=== PATIENT | male | born 1965 | race Hispanic/Latino ===

== ENCOUNTER 2018-04-18 02:41 | Inpatient (IN) | payer BC, SELFPAY ==
[2018-04-18 03:43] LABS: Absolute Lymphocytes (CBC) 1.2 K/uL (0.7-4.9); Absolute Monocytes 0.6 K/uL (0.1-1.3); Absolute Neutrophil 4.8 K/uL (1.8-8.0); Basophils % 0.6 % (0-1.3); Eosinophils % 7.9 % (0-4.4); Hematocrit 40.3 % (39.6-49.0); MCH 30.2 pg (27.0-35.0); MCV 88.2 fL (80-100); MPV 7.7 fL (7.6-11.3); Monocytes % 8.7 % (3.3-12.3); RBC Red Blood Cell Count 4.57 M/uL (4.33-5.43)
[2018-04-18 03:44] LABS: ALT/SGPT 24 IU/L (10-60); AST/SGOT 61 IU/L (10-42); Albumin 3.8 g/dL (3.2-5.5); Alkaline Phosphatase 79 IU/L (42-121); Bilirubin Direct < 0.1 mg/dL (0-0.2); Bilirubin Total 0.5 mg/dL (0.3-1.2); Magnesium 1.9 mg/dL (1.8-2.5); Protein, Total 7.5 g/dL (6.0-8.3)
[2018-04-18 03:55] LABS: Potassium 3.5 mEq/L (3.6-5.0)
[2018-04-18] MEDS ORDERED: HEPARIN 5000 UNIT/ML 1 ML VIAL ONE (04:03)
[2018-04-18] MEDS ORDERED: HEPARIN/D5W 25,000 UNIT/500 ML BAG IV ONE (04:08)
[2018-04-18] MEDS ORDERED: ASPIRIN 325 MG TAB ONE (04:30)
[2018-04-18 04:55] LABS: A1c Component 0.52 mg/dL; Hemoglobin A1c 5.5 % (4-6.0)
--- NOTE | 2018-04-18 05:37 | EDPHYS ---
Physician Documentation [facility] Name: Crispin Simmons Age: 52 yrs Sex: Male : 1965 Arrival Date: 04/18/2018 Time: 02:42 Bed 20 Private MD: Shanon De Luna H ED Physician Jaiden Amaya HPI: 04/18 03:11 This 52 yrs old Male presents to ER via Ambulatory with complaints of ps1 Shortness Of Breath. 03:11 pt has a hx of HTN, DMII, and recent leg and lower extremity swelling. Was put on ps1 meloxicam per PCP and stopped about a week ago because he started feeling shortness of breath. He additionally states that he has had a dry cough and lymph node swelling in the neck. No fevers. States that his shortness of breath is exertional with walking the length of the driveway or coming into the ED from his car. No chest pain. . Historical: - Allergies: 02:56 No Known Allergies; fc - Home Meds: 02:56 glimepiride 2 mg Oral tab 1 tab twice a day [Active]; metformin 500 mg Oral tab 1 tab 2 fc times per day [Active]; meloxicam 15 mg oral tab 1 tab once daily [Active]; - PMHx: 02:56 Diabetes - NIDDM; fc - PSHx: 02:56 None; fc - Immunization history:: Last tetanus immunization: unknown. - Social history:: Smoking status: Patient uses tobacco products, smokes one-half pack cigarettes per day, Patient uses alcohol, on a daily basis. Patient/guardian denies using street drugs. - Ebola Screening: : Patient negative for fever greater than or equal to 101.5 degrees Fahrenheit, and additional compatible Ebola Virus Disease symptoms Patient denies exposure to infectious person Patient denies travel to an Ebola-affected area in the 21 days before illness onset. ROS: 03:11 Constitutional: Negative for fever, chills, and weight loss, Eyes: Negative for injury, ps1 pain, redness, and discharge, Cardiovascular: Negative for chest pain, palpitations, and edema, Abdomen/GI: Negative for abdominal pain, nausea, vomiting, diarrhea, and constipation, Back: Negative for injury and pain, MS/Extremity: Negative for injury and deformity, Skin: Negative for injury, rash, and discoloration, Neuro: Negative for headache, weakness, numbness, tingling, and seizure. 03:11 Respiratory: Positive for cough, shortness of breath, on exertion. Exam: 03:11 Constitutional: This is a well developed, well nourished patient who is awake, alert, ps1 and in no acute distress. Head/Face: Normocephalic, atraumatic. Eyes: Pupils equal round and reactive to light, extra-ocular motions intact. Lids and lashes normal. Conjunctiva and sclera are non-icteric and not injected. Chest/axilla: Normal chest wall appearance and motion. Nontender with no deformity. No lesions are appreciated. Respiratory: Lungs have equal breath sounds bilaterally, clear to auscultation and percussion. No rales, rhonchi or wheezes noted. No increased work of breathing, no retractions or nasal flaring. Abdomen/GI: Soft, non-tender, with normal bowel sounds. No distension or tympany. No guarding or rebound. No evidence of tenderness throughout. Back: No spinal tenderness. No costovertebral tenderness. Full range of motion. MS/ Extremity: Pulses equal, no cyanosis. Neurovascular intact. Full, normal range of motion. Neuro: Awake and alert, GCS 15, oriented to person, place, time, and situation. Cranial nerves II-XII grossly intact. Sensory grossly intact. Psych: Awake, alert, with orientation to person, place and time. Behavior, mood, and affect are within normal limits. 03:11 Cardiovascular: Rate: tachycardic, Rhythm: regular, Edema: 1+ edema to level of left ankle and right ankle, JVD: is not appreciated. Vital Signs: 02:51 BP 165 / 94; Pulse 109; Resp 24; Temp 98.8(O); Pulse Ox 95% on R/A; Weight 99.79 kg fc (R); Height 5 ft. 7 in. (170.18 cm) (R); Pain 3/10; 02:55 Pulse Ox 98% on R/A; jd3 03:30 BP 153 / 96; Pulse 94; Resp 17 S; Pulse Ox 95% on R/A; jd3 03:56 Weight 95.39 kg (M); ak1 04:30 BP 153 / 91; Pulse 100; Resp 20 S; Pulse Ox 96% on R/A; jd3 05:36 BP 151 / 95; Pulse 92; Resp 16 S; Pulse Ox 95% on R/A; Pain 1/10; jd3 06:44 BP 153 / 96; Pulse 94; Resp 18 S; Pulse Ox 98% on R/A; jd3 07:00 BP 132 / 90; Pulse 90; Resp 18; Pulse Ox 98% ; Pain 0/10; jl7 03:56 Body Mass Index 32.94 (95.39 kg, 170.18 cm) ak1 MDM: 03:10 Patient medically screened. ps1 05:39 Data reviewed: vital signs, nurses notes, lab test result(s), EKG, radiologic studies. ps1 ED course: patient heparinized for suspected PE. CTA negative for PE. Dropped IV rate to 1000U per hour. Admitted to hospital with dx of NSTEMI. . 04/18 03:07 Order name: BNP; Complete Time: 04:12 ps1 04/18 03:07 Order name: CBC with Diff; Complete Time: 03:54 [facility] 04/18 03:07 Order name: LFT's; Complete Time: 03:54 [facility] 04/18 03:07 Order name: Magnesium; Complete Time: 03:54 [facility] 04/18 03:07 Order name: Troponin (emerg Dept Use Only); Complete Time: 03:54 [facility] 04/18 03:07 Order name: D-Dimer; Complete Time: 03:46 ps1 04/18 03:46 Interpretation: Abnormal. [facility] 04/18 03:07 Order name: Hemoglobin A1c; Complete Time: 05:08 [facility] 04/18 03:07 Order name: Strep; Complete Time: 03:54 [facility] 04/18 03:44 Order name: Throat Culture EDIA 04/18 03:48 Order name: Basic Metabolic Panel; Complete Time: 04:12 EDIA 04/18 06:19 Order name: Urine Dipstick--Ancillary (enter results) oe 04/18 06:36 Order name: BNP B-Type Natriuretic Peptide EDIA 04/18 06:36 Order name: Lipid Profile EDIA 04/18 03:07 Order name: XRAY Chest (1 view) [facility] 04/18 03:07 Order name: EKG; Complete Time: 03:08 ps1 04/18 03:07 Order name: Cardiac monitoring; Complete Time: 03:16 [facility] 04/18 03:07 Order name: EKG - Nurse/Tech; Complete Time: 03:16 ps1 04/18 03:07 Order name: IV Saline Lock; Complete Time: 03:16 ps1 04/18 03:46 Order name: CT Chest For PE Angio ps1 04/18 06:36 Order name: CONS Physician Consult EDIA 04/18 06:36 Order name: Echo with Doppler EDMS 04/18 06:36 Order name: Lipid Profile EDIA 04/18 06:36 Order name: Troponin I EDIA 04/18 06:36 Order name: Troponin I EDIA 04/18 06:36 Order name: Troponin I EDIA 04/18 06:39 Order name: CONS Physician Consult EDIA 04/18 03:07 Order name: Labs collected and sent; Complete Time: 03:16 ps1 04/18 03:07 Order name: O2 Per Protocol; Complete Time: 03:17 ps1 04/18 03:07 Order name: O2 Sat Monitoring; Complete Time: 03:17 ps1 04/18 03:07 Order name: Urine Dipstick-Ancillary (obtain specimen); Complete Time: 06:18 ps1 EC:13 Rate is 102 beats/min. Rhythm is regular. QRS [place] is Normal. AL interval is normal. ps1 QRS interval is normal. QT interval is normal. Q waves are Present in leads II, III, aVF. T waves are Normal. No ST changes noted. Clinical impression: Sinus Tachycardia with non-specific T wave abnormalities. Interpreted by me. Administered Medications: 04:20 Drug: Heparin (DVT/PE- Bolus per protocol) - HEParin 80 units/kg {Co-Signature: catie jjulita (Beatris Huffman RN).} Route: IVP; Site: right antecubital; 06:53 Follow up: Response: No adverse reaction jd3 04:21 Drug: Heparin (DVT/PE Drip) 18 units/kg/hr - (HEParin 96283 units, D5W 500 ml) jd3 {Co-Signature: bs1 (Beatris Huffman RN).} Route: IV; Rate: bolus; Site: right antecubital; 06:54 Follow up: IV Status: Infusion continued upon admission jd3 07:46 Follow up: IV Status: Infusion continued upon admission jl7 04:29 Drug: Aspirin 325 mg Route: PO; jd3 06:51 Follow up: Response: No adverse reaction jd3 Disposition: 05:39 Critical Care:. ps1 Disposition: 04/18/18 05:36 Hospitalization ordered by Janis Ceja for Inpatient Admission. Preliminary diagnosis is Non-ST elevation (NSTEMI) myocardial infarction. - Bed requested for Intensive Care Unit. - Status is Inpatient Admission. jl7 - Condition is Serious. - Problem is new. - Symptoms are unchanged. UTI on Admission? No Critical care time excluding procedures: 05:39 Critical care time: Bedside Care: 25 minutes, Consultation: 10 minutes. Total time: 35 ps1 minutes Signatures: Dispatcher [employer] EDIA Fabian Mendoazburn rg2 Dorothea Preston, RN RN fc Lorri Gong RN RN jl7 Bob Livingston RN RN jd3 Jaiden Amaya MD MD ps1 Beatris Huffman RN bs1 Corrections: (The following items were deleted from the chart) 03:48 03:45 COMPREHENSIVE METABOLIC PANEL+C.LAB.BRZ ordered. [facility] EDIA 05:39 05:36 Hospitalization Ordered by Janis Ceja MD for Inpatient Admission. Preliminary ps1 diagnosis is Non-ST elevation (NSTEMI) myocardial infarction. Bed requested for Telemetry/MedSurg (Inpatient). Status is Inpatient Admission. Condition is Serious. Problem is new. Symptoms are unchanged. UTI on Admission? No. ps1 06:25 05:39 04/18/2018 05:36 Hospitalization Ordered by Janis Ceja MD for Inpatient rg2 Admission. Preliminary diagnosis is Non-ST elevation (NSTEMI) myocardial infarction. Bed requested for Intensive Care Unit. Status is Inpatient Admission. Condition is Serious. Problem is new. Symptoms are unchanged. UTI on Admission? No. ps1 07:48 06:25 04/18/2018 05:36 Hospitalization Ordered by Janis Ceja MD for Inpatient jl7 Admission. Preliminary diagnosis is Non-ST elevation (NSTEMI) myocardial infarction. Bed requested for Intensive Care Unit. Status is Inpatient Admission. Condition is Serious. Problem is new. Symptoms are unchanged. UTI on Admission? No. rg2
--- NOTE | 2018-04-18 05:37 | ER ---
Nurse's Notes [facility] Name: Crispin Simmons Age: 52 yrs Sex: Male : 1965 Arrival Date: 04/18/2018 Time: 02:42 Bed 20 Private MD: Shanon De Luna H Diagnosis: Non-ST elevation (NSTEMI) myocardial infarction Presentation: 04/18 02:51 Presenting complaint: Patient states: that since yesterday he has been "gasping" for air. Got worse today and now his throat feels tight. Has cough when he lays down flat. Transition of care: patient was not received from another setting of care. Onset of symptoms was April 17, 2018. Risk Assessment: Do you want to hurt yourself or someone else? Patient reports no desire to harm self or others. Initial Sepsis Screen: Does the patient meet any 2 criteria? HR > 90 bpm. No. Patient's initial sepsis screen is negative. Does the patient have a suspected source of infection? No. Patient's initial sepsis screen is negative. Care prior to arrival: None. 02:51 Method Of Arrival: Ambulatory 02:51 Acuity: CHRIS 3 fc Historical: - Allergies: 02:56 No Known Allergies; fc - Home Meds: 02:56 glimepiride 2 mg Oral tab 1 tab twice a day [Active]; metformin 500 mg Oral tab 1 tab 2 fc times per day [Active]; meloxicam 15 mg oral tab 1 tab once daily [Active]; - PMHx: 02:56 Diabetes - NIDDM; fc - PSHx: 02:56 None; fc - Immunization history:: Last tetanus immunization: unknown. - Social history:: Smoking status: Patient uses tobacco products, smokes one-half pack cigarettes per day, Patient uses alcohol, on a daily basis. Patient/guardian denies using street drugs. - Ebola Screening: : Patient negative for fever greater than or equal to 101.5 degrees Fahrenheit, and additional compatible Ebola Virus Disease symptoms Patient denies exposure to infectious person Patient denies travel to an Ebola-affected area in the 21 days before illness onset. Screenin:54 Abuse screen: Denies threats or abuse. Nutritional screening: No deficits noted. Tuberculosis screening: No symptoms or risk factors identified. 02:56 Fall Risk Ambulatory Aid- None/Bed Rest/Nurse Assist (0 pts). Gait- Normal/Bed jd3 Rest/Wheelchair (0 pts) Mental Status- Oriented to own ability (0 pts). Total Cleary Fall Scale indicates No Risk (0-24 pts). Assessment: 02:52 General: Appears uncomfortable, Behavior is calm, cooperative, appropriate for age. jd3 Pain: Complains of pain in left index finger Pain currently is 3 out of 10 on a pain scale. Quality of pain is described as aching. Neuro: Level of Consciousness is awake, alert, obeys commands, Oriented to person, place, time, situation, Appropriate for age. Cardiovascular: Heart tones S1 S2 present Capillary refill < 3 seconds Patient's skin is warm and dry. Rhythm is sinus tachycardia. Respiratory: Reports shortness of breath when lying down cough that is productive, Airway is patent Respiratory effort is even, unlabored, Respiratory pattern is regular, symmetrical, Breath sounds are clear bilaterally. GI: No signs and/or symptoms were reported involving the gastrointestinal system. : No signs and/or symptoms were reported regarding the genitourinary system. EENT: No signs and/or symptoms were reported regarding the EENT system. Derm: Skin is intact, Skin is dry, Skin is normal, Skin temperature is warm. Musculoskeletal: Circulation, motion, and sensation intact. Range of motion: intact in all extremities. 03:30 Reassessment: Patient appears in no apparent distress at this time. Patient and/or jd3 family updated on plan of care and expected duration. Pain level reassessed. Patient is alert, oriented x 3, equal unlabored respirations, skin warm/dry/pink. 04:35 Reassessment: Patient appears in no apparent distress at this time. Patient and/or jd3 family updated on plan of care and expected duration. Pain level reassessed. Patient is alert, oriented x 3, equal unlabored respirations, skin warm/dry/pink. 05:35 Reassessment: Patient appears in no apparent distress at this time. Patient and/or jd3 family updated on plan of care and expected duration. Pain level reassessed. Patient is alert, oriented x 3, equal unlabored respirations, skin warm/dry/pink. 06:45 Reassessment: Patient appears in no apparent distress at this time. Patient and/or jd3 family updated on plan of care and expected duration. Pain level reassessed. Patient is alert, oriented x 3, equal unlabored respirations, skin warm/dry/pink. waiting for after shift change to call report. 07:00 Reassessment: Patient and/or family updated on plan of care and expected duration. Pain jl7 level reassessed. Patient is alert, oriented x 3, equal unlabored respirations, skin warm/dry/pink. Patient denies pain at this time. Vital Signs: 02:51 BP 165 / 94; Pulse 109; Resp 24; Temp 98.8(O); Pulse Ox 95% on R/A; Weight 99.79 kg fc (R); Height 5 ft. 7 in. (170.18 cm) (R); Pain 3/10; 02:55 Pulse Ox 98% on R/A; jd3 03:30 BP 153 / 96; Pulse 94; Resp 17 S; Pulse Ox 95% on R/A; jd3 03:56 Weight 95.39 kg (M); ak1 04:30 BP 153 / 91; Pulse 100; Resp 20 S; Pulse Ox 96% on R/A; jd3 05:36 BP 151 / 95; Pulse 92; Resp 16 S; Pulse Ox 95% on R/A; Pain 1/10; jd3 06:44 BP 153 / 96; Pulse 94; Resp 18 S; Pulse Ox 98% on R/A; jd3 07:00 BP 132 / 90; Pulse 90; Resp 18; Pulse Ox 98% ; Pain 0/10; jl7 03:56 Body Mass Index 32.94 (95.39 kg, 170.18 cm) ak1 ED Course: 02:42 Patient arrived in ED. am2 02:42 Shanon De Luna DO is Private Physician. am2 02:51 Arm band placed on Patient placed in an exam room, on a stretcher. fc 02:52 Bob Livingston RN is Primary Nurse. jd3 02:52 Jaiden Amaya MD is Attending Physician. ps1 02:52 Triage completed. fc 02:54 Patient has correct armband on for positive identification. Bed in low position. Call fc light in reach. Side rails up X 1. 03:11 Inserted saline lock: 20 gauge in right antecubital area, using aseptic technique. jd3 Blood collected. 03:41 X-ray completed. Portable x-ray completed in exam room. Patient tolerated procedure kw well. 03:44 Notified ED physician of a critical lab result(s). D-dimer 1227. bs1 03:50 Notified ED physician of a critical lab result(s). 4.07 trop. ak1 04:27 CT Chest For PE Angio In Process Unspecified. EDMS 05:36 Janis Ceja MD is Hospitalizing Provider. ps1 06:14 XRAY Chest (1 view) In Process Unspecified. EDMS 07:14 Primary Nurse role handed off by Bob Livingston RN bd 07:45 Lorri Gong RN is Primary Nurse. jl7 07:47 No provider procedures requiring assistance completed. Patient admitted, IV remains in jl7 place. intact, No redness/swelling at site. Administered Medications: 04:20 Drug: Heparin (DVT/PE- Bolus per protocol) - HEParin 80 units/kg {Co-Signature: [email or web address] alfredo (Beatris Huffman RN).} Route: IVP; Site: right antecubital; 06:53 Follow up: Response: No adverse reaction jd3 04:21 Drug: Heparin (DVT/PE Drip) 18 units/kg/hr - (HEParin 02503 units, D5W 500 ml) jd3 {Co-Signature: bs1 (Beatris Huffman RN).} Route: IV; Rate: bolus; Site: right antecubital; 06:54 Follow up: IV Status: Infusion continued upon admission jd3 07:46 Follow up: IV Status: Infusion continued upon admission jl7 04:29 Drug: Aspirin 325 mg Route: PO; jd3 06:51 Follow up: Response: No adverse reaction jd3 Outcome: 05:36 Decision to Hospitalize by Provider. ps1 07:47 Admitted to ICU accompanied by nurse, accompanied by tech, family with patient, via jl7 wheelchair, room 2, on monitor, with chart, Report called to RONEL Jose 07:47 Condition: stable 07:47 Discharge instructions given to patient, family, Instructed on the need for admit, Demonstrated understanding of instructions. 07:48 Patient left the ED. jl7 Signatures: Dispatcher [employer] EDDemetria Oliveros Felicia, RN RN fc Celena Sharma Amber, RN RN ak1 Lorri Gong RN RN jl7 Dimple Jenkins am2 Bob Livingston RN RN jd3 Jaiden Amaya MD MD ps1 Salazar, Brittany, RN RN bs1 Beatris Huffman RN bs1 Corrections: (The following items were deleted from the chart) 03:18 02:52 Cardiovascular: Heart tones S1 S2 present Capillary refill < 3 seconds Patient's jd3 skin is warm and dry. jd3
[2018-04-18 06:21] LABS: Urine Blood 2+ (NEG); Urine Glucose NEGATIVE (NEG); Urine Protein 3+ (NEG); Urine Specific Gravity 1.025 (1.005-1.030); Urine pH 5.5 (5.0-7.0)
[2018-04-18] MEDS ORDERED: ACETAMINOPHEN 500 MG TAB PO PRN (06:30)
[2018-04-18] MEDS ORDERED: ONDANSETRON 4 MG/2 ML VIAL IV PRN (06:30)
[2018-04-18] MEDS ORDERED: HEPARIN/D5W 25,000 UNIT/500 ML BAG IV SCH (07:00)
[2018-04-18] MEDS ORDERED: GLUCAGON 1 MG/VIAL IM PRN (07:28)
[2018-04-18] MEDS ORDERED: D50W 25 GM/50 ML SYRINGE IV PRN (07:28)
[2018-04-18] MEDS: INSULIN -REGULAR HUMAN 50 UNIT/0.5 ML ML SQ SCH ×4 (07:30→21:00)
--- NOTE | 2018-04-18 07:35 | P.PN ---
Subjective Date of Service: 04/18/18 Primary Care Provider: Dr. De Luna Chief Complaint: Chest pain Subjective: Doing well (Patient doing better. Patient without any chest pain at this time. Patient reports only taking medication for diabetes. Patient recently taking meloxicam for pain. Patient reports history of hypertension but does not take any blood pressure medication. Patient reports alcohol and tobacco abuse.) Physical Examination - Physical Exam General: Alert, In no apparent distress, Oriented x3, Cooperative HEENT: Atraumatic Neck: Supple Respiratory: Clear to auscultation bilaterally, Normal air movement Cardiovascular: Normal pulses, Regular rate/rhythm Gastrointestinal: Normal bowel sounds, Soft and benign, Non-distended, No tenderness, No masses, No rebound, No guarding Musculoskeletal: No erythema, No tenderness, No warmth Integumentary: No tenderness/swelling, No erythema, No warmth, No cyanosis Neurological: Normal speech, Normal strength at 5/5 x4 extr, Normal tone, Normal affect Lymphatics: No axilla or inguinal lymphadenopathy - Studies Laboratory Data (last 24 hrs) 04/18/18 03:11: Sodium 138, Potassium 3.5 L, BUN 18, Creatinine 1.52 H, Glucose 127 H, Total Bilirubin Cancelled, AST Cancelled, ALT Cancelled, Alkaline Phosphatase Cancelled 04/18/18 03:11: Magnesium 1.9, Total Bilirubin 0.5, AST 61 H, ALT 24, Alkaline Phosphatase 79 04/18/18 03:11: WBC 7.3, Hgb 13.8, Hct 40.3, Plt Count 368 04/18/18 03:11: B-Natriuretic Peptide 540 H Microbiology Data (last 24 hrs): 04/18/18 03:11 Throat Group A Streptococcus Rapid Screen - Final Medications List Reviewed: Yes Assessment & Plan - Problems (Diagnosis) (1) NSTEMI (non-ST elevated myocardial infarction) Current Visit: Yes Status: Acute Plan: Patient with elevated troponin. Non ST wave PA noted. Cardiology has been consulted. Anticipate cardiac intervention today. Patient on heparin. Continue with aspirin, blood pressure controlled. Await further recommendations from cardiology. Echocardiogram pending. Will check urine drug screen. (2) Chest pain Current Visit: Yes Status: Acute Plan: Continue as above. Cardiology consulted. Anticipate cardiac evaluation with intervention. Qualifiers: Chest pain type: chest pain due to myocardial ischemia (3) Hypertension Current Visit: Yes Status: Acute Plan: Patient has hypertension. Patient not previously taking any medication for this. Will start medication. Qualifiers: Hypertension type: essential hypertension Qualified Code(s): I10 - Essential (primary) hypertension (4) Diabetes mellitus Current Visit: Yes Status: Chronic Plan: Will continue sliding scale. A1c 5.5. Patient takes metformin and glimepiride as an outpatient. Qualifiers: Diabetes mellitus type: type 2 Diabetes mellitus bed bug exterminator insulin use: without bed bug exterminator use Diabetes mellitus complication status: with other specified complication Qualified Code(s): E11.69 - Type 2 diabetes mellitus with other specified complication (5) Alcohol abuse Current Visit: Yes Status: Chronic Plan: Alcohol cessation addressed in detail. (6) Tobacco abuse Current Visit: Yes Status: Chronic Plan: Tobacco cessation addressed in detail. (7) GERD (gastroesophageal reflux disease) Current Visit: Yes Status: Suspected Plan: Will provide PPI. Will recommend to discontinue meloxicam. Qualifiers: Esophagitis presence: esophagitis presence not specified Qualified Code(s) : K21.9 - Gastro-esophageal reflux disease without esophagitis (8) Hypokalemia Current Visit: Yes Status: Acute Plan: Will monitor and replace. Replacement protocol in place. (9) Renal insufficiency Current Visit: Yes Status: Acute Plan: Likely from dehydration. Will start IV fluids. Discharge Plan: Home Plan to discharge in: 48 Hours - Code Status/Comfort Care Code Status Assessed: Yes Time Spent Managing Pts Care (In Minutes): 55
--- NOTE | 2018-04-18 07:46 | P.HP ---
Certification for Inpatient Patient admitted to: Inpatient With expected LOS: >2 Midnights Patient will require the following post-hospital care: None Practitioner: I am a practitioner with admitting privileges, knowledge of patient current condition, hospital course, and medical plan of care. Services: Services provided to patient in accordance with Admission requirements found in Title 42 Section 412.3 of the Code of Federal Regulations Patient History Date of Service: 04/18/18 Reason for admission: Chest pain History of Present Illness: Patient is a 52-year-old gentleman who came into the hospital with shortness of breath. Patient's shortness of breath has been progressively getting worse over the last week. Patient has been dealing with generalized edema along with anasarca. Patient was recently started on meloxicam. This may have contributed to some of the patient had 3+ proteinuria as well which most likely is related to patient's diabetes. This is probably the reason with the swelling. Patient came into the ER, and further evaluation revealed ACS with elevated troponin. Patient was admitted to the hospital for further evaluation along with Cardiology evaluation. Allergies No Known Allergies Allergy (Unverified 11/25/17 16:53) - Past Medical/Surgical History -: DM-2 -: HTN -: DYSLIPIDEMIA Past Surgical History: Patient denies surgical history - Family History Father Family History: Reviewed- Non-Contributory - Social History Smoking therapy provided: No Alcohol use: No CD- Drugs: No Review of Systems 10-point ROS is otherwise unremarkable Physical Examination - Vital Signs Temperature: 98 F Blood Pressure: 120/70 Pulse: 88 Respirations: 18 Pulse Ox (%): 96 - Physical Exam General: Alert, In no apparent distress, Oriented x3 HEENT: Atraumatic, Normocephalic Neck: Supple, 2+ carotid pulse no bruit, JVD not distended, No LAD, Without JVD or thyroid abnormality Respiratory: Clear to auscultation bilaterally, Normal air movement Cardiovascular: Regular rate/rhythm, Normal S1 S2, No murmurs Gastrointestinal: Normal bowel sounds, Soft and benign, Non-distended Musculoskeletal: No clubbing, Swelling Integumentary: No rashes, No breakdown, No significant lesion, No tenderness/ swelling, No erythema Neurological: Normal gait, Normal speech, Normal strength at 5/5 x4 extr, Normal tone, Sensation intact, Cranial nerves 3-12 intact Lymphatics: No axilla or inguinal lymphadenopathy - Studies Laboratory Data (last 24 hrs) 04/18/18 03:11: Sodium 138, Potassium 3.5 L, BUN 18, Creatinine 1.52 H, Glucose 127 H, Total Bilirubin Cancelled, AST Cancelled, ALT Cancelled, Alkaline Phosphatase Cancelled 04/18/18 03:11: Magnesium 1.9, Total Bilirubin 0.5, AST 61 H, ALT 24, Alkaline Phosphatase 79 04/18/18 03:11: WBC 7.3, Hgb 13.8, Hct 40.3, Plt Count 368 04/18/18 03:11: B-Natriuretic Peptide 540 H Microbiology Data (last 24 hrs): 04/18/18 03:11 Throat Group A Streptococcus Rapid Screen - Final Assessment & Plan - Problems (Diagnosis) (1) Hypertension Current Visit: Yes Status: Acute Qualifiers: Hypertension type: essential hypertension Qualified Code(s): I10 - Essential (primary) hypertension (2) NSTEMI (non-ST elevated myocardial infarction) Current Visit: Yes Status: Acute (3) Alcohol abuse Current Visit: Yes Status: Chronic (4) Diabetes mellitus Current Visit: Yes Status: Chronic Qualifiers: Diabetes mellitus type: type 2 Diabetes mellitus prison insulin use: without long term care pharmacist use Diabetes mellitus complication status: with other specified complication Qualified Code(s): E11.69 - Type 2 diabetes mellitus with other specified complication (5) Tobacco abuse Current Visit: Yes Status: Chronic (6) GERD (gastroesophageal reflux disease) Current Visit: Yes Status: Suspected Qualifiers: Esophagitis presence: esophagitis presence not specified Qualified Code(s) : K21.9 - Gastro-esophageal reflux disease without esophagitis - Plan 1. Serial troponins and EKG 2. Cardiology consultation 3. Echocardiogram and further evaluation by Cardiology; will make patient NPO for now. 4. Anti-platelet therapy, anti coagulation, beta-yohan, statin, and O2 as needed 5. IV morphine for pain 6. Heparin drip if okay with Cardiology 7. GI and DVT prophylaxis Discharge Plan: Home Plan to discharge in: 24 Hours - Advance Directives Does patient have a Living Will: No Does patient have a Durable POA for Healthcare: No - Code Status/Comfort Care Code Status Assessed: Yes Code Status: Full Code Critical Care: No Time Spent Managing PTS Care (In Minutes): 50
[2018-04-18] MEDS ORDERED: NA CHLORIDE 0.9% 1,000 ML IV SCH ×2 (08:00→14:00)
[2018-04-18] MEDS: ASPIRIN EC 81 MG TAB PO SCH (08:07)
--- NOTE | 2018-04-18 08:46 | RAD REPORT ---
EXAM DESCRIPTION: RAD - Chest Single View - 04/18/2018 6:14 am CLINICAL HISTORY: Cough, patient provided history of difficulty breathing, 1/2 pack per day smoking history COMPARISON: None. TECHNIQUE: AP portable chest image was obtained 0337 hours . FINDINGS: No focal mass, consolidation or significant failure finding. Interstitial markings are pro minent with the baseline for the patient unknown. This could be chronic interstitial disease, interst itial edema or interstitial infiltrate. Trachea is midline. Heart and vasculature are normal. No pneu mothorax or large pleural effusion. No gross bony abnormality seen. No acute aortic findings suspecte d. IMPRESSION: Prominent interstitial markings on a baseline examination. This could be interstitial ed josie, interstitial infiltrate or less likely chronic interstitial lung disease. No mass or focal consolidation.
--- NOTE | 2018-04-18 08:49 | RAD REPORT ---
EXAM DESCRIPTION: CT - Chest For Pe Angio - 04/18/2018 5:27 am CLINICAL HISTORY: Dyspnea, cough, shortness of breath, abnormal chest film A preliminary written report was provided at the time of the study, and the report was reviewed prio r to final dictation. COMPARISON: Baseline portable chest same date TECHNIQUE: Dynamically enhanced 3 mm thick images of the chest were obtained during administration o f approximately 150mL Isovue 370 IV contrast. Coronal and oblique reconstruction images were generate d and reviewed. Exam utilizes a protocol to evaluate the pulmonary arterial tree. All CT scans are performed using dose optimization technique as appropriate and may include automated exposure control or mA/KV adjustment according to patient size. FINDINGS: No pulmonary emboli are identified. The aorta as imaged shows no acute or suspicious finding. Heart size is upper normal. No pericardial thickening or effusion. No focal mass or consolidation. Interstitial markings are prominent and patient has small bilateral p leural effusions. No endobronchial lesion or significant bronchial wall thickening identifiable. No p neumothorax or pleural based mass. No mediastinal or hilar suspicious masses. No chest wall masses or abnormal axillary lymphadenopathy. IMPRESSION: No pulmonary emboli identified. Prominent interstitial markings, upper normal heart size and bilateral small pleural effusions could indicate a component of cardiac decompensation or volume overload. Nonspecific interstitial edema or interstitial infiltrate pattern is present.
[2018-04-18] MEDS ORDERED: ENOXAPARIN 40 MG/0.4 ML SQ SCH (09:00)
[2018-04-18] MEDS: CLOPIDOGREL 75 MG TABLET PO SCH ×2 (09:00→09:16)
[2018-04-18] MEDS: METOPROLOL TAR 50 MG TAB PO SCH ×2 (09:16→21:39)
--- NOTE | 2018-04-18 09:29 | EKG ---
Test Date: 2018-04-18 Test Time: 03:13:18 Manager Transmission: ROWENA MEASUREMENT RESULTS: Intervals: Rate: 102 NM: 148 QRSD: 90 QT: 356 QTc: 463 [place]: P: 55 NM: 148 QRS: 83 T: 98 INTERPRETIVE STATEMENTS: Sinus tachycardia Possible Left atrial enlargement Nonspecific ST abnormality Abnormal ECG Compared to ECG 09/11/2001 03:22:00 ST (T wave) deviation now present Sinus rhythm no longer present Early repolarization no longer present Electronically Signed On 04-18-18 09:27:41 CDT by Bernard Marina
[2018-04-18 09:35] LABS: Protime INR 1.04
[2018-04-18] MEDS ORDERED: FUROSEMIDE 40 MG/4 ML VIAL IV SCH (09:40)
[2018-04-18] MEDS: NICOTINE 21 MG/PAT TD SCH (10:27)
[2018-04-18 10:43] LABS: Barbiturates NEGATIVE (NEGATIVE); Benzodiazepines NEGATIVE (NEGATIVE); Cocaine NEGATIVE (NEGATIVE); METHAMPHETAM NEGATIVE (NEGATIVE); Opiates NEGATIVE (NEGATIVE); Phencyclidine NEGATIVE (NEGATIVE); THC Cannibis NEGATIVE (NEGATIVE)
[2018-04-18] MEDS: ENOXAPARIN 100 MG/ML SYR SQ SCH ×2 (11:30→21:40)
--- NOTE | 2018-04-18 13:32 | ECHO ---
HEIGHT: 5 ft 7 in WEIGHT: 210 lb 0 oz DATE OF STUDY: 04/18/[address]: Janis Ceja MD 2-DIMENSIONAL: YES M.MODE: YES DOPPLER: YES COLOR FLOW: YES TDS: NO PORTABLE: NO DEFINITY: NO BUBBLE STUDY: NO DIAGNOSIS: ACUTE CORONARY SYNDROME CARDIAC HISTORY: CATHERIZATION: NO SURGERY: NO PROSTHETIC VALVE: NO PACEMAKER: NO MEASUREMENTS (cm) DIASTOLIC (NORMALS) SYSTOLIC (NORMALS) IVSd 1.2 (0.6-1.2) LA Diam 3.9 (1.9-4.0) LVEF 50% LVIDd 5.7 (3.5-5.7) LVIDs 4.3 (2.0-3.5) %FS 26% LVPWd 1.2 (0.6-1.2) Ao Diam 2.8 (2.0-3.7) 2 DIMENSIONAL ASSESSMENT: RIGHT ATRIUM: NORMAL LEFT ATRIUM: NORMAL RIGHT VENTRICLE: NORMAL LEFT VENTRICLE: NORMAL TRICUSPID VALVE: NORMAL MITRAL VALVE: NORMAL PULMONIC VALVE: NORMAL AORTIC VALVE: NORMAL PERICARDIAL EFFUSION: NONE AORTIC ROOT: NORMAL LEFT VENTRICULAR WALL MOTION: MILD GLOBAL HYPOKINESIS. DOPPLER/COLOR FLOW: MILD TRICUSPID REGURGITATION. COMMENTS: MILD TRICUSPID REGURGITATION. MILD GLOBAL HYPOKINESIS. NO EFFUSION. EJECTION FRACTION 50%. TECHNOLOGIST: JAVIER LYON
--- NOTE | 2018-04-18 14:59 | RAD REPORT ---
EXAM DESCRIPTION: US - Renal Ultrasound-Complete - 04/18/2018 2:45 pm CLINICAL HISTORY: Acute Renal failure COMPARISON: None. FINDINGS: The right kidney measures 13 centimeters with increased echotexture. The left kidney measures 13 centimeters with increased echotexture Hydronephrosis is not seen. No gross abnormality of bladder is seen IMPRESSION: Increased renal echotexture consistent with parenchymal disease
[2018-04-18 15:59] LABS: Urine Protein/Creatinine Ratio 3.05 ratio (<0.15)
--- NOTE | 2018-04-18 16:01 | CON ---
Date of Consultation: 04/18/2018 Additional Consulting Physician: Asif Brito DO Reason For Consultation: Elevated BUN and creatinine, fluid management, hypertension. History Of Present Illness: This is a pleasant 52-year-old gentleman with significant past medical h istory of hypertension, diabetes, diagnosis 1 year back, complicated with neuropathy, no retinopathy, never had any blood test to evaluate kidney function, hyperlipidemia, the patient came to the hospit al because of anasarca and swelling. The patient apparently, because of that swelling, was started b y his PCP on meloxicam. When he came to the hospital found to have non-ST elevation GA, and admitted to the hospital. The patient had CT with contrast to rule out PE, found to have a possible pulmonar y edema. Creatinine on admission 1.5. Again, the patient was on meloxicam and apparently the patient taking m etformin. Allergies: NO KNOWN DRUG ALLERGIES. Past Medical History: 1.Include diabetes complicated with neuropathy, no history of nephropathy. 2.Hypertension. 3.Dyslipidemia. 4.Coronary artery disease on this admission with non-ST elevation GA. Past Surgical History: Negative. Family History: Positive for hypertension. Social History: Denies smoking. Denies drinking. Denies drug abuse. Occupational, working on [employer], exposure to inhalation. Review of Systems: Head and Neck: No red eye. No ear pain. GI: No nausea. No vomiting. : No polyuria. No dysuria. No hematuria. ACCURACY EXPERT: Not applicable. Respiratory: Has shortness of breath. Has chest tightness. Cardiovascular: Has leg swelling. Endocrine: No polydipsia. Skin: No rash. Neuro: Has neuropathy. Musculoskeletal: No joint pain. Physical Examination: Vital Signs: When I saw the patient, blood pressure 137/88, pulse of 80, afebrile. Chest: Clear to auscultation. Heart: S1, S2. Regular. Abdomen: Soft, nontender. Extremities: Plus edema. Medications: Current medications the patient on include aspirin, nicotine patch, atorvastatin, metop rolol 50, Tylenol, Lasix 40 b.i.d. Diagnostic Data: Echocardiogram; ejection fraction of 50, mild global hypokinesia. CT with contrast negative for PE. Laboratory Data: WBC 7.3, H and H 13.8/40.3, platelets of 367. Sodium 138, potassium 3.5, bicarb 26 , BUN 18, creatinine 1.5, GFR of 49. Troponin positive. Chest x-ray, congestion with cardiomegaly. Assessment And Plan: 1.Acute kidney injury on possible chronic kidney disease secondary to cardiorenal. Slightly on the wet side, superimposed with contrast-induced and nonsteroidal use, proteinuric, possible to be nephro tic without any significant anemia. I am going to go ahead and send for full workup. We will quanti fy the protein creatinine. I am going to start the patient on gentle hydration given the exposure to contrast. We will get PTH and ultrasound to evaluate the chronicity of the disease. We will discon tinue IV fluid after 12 hours and we will monitor. I agree with holding the meloxicam and the metfor min for the time being. 2.Hypertension, controlled, optimal. We will start gentle hydration. 3.Coronary artery disease as by Cardiology. 4.Diabetes as by primary. Thank you Dr. Asif Brito for allowing us to participate in the care of your patient. SOPHY Voice ID: [id number] Report ID: [id number]
[2018-04-18] MEDS: ATORVASTATIN 20 MG TAB PO SCH (21:39)
[2018-04-19 04:27] LABS: Absolute Lymphocytes (CBC) 2.1 K/uL (0.7-4.9); Absolute Monocytes 0.9 K/uL (0.1-1.3); Absolute Neutrophil 5.2 K/uL (1.8-8.0); Basophils % 0.9 % (0-1.3); Eosinophils % 5.6 % (0-4.4); MCH 29.7 pg (27.0-35.0); MCV 89.4 fL (80-100); MPV 7.6 fL (7.6-11.3); Monocytes % 10.4 % (3.3-12.3); RBC Red Blood Cell Count 4.25 M/uL (4.33-5.43)
[2018-04-19 04:57] LABS: Albumin 2.7 g/dL (3.4-5.0); Magnesium 1.7 mg/dL (1.8-2.4); Phosphorus 3.6 mg/dL (2.5-4.9); Potassium 3.7 mmol/L (3.5-5.1)
[2018-04-19 05:01] LABS: Thyroid Stimulating Hormone 5.56 uIU/mL (0.36-3.74)
[2018-04-19] MEDS ORDERED: POTASSIUM 25 MEQ EFFERV TAB PO ONE (05:18)
[2018-04-19] MEDS ORDERED: NA CHLORIDE 0.9% 0 ML ONE (05:21)
[2018-04-19] MEDS: PANTOPRAZOLE 40MG TABLET PO SCH (05:42)
[2018-04-19] MEDS ORDERED: MAGNESIUM SULFATE 1 gm IVPB 1 GM/100 ML BAG IV ONE ×2 (06:00→10:05)
[2018-04-19] MEDS ORDERED: POTASSIUM 25 MEQ EFFERV TAB PO SCH (06:00)
[2018-04-19] MEDS: INSULIN -REGULAR HUMAN 50 UNIT/0.5 ML ML SQ SCH ×4 (07:30→21:00)
[2018-04-19] MEDS: NICOTINE 21 MG/PAT TD SCH (09:00)
[2018-04-19] MEDS: ENOXAPARIN 100 MG/ML SYR SQ SCH ×2 (09:12→21:41)
[2018-04-19] MEDS: FUROSEMIDE 40 MG TABLET PO SCH (09:12)
[2018-04-19] MEDS: METOPROLOL TAR 50 MG TAB PO SCH ×2 (09:13→21:41)
[2018-04-19] MEDS: ASPIRIN EC 81 MG TAB PO SCH (09:14)
--- NOTE | 2018-04-19 09:50 | P.PN ---
Subjective Date of Service: 04/19/18 Primary Care Provider: Dr. De Luna Chief Complaint: Chest pain Subjective: Improving (Patient without any significant chest pain, shortness of breath. Edema to the lower extremity improved.) Physical Examination - Vital Signs Temperature: 97.3 F Blood Pressure: 165/98 Pulse: 87 Respirations: 18 Pulse Ox (%): 97 - Physical Exam General: Alert, In no apparent distress, Oriented x3, Cooperative HEENT: Atraumatic, Mucous membr. moist/pink Neck: Supple, No Thyromegaly Respiratory: Clear to auscultation bilaterally, Normal air movement Cardiovascular: Normal pulses, Regular rate/rhythm Gastrointestinal: Normal bowel sounds, Soft and benign, Non-distended, No tenderness, No masses, No rebound, No guarding Musculoskeletal: No erythema, No tenderness, No warmth Integumentary: No tenderness/swelling, No erythema, No warmth, No cyanosis Neurological: Normal speech, Normal strength at 5/5 x4 extr, Normal tone, Normal affect Lymphatics: No axilla or inguinal lymphadenopathy - Studies Medications List Reviewed: Yes Assessment & Plan - Problems (Diagnosis) (1) NSTEMI (non-ST elevated myocardial infarction) Current Visit: Yes Status: Acute Plan: Patient doing well this time. Will continue with aspirin, blood pressure control. Will discuss with cardiology further. Patient desires to go home. Possible discharge today if okay with cardiology, if not patient will require heart catheterization prior to discharge. Renal function improved. Will also discuss with nephrology. Renal ultrasound shows medical renal disease. Echocardiogram shows ejection fraction of 50% with mild global hypokinesis. Patient with CHF. Patient on fluid restriction, Lasix 40 mg daily. (2) Chest pain Current Visit: Yes Status: Acute Plan: Continue as above. Will discuss with cardiology for plan of care. Qualifiers: Chest pain type: chest pain due to myocardial ischemia (3) Hypertension Current Visit: Yes Status: Acute Plan: Patient has hypertension. Patient not previously taking any medication for this. Will continue to adjust blood pressure medication for better control. Qualifiers: Hypertension type: essential hypertension Qualified Code(s): I10 - Essential (primary) hypertension (4) Diabetes mellitus Current Visit: Yes Status: Chronic Plan: Will continue sliding scale. A1c 5.5. We will hold metformin at discharge. Patient will need to continue with glimepiride. Renal function improved. Qualifiers: Diabetes mellitus type: type 2 Diabetes mellitus intermediate project manager insulin use: without intermediate project manager use Diabetes mellitus complication status: with other specified complication Qualified Code(s): E11.69 - Type 2 diabetes mellitus with other specified complication (5) Alcohol abuse Current Visit: Yes Status: Chronic Plan: Alcohol cessation addressed in detail. (6) Tobacco abuse Current Visit: Yes Status: Chronic Plan: Tobacco cessation addressed in detail. (7) GERD (gastroesophageal reflux disease) Current Visit: Yes Status: Suspected Plan: Will provide PPI. Will recommend to discontinue meloxicam. Qualifiers: Esophagitis presence: esophagitis presence not specified Qualified Code(s) : K21.9 - Gastro-esophageal reflux disease without esophagitis (8) Hypokalemia Current Visit: Yes Status: Acute Plan: Will monitor and replace. Replacement protocol in place. (9) Renal insufficiency Current Visit: Yes Status: Acute Plan: This has improved. Renal ultrasound shows medical renal disease. Will discuss with nephrology. (10) Chronic renal disease Current Visit: Yes Status: Acute Plan: Renal function improved. Renal ultrasound shows medical renal disease. Will discuss with nephrology. Qualifiers: Chronic kidney disease stage: stage 2 (mild) Qualified Code(s): N18.2 - Chronic kidney disease, stage 2 (mild) (11) Hypomagnesemia Current Visit: Yes Status: Acute Plan: Will continue to monitor and replace appropriately. Replacement protocol in place. (12) CHF (congestive heart failure) Current Visit: Yes Status: Acute Plan: Patient had mild volume overload yesterday. Patient given Lasix. IV fluids has been discontinued. Will teach on 1500 cc per day fluid restriction. Will change Lasix to oral. Case discussed with cardiology. Qualifiers: Heart failure type: systolic Heart failure chronicity: acute on chronic Qualified Code(s): I50.23 - Acute on chronic systolic (congestive) heart failure (13) Hyperlipidemia Current Visit: Yes Status: Chronic Plan: Will continue with statin medication. Qualifiers: Hyperlipidemia type: unspecified Qualified Code(s): E78.5 - Hyperlipidemia , unspecified Discharge Plan: Home Plan to discharge in: 24 Hours Time Spent Managing Pts Care (In Minutes): 55
--- NOTE | 2018-04-19 11:41 | PN ---
Date of Progress Note: 04/19/2018 Subjective: The patient doing better. No chest pain. Still has some leg swelling. No shortness of breath. Blood pressure has been on the upper side, was started on beta-yohan. Physical Examination: Vital Signs: Blood pressure 165/98, pulse of 87, afebrile. Chest: Faint crackles on the base. Heart: S1, S2. Regular. Abdomen: Soft, nontender. Extremities: +1 edema. Neurologic: Alert and oriented. Nonfocal. Laboratory Data: WBC 8.8, H and H 12.6/38, platelets 332. Sodium 139, potassium 3.7, bicarb 28, BUN 22, creatinine down to 1.3 with GFR up to 58, calcium 8, phosphorus 3.6, magnesium 1.7. Troponin of 5. Albumin 2.7. TSH 5.5, PTH of 71, protein creatinine of 3. Renal ultrasound, normal size kidney , 13 x 13. Assessment And Plan: 1.Chronic kidney disease, stage 3 with acute kidney injury secondary to cardiorenal/contrast-induced nephropathy, slightly on the wet side. I agree with starting regular daily dose of Lasix to establi sh better volume control. I will be hesitant to start GIA inhibitor on the current time given that vanita roper recovered from acute kidney injury, but he will be a very good candidate to be started on GIA inh ibitor as outpatient. Given the nephrotic range of proteinuria and blood in urine, mostly it is rela jarrod to his diabetes, but I am going to go ahead and send for serology and SPEP just to make sure ther e is no autoimmune disease or light chain disease even though that I doubt it and we will follow up. 2.Hypertension, uncontrolled in the presence of acute kidney injury and congestive heart failure. I am going to go ahead and add diltiazem. As I mentioned, the patient is going to be good candidate f or GIA inhibitor. Continue beta-yohan and the patient was started on Lasix. 3.Coronary artery disease, non-ST elevation myocardial infarction, and congestive heart failure. We will follow up with Cardiology. 4.Hypokalemia, stable. 5.Hypomagnesemia. We will supplement. Case discussed with the patient. Discussed with Dr. Brito, agreed on the plan. STEFFI/NURYS Voice ID: [id number] Report ID: [id number]
[2018-04-19] MEDS ORDERED: ALPRAZOLAM 0.5 MG TABLET PO PRN (11:56)
[2018-04-19] MEDS: ATORVASTATIN 20 MG TAB PO SCH (21:41)
[2018-04-19] MEDS: ACETYLCYST 20% 800 MG/4 ML VIAL PO SCH (21:43)
--- NOTE | 2018-04-19 22:44 | CON ---
Date of Consultation: 04/18/[address] Brito. Reason For Consultation: Non-ST elevation myocardial infarction. History Of Present Illness: Mr. Simmons is a 52-year-old [place] male with history of diabe larry. He takes metformin at home and glimepiride. Apparently, he has been on a short course of metfo rmin because of leg swelling thought to be secondary to arthritis. Continues to have cough, edema, P ND, orthopnea, shortness of breath. No chest pain. Came in, his EKG was nonspecific. His troponin, however, was 4.07. He had a D-dimer of 1227, elevated BNP. His creatinine is 1.52, potassium 3.5. Chest x-ray and CT angiogram showed congestive heart failure. The patient denied any palpitations o r syncope. Past Medical History: As stated above. Allergies: NONE. Review of Systems: Negative. Social History: Positive for tobacco and alcohol use. Physical Examination: Vital Signs: Stable, afebrile. HEENT: Negative. Neck: Supple with no bruit. Chest: Clear to auscultation and percussion. Cardiac: Reveals a regular rhythm and rate without any murmurs, gallops, or rubs. Abdomen: Benign. Extremities: Reveal no clubbing or cyanosis. He has 2+ edema. Diagnostic Data: As stated earlier. Impression And Plan: 1.Acute congestive heart failure, probably systolic. 2.Diabetes. 3.Renal insufficiency. 4.Elevated D-dimer, probably secondary to congestive heart failure. 5.Hypokalemia. 6.Elevated troponin, possibly secondary to congestive heart failure and maybe coronary artery diseas e. An echocardiogram is pending. I think we need to have him on IV Lasix and metoprolol. I will av oid GIA inhibitors or ARBs for now. We will see what the echo shows prior to making final decision. We will probably need to do a heart catheterization on him in the near future. I would suggest Jonh jameson before and after. CHIDI/NURYS Voice ID: [id number] Report ID: [id number]
[2018-04-20] MEDS ORDERED: NA CHLORIDE 0.9% 1,000 ML ONE (05:06)
[2018-04-20 05:16] LABS: Absolute Lymphocytes (CBC) 1.8 K/uL (0.7-4.9); Absolute Monocytes 0.7 K/uL (0.1-1.3); Absolute Neutrophil 4.2 K/uL (1.8-8.0); Basophils % 0.7 % (0-1.3); Eosinophils % 7.6 % (0-4.4); Hematocrit 37.5 % (39.6-49.0); Lymphocytes % 24.4 % (15.3-44.8); MCH 30.5 pg (27.0-35.0); MCV 88.1 fL (80-100); MPV 7.8 fL (7.6-11.3); Monocytes % 9.7 % (3.3-12.3); RBC Red Blood Cell Count 4.26 M/uL (4.33-5.43)
[2018-04-20 05:49] LABS: Magnesium 2.6 mg/dL (1.8-2.4); Phosphorus 3.9 mg/dL (2.5-4.9); Potassium 3.5 mmol/L (3.5-5.1)
[2018-04-20] MEDS ORDERED: KCL 20 MEQ/100 mL IVPB 20 MEQ/100 ML BAG IV SCH (06:00)
[2018-04-20] MEDS ORDERED: LEVOTHYROXINE SOD 0.05 MG TABLET PO SCH (06:00)
[2018-04-20] MEDS: METOPROLOL TAR 50 MG TAB PO SCH ×2 (06:01→20:35)
[2018-04-20] MEDS: ASPIRIN EC 81 MG TAB PO SCH (06:01)
[2018-04-20] MEDS: PANTOPRAZOLE 40MG TABLET PO SCH (06:01)
[2018-04-20 06:32] VITALS: BMI 31.7
[2018-04-20] MEDS: INSULIN -REGULAR HUMAN 50 UNIT/0.5 ML ML SQ SCH ×4 (07:30→20:37)
[2018-04-20] MEDS: ENOXAPARIN 100 MG/ML SYR SQ SCH ×2 (08:31→20:35)
--- NOTE | 2018-04-20 08:34 | P.PN ---
Subjective Date of Service: 04/20/18 Primary Care Provider: Dr. De Luna Chief Complaint: Chest pain Subjective: Doing well Physical Examination - Vital Signs Temperature: 97.0 F Blood Pressure: 124/76 Pulse: 64 Respirations: 18 Pulse Ox (%): 98 - Physical Exam General: Alert, In no apparent distress, Oriented x3, Cooperative HEENT: Atraumatic, Mucous membr. moist/pink Neck: Supple, No Thyromegaly Respiratory: Clear to auscultation bilaterally, Normal air movement Cardiovascular: Normal pulses, Regular rate/rhythm Gastrointestinal: Normal bowel sounds, Soft and benign, Non-distended, No tenderness, No masses, No rebound, No guarding Musculoskeletal: No erythema, No tenderness, No warmth Integumentary: No tenderness/swelling, No erythema, No warmth, No cyanosis Neurological: Normal speech, Normal strength at 5/5 x4 extr, Normal tone, Normal affect - Studies Microbiology Data (last 24 hrs): 04/18/18 03:11 Throat Culture & Sensitivity - Final Medications List Reviewed: Yes Assessment & Plan - Problems (Diagnosis) (1) NSTEMI (non-ST elevated myocardial infarction) Onset Date: 04/19/18 Current Visit: Yes Status: Acute Plan: Patient doing well this time. Patient will have heart catheterization today. Await findings and recommendations. Continue current medications including aspirin and blood pressure control. Patient also treated for underlying CHF. Patient on Lasix. Renal ultrasound shows medical renal disease. Echocardiogram shows ejection fraction of 50% with mild global hypokinesis. Possible discharge today if okay with cardiology after heart catheterization. (2) Chest pain Onset Date: 04/19/18 Current Visit: Yes Status: Acute Plan: Continue as above. Heart catheterization planned for today. Qualifiers: Chest pain type: chest pain due to myocardial ischemia (3) Hypertension Onset Date: 04/19/18 Current Visit: Yes Status: Acute Plan: Patient has hypertension. Patient not previously taking any medication for this. Blood pressure controlled Qualifiers: Hypertension type: essential hypertension Qualified Code(s): I10 - Essential (primary) hypertension (4) Diabetes mellitus Onset Date: 04/19/18 Current Visit: Yes Status: Chronic Plan: Will continue sliding scale. A1c 5.5. We will hold metformin at discharge. Patient will need to continue with glimepiride. Renal function improved. Qualifiers: Diabetes mellitus type: type 2 Diabetes mellitus chief deputy insulin use: without chief deputy use Diabetes mellitus complication status: with other specified complication Qualified Code(s): E11.69 - Type 2 diabetes mellitus with other specified complication (5) Alcohol abuse Onset Date: 04/19/18 Current Visit: Yes Status: Chronic Plan: Alcohol cessation addressed in detail. (6) Tobacco abuse Onset Date: 04/19/18 Current Visit: Yes Status: Chronic Plan: Tobacco cessation addressed in detail. (7) GERD (gastroesophageal reflux disease) Onset Date: 04/19/18 Current Visit: Yes Status: Suspected Plan: Will provide PPI. Will recommend to discontinue meloxicam. Qualifiers: Esophagitis presence: esophagitis presence not specified Qualified Code(s) : K21.9 - Gastro-esophageal reflux disease without esophagitis (8) Hypokalemia Onset Date: 04/19/18 Current Visit: Yes Status: Acute Plan: Will monitor and replace. Replacement protocol in place. (9) Renal insufficiency Onset Date: 04/19/18 Current Visit: Yes Status: Acute Plan: This has improved. Renal ultrasound shows medical renal disease. Nephrology currently evaluating for chronic renal disease. (10) Chronic renal disease Onset Date: 04/19/18 Current Visit: Yes Status: Acute Plan: Renal function improved. Renal ultrasound shows medical renal disease. Nephrology currently evaluating for chronic renal disease. Qualifiers: Chronic kidney disease stage: stage 2 (mild) Qualified Code(s): N18.2 - Chronic kidney disease, stage 2 (mild) (11) Hypomagnesemia Onset Date: 04/19/18 Current Visit: Yes Status: Acute Plan: Will continue to monitor and replace appropriately. Replacement protocol in place. (12) CHF (congestive heart failure) Onset Date: 04/19/18 Current Visit: Yes Status: Acute Plan: Continue with Lasix and fluid restriction. Education addressed Qualifiers: Heart failure type: systolic Heart failure chronicity: acute on chronic Qualified Code(s): I50.23 - Acute on chronic systolic (congestive) heart failure (13) Hyperlipidemia Onset Date: 04/19/18 Current Visit: Yes Status: Chronic Plan: Will continue with statin medication. Qualifiers: Hyperlipidemia type: unspecified Qualified Code(s): E78.5 - Hyperlipidemia , unspecified Discharge Plan: Home Plan to discharge in: 24 Hours Time Spent Managing Pts Care (In Minutes): 55
[2018-04-20] MEDS: ACETYLCYST 20% 800 MG/4 ML VIAL PO SCH ×2 (08:47→20:37)
[2018-04-20] MEDS: FUROSEMIDE 40 MG TABLET PO SCH (08:47)
[2018-04-20] MEDS: NICOTINE 21 MG/PAT TD SCH (08:50)
[2018-04-20] MEDS ORDERED: DILTIAZEM HCL 120 MG SR CAP PO SCH (09:00)
[2018-04-20] MEDS ORDERED: LIDOCAINE 1% 20 ML MDV ONE (10:55)
[2018-04-20] MEDS ORDERED: MIDAZOLAM HCL 2 MG/2 ML INJ ONE ×2 (10:55→11:01)
[2018-04-20] MEDS ORDERED: HEPA 1000U/500MLS 1,000 UNIT/500 ML BAG IV ONE (10:55)
[2018-04-20] MEDS ORDERED: ATROPINE SULF 1 MG/10 ML SYR IV ONE (10:56)
[2018-04-20] MEDS ORDERED: NA CHLORIDE 0.9% 0 ML ONE (10:56)
[2018-04-20] MEDS ORDERED: FENTANYL CITR 100 MCG/2 ML ONE (10:56)
--- NOTE | 2018-04-20 11:50 | OP ---
Surgeon: Bernard Marina MD Medical Unit Secretary: Ophelia Lopez. Indications And Procedure: The patient had been admitted to Dr. Brito on 04/18/2018 with new onset CHF and non-ST elevation myocardial infarction. Echocardiogram showed an ejection fraction of 45% to 50%. The patient was brought to the garage laborer to investigate his coronary anatomy today. He had a l eft heart catheterization and selective coronary arteriogram. Given 4 mg of Versed for IV sedation a nd 25 mg of fentanyl. Prepped and draped in routine sterile fashion. Six-Kinyarwanda catheters were used to do the injection in the left main and the right main. The patient was also found to have severe three-vessel coronary artery disease. The plan is for CABG. Conscious sedation was 30 minutes. No complications or blood loss. Operators: Bernard Marina M.D. Findings: Severe 70% distal left main ostial LAD, 80% long proximal LAD, 95% mid LAD post first diag onal, 80% mid circumflex, 50% RCA, and 70% distal PDA. CHIDI/NURYS Voice ID: [id number] Report ID: [id number]
[2018-04-20 12:44] VITALS: O2SAT 97
[2018-04-20] MEDS: ATORVASTATIN 20 MG TAB PO SCH (20:34)
[2018-04-20 20:37] VITALS: BP 153/92
[2018-04-20 22:35] LABS: Rheumatoid Factor NEG (NEG)
[2018-04-20 22:51] VITALS: TEMP 97.7
--- NOTE | 2018-04-21 16:29 | P.DS ---
Admission Date: 04/18/18 Discharge Date: 04/20/18 Primary Care Provider: Dr. De Luna Disposition: TRANSFER TO [place] Discharge Condition: GOOD Reason for Admission: Chest pain Consultations: Cardiology-Dr. Marina Procedures: Renal ultrasound: Medical renal disease noted. Echocardiogram: Ejection fraction around 45%. Heart catheterization: Findings: Severe 70% distal left main ostial LAD, 80% long proximal LAD, 95% mid LAD post first diagonal, 80% mid circumflex, 50% RCA, and 70% distal PDA. 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: without penitentiary use Diabetes mellitus complication status: with other specified complication Qualified Code(s): E11.69 - Type 2 diabetes mellitus with other specified complication (5) Alcohol abuse Onset Date: 04/19/18 Status: Chronic (6) Tobacco abuse Onset Date: 04/19/18 Status: Chronic (7) GERD (gastroesophageal reflux disease) Onset Date: 04/19/18 Status: Suspected Qualifiers: Esophagitis presence: esophagitis presence not specified Qualified Code(s) : K21.9 - Gastro-esophageal reflux disease without esophagitis (8) Hypokalemia Onset Date: 04/19/18 Status: Acute (9) Renal insufficiency Onset Date: 04/19/18 Status: Acute (10) Chronic renal disease Onset Date: 04/19/18 Status: Acute Qualifiers: Chronic kidney disease stage: stage 2 (mild) Qualified Code(s): N18.2 - Chronic kidney disease, stage 2 (mild) (11) Hypomagnesemia Onset Date: 04/19/18 Status: Acute (12) CHF (congestive heart failure) Onset Date: 04/19/18 Status: Acute Qualifiers: Heart failure type: systolic Heart failure chronicity: acute on chronic Qualified Code(s): I50.23 - Acute on chronic systolic (congestive) heart failure (13) Hyperlipidemia Onset Date: 04/19/18 Status: Chronic Qualifiers: Hyperlipidemia type: unspecified Qualified Code(s): E78.5 - Hyperlipidemia , unspecified Brief History of Present Illness: 52-year-old male presented emergency room with chest pain. Patient with history of diabetes, hypertension, alcohol and tobacco abuse. Patient found to have elevated troponin indicative of non ST myocardial infarction Hospital Course: During the course of his stay patient was evaluated by cardiology. Patient found to have non ST wave myocardial infarction. Patient was treated. Echocardiogram shows ejection fraction of 45%. Cardiology was suspicious for CHF exacerbation. Patient was started on Lasix. During his stay. Heart catheterization was done. Heart catheterization physician showed severe 70% distal left main ostial LAD, 80% long proximal LAD, 95% mid LAD post 1st diagonal, 80% mid circumflex and 70% distal PDA. Because the findings cardiology recommended the patient be transferred to higher level of care center for CABG. Initially the patient was to be sent to [facility] but family preferred [facility]. I was able get in contact with [facility] CV surgeon. CV surgeon was willing to accept patient. Patient was transferred to [facility] for CABG. Patient has diabetes, hypertension, hyperlipidemia, alcohol and tobacco abuse. Patient will continue with current medications. Strict diabetic, hypertensive control will be needed. Tobacco and alcohol cessation addressed in detail peer did also has underlying anxiety. This may need to be treated after his surgery. Vital Signs/Physical Exam: Temp Pulse Resp BP Pulse Ox 97.7 F 77 16 153/92 H 99 04/20/18 20:00 04/20/18 20:35 04/20/18 20:00 04/20/18 20:35 04/20/18 20:00 General: Alert, In no apparent distress, Oriented x3, Cooperative HEENT: Atraumatic Neck: Supple Respiratory: Clear to auscultation bilaterally, Normal air movement Cardiovascular: Normal pulses, Regular rate/rhythm Gastrointestinal: Normal bowel sounds, Soft and benign, Non-distended, No tenderness, No masses, No rebound, No guarding Musculoskeletal: No erythema, No tenderness, No warmth Integumentary: No tenderness/swelling, No erythema, No warmth, No cyanosis Neurological: Normal speech, Normal strength at 5/5 x4 extr, Normal tone, Normal affect Laboratory Data at Discharge: WBC 7.3 K/uL (4.3-10.9) D 04/20/18 04:35 Hgb 13.0 g/dL (13.6-17.9) L 04/20/18 04:35 Hct 37.5 % (39.6-49.0) L 04/20/18 04:35 Plt Count 335 K/uL (152-406) 04/20/18 04:35 PT 12.3 SECONDS (9.5-12.5) 04/18/18 09:08 INR 1.04 04/18/18 09:08 APTT 66.7 SECONDS (24.3-36.9) H 04/18/18 09:08 Sodium 137 mmol/L (136-145) 04/20/18 04:35 Potassium 3.5 mmol/L (3.5-5.1) 04/20/18 04:35 BUN 23 mg/dL (7-18) H 04/20/18 04:35 Creatinine 1.20 mg/dL (0.55-1.3) 04/20/18 04:35 Glucose 132 mg/dL (74-106) H 04/20/18 04:35 Phosphorus 3.9 mg/dL (2.5-4.9) 04/20/18 04:35 Magnesium 2.6 mg/dL (1.8-2.4) H D 04/20/18 04:35 Total Bilirubin 0.5 mg/dL (0.3-1.2) 04/18/18 03:11 AST 61 IU/L (10-42) H 04/18/18 03:11 ALT 24 IU/L (10-60) 04/18/18 03:11 Alkaline Phosphatase 79 IU/L (42-121) 04/18/18 03:11 Troponin I 5.08 ng/mL (0.0-0.045) H* 04/18/18 15:24 B-Natriuretic Peptide 626 pg/ml (<=100) H 04/18/18 09:08 Triglycerides 103 mg/dL (<150) 04/19/18 04:03 Cholesterol 188 mg/dL (<200) 04/19/18 04:03 HDL Cholesterol 38 mg/dL (40-60) L 04/19/18 04:03 Cholesterol/HDL Ratio 4.95 04/19/18 04:03 Home Medications: Glimepiride [Amaryl] 2 mg PO BID 04/18/18 Meloxicam 15 mg PO DAILY 04/18/18 Metformin HCl [Glucophage] 500 mg PO BIDWM 04/18/18 Patient Discharge Instructions: 1. Patient will be transferred to [place] for CABG. 2. Continue with current meds. 3. Patient with CAD, HTN, Chronic renal disease, DM-Type 2, Anxiety, Hyperlipidemia, and Tobacco/Alcohol abuse. Diet: ADA Activity: Ad keith Time spent managing pt's care (in minutes): 55
[2018-04-22 10:09] LABS: HIV 1/2 Antibody Diff Not indicated.; HIV AG/AB 4TH GEN Non-reactive (Non-reactive)
[2018-04-22 15:43] LABS: Hepatitis C Virus RNA (PCR)log <1.18 log IU/mL
[2018-04-23 03:28] LABS: Albumin, (SPE) 3.1 g/dL (3.8-4.8); Alpha-1-Globulins 0.4 g/dL (0.2-0.3); Alpha-2-Globulins 0.9 g/dL (0.5-0.9); Gamma Globulins 0.8 g/dL (0.8-1.7); INTERPRETATION REPORT
[2018-04-23 19:30] LABS: Scleroderma Antibody (Scl-70) <1.0 AI (<1.0)
[2018-04-24 02:32] LABS: HBsAG Nonreactive (Nonreactive)
[2018-04-24 16:26] LABS: P-ANCA Anti-Myeloperoxidase Ab <1.0 AI (<1.0)
== END 2018-04-20 22:35 | disposition short-term general hospital (02) | DRG 280 ==
LOC: ER 02:41 → 3RD-ICU 06:42 → 2ND 12:35 → 4TH 16:45
PROVIDERS: ADMIT Hospitalist; ATTEND Family Medicine
PROC: 4A023N7 Measurement of Cardiac Sampling and Pressure, Left Heart, Percutaneous Approach (ICD-10-PCS; principal; 2018-04-20)
PROC: B2111ZZ Fluoroscopy of Multiple Coronary Arteries using Low Osmolar Contrast (ICD-10-PCS; 2018-04-20)
DX: I21.4 Non-ST elevation (NSTEMI) myocardial infarction (principal); I50.23 Acute on chronic systolic (congestive) heart failure; N17.9 Acute kidney failure, unspecified; I13.0 Hypertensive heart and chronic kidney disease with heart failure and stage 1 through stage 4 chronic kidney disease, or unspecified chronic kidney disease; J44.1 Chronic obstructive pulmonary disease with (acute) exacerbation; I25.10 Atherosclerotic heart disease of native coronary artery without angina pectoris; F10.10 Alcohol abuse, uncomplicated; K21.9 Gastro-esophageal reflux disease without esophagitis; E87.6 Hypokalemia; E11.22 Type 2 diabetes mellitus with diabetic chronic kidney disease; E83.42 Hypomagnesemia; E78.5 Hyperlipidemia, unspecified; F41.9 Anxiety disorder, unspecified; N18.3 Chronic kidney disease, stage 3 (moderate); N14.1 Nephropathy induced by other drugs, medicaments and biological substances; T50.8X5A Adverse effect of diagnostic agents, initial encounter; Y92.238 Other place in hospital as the place of occurrence of the external cause; E11.40 Type 2 diabetes mellitus with diabetic neuropathy, unspecified; E86.0 Dehydration; F17.210 Nicotine dependence, cigarettes, uncomplicated; Z79.84 Long term (current) use of oral hypoglycemic drugs
CPT/HCPCS: 36415; 71045; 71275; 76770; 80048; 80061; 80069; 80076; 80307; 81003; 82570; 82962; 83036; 83520; 83735; 83880; 83970; 84156; 84165; 84439; 84443; 84484; 85025; 85379; 85610; 85730; 86021; 86038; 86160; 86225; 86235; 86317; 86430; 86704; 86706; 87070; 87081; 87340; 87389; 87522; 88108; 93005; 93306; 93454; 96365; 96366; 99285; C1893; J0583; J1644; J1650; J2250; J3010; J3475; J7030; J7060; Q9967

== ENCOUNTER 2018-11-16 19:38 | Emergency (ER) | payer BC ==
--- NOTE | 2018-11-16 22:08 | RAD REPORT ---
EXAM DESCRIPTION: Lv Single View11/16/2018 10:02 pm CLINICAL HISTORY: Hypertension COMPARISON: 2010 FINDINGS: The lungs appear clear of acute infiltrate. The heart is mildly enlarged. Pacemaker leads are in place. IMPRESSION: No acute abnormalities displayed
[2018-11-16 22:16] LABS: Protime INR 1.03
[2018-11-16 22:38] LABS: ALT/SGPT 57 U/L (12-78); AST/SGOT 62 U/L (15-37); Alkaline Phosphatase 122 U/L (45-117); BUN Blood Urea Nitrogen 29 mg/dL (7-18); Bicarbonate 27 mmol/L (21-32); Bilirubin Direct < 0.1 mg/dL (0-0.2); Bilirubin Total 0.2 mg/dL (0.2-1.0); Glucose Level 113 mg/dL (74-106); Magnesium 1.9 mg/dL (1.8-2.4); NT PRO-BNP 1486 pg/mL (<125); Potassium 3.7 mmol/L (3.5-5.1); Protein, Total 6.6 g/dL (6.4-8.2); Sodium Level 143 mmol/L (136-145); Troponin (Emerg Dept Use Only) 0.03 ng/mL (0.0-0.045)
--- NOTE | 2018-11-17 01:21 | ER ---
Nurse's Notes [facility] Name: Crispin Simmons Age: 52 yrs Sex: Male : 1965 Arrival Date: 11/16/2018 Time: 19:42 Bed 19 Private MD: Shanon De Luna H Diagnosis: Essential (primary) hypertension;Edema, not elsewhere classified;Rash and other nonspecific skin eruption;Anemia in chronic diseases classified elsewhere Presentation: 11/16 19:48 Presenting complaint: Patient states: seen by urgent care for bilateral leg swelling ak1 that has been going on for 1.5 months. pt was sent to ER for increased BP, pt takes BP meds already. Transition of care: patient was not received from another setting of care. Onset of symptoms was November 16, 2018. Risk Assessment: Do you want to hurt yourself or someone else? Patient reports no desire to harm self or others. Initial Sepsis Screen: Does the patient meet any 2 criteria? No. Patient's initial sepsis screen is negative. Does the patient have a suspected source of infection? No. Patient's initial sepsis screen is negative. Care prior to arrival: clonidine 0.1mg at 1815. pt dipping and drinking coffee. 19:48 Method Of Arrival: Ambulatory ak1 19:48 Acuity: CHRIS 3 bb Triage Assessment: 19:57 General: Appears in no apparent distress. Behavior is calm, cooperative. ak1 Historical: - Allergies: 19:57 No Known Allergies; ak1 - Home Meds: 19:57 metformin 500 mg Oral tab 1 tab 2 times per day [Active]; glimepiride 2 mg Oral tab 1 ak1 tab twice a day [Active]; meloxicam 15 mg Oral tab 1 tab once daily [Active]; metoprolol tartrate 50 mg Oral tab 1 tab 2 times per day [Active]; gabapentin 100 mg oral cap 3 caps 3 times per day [Active]; docusate [Active]; clopidogrel 75 mg oral tab 1 tab once daily [Active]; atorvastatin 80 mg oral tab 1 tab once daily [Active]; aspirin 81 mg Oral chew [Active]; amlodipine 5 mg tab 1 tab once daily [Active]; - PMHx: 19:57 Diabetes - NIDDM; Hypertension; ak1 - PSHx: 19:57 bypass 03/2018; ak1 - Immunization history:: Adult Immunizations unknown. - Social history:: Smoking status: Patient uses tobacco products, chewing tobacco. - Ebola Screening: : No symptoms or risks identified at this time. Screenin:55 Abuse screen: Denies threats or abuse. Denies injuries from another. Nutritional ls4 screening: No deficits noted. Tuberculosis screening: No symptoms or risk factors identified. Fall Risk None identified. Assessment: 21:54 General: Appears in no apparent distress. Behavior is calm, cooperative. Pain: Denies ls4 pain. Neuro: No deficits noted. Cardiovascular: Reports None Capillary refill < 3 seconds Patient's skin is warm and dry. Respiratory: Airway is patent Respiratory effort is even, unlabored. GI: No deficits noted. : No deficits noted. Derm: Reports peeling, red, feet bilaterally. arms have itchy rash. 22:54 Reassessment: Patient appears in no apparent distress at this time. No changes from ak1 previously documented assessment. 11/17 00:02 Reassessment: Patient appears in no apparent distress at this time. No changes from ak1 previously documented assessment. pt and family informed of wait for CBC that is having to be sent off for resulting. Vital Signs: 11/16 19:57 BP 168 / 97; Pulse 78; Resp 16; Temp 98.1(O); Pulse Ox 100% on R/A; Weight 90.72 kg ak1 (R); Height 5 ft. 7 in. (170.18 cm) (R); Pain 0/10; 22:05 BP 143 / 97; Pulse 70; Resp 16; Temp 98.4; Pulse Ox 98% on R/A; Pain 0/10; ls4 23:14 BP 141 / 84; Pulse 59; Resp 16; Temp 97.6(TE); Pulse Ox 98% on R/A; Pain 0/10; ak1 19:57 Body Mass Index 31.32 (90.72 kg, 170.18 cm) ak1 ED Course: 19:42 Patient arrived in ED. es 19:43 Shanon De Luna DO is Private Physician. es 19:52 Triage completed. ak1 19:57 Arm band placed on Patient placed in waiting room. EKG completed in triage. Results ak1 shown to MD. 21:06 Melba Calderon, RN is Primary Nurse. ls4 21:42 Cecilio Mayberry MD is Attending Physician. 21:56 Patient has correct armband on for positive identification. Bed in low position. Call ls4 light in reach. Side rails up X 1. radiation monitor on. Pulse ox on. NIBP on. Verbal reassurance given. 21:57 No provider procedures requiring assistance completed. EKG done, by ED staff, reviewed ls4 by Cecilio Mayberry MD. Patient maintains SpO2 saturation greater than 95% on room air. 22:02 XRAY Chest (1 view) In Process Unspecified. EDMS 11/17 01:37 IV discontinued, intact, bleeding controlled, No redness/swelling at site. Pressure ak1 dressing applied, 20g IV removed from right hand. Administered Medications: No medications were administered Outcome: 01:20 Discharge ordered by . 01:37 Discharged to home ambulatory, with family. ak1 01:37 Condition: good 01:37 Discharge instructions given to patient, family, Instructed on discharge instructions, follow up and referral plans. medication usage, Demonstrated understanding of instructions, follow-up care, medications, Prescriptions given X 2. 01:38 Patient left the ED. ak1 Signatures: Dispatcher [employer] EDID Denise Hi Brenda, RN RN bb Kitty Hankins RN RN ak1 Cecilio Mayberry MD MD Melba Calderon RN RN ls4 Corrections: (The following items were deleted from the chart) 11/16 20:02 19:48 Acuity: CHRIS 4 ak1 chon
--- NOTE | 2018-11-17 01:22 | EDPHYS ---
Physician Documentation [facility] Name: Crispin Simmons Age: 52 yrs Sex: Male : 1965 Arrival Date: 11/16/2018 Time: 19:42 Bed 19 Private MD: Shanon De Luna H ED Physician Cecilio Mayberry HPI: 11/17 01:12 This 52 yrs old Male presents to ER via Ambulatory with complaints of High gs Blood Pressure. 01:12 Onset: The symptoms/episode began/occurred gradually. Modifying factors: The symptoms gs are alleviated by prescription meds. Associated signs and symptoms: Pertinent positives: pedal edema. Severity of symptoms: At its worst the blood pressure was moderate, in the emergency department the blood pressure is unchanged. The patient has experienced similar episodes in the past, a few times. Historical: - Allergies: 11/16 19:57 No Known Allergies; ak1 - Home Meds: 19:57 metformin 500 mg Oral tab 1 tab 2 times per day [Active]; glimepiride 2 mg Oral tab 1 ak1 tab twice a day [Active]; meloxicam 15 mg Oral tab 1 tab once daily [Active]; metoprolol tartrate 50 mg Oral tab 1 tab 2 times per day [Active]; gabapentin 100 mg oral cap 3 caps 3 times per day [Active]; docusate [Active]; clopidogrel 75 mg oral tab 1 tab once daily [Active]; atorvastatin 80 mg oral tab 1 tab once daily [Active]; aspirin 81 mg Oral chew [Active]; amlodipine 5 mg tab 1 tab once daily [Active]; - PMHx: 19:57 Diabetes - NIDDM; Hypertension; ak1 - PSHx: 19:57 bypass 03/2018; ak1 - Immunization history:: Adult Immunizations unknown. - Social history:: Smoking status: Patient uses tobacco products, chewing tobacco. - Ebola Screening: : No symptoms or risks identified at this time. ROS: 11/17 01:12 Skin: Positive for rash, rash on hands and feet. gs All other systems are negative. Exam: 01:12 Head/Face: Normocephalic, atraumatic. Eyes: Pupils equal round and reactive to light, gs extra-ocular motions intact. Lids and lashes normal. Conjunctiva and sclera are non-icteric and not injected. Cornea within normal limits. Periorbital areas with no swelling, redness, or edema. ENT: Nares patent. No nasal discharge, no septal abnormalities noted. Tympanic membranes are normal and external auditory canals are clear. Oropharynx with no redness, swelling, or masses, exudates, or evidence of obstruction, uvula midline. Mucous membranes moist. Neck: Trachea midline, no thyromegaly or masses palpated, and no cervical lymphadenopathy. Supple, full range of motion without nuchal rigidity, or vertebral point tenderness. No Meningismus. Chest/axilla: Normal chest wall appearance and motion. Nontender with no deformity. No lesions are appreciated. Respiratory: Lungs have equal breath sounds bilaterally, clear to auscultation and percussion. No rales, rhonchi or wheezes noted. No increased work of breathing, no retractions or nasal flaring. Abdomen/GI: Soft, non-tender, with normal bowel sounds. No distension or tympany. No guarding or rebound. No evidence of tenderness throughout. Back: No spinal tenderness. No costovertebral tenderness. Full range of motion. Skin: Warm, dry with normal turgor. Normal color with no rashes, no lesions, and no evidence of cellulitis. MS/ Extremity: Pulses equal, no cyanosis. Neurovascular intact. Full, normal range of motion. Neuro: Awake and alert, GCS 15, oriented to person, place, time, and situation. Cranial nerves II-XII grossly intact. Motor strength 5/5 in all extremities. Sensory grossly intact. Cerebellar exam normal. Normal gait. 01:12 Constitutional: The patient appears alert, awake. 01:12 Cardiovascular: Rate: normal, Rhythm: regular, Pulses: no pulse deficits are appreciated, Edema: 2+ edema to level of left ankle and right ankle. 01:12 ECG was reviewed by the Attending Physician. 01:12 Skin: psoriatic rash on r hand, tinea noted on feet. Vital Signs: 11/16 19:57 BP 168 / 97; Pulse 78; Resp 16; Temp 98.1(O); Pulse Ox 100% on R/A; Weight 90.72 kg ak1 (R); Height 5 ft. 7 in. (170.18 cm) (R); Pain 0/10; 22:05 BP 143 / 97; Pulse 70; Resp 16; Temp 98.4; Pulse Ox 98% on R/A; Pain 0/10; ls4 23:14 BP 141 / 84; Pulse 59; Resp 16; Temp 97.6(TE); Pulse Ox 98% on R/A; Pain 0/10; ak1 19:57 Body Mass Index 31.32 (90.72 kg, 170.18 cm) ak1 MDM: 22:08 Patient medically screened. 11/17 01:12 Differential diagnosis: hypertensive crisis, chf, renal disease. Data reviewed: vital gs signs, nurses notes. 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 11/16 21:42 Order name: Basic Metabolic Panel; Complete Time: 00:53 11/16 21:42 Order name: CBC with Diff; Complete Time: 01:24 11/16 21:42 Order name: LFT's; Complete Time: 00:53 11/16 21:42 Order name: Magnesium; Complete Time: 00:53 11/16 21:42 Order name: NT PRO-BNP; Complete Time: 00:53 11/16 21:42 Order name: PT-INR; Complete Time: 22:27 11/16 21:42 Order name: Troponin (emerg Dept Use Only); Complete Time: 00:53 11/16 21:42 Order name: XRAY Chest (1 view); Complete Time: 22:27 11/16 21:42 Order name: EKG; Complete Time: 21:43 11/16 21:42 Order name: Cardiac monitoring; Complete Time: 21:57 11/16 21:42 Order name: EKG - Nurse/Tech; Complete Time: 21:57 11/16 21:42 Order name: IV Saline Lock; Complete Time: 21:57 11/16 21:42 Order name: Labs collected and sent; Complete Time: 21:57 11/16 21:42 Order name: O2 Per Protocol; Complete Time: 21:57 11/16 21:42 Order name: O2 Sat Monitoring; Complete Time: 21:57 gs EC:12 Rate is 71 beats/min. Rhythm is regular. ID interval is normal. QRS interval is normal. gs T waves are Inverted in lead aVL. Clinical impression: NSR w/ Non-specific ST/T Changes. Interpreted by me. Administered Medications: No medications were administered Disposition: 11/17/18 01:20 Discharged to Home. Impression: Essential (primary) hypertension, Edema, not elsewhere classified, Rash and other nonspecific skin eruption, Anemia in chronic diseases classified elsewhere. - Condition is Stable. - Discharge Instructions: Hypertension, Rash, [id number]. - Prescriptions for Clotrimazole 1 % Topical Cream - Apply to affected area 1 application by TOPICAL route every 12 hours; 30 gram. Triamcinolone Acetonide 0.5 % Topical Cream - apply 1 application by TOPICAL route once daily As needed; 15 gram. - Work release form, Medication Reconciliation Form, Thank You Letter, Antibiotic Education, Prescription Opioid Use form. - Follow up: Private Physician; When: 1 - 2 days; Reason: Re-evaluation by your physician. Signatures: Dispatcher [employer] EDMS Kitty Hankins RN RN ak1 Cecilio Mayberry MD MD Corrections: (The following items were deleted from the chart) : 01:20 11/17/2018 01:20 Discharged to Home. Impression: Essential (primary) gs hypertension; Edema, not elsewhere classified; Rash and other nonspecific skin eruption. Condition is Stable. Forms are Medication Reconciliation Form, Thank You Letter, Antibiotic Education, Prescription Opioid Use. Follow up: Private Physician; When: 1 - 2 days; Reason: Re-evaluation by your physician. 01:38 01:27 11/17/2018 01:20 Discharged to Home. Impression: Essential (primary) ak1 hypertension; Edema, not elsewhere classified; Rash and other nonspecific skin eruption; Anemia in chronic diseases classified elsewhere. Condition is Stable. Discharge Instructions: Hypertension, Rash, [id number]. Prescriptions for Clotrimazole 1 % Topical Cream - Apply to affected area 1 application by TOPICAL route every 12 hours; 30 gram, Triamcinolone Acetonide 0.5 % Topical Cream - apply 1 application by TOPICAL route once daily As needed; 15 gram. and Forms are Medication Reconciliation Form, Thank You Letter, Antibiotic Education, Prescription Opioid Use. Follow up: Private Physician; When: 1 - 2 days; Reason: Re-evaluation by your physician.
[2018-11-17 02:41] VITALS: O2SAT 98
[2018-11-17 02:42] VITALS: BP 141/84; TEMP 97.6
--- NOTE | 2018-11-17 14:02 | EKG ---
Test Date: 2018-11-16 Test Time: 19:57:12 Recapper: LEONIDT MEASUREMENT RESULTS: Intervals: Rate: 71 GA: 140 QRSD: 98 QT: 398 QTc: 432 [place]: P: 52 GA: 140 QRS: 69 T: 77 INTERPRETIVE STATEMENTS: Normal sinus rhythm Normal ECG Compared to ECG 04/18/2018 03:13:18 Sinus tachycardia no longer present ST (T wave) deviation no longer present Electronically Signed On 11-17-18 13:58:58 PATIENT ACCOUNT REPRESENTATIVE by Bernard Marina
== END 2018-11-17 01:38 | disposition home or self-care (01) ==
LOC: ER 19:38
DX: I10 Essential (primary) hypertension (principal); R21 Rash and other nonspecific skin eruption; D64.9 Anemia, unspecified; E11.9 Type 2 diabetes mellitus without complications; Z72.0 Tobacco use; Z79.82 Long term (current) use of aspirin
CPT/HCPCS: 36415; 71045; 80048; 80076; 83735; 83880; 84484; 85025; 85610; 93005

== ENCOUNTER 2019-02-04 07:09 | Emergency (ER) | payer BC ==
[2019-02-04] MEDS ORDERED: NA CHLORIDE 0.9% 1,000 ML ONE (08:03)
[2019-02-04] MEDS ORDERED: ONDANSETRON 4 MG/2 ML VIAL ONE (08:03)
[2019-02-04] MEDS ORDERED: FENTANYL CITR 100 MCG/2 ML ONE (08:03)
[2019-02-04 08:24] LABS: Absolute Lymphocytes (CBC) 1.4 K/uL (0.7-4.9); Absolute Monocytes 0.8 K/uL (0.1-1.3); Absolute Neutrophil 7.3 K/uL (1.8-8.0); Eosinophils % 4.9 % (0-4.4); Hematocrit 34.2 % (39.6-49.0); MPV 8.1 fL (7.6-11.3); Monocytes % 8.2 % (3.3-12.3); RBC Red Blood Cell Count 3.91 M/uL (4.33-5.43)
[2019-02-04 08:35] LABS: Protime INR 1.04
[2019-02-04 08:42] LABS: Albumin 2.6 g/dL (3.4-5.0); Bilirubin Direct 0.1 mg/dL (0-0.2); Bilirubin Total 0.4 mg/dL (0.2-1.0); Magnesium 1.9 mg/dL (1.8-2.4); Potassium 4.3 mmol/L (3.5-5.1); Protein, Total 6.3 g/dL (6.4-8.2); Troponin (Emerg Dept Use Only) 0.02 ng/mL (0.0-0.045)
--- NOTE | 2019-02-04 09:44 | RAD REPORT ---
EXAM DESCRIPTION: CT - Chest Abd Pelvis Wo Con - 02/04/2019 9:01 am CLINICAL HISTORY: Chest and abdomen pain. Dyspnea;Pain COMPARISON: Chest For Pe Angio dated 04/18/2018 TECHNIQUE: A limited noncontrast study was performed. All CT scans are performed using dose optimization technique as appropriate and may include automated exposure control or mA/KV adjustment according to patient size. FINDINGS: 12 mm pleural based nodule is present right lower lobe (image 38/127).No additional pulmon jose nodule or infiltrate seen.No pleural or pericardial effusion.No intrathoracic adenopathy. The liver, spleen, pancreas, adrenal glands and kidneys are within normal limits. No bowel obstruction, free air, free fluid or abscess. Normal appendix. No pathologic lymphadenopath y in the abdomen or pelvis. No worrisome osseous finding. The urinary bladder appears thickened. IMPRESSION: Urinary bladder appears thickened, suggest clinical correlation to exclude cystitis. Irregular 12 mm pleural based nodule right lower lobe, new since prior imaging. Advise PET-CT followu p assessment on a nonemergent basis.
--- NOTE | 2019-02-04 09:53 | ER ---
Nurse's Notes [facility] Name: Crispin Simmons Age: 53 yrs Sex: Male : 1965 Arrival Date: 02/04/2019 Time: 07:10 Bed 5 Private MD: Diagnosis: Solitary pulmonary nodule;Cystitis;Unspecified kidney failure;Type 2 diabetes mellitus;Essential (primary) hypertension Presentation: 02/04 07:16 Presenting complaint: Patient states: Since 1999 last night I have been having right la1 sided back pain, pt denies N/V/D, pain made worse with breathing. Transition of care: patient was not received from another setting of care. Onset of symptoms was February 04, 2019. Risk Assessment: Do you want to hurt yourself or someone else? Patient reports no desire to harm self or others. Initial Sepsis Screen: Does the patient meet any 2 criteria? No. Patient's initial sepsis screen is negative. Does the patient have a suspected source of infection? No. Patient's initial sepsis screen is negative. Care prior to arrival: None. 07:16 Method Of Arrival: Ambulatory la1 07:16 Acuity: CHRIS 3 la1 Historical: - Allergies: 07:17 No Known Allergies; la1 - PMHx: 07:17 Diabetes - NIDDM; Hypertension; Myocardial infarction; la1 - Immunization history:: Adult Immunizations up to date. - Social history:: Smoking status: Patient/guardian denies using tobacco. - Ebola Screening: : No symptoms or risks identified at this time. - Family history:: not pertinent. Screenin:23 Abuse screen: Denies threats or abuse. Nutritional screening: No deficits noted. la1 Tuberculosis screening: No symptoms or risk factors identified. Fall Risk None identified. Assessment: 07:22 General: Appears in no apparent distress. Behavior is calm, cooperative. Pain: la1 Complains of pain in right mid back and right low back. Neuro: Level of Consciousness is awake, alert, obeys commands, Oriented to person, place, time, situation. Cardiovascular: Capillary refill < 3 seconds Patient's skin is warm and dry. Respiratory: Airway is patent Respiratory effort is even, unlabored, Respiratory pattern is regular, symmetrical, Breath sounds are clear bilaterally. GI: Abdomen is round Bowel sounds present X 4 quads. Abd is soft and non tender X 4 quads. Patient currently denies diarrhea, epigastric pain, nausea, vomiting. : No signs and/or symptoms were reported regarding the genitourinary system. 10:31 Reassessment: Patient appears in no apparent distress at this time. awaiting sg to update pt on results prior to dc to home. Vital Signs: 07:17 BP 160 / 93; Pulse 69; Resp 16; Temp 98.8(O); Pulse Ox 99% on R/A; Weight 81.65 kg; la1 Height 5 ft. 7 in. (170.18 cm); 08:13 BP 167 / 99; Pulse 59; Resp 17; Pulse Ox 98% on R/A; Pain 6/10; sg 09:23 BP 166 / 103 RA; Pulse 56; sg 09:23 BP 145 / 99 LA; Pulse 57; Resp 16; Pulse Ox 100% on R/A; sg 07:17 Body Mass Index 28.19 (81.65 kg, 170.18 cm) la1 ED Course: 07:10 Patient arrived in ED. as 07:16 Jacinto Morris, RN is Primary Nurse. la1 07:16 Triage completed. la1 07:17 Arm band placed on left wrist. la1 07:21 Talib Vale MD is Attending Physician. wesley 07:23 Call light in reach. Side rails up X 1. la1 07:43 Radiology exam delayed due to lab results not completed at this time. (BUN/Creatinine). mw3 08:06 XRAY Chest (1 view) In Process Unspecified. EDMS 08:10 Initial lab(s) drawn, by ED staff, sent to lab. Inserted saline lock: 20 gauge in right sg antecubital area, using aseptic technique. Blood collected. 09:00 CT completed. Patient tolerated procedure well. Patient moved back from CT. bq 09:01 CT Chest Abdomen Pelvis W/O Contrast: no iv , no oral In Process Unspecified. EDMS 10:40 No provider procedures requiring assistance completed. sg 10:40 IV discontinued, intact, bleeding controlled, No redness/swelling at site. Pressure sg dressing applied. 10:43 Tarik Islas MD is Referral Physician. wesley 10:43 Tre Chen MD is Referral Physician. wesley 10:44 Gopi Blancas MD is Referral Physician. wesley Administered Medications: 08:00 Drug: NS 0.9% 500 ml Route: IV; Rate: bolus; Site: right antecubital; sg 08:00 Drug: fentaNYL (PF) 25 mcg Route: IVP; Site: right antecubital; sg 08:00 Drug: Zofran 4 mg Route: IVP; Site: right antecubital; sg 08:25 Drug: NS 0.9% 1000 ml Route: IV; Rate: 125 ml/hr; Site: right antecubital; sg 09:55 Not Given (Duplicate Order): Rocephin - (cefTRIAXone) 1 grams IVPB once over 30 mins; sg (mix in 50 mL NS) 10:00 Drug: Rocephin 1 grams Route: IV; Rate: calculated rate; Site: right antecubital; 10:29 Follow up: Response: No adverse reaction; IV Status: Completed infusion sg Outcome: 09:52 Discharge ordered by . [facility] 10:40 Discharged to home ambulatory, with friend. 10:40 Condition: good 10:40 Discharge instructions given to patient, Instructed on discharge instructions, follow up and referral plans. safety practices, Demonstrated understanding of instructions, follow-up care, medications. 10:44 Patient left the ED. sg Signatures: Dispatcher [employer] EDMS Josiah Martínez RN RN sg Anderson, Corey, MD MD cha Quilty, Betty bq Martinez, Amelia as Attema, Lee, RN RN la1 Tayler Gonzalez RN RN hb Willis, Michelle mw3
--- NOTE | 2019-02-04 09:53 | EDPHYS ---
Physician Documentation [facility] Name: Crispin Simmons Age: 53 yrs Sex: Male : 1965 Arrival Date: 02/04/2019 Time: 07:10 Bed 5 Private MD: ARON Physician Talib Vale HPI: 02/04 07:38 This 53 yrs old Male presents to ER via Ambulatory with complaints of wesley Abdominal Pain. 07:38 The patient or guardian reports chest pain that is located primarily in the right flank wesley pain, pleuritic in nature. Onset: 1 day(s) ago. The patient presents with abdominal pain right lower quadrant. Onset: The symptoms/episode began/occurred 1 day(s) ago. The patient complains of pain in the right mid back and right low back. The pain does not radiate. Onset: The symptoms/episode began/occurred 1 day(s) ago. Modifying factors: The symptoms are alleviated by remaining still, the symptoms are aggravated by movement, deep breaths. Historical: - Allergies: 07:17 No Known Allergies; la1 - PMHx: 07:17 Diabetes - NIDDM; Hypertension; Myocardial infarction; la1 - Immunization history:: Adult Immunizations up to date. - Social history:: Smoking status: Patient/guardian denies using tobacco. - Ebola Screening: : No symptoms or risks identified at this time. - Family history:: not pertinent. ROS: 07:38 Constitutional: Negative for fever, chills, and weight loss, Eyes: Negative for injury, wesley pain, redness, and discharge, ENT: Negative for injury, pain, and discharge, Neck: Negative for injury, pain, and swelling, Cardiovascular: Negative for chest pain, palpitations, and edema, Respiratory: Negative for shortness of breath, cough, wheezing, and pleuritic chest pain, Abdomen/GI: Negative for abdominal pain, nausea, vomiting, diarrhea, and constipation, : Negative for injury, bleeding, discharge, and swelling, MS/Extremity: Negative for injury and deformity, Skin: Negative for injury, rash, and discoloration, Neuro: Negative for headache, weakness, numbness, tingling, and seizure, Psych: Negative for depression, anxiety, suicide ideation, homicidal ideation, and hallucinations, Allergy/Immunology: Negative for hives, rash, and allergies, Endocrine: Negative for neck swelling, polydipsia, polyuria, polyphagia, and marked weight changes, Hematologic/Lymphatic: Negative for swollen nodes, abnormal bleeding, and unusual bruising. 07:38 Back: Positive for flank pain, on the right. Exam: 07:38 Constitutional: This is a well developed, well nourished patient who is awake, alert, wesley and in no acute distress. Head/Face: Normocephalic, atraumatic. Eyes: Pupils equal round and reactive to light, extra-ocular motions intact. Lids and lashes normal. Conjunctiva and sclera are non-icteric and not injected. Cornea within normal limits. Periorbital areas with no swelling, redness, or edema. ENT: Nares patent. No nasal discharge, no septal abnormalities noted. Tympanic membranes are normal and external auditory canals are clear. Oropharynx with no redness, swelling, or masses, exudates, or evidence of obstruction, uvula midline. Mucous membranes moist. Neck: Trachea midline, no thyromegaly or masses palpated, and no cervical lymphadenopathy. Supple, full range of motion without nuchal rigidity, or vertebral point tenderness. No Meningismus. Chest/axilla: Normal chest wall appearance and motion. Nontender with no deformity. No lesions are appreciated. Cardiovascular: Regular rate and rhythm with a normal S1 and S2. No gallops, murmurs, or rubs. Normal PMI, no JVD. No pulse deficits. Respiratory: Lungs have equal breath sounds bilaterally, clear to auscultation and percussion. No rales, rhonchi or wheezes noted. No increased work of breathing, no retractions or nasal flaring. Abdomen/GI: Soft, non-tender, with normal bowel sounds. No distension or tympany. No guarding or rebound. No evidence of tenderness throughout. Back: No spinal tenderness. No costovertebral tenderness. Full range of motion. Male : Normal genitalia with no discharge or lesions. Skin: Warm, dry with normal turgor. Normal color with no rashes, no lesions, and no evidence of cellulitis. MS/ Extremity: Pulses equal, no cyanosis. Neurovascular intact. Full, normal range of motion. Neuro: Awake and alert, GCS 15, oriented to person, place, time, and situation. Cranial nerves II-XII grossly intact. Motor strength 5/5 in all extremities. Sensory grossly intact. Cerebellar exam normal. Normal gait. Psych: Awake, alert, with orientation to person, place and time. Behavior, mood, and affect are within normal limits. 09:04 Musculoskeletal/extremity: DVT Exam: No signs of deep vein thrombosis. no pain, no wesley swelling, no tenderness, negative Homans' sign noted on exam, no appreciated bluish discoloration, no erythema, no increased warmth, no trauma, no stasis, no hcs. Vital Signs: 07:17 BP 160 / 93; Pulse 69; Resp 16; Temp 98.8(O); Pulse Ox 99% on R/A; Weight 81.65 kg; la1 Height 5 ft. 7 in. (170.18 cm); 08:13 BP 167 / 99; Pulse 59; Resp 17; Pulse Ox 98% on R/A; Pain 6/10; sg 09:23 BP 166 / 103 RA; Pulse 56; sg 09:23 BP 145 / 99 LA; Pulse 57; Resp 16; Pulse Ox 100% on R/A; sg 07:17 Body Mass Index 28.19 (81.65 kg, 170.18 cm) la1 MDM: 07:21 Patient medically screened. wesley 07:24 Patient medically screened. wesley 07:52 Data reviewed: vital signs, nurses notes, lab test result(s), EKG, radiologic studies, [facility] CT scan, plain films. 02/04 07:32 Order name: Urine Dipstick--Ancillary (enter results) 02/04 07:37 Order name: Basic Metabolic Panel [facility] 02/04 07:37 Order name: CBC with Diff [facility] 02/04 07:37 Order name: LFT's [facility] 02/04 07:37 Order name: Magnesium; Complete Time: 08:46 [facility] 02/04 07:37 Order name: NT PRO-BNP; Complete Time: 08:46 [facility] 02/04 07:37 Order name: PT-INR; Complete Time: 08:46 [facility] 02/04 07:37 Order name: Troponin (emerg Dept Use Only); Complete Time: 08:46 [facility] 02/04 07:37 Order name: XRAY Chest (1 view) [facility] 02/04 07:37 Order name: Lipase; Complete Time: 08:46 [facility] 02/04 07:37 Order name: Urine Culture [facility] 02/04 07:38 Order name: Basic Metabolic Panel; Complete Time: 08:46 EDMS 02/04 07:38 Order name: CBC with Automated Diff; Complete Time: 08:35 EDMS 02/04 07:38 Order name: Liver (Hepatic) Function; Complete Time: 08:46 EDMS 02/04 07:37 Order name: EKG; Complete Time: 07:38 [facility] 02/04 07:37 Order name: Cardiac monitoring; Complete Time: 08:11 [facility] 02/04 07:37 Order name: EKG - Nurse/Tech; Complete Time: 08:11 [facility] 02/04 07:37 Order name: IV Saline Lock; Complete Time: 08:12 [facility] 02/04 07:37 Order name: Labs collected and sent; Complete Time: 08:12 [facility] 02/04 07:37 Order name: O2 Per Protocol; Complete Time: 08:12 [facility] 02/04 07:37 Order name: O2 Sat Monitoring; Complete Time: 08:12 [facility] 02/04 08:48 Order name: CT Chest Abdomen Pelvis W/O Contrast: no iv , no oral; Complete Time: 09:46 [facility] 02/04 09:03 Order name: Bilateral blood pressure; Complete Time: 09:23 [facility] Administered Medications: 08:00 Drug: NS 0.9% 500 ml Route: IV; Rate: bolus; Site: right antecubital; sg 08:00 Drug: fentaNYL (PF) 25 mcg Route: IVP; Site: right antecubital; sg 08:00 Drug: Zofran 4 mg Route: IVP; Site: right antecubital; sg 08:25 Drug: NS 0.9% 1000 ml Route: IV; Rate: 125 ml/hr; Site: right antecubital; sg 09:55 Not Given (Duplicate Order): Rocephin - (cefTRIAXone) 1 grams IVPB once over 30 mins; sg (mix in 50 mL NS) 10:00 Drug: Rocephin 1 grams Route: IV; Rate: calculated rate; Site: right antecubital; hb 10:29 Follow up: Response: No adverse reaction; IV Status: Completed infusion sg Disposition: 02/04/19 09:52 Discharged to Home. Impression: Solitary pulmonary nodule, Cystitis, Unspecified kidney failure, Type 2 diabetes mellitus, Essential (primary) hypertension. - Condition is Stable. - Discharge Instructions: Type 2 Diabetes Mellitus, Diagnosis, Adult, Urinary Tract Infection, Adult, Urinary Tract Infection, Adult, [id number], Pulmonary Nodule, Chronic Kidney Disease, Adult, Pulmonary Nodule, Ejaw-pn-Eqlj, Type 2 Diabetes Mellitus, Diagnosis, Adult, Dqcs-ni-Tojq, Type 2 Diabetes Mellitus, Self Care, Adult. - Prescriptions for Cipro 250 mg Oral Tablet - take 1 tablet by ORAL route every 12 hours; 14 tablet. Tylenol- Codeine #3 300-30 mg Oral Tablet - take 2 tablets by ORAL route every 6 hours As needed; 24 tablet. - Medication Reconciliation Form, Thank You Letter, Antibiotic Education, Prescription Opioid Use, Work release form form. - Follow up: Private Physician; When: 2 - 3 days; Reason: Recheck today's complaints, Continuance of care, Re-evaluation by your physician. Follow up: Tarik Islas MD; When: 2 - 3 days; Reason: Recheck today's complaints, Re-evaluation by your physician. Follow up: Tre Chen MD; When: 2 - 3 days; Reason: Recheck today's complaints, Re-evaluation by your physician. Follow up: Gopi Blancas MD; When: 2 - 3 days; Reason: Recheck today's complaints, Re-evaluation by your physician. - Problem is new. - Symptoms have improved. Signatures: Dispatcher [employer] [facility] Josiah Martínez, RONEL RN Talib Barnard MD MD cha Attema, Lee RN RN la1 Tayler Gonzalez RN RN Corrections: (The following items were deleted from the chart) 08:51 07:38 Angio Aorta For Dissection+CT.RAD.BRZ ordered. [facility] 10:44 09:52 02/04/2019 09:52 Discharged to Home. Impression: Solitary pulmonary nodule; wesley Cystitis; Unspecified kidney failure. Condition is Stable. Forms are Medication Reconciliation Form, Thank You Letter, Antibiotic Education, Prescription Opioid Use. Follow up: Private Physician; When: 2 - 3 days; Reason: Recheck today's complaints, Continuance of care, Re-evaluation by your physician. Problem is new. Symptoms have improved. [facility] 10:44 10:44 02/04/2019 09:52 Discharged to Home. Impression: Solitary pulmonary nodule; sg Cystitis; Unspecified kidney failure; Type 2 diabetes mellitus; Essential (primary) hypertension. Condition is Stable. Discharge Instructions: Urinary Tract Infection, Adult, Urinary Tract Infection, Adult, Gecg-gw-Gvfl, Pulmonary Nodule, Chronic Kidney Disease, Adult, Pulmonary Nodule, Uotj-dy-[id number], Type 2 Diabetes Mellitus, Diagnosis, Adult, Type 2 Diabetes Mellitus, Diagnosis, Adult, Anok-rl-Gzhb, Type 2 Diabetes Mellitus, Self Care, Adult. Prescriptions for Cipro 250 mg Oral Tablet - take 1 tablet by ORAL route every 12 hours; 14 tablet, Tylenol-Codeine #3 300-30 mg Oral Tablet - take 2 tablets by ORAL route every 6 hours As needed; 24 tablet. and Forms are Medication Reconciliation Form, Thank You Letter, Antibiotic Education, Prescription Opioid Use, Work release form. Follow up: Private Physician; When: 2 - 3 days; Reason: Recheck today's complaints, Continuance of care, Re-evaluation by your physician. Follow up: Tarik Islas; When: 2 - 3 days; Reason: Recheck today's complaints, Re-evaluation by your physician. Follow up: Tre hCen; When: 2 - 3 days; Reason: Recheck today's complaints, Re-evaluation by your physician. Follow up: Gopi Blancas; When: 2 - 3 days; Reason: Recheck today's complaints, Re-evaluation by your physician. Problem is new. Symptoms have improved. wesley
[2019-02-04] MEDS ORDERED: CEFTRIAXONE/SWI 1gm 1 GM/10 ML SYR ONE (10:09)
[2019-02-04 10:49] VITALS: TEMP 98.8
[2019-02-04 10:51] VITALS: BP 145/99; O2SAT 100
--- NOTE | 2019-02-04 11:49 | RAD REPORT ---
EXAM DESCRIPTION: RAD - Chest Single View - 02/04/2019 8:05 am CLINICAL HISTORY: CHEST PAIN Chest pain. COMPARISON: Chest Single View dated 11/16/2018; Chest Single View dated 04/18/2018 FINDINGS: Portable technique limits examination quality. The lungs are grossly clear. The heart is normal in size. No displaced fractures.Sternotomy wires are present. IMPRESSION: No acute intrathoracic process suspected.
[2019-02-04 14:23] LABS: Urine Blood 2+ (NEG); Urine Glucose NEGATIVE (NEG); Urine Protein 3+ (NEG); Urine Specific Gravity 1.025 (1.005-1.030)
--- NOTE | 2019-02-06 11:38 | EKG ---
Test Date: 2019-02-04 Test Time: 07:47:05 Hot Kettle Tender: SWG MEASUREMENT RESULTS: Intervals: Rate: 60 MS: 150 QRSD: 96 QT: 420 QTc: 420 [place]: P: 45 MS: 150 QRS: 84 T: 86 INTERPRETIVE STATEMENTS: Normal sinus rhythm Normal ECG Compared to ECG 11/16/2018 19:57:12 No significant changes Electronically Signed On 02-05-19 10:53:02 CDT by Gopi Blancas
== END 2019-02-04 10:44 | disposition home or self-care (01) ==
LOC: ER 07:09
DX: R91.1 Solitary pulmonary nodule (principal); N30.90 Cystitis, unspecified without hematuria; N19 Unspecified kidney failure; E11.9 Type 2 diabetes mellitus without complications; I10 Essential (primary) hypertension; I25.2 Old myocardial infarction
CPT/HCPCS: 36415; 71045; 71250; 74176; 80048; 80076; 81003; 83690; 83735; 83880; 84484; 85025; 85610; 87086; 87088; 93005; 96365; 96375; 99284; J0696; J2405; J3010; J7030

== ENCOUNTER 2019-12-17 19:08 | Emergency (ER) | payer BC, SELFPAY ==
--- NOTE | 2019-12-17 20:53 | ER ---
Nurse's Notes [facility] Name: Crispin Simmons Age: 54 yrs Sex: Male : 1965 Arrival Date: 12/17/2019 Time: 19:11 Bed 27 Private MD: Diagnosis: Acute pharyngitis Presentation: 12/17 19:32 Presenting complaint: Patient states: Pt complaining of sore throat, cough and ea congestion for two weeks. Pt reports his symptoms have worsened. Transition of care: patient was not received from another setting of care. Onset of symptoms was December 17, 2019. Risk Assessment: Do you want to hurt yourself or someone else? Patient reports no desire to harm self or others. Initial Sepsis Screen: Does the patient meet any 2 criteria? No. Patient's initial sepsis screen is negative. Does the patient have a suspected source of infection? No. Patient's initial sepsis screen is negative. Care prior to arrival: Medication(s) given: claritin and cough drops this AM. 19:32 Method Of Arrival: Ambulatory ea 19:32 Acuity: CHRIS 3 ea Triage Assessment: 19:37 General: Appears in no apparent distress. Behavior is appropriate for age. Pain: ea Complains of pain in sore throat. EENT: Reports nasal congestion. Historical: - Allergies: 19:37 No Known Allergies; ea - Home Meds: 19:37 metoprolol tartrate 50 mg Oral tab 1 tab 2 times per day [Active]; glimepiride 2 mg ea Oral tab 1 tab twice a day [Active]; aspirin 81 mg Oral chew [Active]; atorvastatin 80 mg Oral tab 1 tab once daily [Active]; - PMHx: 19:37 Diabetes - NIDDM; Hypertension; Myocardial infarction; ea - Immunization history:: Adult Immunizations up to date. - Coronavirus screen:: The patient has NOT traveled to [place] in the past 14 days. Proceed with normal triage process as indicated. - Social history:: Smoking status: Patient reports use of chewing tobacco. - Ebola Screening: : No symptoms or risks identified at this time. Screenin:37 Abuse screen: Denies threats or abuse. Nutritional screening: No deficits noted. ea Tuberculosis screening: No symptoms or risk factors identified. Fall Risk None identified. Assessment: 19:50 General: Appears in no apparent distress. comfortable, Behavior is calm, cooperative, ca1 appropriate for age. General: Reports chills for 2-3 days, fever for. Pain: Denies pain. Neuro: Level of Consciousness is awake, alert, obeys commands, Oriented to person, place, time, situation, Appropriate for age. Cardiovascular: Heart tones S1 S2 present Capillary refill < 3 seconds Patient's skin is warm and dry. Respiratory: Airway is patent Respiratory effort is even, unlabored, Respiratory pattern is regular, symmetrical, Breath sounds are clear bilaterally. GI: Abdomen is round non-distended, Bowel sounds present X 4 quads. Abd is soft and non tender X 4 quads. : No signs and/or symptoms were reported regarding the genitourinary system. EENT: Throat is clear is pink. Derm: Skin is intact, is healthy with good turgor, Skin is pink, warm \T\ dry. Musculoskeletal: Circulation, motion, and sensation intact. Capillary refill < 3 seconds, Range of motion: intact in all extremities. 20:50 Reassessment: Patient appears in no apparent distress at this time. Patient and/or ca1 family updated on plan of care and expected duration. Pain level reassessed. Patient is alert, oriented x 3, equal unlabored respirations, skin warm/dry/pink. 21:22 Reassessment: Patient appears in no apparent distress at this time. Patient is alert, ca1 oriented x 3, equal unlabored respirations, skin warm/dry/pink. Vital Signs: 19:35 BP 188 / 104; Pulse 95; Resp 18; Temp 99.2; Pulse Ox 98% ; Weight 99.79 kg; Height 5 ea ft. 7 in. (170.18 cm); 20:50 BP 172 / 88; Pulse 83; Resp 16 S; Pulse Ox 96% on R/A; ca1 21:22 BP 173 / 88; Pulse 89; Resp 16 S; Pulse Ox 99% on R/A; ca1 19:35 Body Mass Index 34.46 (99.79 kg, 170.18 cm) ea ED Course: 19:11 Patient arrived in ED. ds1 19:35 Triage completed. ea 19:38 Arm band placed on right wrist. ea 19:39 Juan Posadas MD is Attending Physician. tw4 19:49 Gisselle Baker RN is Primary Nurse. ca1 19:50 Patient has correct armband on for positive identification. Placed in gown. Bed in low ca1 position. Call light in reach. Side rails up X 1. Pulse ox on. NIBP on. 19:50 No provider procedures requiring assistance completed. ca1 20:05 Strep swab sent to lab. ca1 20:20 Patient did not have IV access during this emergency room visit. ca1 Administered Medications: No medications were administered Outcome: 20:52 Discharge ordered by . jef 21:20 Discharged to home ambulatory, with significant other. ca1 21:20 Condition: stable 21:20 Discharge instructions given to patient, Instructed on discharge instructions, follow up and referral plans. Demonstrated understanding of instructions, follow-up care. 21:24 Patient left the ED. ca1 Signatures: Juliette Stapleton ds1 Cora Barajas, RN RN Juan Reilly MD MD tw4 Gisselle Baker RN RN ca1
--- NOTE | 2019-12-17 20:53 | EDPHYS ---
Physician Documentation [facility] Name: Crispin Simmons Age: 54 yrs Sex: Male : 1965 Arrival Date: 12/17/2019 Time: 19:11 Bed 27 Private MD: ED Physician Juan Posadas HPI: 12/17 20:46 This 54 yrs old Male presents to ER via Ambulatory with complaints of Sore tw4 Throat. 20:46 The patient presents with sore throat. The patient describes throat pain as raw. Onset: tw4 The symptoms/episode began/occurred today. Severity of symptoms: At their worst the symptoms were mild, in the emergency department the symptoms are unchanged. Modifying factors: The symptoms are alleviated by nothing. The patient has not experienced similar symptoms in the past. Historical: - Allergies: 19:37 No Known Allergies; ea - Home Meds: 19:37 metoprolol tartrate 50 mg Oral tab 1 tab 2 times per day [Active]; glimepiride 2 mg ea Oral tab 1 tab twice a day [Active]; aspirin 81 mg Oral chew [Active]; atorvastatin 80 mg Oral tab 1 tab once daily [Active]; - PMHx: 19:37 Diabetes - NIDDM; Hypertension; Myocardial infarction; ea - Immunization history:: Adult Immunizations up to date. - Coronavirus screen:: The patient has NOT traveled to [place] in the past 14 days. Proceed with normal triage process as indicated. - Social history:: Smoking status: Patient reports use of chewing tobacco. - Ebola Screening: : No symptoms or risks identified at this time. ROS: 20:46 Constitutional: Negative for fever, chills, and weight loss, Eyes: Negative for injury, tw4 pain, redness, and discharge, Cardiovascular: Negative for chest pain, palpitations, and edema, Respiratory: Negative for shortness of breath, cough, wheezing, and pleuritic chest pain, Abdomen/GI: Negative for abdominal pain, nausea, vomiting, diarrhea, and constipation, Back: Negative for injury and pain. 20:46 ENT: Positive for sore throat. Exam: 20:46 Constitutional: This is a well developed, well nourished patient who is awake, alert, tw4 and in no acute distress. Head/Face: Normocephalic, atraumatic. Neck: Trachea midline, no thyromegaly or masses palpated, and no cervical lymphadenopathy. Supple, full range of motion without nuchal rigidity, or vertebral point tenderness. No Meningismus. Chest/axilla: Normal chest wall appearance and motion. Nontender with no deformity. No lesions are appreciated. Cardiovascular: Regular rate and rhythm with a normal S1 and S2. No gallops, murmurs, or rubs. Normal PMI, no JVD. No pulse deficits. Respiratory: Lungs have equal breath sounds bilaterally, clear to auscultation and percussion. No rales, rhonchi or wheezes noted. No increased work of breathing, no retractions or nasal flaring. Abdomen/GI: Soft, non-tender, with normal bowel sounds. No distension or tympany. No guarding or rebound. No evidence of tenderness throughout. 20:46 ENT: Posterior pharynx: erythema, that is moderate. Vital Signs: 19:35 BP 188 / 104; Pulse 95; Resp 18; Temp 99.2; Pulse Ox 98% ; Weight 99.79 kg; Height 5 ea ft. 7 in. (170.18 cm); 20:50 BP 172 / 88; Pulse 83; Resp 16 S; Pulse Ox 96% on R/A; ca1 21:22 BP 173 / 88; Pulse 89; Resp 16 S; Pulse Ox 99% on R/A; ca1 19:35 Body Mass Index 34.46 (99.79 kg, 170.18 cm) ea MDM: 19:39 Patient medically screened. tw4 20:46 Data reviewed: vital signs, nurses notes, lab test result(s), strep neg. Counseling: I tw4 had a detailed discussion with the patient and/or guardian regarding: the historical points, exam findings, and any diagnostic results supporting the discharge/admit diagnosis. Special discussion: I discussed with the patient/guardian in detail that at this point there is no indication for admission to the hospital. It is understood, however, that if the symptoms persist or worsen the patient needs to return immediately for re-evaluation. 12/17 19:54 Order name: Strep tw4 12/17 20:35 Order name: Group A Streptococcus Rapid Sc EDW[facility] 12/17 21:09 Order name: Throat Culture EDMS Administered Medications: No medications were administered Disposition: 12/17/19 20:52 Discharged to Home. Impression: Acute pharyngitis. - Condition is Stable. - Discharge Instructions: Pharyngitis, Sore Throat, [id number]. - Medication Reconciliation Form, Thank You Letter, Antibiotic Education, Prescription Opioid Use, Work release form form. - Follow up: Private Physician; When: Upon discharge from the Emergency Department; Reason: Recheck today's complaints, Continuance of care, Re-evaluation by your physician. - Problem is new. - Symptoms have improved. Signatures: Dispatcher [employer] Cora Ramirez RN RN Juan Reilly MD MD tw4 Gisselle Baker RN RN ca1 Corrections: (The following items were deleted from the chart) 21:24 20:52 12/17/2019 20:52 Discharged to Home. Impression: Acute pharyngitis. Condition is ca1 Stable. Forms are Medication Reconciliation Form, Thank You Letter, Antibiotic Education, Prescription Opioid Use. Follow up: Private Physician; When: Upon discharge from the Emergency Department; Reason: Recheck today's complaints, Continuance of care, Re-evaluation by your physician. Problem is new. Symptoms have improved. tw4
[2019-12-17 23:35] VITALS: TEMP 99.2
[2019-12-17 23:38] VITALS: BP 173/88; O2SAT 99
== END 2019-12-17 21:24 | disposition home or self-care (01) ==
LOC: ER 19:08
DX: J02.9 Acute pharyngitis, unspecified (principal); E11.9 Type 2 diabetes mellitus without complications; I10 Essential (primary) hypertension; I25.2 Old myocardial infarction
CPT/HCPCS: 87070; 87081; 99283

== ENCOUNTER 2021-10-02 21:54 | Inpatient (IN) | payer SELFPAY ==
[2021-10-02] MEDS ORDERED: FUROSEMIDE 20 MG/ 2ML VIAL ONE (22:58)
[2021-10-02 23:00] LABS: Absolute Lymphocytes (CBC) 1.3 K/uL (0.7-4.9); Basophils % 0.9 % (0-1.3); Lymphocytes % 17.7 % (15.3-44.8); RBC Red Blood Cell Count 2.86 M/uL (4.33-5.43)
[2021-10-02 23:08] LABS: Protime INR 1.02
[2021-10-02 23:33] LABS: ALT/SGPT 29 U/L (12-78); AST/SGOT 15 U/L (15-37); Albumin 2.9 g/dL (3.4-5.0); Alkaline Phosphatase 60 U/L (45-117); BUN Blood Urea Nitrogen 78 mg/dL (7-18); Bicarbonate 18 mmol/L (21-32); Bilirubin Direct < 0.1 mg/dL (0-0.2); Bilirubin Total 0.3 mg/dL (0.2-1.0); Glucose Level 146 mg/dL (74-106); Magnesium 2.5 mg/dL (1.8-2.4); NT PRO-BNP 58372 pg/mL (<125); Potassium 4.1 mmol/L (3.5-5.1); Protein, Total 6.4 g/dL (6.4-8.2); Sodium Level 142 mmol/L (136-145); Troponin (Emerg Dept Use Only) 0.05 ng/mL (0.0-0.045)
[2021-10-02 23:43] LABS: Urine Bacteria 20-50 /HPF (NONE SEEN); Urine Mucus 1+ /HPF (NONE SEEN)
--- NOTE | 2021-10-03 00:26 | ER ---
Nurse's Notes [facility] Name: Crispin Simmons Age: 55 yrs Sex: Male : 1965 Arrival Date: 10/02/2021 Time: 21:59 Bed 18 Private MD: Diagnosis: Acute kidney failure, unspecified;Hypertensive urgency;Anemia, unspecified Presentation: 10/02 22:12 Chief complaint: Patient states: he is having shortness of breath and difficulty bb breathing for several weeks along with bilateral lower leg swelling. Coronavirus screen: At this time, the client does not indicate any symptoms associated with coronavirus-19. Ebola Screen: No symptoms or risks identified at this time. Initial Sepsis Screen: Does the patient meet any 2 criteria? No. Patient's initial sepsis screen is negative. Does the patient have a suspected source of infection? No. Patient's initial sepsis screen is negative. Risk Assessment: Do you want to hurt yourself or someone else? Patient reports no desire to harm self or others. Onset of symptoms was August 2021. 22:12 Method Of Arrival: Ambulatory bb 22:12 Acuity: CHRIS 3 bb Triage Assessment: 10/03 00:00 General: Appears in no apparent distress. Behavior is calm, cooperative. Pain: Denies mr2 pain. Respiratory: Reports shortness of breath at rest Onset: The symptoms/episode began/occurred gradually, the patient has moderate shortness of breath. Historical: - Allergies: 10/02 22:14 No Known Allergies; bb - PMHx: 22:14 Diabetes - NIDDM; Hypertension; Myocardial infarction; bb - PSHx: 22:14 CABG; bb - Immunization history:: Adult Immunizations unknown. - Social history:: Smoking status: unknown. Screenin/04 00:00 Abuse screen: Denies threats or abuse. Denies injuries from another. Nutritional mr2 screening: No deficits noted. Tuberculosis screening: No symptoms or risk factors identified. Fall Risk None identified. Assessment: 00:00 Cardiovascular: Rhythm is regular. Respiratory: Airway is patent Respiratory effort is mr2 even, unlabored, Breath sounds with crackles bilaterally. Vital Signs: 10/02 22:12 BP 212 / 105; Pulse 81; Resp 18 S; Temp 98.1(O); Pulse Ox 100% on R/A; bb 10/03 03:00 BP 148 / 84; Pulse 83; Resp 17; Temp 98.3; Pulse Ox 100% on R/A; Pain 1/10; mr2 ED Course: 10/02 21:59 Patient arrived in ED. wm 22:04 Talib Alston PA is PHCP. cp 22:04 Talib Vale MD is Attending Physician. cp 22:14 Triage completed. bb 22:14 Arm band placed on Patient placed in an exam room, on a stretcher, on pulse oximetry. bb 22:26 Juan Carlos Jimenez, RONEL is Primary Nurse. mr2 22:28 XRAY Chest (1 view) In Process Unspecified. EDMS 22:52 CBC with Diff Sent. mr2 22:52 LFT's Sent. mr2 22:52 NT PRO-BNP Sent. mr2 22:52 Magnesium Sent. mr2 22:52 PT-INR Sent. mr2 22:52 Troponin (emerg Dept Use Only) Sent. mr2 22:53 Basic Metabolic Panel Sent. mr2 22:53 Urine Microscopic Only Sent. mr2 10/03 00:00 Patient has correct armband on for positive identification. Bed in low position. Side mr2 rails up X2. 00:00 No provider procedures requiring assistance completed. Inserted saline lock: 18 gauge mr2 in right antecubital area, using aseptic technique. Patient admitted, IV remains in place. 00:13 CT Stone Protocol In Process Unspecified. EDMS 00:23 Zaid Hudson is Hospitalizing Provider. cp Administered Medications: 10/02 23:10 Drug: Lasix (furosemide) 20 mg Route: IVP; Site: right antecubital; mr2 10/03 00:00 Drug: Lasix (furosemide) 60 mg Route: IVP; Site: right antecubital; mr2 03:26 Drug: hydrALAZINE 10 mg Route: IVP; Site: right antecubital; mr2 Outcome: 00:25 Decision to Hospitalize by Provider. cp 02:00 Admitted to ICU accompanied by nurse. mr2 02:00 Condition: stable 02:00 Instructed on the need for admit. 03:53 Patient left the ED. mr2 Signatures: Dispatcher [employer] EDMS Jo Ann Rowland RN RN bb Page, Corey, PA PA cp Marsh, Wendy Juan Carlos Jimenez RN RN mr2 Corrections: (The following items were deleted from the chart) 10/02 22:58 22:53 CORONAVIRUS+ drawn and sent. mr2 EDMS
--- NOTE | 2021-10-03 00:26 | EDPHYS ---
Physician Documentation [facility] Name: Crispin Simmons Age: 55 yrs Sex: Male : 1965 Arrival Date: 10/02/2021 Time: 21:59 Bed 18 Private MD: ED Physician Talib Vale HPI: 10/02 22:20 This 55 yrs old Male presents to ER via Ambulatory with complaints of cp Breathing Difficulty. 22:20 The patient has shortness of breath with light activity. Onset: The symptoms/episode cp began/occurred gradually, over past several weeks. Duration: The symptoms are continuous, and are steadily getting worse. Associated signs and symptoms: Pertinent positives: swelling of lower legs, Pertinent negatives: chest pain, productive cough, diaphoresis, fever, numbness in extremities, vomiting. Severity of symptoms: in the emergency department the symptoms are unchanged despite home interventions. Historical: - Allergies: 22:14 No Known Allergies; bb - PMHx: 22:14 Diabetes - NIDDM; Hypertension; Myocardial infarction; bb - PSHx: 22:14 CABG; bb - Immunization history:: Adult Immunizations unknown. - Social history:: Smoking status: unknown. ROS: 22:25 Constitutional: Negative for body aches, chills, fever, poor PO intake. cp 22:25 Eyes: Negative for injury, pain, redness, and discharge. cp 22:25 ENT: Negative for ear pain, sore throat, difficulty swallowing, difficulty handling secretions. 22:25 Cardiovascular: Positive for edema, Negative for chest pain, palpitations. 22:25 Respiratory: Positive for shortness of breath, on exertion. Negative for cough, wheezing. 22:25 Abdomen/GI: Positive for abdominal distension, Negative for abdominal pain, vomiting, diarrhea, constipation, black/tarry stool, rectal bleeding. 22:25 : Negative for urinary symptoms, difficulty urinating. 22:25 Neuro: Negative for altered mental status, headache, syncope, weakness. 22:25 All other systems are negative. Exam: 22:30 Constitutional: The patient appears in no acute distress, alert, awake, cp non-diaphoretic, non-toxic, well developed, well nourished. 22:30 Head/Face: Normocephalic, atraumatic. cp 22:30 Eyes: Periorbital structures: appear normal, Conjunctiva: normal, no exudate, no injection, Sclera: no appreciated abnormality, Lids and lashes: appear normal, bilaterally. 22:30 ENT: External ear(s): are unremarkable, Nose: is normal, Mouth: Lips: moist, Oral mucosa: moist, Posterior pharynx: Airway: no evidence of obstruction, patent. 22:30 Neck: ROM/movement: is normal, is supple, without pain, no range of motions limitations. 22:30 Chest/axilla: Inspection: normal, Palpation: is normal, no crepitus, no tenderness. 22:30 Cardiovascular: Rate: normal, Rhythm: regular, Edema: ankle edema, that is moderate, JVD: is not appreciated. 22:30 Respiratory: the patient does not display signs of respiratory distress, Respirations: normal, no use of accessory muscles, no retractions, labored breathing, is not present, Breath sounds: rales, that are mild, are heard diffusely, decreased breath sounds, are not appreciated, stridor, is not appreciated, wheezing: is not appreciated. 22:30 Abdomen/GI: Inspection: distension, that is mild, Bowel sounds: active, all quadrants, Palpation: abdomen is soft and non-tender, in all quadrants, rebound tenderness, is not appreciated, voluntary guarding, is not appreciated, involuntary guarding, is not appreciated. 22:30 Back: pain, is absent, ROM is normal. 22:30 Skin: cellulitis, is not appreciated, no rash present. 22:30 Neuro: Orientation: to person, place \T\ time. Mentation: is normal, Motor: moves all fours, strength is normal, Sensation: is normal. 22:50 ECG was reviewed by the Attending Physician. cp Vital Signs: 22:12 BP 212 / 105; Pulse 81; Resp 18 S; Temp 98.1(O); Pulse Ox 100% on R/A; bb 10/03 03:00 BP 148 / 84; Pulse 83; Resp 17; Temp 98.3; Pulse Ox 100% on R/A; Pain 1/10; mr2 MDM: 10/02 22:06 Patient medically screened. cp 22:30 Differential diagnosis: Bronchitis CHF exacerbation, Chronic Obstructive Pulmonary cp Disease pneumonia, pulmonary edema. 10/03 01:20 Data reviewed: vital signs, nurses notes, lab test result(s), EKG, radiologic studies, cp CT scan, plain films. 01:20 Test interpretation: by ED physician or midlevel provider: ECG, plain radiologic cp studies. Physician consultation: Qasim GARCIA was called at 01:20, was contacted at 01:20, regarding admission, to the telemetry unit. patient's condition. 10/02 22:14 Order name: Basic Metabolic Panel 10/02 22:14 Order name: CBC with Diff; Complete Time: 23:16 10/02 23:16 Interpretation: Normal except: RBC 2.86; HGB 8.6; HCT 26.0; MCV 90.7; EOSINOPHIL % 7.2. / 22:14 Order name: LFT's; Complete Time: 23:37 10/02 22:14 Order name: Magnesium; Complete Time: 23:37 10/02 22:14 Order name: NT PRO-BNP; Complete Time: 23:37 10/02 23:37 Interpretation: Abnormal: NT PRO-BNP 56717. 10/02 22:14 Order name: PT-INR; Complete Time: 23:16 10/02 22:14 Order name: Troponin (emerg Dept Use Only); Complete Time: 23:37 10/02 22:14 Order name: XRAY Chest (1 view) 10/02 22:14 Order name: Urine Microscopic Only; Complete Time: 23:53 / 23:53 Interpretation: Normal except: UWBC 5-10; URBC 10-20; UBACT 20-50. 10/02 22:15 Order name: Basic Metabolic Panel; Complete Time: 23:37 EDIN 10/02 22:16 Order name: US Extremity Venous W Compression Spencer 10/02 22:58 Order name: SARS-COV-2 RT PCR; Complete Time: 23:53 EDMS 10/02 23:44 Order name: Urine Culture EDIN 10/02 22:14 Order name: EKG; Complete Time: 22:16 10/02 22:14 Order name: Cardiac monitoring 10/02 22:14 Order name: EKG - Nurse/Tech; Complete Time: 22:52 10/02 22:14 Order name: IV Saline Lock; Complete Time: 22:52 10/02 22:14 Order name: Labs collected and sent; Complete Time: 22:52 10/02 22:14 Order name: O2 Per Protocol cp 10/02 22:14 Order name: O2 Sat Monitoring; Complete Time: 22:52 cp 10/02 22:14 Order name: Urine Dipstick-Ancillary (obtain specimen); Complete Time: 22:53 cp 10/02 23:53 Order name: CT Stone Protocol cp 10/03 01:26 Order name: CONS Physician Consult EDMS EC/03 22:50 Rate is 74 beats/min. Rhythm is regular. NV interval is normal. QRS interval is normal. cp T waves are Inverted in leads I, aVL. Interpreted by me. Reviewed by me. Administered Medications: 23:10 Drug: Lasix (furosemide) 20 mg Route: IVP; Site: right antecubital; mr2 10/03 00:00 Drug: Lasix (furosemide) 60 mg Route: IVP; Site: right antecubital; mr2 03:26 Drug: hydrALAZINE 10 mg Route: IVP; Site: right antecubital; mr2 Disposition Summary: 10/03/21 00:25 Hospitalization Ordered Hospitalization Status: Inpatient Admission cp Provider: Zaid Hudson cp Location: Telemetry/MedSurg (Inpatient) cp Condition: Stable cp Problem: new cp Symptoms: are unchanged cp Bed/Room Type: Standard cp Room Assignment: 427(10/03/21 01:42) Diagnosis - Acute kidney failure, unspecified cp - Hypertensive urgency cp - Anemia, unspecified cp Forms: - Medication Reconciliation Form cp - SBAR form cp Signatures: Dispatcher [employer] EDIN Shreya Spangler RN RN mw Ballard, Brenda, RN RN bb Page, Corey, PA PA cp Juan Carlos Jimenez RN RN mr2 Corrections: (The following items were deleted from the chart) 10/02 22:58 22:17 CORONAVIRUS+MR.LAB.BRZ ordered. EDIN EDIN 10/03 01:42 00:25 cp tona
[2021-10-03] MEDS ORDERED: FUROSEMIDE 20 MG/ 2ML VIAL ONE (01:13)
[2021-10-03] MEDS ORDERED: FUROSEMIDE 40 MG/4 ML VIAL ONE (01:13)
--- NOTE | 2021-10-03 02:22 | P.HP ---
Certification for Inpatient Patient admitted to: Inpatient With expected LOS: >2 Midnights Patient will require the following post-hospital care: None Practitioner: I am a practitioner with admitting privileges, knowledge of patient current condition, hospital course, and medical plan of care. Services: Services provided to patient in accordance with Admission requirements found in Title 42 Section 412.3 of the Code of Federal Regulations Patient History Date of Service: 10/03/21 Primary Care Provider: Cali[facility]o Reason for admission: acute renal failure History of Present Illness: Mr. Simmons is a 55 yo M with DM, HTN, CKD who presents with 3 weeks of increased SOB, KNIGHT, abdominal pain and edema. He also reports increased fatigue and urinary frequency. Denies cough, wheezing, PND, orthopnea. H/H 8.6 BUN 78 Cr 9.48 GFr 6 Glu 146 Trop 0.05 BNP 71706. Nephrology was contacted by ED provider. Given 80mg IV Lasix in the ED. Admitted for initiation of dialysis. Allergies No Known Allergies Allergy (Unverified 11/25/17 16:53) Home Medications: Glimepiride [Amaryl] 2 mg PO BID 04/18/18 Meloxicam 15 mg PO DAILY 04/18/18 Metformin HCl [Glucophage] 500 mg PO BIDWM 04/18/18 - Past Medical/Surgical History Diabetic: Yes -: DM-2 -: HTN -: DYSLIPIDEMIA -: ESRD -: CABGx2 - Family History Father -: Stroke Brother -: Diabetes - Social History Smoking Status: Current every day smoker (dip tobacco) Alcohol use: No CD- Drugs: No Caffeine use: Yes Place of Residence: Home Review of Systems 10-point ROS is otherwise unremarkable General: Weakness, Malaise Eyes: Unremarkable ENT: Unremarkable Respiratory: Shortness of Breath, SOB with Excertion, As per HPI Cardiovascular: Edema, As per HPI Gastrointestinal: Abdominal Pain, As per HPI Genitourinary: Frequency, As per HPI Musculoskeletal: Unremarkable Integumentary: Unremarkable Neurological: Unremarkable Lymphatics: Unremarkable Physical Examination - Physical Exam General: Alert, In no apparent distress HEENT: Atraumatic, PERRLA, Mucous membr. moist/pink, EOMI, Sclerae nonicteric Neck: Supple, 2+ carotid pulse no bruit, No LAD, Without JVD or thyroid abnormality Respiratory: Normal air movement, Crackles/rales Cardiovascular: Regular rate/rhythm, Normal S1 S2, Edema Gastrointestinal: Normal bowel sounds, Tenderness Musculoskeletal: No tenderness Integumentary: No rashes Neurological: Normal speech, Normal strength at 5/5 x4 extr, Normal tone, Normal affect Lymphatics: No axilla or inguinal lymphadenopathy - Studies Laboratory Data (last 24 hrs) 10/02/21 22:35: PT 11.7, INR 1.02 10/02/21 22:35: WBC 7.20, Hgb 8.6 L, Hct 26.0 L, Plt Count 268 10/02/21 22:35: Sodium 142, Potassium 4.1, BUN 78 H, Creatinine 9.48 H*, Glucose 146 H, Magnesium 2.5 H D, Total Bilirubin 0.3, AST 15, ALT 29, Alkaline Phosphatase 60 Assessment and Plan - Problems (Diagnosis) (1) ESRD (end stage renal disease) Current Visit: Yes Status: Chronic (2) Anemia of chronic disease Current Visit: Yes Status: Chronic (3) Elevated troponin Current Visit: Yes Status: Acute (4) Hypertension Onset Date: 04/19/18 Current Visit: No Status: Chronic Qualifiers: Hypertension type: primary hypertension Qualified Code(s): I10 - Essential (primary) hypertension (5) Diabetes mellitus Onset Date: 04/19/18 Current Visit: No Status: Chronic Qualifiers: Diabetes mellitus type: type 2 Diabetes mellitus long filler cigar roller machine insulin use: without long filler cigar roller machine use Diabetes mellitus complication status: with kidney complications Chronic kidney disease stage: stage 5, not on chronic dialysis (6) Hyperlipidemia Onset Date: 04/19/18 Current Visit: No Status: Chronic Qualifiers: (7) Tobacco abuse Onset Date: 04/19/18 Current Visit: No Status: Chronic - Plan nephrology consulted continue 80 mg IV Lasix BID renal US pending continue IV ceftriaxone anemia workup pending trend troponins, on tele sliding scale insulin, accuchecks, a1c pending hydralazine PRN for BP spikes reconcile and continue home medications DVT ppx Discharge Plan: Home Plan to discharge in: 48 Hours - Advance Directives Does patient have a Living Will: No Does patient have a Durable POA for Healthcare: No - Code Status/Comfort Care Code Status Assessed: Yes (full code ) Critical Care: No Time Spent Managing Pts Care (In Minutes): 70
[2021-10-03] MEDS ORDERED: HYDRALAZINE HCL 20 MG/ML VIAL ONE (03:09)
[2021-10-03] MEDS ORDERED: ONDANSETRON 4 MG/2 ML VIAL IV PRN (03:52)
[2021-10-03] MEDS ORDERED: ALBUTEROL 2.5 MG/3 ML NEB SOL NEB PRN (03:52)
[2021-10-03] MEDS ORDERED: HYDRALAZINE HCL 20 MG/ML VIAL IV PRN (03:52)
[2021-10-03] MEDS ORDERED: IPRATROPIUM BROM 0.5MG/2.5ML NEB PRN (03:52)
[2021-10-03] MEDS ORDERED: ACETAMINOPHEN 500 MG TAB PO PRN (03:52)
[2021-10-03 04:28] VITALS: BMI 30.8
[2021-10-03 04:43] LABS: Urine Appearance CLEAR (Clear); Urine Bilirubin NEGATIVE (Negative); Urine Blood 1+ (Negative); Urine Color YELLOW (Yellow); Urine Glucose TRACE (Negative); Urine Protein 3+ (Negative); Urine Urobilinogen 0.2 mg/dL (0.2-1.0)
[2021-10-03 04:45] LABS: Urine Microscopic Reflex ORDER UMIC
[2021-10-03 05:05] LABS: UR PROTEIN 274.9 mg/dL (<11.9); Urine Protein/Creatinine Ratio 8.59 ratio (<0.15)
[2021-10-03 05:14] LABS: Urine Bacteria >50 /HPF (NONE SEEN)
[2021-10-03 05:26] LABS: Basophils % 1.8 % (0-1.3); Hematocrit 26.3 % (39.6-49.0); Lymphocytes % 14.7 % (15.3-44.8); MPV 8.1 fL (7.6-11.3)
[2021-10-03 06:10] LABS: Bilirubin Total 0.3 mg/dL (0.2-1.0); Potassium 3.7 mmol/L (3.5-5.1); Protein, Total 6.4 g/dL (6.4-8.2); Troponin I 0.06 ng/mL (0.0-0.045); Uric Acid 7.5 mg/dL (3.5-7.2)
[2021-10-03] MEDS ORDERED: CEFTRIAXONE 1000 MG/VIAL ONE (07:22)
[2021-10-03] MEDS ORDERED: NA CHLORIDE 0.9% 50 ML ONE (07:26)
[2021-10-03] MEDS: INSULIN -REGULAR HUMAN 50 UNIT/0.5 ML ML SQ SCH ×4 (07:30→21:00)
[2021-10-03] MEDS: CEFTRIAXONE 1,000 MG in NA CHLORIDE 0.9% 50 ML IVPB SCH ×2 (08:18→08:19)
[2021-10-03] MEDS: FUROSEMIDE 40 MG/4 ML VIAL IV SCH ×2 (08:20→16:56)
--- NOTE | 2021-10-03 10:37 | RAD REPORT ---
EXAM DESCRIPTION: USExtrem Venous W Compress Bil10/03/2021 2:33 am CLINICAL HISTORY: Leg swelling COMPARISON: none FINDINGS: The common femoral, superficial femoral, popliteal and posterior tibial veins bilaterally are compressible and demonstrate augmentation. Doppler demonstrates good flow. IMPRESSION: No evidence of deep venous thrombosis involving either lower extremity.
--- NOTE | 2021-10-03 10:38 | RAD REPORT ---
EXAM DESCRIPTION: Lv Single View10/02/2021 10:28 pm CLINICAL HISTORY: Chest pain COMPARISON: None FINDINGS: Mild bilateral interstitial lung opacities. Small bilateral pleural effusions The heart is mildly enlarged. Postsurgical changes involve the chest. IMPRESSION: These findings probably indicate mild CHF
[2021-10-03] MEDS ORDERED: INFLUENZA VACCINE (for 6+ mo) 0.5 ML DOSE IMVAC ONE (12:00)
--- NOTE | 2021-10-03 12:56 | RAD REPORT ---
EXAM DESCRIPTION: US - Renal Ultrasound-Complete - 10/03/2021 12:45 pm CLINICAL HISTORY: Kidney failure COMPARISON: 2018 FINDINGS: The right kidney measures 11 cm with an increase echotexture. The left kidney measures 11 cm with an increase echotexture. Hydronephrosis is not seen. No gross abnormality of bladder IMPRESSION: Increased renal echotexture consistent with parenchymal disease
--- NOTE | 2021-10-03 15:05 | P.PN ---
Date of Service: 10/03/21 Patient seen and examined. He states he feels much better. He denies shortness of breath and walking around without any difficulty. He said his lower extremity swellings have improved. Patient reports increased urine output with the Lasix. Diagnosis: Volume overload. Progressive chronic kidney disease stage V. Anemia of chronic kidney disease. Severe hypertension. Metabolic acidosis Plan: Nephrology to see patient. Continue IV lasix. Blood pressure control. Hydralazine as needed for BP spikes. Echocardiogram is pending. Monitor renal function.
[2021-10-03] MEDS: AMLODIPINE 10 MG TAB PO SCH (15:17)
--- NOTE | 2021-10-03 16:18 | CON ---
Date of Consultation: 10/03/2021 Reason For Consultation: Elevated BUN and creatinine, anasarca, fluid management. History Of Present Illness: This is a 55-year-old gentleman known to me from previous admission with significant past medical history of diabetes since 2018, complicated with neuropathy, no retinopathy, hypertension, hyperlipidemia, CAD status post CABG back in 2017, patient according to him follow up with Nephrology in [place]. The last lab was done in October. There is no proposal for any renal replacement therapy. According to the patient does not remember his lab number. The patient in the last couple of weeks started having some shortness of breath, increases in leg swelling. For that reason, he started taking over the counter diuretics including caffeine. Also his symptoms did not improve, for that reason, the patient reported to the hospital, upon arrival to the hospital the patient found to be over volume, elevated BUN and creatinine, creatinine 9.4 with GFR of 6. For that reason, we have been consulted. The patient denied taking nonsteroidal. No IV contrast. The patient apparently was taking Mobic and metformin at home. Past Medical History: 1. CAD complicated with congestive heart failure, status post CABG. 2. Hypertension. 3. Hyperlipidemia. 4. Chronic kidney disease back in 2019, creatinine 4.1 with GFR of 15. 5. Hypertension. Allergies: NO KNOWN DRUG ALLERGIES. Home Medications: Include glimepiride, meloxicam, metformin. Family History: Positive for CVA, diabetes and CAD. Social History: Active smoker. Active alcohol. Denies drug abuse. Review of Systems: Head and Neck: No red eye. No ear pain. GI: No nausea, no vomiting. : No polyuria. No dysuria. No hematuria. Driller Operator: Not applicable. Respiratory: Has shortness of breath. Cardiovascular: Has orthopnea. Has leg swelling. Endocrine: No polydipsia. Skin: No rash. Neuro: Has neuropathy. Musculoskeletal: No joint pain. Physical Examination: Vital Signs: When I saw the patient, patient lying in bed, blood pressure 179/90, pulse of 74, afebrile. Chest: Faint crackles bilateral. Heart: S1, S2. Systolic murmur. Abdomen: Soft, nontender. Extremities: +2 edema. Neurologic: Alert. No focality. No tremor. Laboratory Data: Dated back in August 19, creatinine 4.1, GFR of 55. At that time, H and H 11.9/34.2. On this admission yesterday creatinine 9.4, GFR of 6. Today lab data: Sodium 144, potassium 3.7, bicarb 17, BUN 82, creatinine 9.5, calcium 8.1, magnesium 2.5, uric acid 7.5. BNP 58,000, albumin of 3. Urinalysis: +2 protein. PC ratio 8.5. Renal ultrasound 09/10. Chest x-ray, cardiomegaly with congestion. Current Medications: The patient on include ceftriaxone, albuterol, hydralazine, Tylenol, ipratropium, Zofran, insulin. Assessment And Plan: Chronic kidney disease stage 4/5, possible progression to end-stage renal disease, over volume. Respiratory distress has been improved. No hyperkalemia. 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 1. I do not see the need for urgent renal replacement therapy, for the time being I had long discussion with the patient about the modality of the dialysis and the need for preparation, patient on agreement. We will go ahead and continue Lasix b.i.d. and we will monitor. If kidney function continue to stabilize, no need to initiate any renal replacement therapy. We will follow up as out patient. 2. Acidosis, non-anion gap metabolic acidosis. I am going to start the patient on Tums and we will follow up. 3. Hypocalcemia. Corrected calcium within normal limits. Start Tums. Followup PTH and vitamin D. 4. Nephrotic range of proteinuria secondary to diabetes nephropathy with the presence of anemia. We will rule out light chain disease. We will follow up. 5. Anemia, send for anemia workup. 6. Bronchitis. Continue current antibiotic. 7. Anasarca secondary to cardiorenal, as above. time spend exam the patient face to face , placing order , reviewing the data of lab and radiology , discussing with the staff including nusing , discussing with other mohamud member including hospitalist and other staffing consultant 65 min SOPHY Voice ID: [id number] Report ID: [id number] JOSE MANUEL
[2021-10-03] MEDS: CALCIUM CARBONATE CHEW 500MG TAB PO SCH (16:56)
[2021-10-03] MEDS: METOPROLOL TAR 50 MG TAB PO SCH (20:47)
[2021-10-03] MEDS ORDERED: TAMSULOSIN 0.4 MG SR CAP PO SCH (21:00)
[2021-10-03] MEDS ORDERED: ROSUVASTATIN 10 MG TAB PO SCH (21:00)
[2021-10-04 03:47] LABS: Absolute Lymphocytes (CBC) 1.2 K/uL (0.7-4.9); Basophils % 1.3 % (0-1.3); Hematocrit 25.5 % (39.6-49.0); Lymphocytes % 20.1 % (15.3-44.8); RBC Red Blood Cell Count 2.82 M/uL (4.33-5.43)
[2021-10-04 04:37] LABS: Bilirubin Total 0.2 mg/dL (0.2-1.0); Ferritin 103.9 ng/mL (26-388); Magnesium 2.3 mg/dL (1.8-2.4); Phosphorus 8.5 mg/dL (2.5-4.9); Potassium 4.3 mmol/L (3.5-5.1); Protein, Total 6.1 g/dL (6.4-8.2); Thyroid Stimulating Hormone 2.26 uIU/mL (0.360-3.740)
[2021-10-04] MEDS: INSULIN -REGULAR HUMAN 50 UNIT/0.5 ML ML SQ SCH ×2 (07:30→11:24)
[2021-10-04] MEDS: CALCIUM CARBONATE CHEW 500MG TAB PO SCH ×2 (08:16→11:33)
[2021-10-04] MEDS: FUROSEMIDE 40 MG/4 ML VIAL IV SCH (08:16)
[2021-10-04] MEDS: AMLODIPINE 10 MG TAB PO SCH (08:17)
[2021-10-04] MEDS: METOPROLOL TAR 50 MG TAB PO SCH (08:17)
[2021-10-04] MEDS ORDERED: CALCITROL 0.25 MCG CAP PO SCH (09:00)
[2021-10-04 10:43] VITALS: O2SAT 96
--- NOTE | 2021-10-04 11:39 | RAD REPORT ---
EXAM DESCRIPTION: CT - Stone Protocol - 10/03/2021 6:30 am CLINICAL HISTORY: The patient is 55 years old and is Male; acute kidney failure TECHNIQUE: Axial computed tomography images of the abdomen and pelvis without intravenous contrast. Sagittal and coronal reformatted images were created and reviewed. This CT exam was performed usi ng one or more of the following dose reduction techniques: automated exposure control, adjustment o f the mA and/or kV according to patient size, and/or use of iterative reconstruction technique. COMPARISON: CT chest, abdomen and pelvis February 04, 2019 FINDINGS: Lung bases: Unremarkable. No mass. No consolidation. Pleural space: Moderate right and small left pleural effusion. ABDOMEN: Liver: Unremarkable. Gallbladder and bile ducts: Unremarkable. No calcified stones. No ductal dilation. Pancreas: Unremarkable. No ductal dilation. Spleen: Unremarkable. No splenomegaly. Adrenals: Unremarkable. No mass. Kidneys and ureters: Mild bilateral perinephric stranding. No obstructing stones. No hydronephrosis. Stomach and bowel: Prominence of the gastric antrum/pyloric canal. No obstruction. No mucosal thickening. PELVIS: Appendix: No findings to suggest acute appendicitis. Bladder: Unremarkable. No stones. Reproductive: Unremarkable as visualized. ABDOMEN and PELVIS: Intraperitoneal space: Unremarkable. No free air. No significant fluid collection. Bones/joints: Disc space narrowing with degenerative endplate changes at L5-S1. No acute fracture. No dislocation. Soft tissues: Unremarkable. Vasculature: Scattered atherosclerotic vascular calcifications. No abdominal aortic aneurysm. Lymph nodes: Unremarkable. No enlarged lymph nodes. IMPRESSION: 1. Moderate right and small left pleural effusion. 2. Mild bilateral perinephric stranding. 3. Prominence of the gastric antrum/pyloric canal. Correlate with any concern for mass or other g astric pathology. Evaluation limited without IV contrast. Electronically signed by: Jermaine Oliva MD 10/03/2021 1:04 AM INSURANCE SPECIALIST Due to temporary technical issues with the PACS/Fluency reporting system, reports are being signed by the in house radiologists without review as a courtesy to insure prompt reporting. The interpreting radiologist is fully responsible for the content of the report.
[2021-10-04] MEDS ORDERED: INFLUENZA VACCINE (for 6+ mo) 0.5 ML DOSE IMVAC ONE (12:00)
[2021-10-04 12:21] VITALS: BP 153/83; TEMP 97.4
--- NOTE | 2021-10-04 14:25 | P.DS ---
Admission Date: 10/03/21 Discharge Date: 10/04/21 Primary Care Provider: Calixto Disposition: ROUTINE DISCHARGE Discharge Condition: FAIR Reason for Admission: acute renal failure Consultations: Nephrology - Problems (1) Volume overload Status: Acute (2) Anemia of chronic disease Status: Chronic (3) Diabetes mellitus Onset Date: 04/19/18 Status: Chronic Qualifiers: Diabetes mellitus type: type 2 Diabetes mellitus alf insulin use: without alf use Diabetes mellitus complication status: with kidney complications Chronic kidney disease stage: stage 5, not on chronic dialysis (4) ESRD (end stage renal disease) Status: Chronic Brief History of Present Illness: Mr. Simmons is a 55 yo M with DM, HTN, CKD who presents with 3 weeks of increased SOB, KNIGHT, abdominal pain and edema. He also reports increased fatigue and urinary frequency. Denies cough, wheezing, PND, orthopnea. H/H 8.6 BUN 78 Cr 9.48 GFr 6 Glu 146 Trop 0.05 BNP 83471. Nephrology was contacted by ED provider. Given 80mg IV Lasix in the ED. Admitted for initiation of dialysis. Hospital Course: Patient admitted to the medical floor and treated with IV Lasix for volume overload. Patient seen and evaluated by nephrology-Dr. Whittaker. He responded to IV Lasix and diureses well with improvement in the peripheral edema. His shortness of breath also resolved. Patient deemed stable for discharge per nephrology. He is discharged with oral Lasix maintenance therapy. Vital Signs/Physical Exam: Temp Pulse Resp BP Pulse Ox 97.4 F 63 18 153/83 H 99 10/04/21 12:00 10/04/21 12:00 10/04/21 12:00 10/04/21 12:00 10/04/21 12:00 General: Alert, In no apparent distress, Oriented x3 HEENT: Mucous membr. moist/pink Neck: JVD not distended Respiratory: Clear to auscultation bilaterally, Normal air movement Cardiovascular: Regular rate/rhythm, Normal S1 S2, Edema (Trace bilateral lower extremity pitting edema.) Gastrointestinal: Soft and benign, Non-distended Musculoskeletal: No swelling Integumentary: No rashes Neurological: Normal strength at 5/5 x4 extr Laboratory Data at Discharge: WBC 6.00 K/uL (4.3-10.9) 10/04/21 03:08 Hgb 8.3 g/dL (13.6-17.9) L 10/04/21 03:08 Hct 25.5 % (39.6-49.0) L 10/04/21 03:08 Plt Count 263 K/uL (152-406) 10/04/21 03:08 PT 11.7 SECONDS (9.5-12.5) 10/02/21 22:35 INR 1.02 10/02/21 22:35 Sodium 144 mmol/L (136-145) 10/04/21 03:08 Potassium 4.3 mmol/L (3.5-5.1) 10/04/21 03:08 BUN 84 mg/dL (7-18) H 10/04/21 03:08 Creatinine 10.20 mg/dL (0.55-1.3) H* 10/04/21 03:08 Glucose 111 mg/dL (74-106) H 10/04/21 03:08 Uric Acid 7.5 mg/dL (3.5-7.2) H 10/03/21 04:47 Phosphorus 8.5 mg/dL (2.5-4.9) H 10/04/21 03:08 Magnesium 2.3 mg/dL (1.8-2.4) 10/04/21 03:08 Total Bilirubin 0.2 mg/dL (0.2-1.0) 10/04/21 03:08 AST 15 U/L (15-37) 10/04/21 03:08 ALT 24 U/L (12-78) 10/04/21 03:08 Alkaline Phosphatase 59 U/L (45-117) 10/04/21 03:08 Troponin I 0.06 ng/mL (0.0-0.045) H 10/03/21 07:43 Triglycerides 70 mg/dL (<150) 10/04/21 03:08 Cholesterol 106 mg/dL (<200) 10/04/21 03:08 HDL Cholesterol 43 mg/dL (40-60) 10/04/21 03:08 Cholesterol/HDL Ratio 2.47 10/04/21 03:08 Home Medications: Glimepiride [Amaryl*] 2 mg PO BID 04/18/18 Aspirin 81 mg PO DAILY 10/03/21 Magnesium Salicylate/Caffeine [Diurex Water Pills] 1 each PO DAILY 10/03/21 Metoprolol Tartrate 50 mg PO BID 10/03/21 Rosuvastatin [Crestor*] 20 mg PO BEDTIME 10/03/21 Tamsulosin [Flomax*] 0.4 mg PO BEDTIME 10/03/21 calcitrioL [Calcitriol] 0.5 mcg PO DAILY 10/03/21 Amlodipine [Norvasc*] 10 mg PO DAILY #30 tab 10/04/21 Furosemide [Lasix] 40 mg PO BIDL #60 tab 10/04/21 New Medications: Furosemide [Lasix] 40 mg PO BIDL #60 tab Amlodipine [Norvasc*] 10 mg PO DAILY #30 tab Diet: Renal (ADA) Followup: Favian Whittaker MD [ACTIVE - CAN ADMIT] - (CKD 5. follow up within 2 weeks) Shanon De Luna DO, DO [Primary Care Provider] - (Call to schedule a follow up appointment) Time spent managing pt's care (in minutes): 36
--- NOTE | 2021-10-04 15:11 | PN ---
Date of Progress Note: 10/04/2021 Subjective: The patient was admitted with acute kidney injury on advanced chronic kidney disease, anasarca secondary to renal failure, cardiorenal. The patient was started on diuresis, started responding very well. No uremic symptoms. Hyperkalemia has been resolved. Acidosis has been improved. Physical Examination: Vital Signs: Blood pressure 153/83, pulse of 63, afebrile. The patient had good urine output. Chest: Clear to auscultation. Heart: S1, S2. Regular. Abdomen: Soft and nontender. Extremities: Trace edema. Neurologic: Alert, oriented x3. No focal. No tremor. Laboratory Data: H and H 8.3/25.5. Sodium 144, potassium 4.3, bicarb 21, BUN 84, creatinine 10.2, GFR of 5, calcium 8.3, phosphorus 8.5. Iron saturation 11, ferritin 103. Albumin is 3, corrected calcium 9.1. Current Medications: The patient on include: 1. Ceftriaxone. 2. Flomax. 3. Calcium carbonate 500 with each meal. 4. Amlodipine. 5. Metoprolol. 6. Crestor. 7. Lasix 80 b.i.d. 8. Zofran. Assessment And Plan: 1. Chronic kidney disease, stage 5, slow progression. No uremia. No hyperkalemia. Over volume has been resolved. I had long discussion with the patient about the need to start planning for initiating renal replacement therapy. The patient is on agreement and in preference of peritoneal dialysis. The patient does not need urgent dialysis. We will try to arrange for that as outpatient and we will follow up. 2. Acidosis, non-anion gap metabolic acidosis secondary to renal failure. Response to calcium carbonate, will continue. 3. 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 Protein electrophoresis is still pending. 4. Anemia of chronic kidney disease, iron deficiency anemia. We will start the patient on oral iron. Plan to IV iron as outpatient. 5. Bronchitis as by primary. 6. Congestive heart failure, coronary artery disease, currently normal volume. Continue current Lasix dose. 7. Secondary hyperpara. We will start the patient on calcium carbonate. time spend exam the patient face to face , placing order , reviewing the data of lab and radiology , discussing with the staff including nusing , discussing with other mohamud member including hospitalist and other program evaluation consultant 45 min STEFFI/NURYS Voice ID: [id number] Report ID: [id number] JOSE MANUEL
[2021-10-04] MEDS ORDERED: CALCIUM CARBONATE CHEW 500MG TAB PO SCH (16:30)
[2021-10-04] MEDS ORDERED: FUROSEMIDE 40 MG/4 ML VIAL IV SCH (17:00)
[2021-10-08 07:02] LABS: Vitamin D 1,25-Dihydroxy Total 17 pg/mL (18-72); Vitamin D,1,25-OH2, D2 <8 pg/mL
== END 2021-10-04 15:00 | disposition home or self-care (01) | DRG 291 ==
LOC: ER 21:54 → ERHOLD 10-03 01:52 → 4TH 10-03 02:48
PROVIDERS: ADMIT Internal Medicine; ATTEND Internal Medicine
DX: I13.2 Hypertensive heart and chronic kidney disease with heart failure and with stage 5 chronic kidney disease, or end stage renal disease (principal); N18.6 End stage renal disease; N17.9 Acute kidney failure, unspecified; I16.1 Hypertensive emergency; E87.2 Acidosis; N25.81 Secondary hyperparathyroidism of renal origin; I50.9 Heart failure, unspecified; E11.22 Type 2 diabetes mellitus with diabetic chronic kidney disease; E11.40 Type 2 diabetes mellitus with diabetic neuropathy, unspecified; E83.51 Hypocalcemia; E78.5 Hyperlipidemia, unspecified; I25.10 Atherosclerotic heart disease of native coronary artery without angina pectoris; D50.9 Iron deficiency anemia, unspecified; E87.5 Hyperkalemia; J40 Bronchitis, not specified as acute or chronic; F17.200 Nicotine dependence, unspecified, uncomplicated; E87.70 Fluid overload, unspecified; D63.1 Anemia in chronic kidney disease; I25.2 Old myocardial infarction; R77.8 Other specified abnormalities of plasma proteins; Z79.84 Long term (current) use of oral hypoglycemic drugs; Z95.1 Presence of aortocoronary bypass graft; Z88.8 Allergy status to other drugs, medicaments and biological substances; Z79.82 Long term (current) use of aspirin; Z79.899 Other long term (current) drug therapy; Z20.822 Contact with and (suspected) exposure to COVID-19
CPT/HCPCS: 36415; 71045; 74176; 76377; 76770; 80048; 80053; 80061; 80076; 81003; 81015; 82550; 82570; 82607; 82652; 82728; 82747; 82947; 83036; 83540; 83735; 83880; 84100; 84132; 84156; 84300; 84439; 84443; 84466; 84484; 84550; 85025; 85610; 87077; 87086; 87088; 87186; 93005; 93970; 94760; 96374; 96375; 99285; J0360; J1940; U0003

== ENCOUNTER 2021-12-31 10:47 | Inpatient (IN) | payer SELFPAY ==
--- OUTSIDE RECORDS SUMMARY | 2021-12-31 14:11 | XMS REPORT | Continuity of Care Document ---
:1965 Author Organization [facility] t Address [address] [place] [address] Care Team Providers Name Role Phone Unavailable Unavailable Unavailable Problems This patient has no known problems. Allergies, Adverse Reactions, Alerts This patient has no known allergies or adverse reactions. Medications This patient has no known medications. Procedures This patient has no known procedures. Results Test Description Test Time Test Comments Results Result Comments Source CBC W/AUTO DIFF WITH PLATELETS 2021-12-03 15:49:27 Test Item Value Reference Range Interpretation Comme nts WBC (test code = 1001) 6.6 K/UL 3.5-11.0 RBC (test code = 1002) 2.24 M/UL 4.50-6.10 L HEMOGLOBIN (test code = 6.8 G/DL 13.5-17.0 LL 1003) HEMATOCRIT (test code = 19.7 % 40.0-51.0 LL 1004) MCV (test code = 1005) 87.9 fL 80.0-99.0 MCH (test code = 1006) 30.4 PG 25.0-33.0 MCHC (test code = 1007) 34.5 G/DL 31.0-36.0 RDW (test code = 1038) 13.6 % 11.5-15.0 NEUTROPHILS (test code = 66.1 % AUTOMATED 1008) DIFFERENTIAL CO NFIRMED WITH DINESH ORTEGA SLIDE REVIEW. LYMPHOCYTES (test code = 15.8 % 1010) MONOCYTES (test code = 6.8 % 1011) EOSINOPHILS (test code = 10.0 % 1012) BASOPHILS (test code = 0.8 % 1013) IMMATURE GRANULOCYTES (test 0.5 % code = 1036) NUCLEATED RBCS (test code = 0.0 /100 WBC'S See_Comment [Automated message] The 1065) system which ge nerated this result transmit jarrod reference range : 0.0. The reference range was not used to interpr et this result as maral l/abnormal. PLATELET COUNT (test code = 225 K/UL 825-015 8853) ABSOLUTE NEUTROPHILS (test 4.35 K/UL 1.50-7.50 code = 1066) ABSOLUTE LYMPHOCYTES (test 1.04 K/UL 1.00-4.00 code = 1067) ABSOLUTE MONOCYTES (test 0.45 K/UL 0.20-1.00 code = 1068) ABSOLUTE EOSINOPHILS (test 0.66 K/UL 0.00-0.50 H code = 1040) ABSOLUTE BASOPHILS (test 0.05 K/UL 0.00-0.20 code = 1069) ABS IMMATURE GRANULOCYTES 0.03 K/UL 0.00-0.10 (test code = 1020) ABS NUCLEATED RBCS (test 0.00 K/UL 0.00-0.11 code = 56614) COMMENTS (test code = 1016) (NOTE) FEW ELLIPTOCYTES SLIGHT POLYCHRO MASIA PLATELETS APPEAR NORMAL COMPREHENSIVE METABOLIC [id number] 06:53:58 Test Item Value Reference Range Interpretation Comments GLUCOSE (test code = 125 MG/DL 70-99 H 2216) BUN (test code = 122 MG/DL 6-20 H 2207) RESULTS RECHECKED AND VERIFIED CREATININE (test 12.80 MG/DL 0.80-1.40 H code = 2214) eGFR (2020 CKD-EPI) 4 ML/MIN/1.73 >60 L (test code = 23761) CALC BUN/CREAT (test 10 RATIO 6-28 code = 223) SODIUM (test code = 139 MEQ/L 849-823 3453) POTASSIUM (test code 4.5 MEQ/L 3.5-5.4 = 2227) CHLORIDE (test code 100 MEQ/L 95-107 = 221) CARBON DIOXIDE (test 16 MEQ/L 19-31 L code = 220) CALCIUM (test code = 9.2 MG/DL 8.5-10.5 2208) PROTEIN, TOTAL (test 5.9 G/DL 6.1-8.3 L code = 222) ALBUMIN (test code = 3.7 G/DL 3.5-5.2 2200) CALC GLOBULIN (test 2.2 G/DL 1.9-3.7 code = 2240) CALC A/G RATIO (test 1.7 RATIO 1.0-2.6 code = 2234) BILIRUBIN, TOTAL 0.2 MG/DL See_Comment [Automated message] (test code = 2207) The syste m which generated this result transmit jarrod reference range : <=1.2. The refe rence range was not u sed to interpret th is result as normal/abnormal . ALKALINE PHOSPHATASE 69 U/L 40-121 (test code = 2204) AST (test code = 14 U/L 9-50 2217) ALT (test code = 20 U/L 5-50 2218) URIC [id number] 06:53:58 Test Item Value Reference Range Interpretation Comments URIC ACID (test 7.0 MG/DL 3.7-8.0 UNLES S OTHERWISE code = 2233) INDICATED, ALL TESTING PERFORMED [facility] [address] [place] [address] 4 LABORATORY DIRE CTOR: Yaniv SETH. CLIA NUMBER [id number] [place] [id number] URINALYSIS W/REFLEX [id number] 03:03:38 Test Item Value Reference Range Interpretation Comments COLOR (test code = YELLOW YELLOW-STRAW 1501) APPEARANCE (test code CLEAR CLEAR = 1502) SPECIFIC GRAVITY 1.013 1.005-1.035 (test code = 1503) LEUKOCYTE ESTERASE NEGATIVE NEGATIVE (test code = 1504) NITRITE (test code = NEGATIVE NEGATIVE 1505) pH (test code = 1506) 5.0 5.0-9.0 PROTEIN (test code = 3+ NEGATIVE A 1507) GLUCOSE (test code = TRACE NEGATIVE A 1508) KETONES (test code = NEGATIVE NEGATIVE 1509) UROBILINOGEN (test 0.2 MG/DL See_Comment [Automat ed message] code = 1510) The system [facility] generated this result transmitted ref erence range: <=2.0. T he reference range was not used to int erpret this result as normal/abnormal . BILIRUBIN (test code NEGATIVE NEGATIVE = 1511) OCCULT BLOOD (test 1+ NEGATIVE A code = 1512) WHITE BLOOD CELLS 0-5 /HPF 0-5 (test code = 1513) RED BLOOD CELLS (test 0-2 /HPF 0-5 code = 1514) EPITHELIAL CELLS 0-5 /HPF 0-5 (test code = 62214) BACTERIA (test code = NONE SEEN NONE SEEN 1515) CASTS, HYALINE (test TRACE NONE-TRACE UNLESS code = 1517) OTHERWISE INDIC ATED, ALL TESTING PER FORMED ATCLINICAL PATH OLOGY LABORATORIES, [place]. [address] [place] [address] LABORATORY DIRE CTOR: SINGH SAHNI M.D. CLIA NUMBER [id number] CAP ACCREDITATION N O. [id number] COMPREHENSIVE METABOLIC [id number] 03:52:04 Test Item Value Reference Range Interpretation Comments GLUCOSE (test code = 83 MG/DL 70-99 2216) BUN (test code = 103 MG/DL 6-20 H 2207) CREATININE (test 11.02 MG/DL 0.80-1.40 H EFFECTIVE code = 2214) 10/12/2021, [facility] HAS IMPLEMENTED THE NKF-ASN RECOMME NDED KD-EPI EGF R REFIT CALCULATI ON THAT DOES NOT I NCLUDE A COEFFICIENT FORRACE. FOR MO RE INFORMATION, SE E ANNOUNCEMENT [email or web address] eGFR (2020 CKD-EPI) 5 ML/MIN/1.73 >60 L (test code = 49286) CALC BUN/CREAT (test 9 RATIO 6-28 code = 2235) SODIUM (test code = 139 MEQ/L 665-983 5116) POTASSIUM (test code 5.6 MEQ/L 3.5-5.4 H HEMOLYTIC = 2228) INTERFERENCE DETECTED; RESUL TS MAY BE AFFECTED CHLORIDE (test code 103 MEQ/L 95-107 = 2215) CARBON DIOXIDE (test 15 MEQ/L 19-31 L code = 2206) CALCIUM (test code = 9.6 MG/DL 8.5-10.5 2208) PROTEIN, TOTAL (test 6.9 G/DL 6.1-8.3 code = 2229) ALBUMIN (test code = 4.4 G/DL 3.5-5.2 2200) CALC GLOBULIN (test 2.5 G/DL 1.9-3.7 code = 2240) CALC A/G RATIO (test 1.8 RATIO 1.0-2.6 code = 2234) BILIRUBIN, TOTAL 0.2 MG/DL See_Comment [Automated message] (test code = 2207) The syste m which generated this result transmitted ref erence range: <=1.2. T he reference range was not used to int erpret this result as normal/abnormal . ALKALINE PHOSPHATASE 68 U/L 40-121 (test code = 2204) AST (test code = 20 U/L 9-50 2218) ALT (test code = 23 U/L 5-50 UNLE SS 2219) OTHERWISE INDIC ATED, ALL TESTING PER FORMED ATCLINICAL PATH OLOGY LABORATORIES, [facility]. [address] [address] LAB[address]ORY DIRE CTOR: SINGH SAHNI M.D. CLIA NUMBER [id number] CAP ACCREDITATION N O. [id number] CBC W/AUTO DIFF WITH [id number] 02:47:21 Test Item Value Reference Range Interpretation Comments WBC (test code = 6.1 K/UL 3.5-11.0 1001) RBC (test code = 2.95 M/UL 4.50-6.10 L 1002) HEMOGLOBIN (test code 8.7 G/DL 13.5-17.0 L = 1003) HEMATOCRIT (test code 25.9 % 40.0-51.0 L = 1004) MCV (test code = 87.8 fL 80.0-99.0 1005) MCH (test code = 29.5 PG 25.0-33.0 1006) MCHC (test code = 33.6 G/DL 31.0-36.0 1007) RDW (test code = 12.8 % 11.5-15.0 1038) NEUTROPHILS (test 57.2 % NOTE: EFF ECTIVE code = 1008) 09/21/2021, REFERENCE INTER VALS AND FLAGGING FORRELATIVE (%) WBC DIFFERENTIAL WI LL BE ELIMINATED REDUNDANT TOABS OLUTE COUNTS.SEE [email or web address] _upda te LYMPHOCYTES (test 22.7 % code = 1010) MONOCYTES (test code 6.4 % = 1011) EOSINOPHILS (test 12.0 % code = 1012) BASOPHILS (test code 1.5 % = 1013) IMMATURE GRANYLOCYTES 0.2 % (test code = 1036) NUCLEATED RBCS (test 0.0 /100 See_Comment [Autom ated message] code = 1065) WBC'S The system [facility] generated this result transmit jarrod reference range : 0.0. The refere nce range was not u sed to interpret th is result as normal/abnormal . PLATELET COUNT (test 278 K/UL 130-400 code = 1015) ABSOLUTE NEUTROPHILS 3.48 K/UL 1.50-7.50 (test code = 1066) ABSOLUTE LYMPHOCYTES 1.38 K/UL 1.00-4.00 (test code = 1067) ABSOLUTE MONOCYTES 0.39 K/UL 0.20-1.00 (test code = 1068) ABSOLUTE EOSINOPHILS 0.73 K/UL 0.00-0.50 H (test code = 1040) ABSOLUTE BASOPHILS 0.09 K/UL 0.00-0.20 (test code = 1069) ABS IMMATURE 0.01 K/UL 0.00-0.10 GRANULOCYTES (test code = 1020) ABS NUCLEATED RBCS 0.00 K/UL 0.00-0.11 (test code = 26234)
[2021-12-31] MEDS ORDERED: ONDANSETRON 4 MG/2 ML VIAL IV PRN (15:18)
[2021-12-31] MEDS ORDERED: FUROSEMIDE 40 MG/4 ML VIAL IV ONE (15:21)
--- NOTE | 2021-12-31 15:22 | P.HP ---
Certification for Inpatient Patient admitted to: Inpatient With expected LOS: >2 Midnights Practitioner: I am a practitioner with admitting privileges, knowledge of patient current condition, hospital course, and medical plan of care. Services: Services provided to patient in accordance with Admission requirements found in Title 42 Section 412.3 of the Code of Federal Regulations Patient History Date of Service: 12/31/21 Reason for admission: ESRD, start dialysis History of Present Illness: 56yo M , PMH: CAD s/p CABGx2 (2017 or 2018). HTN, CKDV, NIDDM2 Admitted to hospital due to worsening renal function and anemia. Patient with ~25lb weight gain over last ~2 months, slight shortness of breath, and hgb downtrending. He has been following with nephrology as outpatient and trying to avoid dialysis. Unfortunately now, patient has worsening renal function and requires admission for initiation of dialysis. His hemoglobin was reportedly in the mid sixes yesterday. Nephrology recommends high-dose IV Lasix and 1 unit blood transfusion. Patient states has been taking his medications as prescribed, has not missed any doses. Allergies No Known Allergies Allergy (Unverified 11/25/17 16:53) Home Medications: Glimepiride [Amaryl*] 2 mg PO BID 04/18/18 Aspirin 81 mg PO DAILY 10/03/21 Magnesium Salicylate/Caffeine [Diurex Water Pills] 1 each PO DAILY 10/03/21 Metoprolol Tartrate 50 mg PO BID 10/03/21 Rosuvastatin [Crestor*] 20 mg PO BEDTIME 10/03/21 Tamsulosin [Flomax*] 0.4 mg PO BEDTIME 10/03/21 calcitrioL [Calcitriol] 0.5 mcg PO DAILY 10/03/21 Amlodipine [Norvasc*] 10 mg PO DAILY #30 tab 10/04/21 Furosemide [Lasix] 40 mg PO BIDL #60 tab 10/04/21 - Past Medical/Surgical History Diabetic: Yes -: NIDDM2 -: HTN -: DYSLIPIDEMIA -: ESRD -: CABGx2 - Family History Father -: Stroke Brother -: Diabetes Mother -: Other (see notes) Notes: osteoperosis, dementia - Social History Smoking Status: Never smoker (uses dip) Alcohol use: No CD- Drugs: No Caffeine use: Yes Place of Residence: Home Review of Systems 10-point ROS is otherwise unremarkable Physical Examination - Vital Signs Temperature: 97.0 F Blood Pressure: 145/74 Pulse: 60 Respirations: 16 Pulse Ox (%): 95 - Physical Exam General: Alert, In no apparent distress, Oriented x3 HEENT: Sclerae nonicteric Neck: Supple Respiratory: Other (mild nonlabored) Cardiovascular: Regular rate/rhythm, Edema (3+ b/l edema) Gastrointestinal: Soft and benign, Non-distended, No tenderness Musculoskeletal: No tenderness Integumentary: No significant lesion Neurological: Normal speech, Normal strength at 5/5 x4 extr, Normal affect Assessment and Plan - Advance Directives Does patient have a Living Will: No Does patient have a Durable POA for Healthcare: No Physician Review Additional Text: Problem list CKDV, now ESRD requiring HD HTN CAD s/p CABGx2 NIDDM2 admit to telemetry Lasix on 20 mg twice daily ordered per nephrology recommendations 1 unit PRBC ordered We will get baseline set of labs Goal hemoglobin greater than 7 Nephrology consulted General surgery consulted Requesting cardiac clearance given cardiac history 80 mg Lasix to be given after a unit of blood in addition to scheduled Lasix Patient with significant edema on exam VTE: Heparin Code: Full Dispo: home, >2-3 days Time Spent Managing Pts Care (In Minutes): 60
[2021-12-31 16:05] LABS: Hematocrit 18.1 % (39.6-49.0); MPV 8.2 fL (7.6-11.3); RBC Red Blood Cell Count 2.09 M/uL (4.33-5.43)
[2021-12-31 16:07] LABS: Protime INR 1.09
[2021-12-31] MEDS: INSULIN -REGULAR HUMAN 50 UNIT/0.5 ML ML SQ SCH ×2 (16:30→20:33)
[2021-12-31 16:40] LABS: Albumin 3.1 g/dL (3.4-5.0); Phosphorus 11.4 mg/dL (2.5-4.9); Potassium 4.8 mmol/L (3.5-5.1)
[2021-12-31] MEDS: FUROSEMIDE 40 MG/4 ML VIAL IV SCH (17:01)
[2021-12-31] MEDS: HEPARIN 5000 UNIT/ML 1 ML VIAL SQ SCH (17:05)
[2021-12-31] MEDS ORDERED: PNEUMOCOCCAL VACCINE 0.5 ML IMVAC ONE (20:00)
[2021-12-31] MEDS: NA CHLORIDE 0.9% 250 ML IV SCH (20:35)
[2022-01-01] MEDS: HEPARIN 5000 UNIT/ML 1 ML VIAL SQ SCH (00:37)
[2022-01-01 03:10] LABS: Absolute Lymphocytes (CBC) 0.6 K/uL (0.7-4.9); MPV 8.1 fL (7.6-11.3); RBC Red Blood Cell Count 2.16 M/uL (4.33-5.43)
[2022-01-01 03:18] LABS: Hematocrit 18.8 % (39.6-49.0)
[2022-01-01] MEDS ORDERED: FUROSEMIDE 40 MG/4 ML VIAL IV ONE (03:53)
[2022-01-01 04:29] LABS: Albumin 2.8 g/dL (3.4-5.0); Bilirubin Total 0.4 mg/dL (0.2-1.0); Magnesium 2.3 mg/dL (1.8-2.4); Phosphorus 11.6 mg/dL (2.5-4.9); Potassium 4.7 mmol/L (3.5-5.1); Protein, Total 6.3 g/dL (6.4-8.2)
[2022-01-01] MEDS: NA CHLORIDE 0.9% 250 ML IV SCH (05:48)
--- NOTE | 2022-01-01 05:55 | P.PN ---
Date of Service: 01/01/22 Subjective: Receiving second unit of PRBCs No worsening symptoms overnight No acute events overnight ROS: 10 point ROS as noted above, otherwise negative Physical exam GEN: Alert, oriented, NAD HEENT: Normal conjunctiva, sclera anicteric CV: Regular rate and rhythm, anasarca Pulm: Nonlabored respirations on room air ABD: Soft, nontender, nondistended Integumentary: No rashes Neuro: Normal speech, normal affect Problem list ESRD requiring HD HTN CAD s/p CABGx2 NIDDM2 Continue telemetry Lasix 120 mg twice daily ordered per nephrology recommendations s/p 1uPRBC, 2nd unit ordered Goal hemoglobin greater than 7 Nephrology consulted General surgery consulted cardiology cleared for dialysis cath placement plan for dialysys cath placement today Patient with significant edema on exam likely dialysis Code: Full Dispo: home, >2-3 days Time Spent Managing Pts Care (In Minutes): 35
[2022-01-01] MEDS: INSULIN -REGULAR HUMAN 50 UNIT/0.5 ML ML SQ SCH ×4 (07:30→21:00)
[2022-01-01] MEDS: FUROSEMIDE 40 MG/4 ML VIAL IV SCH ×2 (09:23→17:21)
--- NOTE | 2022-01-01 11:34 | ECHO ---
HEIGHT: 5 ft 7 in WEIGHT: 213 lb 9.6 oz DATE OF STUDY: 01/01/[address]: Bernard Marina MD 2-DIMENSIONAL: YES M.MODE: YES DOPPLER: YES COLOR FLOW: YES TDS: NO PORTABLE: NO DEFINITY: NO BUBBLE STUDY: NO DIAGNOSIS: CONGESTIVE HEART FAILURE CARDIAC HISTORY: CATHERIZATION: NO SURGERY: YES PROSTHETIC VALVE: NO PACEMAKER: NO MEASUREMENTS (cm) DIASTOLIC (NORMALS) SYSTOLIC (NORMALS) IVSd 1.3 (0.6-1.2) LA Diam 3.8 (1.9-4.0) LVEF 55-60% LVIDd 4.5 (3.5-5.7) LVIDs 3.6 (2.0-3.5) %FS 19% LVPWd 1.3 (0.6-1.2) Ao Diam 2.8 (2.0-3.7) 2 DIMENSIONAL ASSESSMENT: RIGHT ATRIUM: NORMAL LEFT ATRIUM: NORMAL RIGHT VENTRICLE: NORMAL LEFT VENTRICLE: LEFT VENTRICULAR HYPERTROPHY TRICUSPID VALVE: NORMAL MITRAL VALVE: NORMAL PULMONIC VALVE: NORMAL AORTIC VALVE: SCLEROSIS PERICARDIAL EFFUSION: NONE AORTIC ROOT: NORMAL LEFT VENTRICULAR WALL MOTION: NORMAL. DOPPLER/COLOR FLOW: MILD TRICUSPID REGURGITATION. COMMENTS: NORMAL LEFT VENTRICULAR SIZE AND FUNCTION. NO WALL MOTION ABNORMALITY. NO EFFUSION. AORTIC SCLEROSIS. MILD TRICUSPID REGURGITATION, NORMAL RIGHT VENTRICULAR SYSTOLIC PRESSURE. TECHNOLOGIST: ILA MCKEON
[2022-01-01] MEDS: SEVELAMER CARBONATE 800 MG TABLET PO SCH ×2 (12:00→17:22)
--- NOTE | 2022-01-01 12:09 | P.CNS ---
Date of Consult: 01/01/22 Reason for Consult: CKD , fluid overload Chief Complaint: ESRD, start dialysis History of Present Illness: 56yo M , PMH: DM CKD V, CAD s/p CABGx2 HTN, , NIDDM2 Pt was admitted for abnormal labs, and significant wt gain in ER labs Hb 6.3, Bun 162 , pt also was not compliant with lasix , he gain >20lbs since September pt denied NSAID intake , stated he feels tired easily ROS General : denies fever, chills, feels tired HEENT: Denies dry, vision changes and headache Resp: denies SOB, cough or wheezes Cardiovascular: : denies chest pain, palpitation GI: denies abdominal pain, diarrhea or constipation : denies dysuria, urgency, foamy urine or blood tinged urine Muscloskeltal: denies muscle aches, joint pain Endo: denies polyuria and and polydipsia Extre: denies pain numbness, have leg swelling Physical exam General: AAOx3, NAD CHEST; CTAB, no wheezes or rales HEART : RRR. Normal S1,2 no murmur or rub Abd: soft, Nt Ext: +3 edema Skin : No rash A/P diabetic CKD V will start on dialysis HD today and tomorrow renal dose meds Anemia of chronic disease PRBC today Will start epogen will check iron panel metabolic bone disease will start on Renvela DM SSI Fluid overload Cont LAsix HD today and tomorrow Allergies No Known Allergies Allergy (Unverified 11/25/17 16:53) Home Medications: Aspirin 81 mg PO DAILY 10/03/21 Magnesium Salicylate/Caffeine [Diurex Water Pills] 1 each PO DAILY 10/03/21 Metoprolol Tartrate 50 mg PO BID 10/03/21 Rosuvastatin [Crestor*] 20 mg PO BEDTIME 10/03/21 Tamsulosin [Flomax*] 0.4 mg PO BEDTIME 10/03/21 calcitrioL [Calcitriol] 0.5 mcg PO DAILY 10/03/21 Amlodipine [Norvasc*] 10 mg PO DAILY #30 tab 10/04/21 Furosemide [Lasix] 40 mg PO BIDL 12/31/21 - Past Medical/Surgical History Diabetic: Yes -: NIDDM2 -: HTN -: DYSLIPIDEMIA -: ESRD -: CABGx2 - Family History Father Medical History: Stroke Brother Medical History: Diabetes Mother Medical History: Other (see notes) Notes: osteoperosis, dementia - Social History Smoking Status: Unknown if ever smoked Alcohol use: No CD- Drugs: No Caffeine use: Yes Place of Residence: Home Physical Examination Temp Pulse Resp BP Pulse Ox 97.8 F 63 16 157/76 H 95 01/01/22 08:00 01/01/22 09:23 01/01/22 08:00 01/01/22 09:23 01/01/22 08:00 Laboratory Data (last 24 hrs) 01/01/22 02:48: Sodium 138, Potassium 4.7, BUN 162 H, Creatinine 16.10 H*, Glucose 147 H, Phosphorus 11.6 H*, Magnesium 2.3, Total Bilirubin 0.4, AST 20, ALT 47, Alkaline Phosphatase 85 01/01/22 02:48: WBC 6.20, Hgb 6.3 L*, Hct 18.8 L*, Plt Count 234 01/01/22 02:20: Hgb Cancelled, Hct Cancelled 12/31/21 15:34: Sodium 137, Potassium 4.8, BUN 155 H, Creatinine 15.80 H*, Glucose 135 H, Phosphorus 11.4 H* 12/31/21 15:34: PT 12.6 H, INR 1.09 12/31/21 15:34: WBC 6.90, Hgb 6.1 L*, Hct 18.1 L*, Plt Count 243
[2022-01-01] MEDS ORDERED: LIDOCAINE 2% MPF 5 ML VIAL ONE (12:32)
[2022-01-01] MEDS ORDERED: MIDAZOLAM HCL 2 MG/2 ML INJ ONE (12:32)
[2022-01-01] MEDS ORDERED: propofoL 200 MG/20 ML VIAL IV ONE (12:32)
[2022-01-01] MEDS ORDERED: FENTANYL CITR 100 MCG/2 ML ONE (12:32)
[2022-01-01] MEDS ORDERED: NA CHLORIDE 0.9% 500 ML ONE (13:08)
[2022-01-01] MEDS ORDERED: CEFAZOLIN SODIUM 1 GM/VIAL ONE (13:26)
[2022-01-01] MEDS ORDERED: NS 0.9% VIAL 10 ML ONE (14:10)
[2022-01-01] MEDS ORDERED: HEPARIN 5000 UNIT/ML 1 ML VIAL ONE (14:11)
[2022-01-01] MEDS ORDERED: NA CHLORIDE 0.9% 100 ML IV ONE (14:11)
--- NOTE | 2022-01-01 15:05 | P.BOP ---
Preoperative diagnosis: ESRD Postoperative diagnosis: same Primary procedure: 1. Placement of cuff Hemosplit HD catheter Secondary procedure: 2. Interpretation of fluooroscopy Other procedure(s): 3. RIght neck ultrasound Estimated blood loss: <10cc Specimen: none Findings: as above Anesthesia: General Complications: None Transferred to: Recovery Room Condition: Good
[2022-01-01] MEDS ORDERED: ONDANSETRON 4 MG/2 ML VIAL ONE (15:07)
--- NOTE | 2022-01-01 15:20 | RAD REPORT ---
EXAM DESCRIPTION: RAD - Fluoroscopy <1 Hour - 01/01/2022 3:12 pm CLINICAL HISTORY: Device placement central venous catheter placement FINDINGS: A central venous catheter was placed into the superior vena cava. 8 fluoroscopic spot imag es are submitted. Fluoroscopy time .6 minutes The examination was performed by Dr. Maya
[2022-01-01] MEDS ORDERED: HYDROMORPHONE HCL 1 MG/ML INJ ONE (15:43)
--- NOTE | 2022-01-01 16:16 | RAD REPORT ---
EXAM DESCRIPTION: RADChest Single View01/01/2022 3:39 pm CLINICAL HISTORY: Device placement/central venous catheter placement IMPRESSION: Central venous catheter has been placed into the superior vena cava. No pneumothorax
[2022-01-01 16:53] LABS: Hematocrit 21.5 % (39.6-49.0)
[2022-01-01] MEDS ORDERED: MANNITOL 25% 12.5 GM/50 ML VIAL IV PRN (17:01)
[2022-01-01] MEDS ORDERED: MANNITOL 20% 250 ML BAG IV PRN (17:45)
[2022-01-01] MEDS: MANNITOL IV ONE ×2 (18:00→19:57)
--- NOTE | 2022-01-01 19:19 | CON ---
Diagnosis: Renal failure, in need of hemodialysis catheter. History Of Present Illness: This is a case of a 56-year-old patient with history of renal failure, n ow on dialysis, admitted to the hospital due to a worsening renal function and anemia. He has histor y of CABG x2 in 2017 and 2018. Past Medical History: Heart disease, hypertension, dyslipidemia, gsy-gjffhvu-wzvejhntu diabetes. Past Surgical History: Include CABG x2 in 2017 and 2018. Family History: Include father with stroke, brother with diabetes. Social History: He does not smoke. He does not drink alcohol. Allergies: NONE. Review of Systems: No shortness of breath. No chest pain. Ten points otherwise unremarkable. Please see H and P for r enal failure symptoms. Physical Examination: General: The patient is awake, alert. Eyes: Pupils equal, reactive. Anicteric. Neck: Supple. Chest: Clear. Midline incision from previous cardiac bypass. Abdomen: Soft and depressible. Extremities: Good capillary refill. Laboratory Data: Blood work shows hemoglobin of 6.3, hematocrit of 18.8, WBC count of 6.2, platelets of 234. INR is 1.09. Creatinine is 16, potassium is 4.7. Assessment: A 56-year-old patient with renal failure with need of immediate hemodialysis. They aske d me to do this, patient is nervous. He wanted it done under anesthetic and he understands that part at the same time. He is anemic. They transfused him previously, he is still anemic. INR is within normal limits. He understands the risks of hemodialysis catheter placement which include, but not l imited to infection, bleeding, damage to adjacent structures and complication, CT and even . He also understands this may not relieve symptoms. He understands this is a temporary catheter and he has to look for permanent access and see his vascular surgeons. If the Renal Service believe, he is going to be using this long-term. He understands the anemia episode, understand the risk, at the soco e time is an urgency. Cardiology has evaluated the patient and he understands the risks and we are g oing now to proceed with that. HM/MODL Voice ID: [id number] Report ID: [id number]
[2022-01-01] MEDS: EPOETIN 4,000 UNIT/ML VIAL IV SCH (21:00)
--- NOTE | 2022-01-02 02:04 | OP ---
Date of Procedure: 01/01/2022 Surgeon: Sanya Maya MD Preoperative Diagnosis: End-stage renal disease. Postoperative Diagnosis: End-stage renal disease. Procedures: 1.Placement of a cuffed HemoSplit hemodialysis catheter. 2.Interpretation of fluoroscopy. 3.Right neck ultrasound. Estimated Blood Loss: Less than 10 cc. Specimen: None. Anesthesia: General plus local. Specimen: Hemodialysis HemoSplit catheter. Indications: This is a case of a 56-year-old patient in need of renal dialysis. They asked me to pu t a cuffed hemodialysis catheter. The benefits, alternatives, and risks fully explained to the patie nt which include, but not limited to, infection, bleeding, damage to adjacent structures, anesthesia complication, hemothorax, pneumothorax, DVTs, PEs, pericarditis, laceration to the blood vessel, seps is, CA, and even . He also understands this may not relieve symptoms. He might need more than one surgical intervention. He understood and signed a consent. Procedure In Detail: The patient was brought to the operating room and placed in supine position. A nesthesia was done without complication. Neck and chest were prepped and draped in a sterile fashion . A time-out was called. After that, I proceeded using the ultrasound. We proceeded to localize th e internal jugular vein and the carotid artery with keeping the carotid artery protected at all time. Internal jugular vein seemed to be viable and compressible. With the help of that, we proceeded to insert an 18-gauge needle in the right internal jugular vein at the first attempt with the patient i n Trendelenburg position. A guidewire was passed through. Guidewire was got into superior vena cava using fluoroscopy. The catheter was placed and then tunneled underneath the skin from the right upp er chest into the incision that we have in the neck region. Multiple dilators were placed under dire ct visualization with fluoroscopy and introducer catheter was placed then. After that, I proceeded t o carefully remove the guidewire in and placed the catheter in and peeled off the introducer sheath, making sure we have guided with fluoroscopy. The fluoroscopy was used to check for appropriate place ment, seems to be okay. I proceeded to carefully close the skin with 3-0 chromic and secured the cat heter to the skin with 2-0 nylon. Excellent backflow and the line was flushed with heparinized solut ion. The patient tolerated the procedure well. The patient was brought from Trendelenburg position to normal position and the area was covered with sterile dressings. The patient tolerated the proced ure well. The patient is on his way to recovery room and a chest x-ray will be ordered stat. ANA/NURYS Voice ID: [id number] Report ID: [id number]
--- NOTE | 2022-01-02 06:02 | P.PN ---
Date of Service: 01/02/22 Subjective: Underwent dialysis for the first time yesterday, no significant events, tolerated well No new symptoms, denies shortness of breath ROS: 10 point ROS as noted above, otherwise negative Physical exam GEN: Alert, oriented, NAD HEENT: Normal conjunctiva, sclera anicteric CV: Regular rate and rhythm, 2+ edema in b/l lower extremities Pulm: Nonlabored respirations on room air ABD: Soft, nontender, nondistended Neuro: Normal speech, normal affect, str 5/5 all extremities Problem list ESRD requiring HD HTN CAD s/p CABGx2 NIDDM2 Continue telemetry s/p HD cath placement on 01/01 s/p 2uPRBCs Hemoglobin improved, stable Nephrology following Overall patient is improving/stable Continue dialysis per nephrology recommendations financial services education consultant consulted to assist in setting up outpatient dialysis Hep panel sent 01/01 Code: Full Dispo: home, ~2-3 days, set up dialysis/chair time Time Spent Managing Pts Care (In Minutes): 35
[2022-01-02 06:52] LABS: Hematocrit 24.3 % (39.6-49.0); MPV 7.8 fL (7.6-11.3); RBC Red Blood Cell Count 2.85 M/uL (4.33-5.43)
[2022-01-02] MEDS: INSULIN -REGULAR HUMAN 50 UNIT/0.5 ML ML SQ SCH ×4 (07:30→21:00)
[2022-01-02 07:41] LABS: Albumin 3.2 g/dL (3.4-5.0); Magnesium 2.2 mg/dL (1.8-2.4); Phosphorus 8.5 mg/dL (2.5-4.9); Potassium 4.2 mmol/L (3.5-5.1)
[2022-01-02 08:11] LABS: Ferritin 194.8 ng/mL (26-388); Folic Acid, (Folate) 6.9 ng/mL (3.1-17.5); Thyroid Stimulating Hormone 3.63 uIU/mL (0.360-3.740)
[2022-01-02] MEDS: SEVELAMER CARBONATE 800 MG TABLET PO SCH ×3 (09:39→16:51)
[2022-01-02] MEDS: FUROSEMIDE 40 MG/4 ML VIAL IV SCH ×2 (09:39→16:51)
[2022-01-02] MEDS ORDERED: AMLODIPINE 5 MG TAB PO ONE (11:36)
--- NOTE | 2022-01-02 13:14 | P.PN ---
Subjective Date of Service: 01/02/22 Chief Complaint: ESRD, start dialysis 56yo M , PMH: DM CKD V, CAD s/p CABGx2 HTN, , NIDDM2 Pt was admitted for abnormal labs, and significant wt gain started on HD today tolerated HD yesterday with no complications HD today again UF 2-3 liters as tolerated Physical exam General: AAOx3, NAD CHEST; CTAB, no wheezes or rales HEART : RRR. Normal S1,2 no murmur or rub Abd: soft, Nt Ext: +3 edema Skin : No rash A/P diabetic CKD V will start on dialysis HD today then Tuesday renal dose meds Anemia of chronic disease S/p 1 PRBC Cont epogen and IV iron metabolic bone disease Cont Renvela DM SSI Fluid overload Cont LAsix HD today then Tuesday Physical Examination - Vital Signs Temperature: 98.6 F Blood Pressure: 185/63 Pulse: 76 Respirations: 18 Pulse Ox (%): 96 - Studies Laboratory Data (last 24 hrs) 01/02/22 06:28: WBC 6.40, Hgb 8.3 L, Hct 24.3 L, Plt Count 264 01/02/22 06:02: Sodium 137, Potassium 4.2, BUN 110 H D, Creatinine 12.30 H* D, Glucose 119 H, Phosphorus 8.5 H, Magnesium 2.2 01/01/22 16:40: Hgb 7.3 L, Hct 21.5 L Assessment And Plan - Current Problems (Diagnosis) (1) Chronic renal disease Onset Date: 04/19/18 Current Visit: No Status: Acute Qualifiers: Chronic kidney disease stage: stage 5, not on chronic dialysis Qualified Code(s): N18.5 - Chronic kidney disease, stage 5
[2022-01-02] MEDS: ACETAMINOPHEN 500 MG TAB PO PRN (15:29)
[2022-01-02] MEDS: SOD FERRIC GLUC COMPLX/SUCROSE 125 MG in NA CHLORIDE 0.9% 100 ML IV SCH (15:30)
[2022-01-02] MEDS: EPOETIN 4,000 UNIT/ML VIAL IV SCH (18:15)
--- NOTE | 2022-01-02 20:53 | CON ---
Date of Consultation: 01/01/2022 Reason For Consultation: I am seeing the patient on 01/01/2022 for cardiac clearance for shunt for d ialysis. History Of Present Illness: Mr. Simmons has a history of CABG in 2018, has hypertension, dyslipide mary, benign prostatic hypertrophy, severe anemia, creatinine of 16. He is Dr. De Luna's patient, also se Dr. Whittaker. He came in with worsening renal failure, needs a shunt for dialysis. Has no cardia c symptoms. Past Medical History: As stated above. Allergies: NONE. Review of Systems: Negative. Social History: Negative. Family History: Negative. Medications: At home include Crestor, Flomax, metoprolol, Norvasc, Lasix, and aspirin. Physical Examination: General: He was pleasant, in no acute distress. Vital signs: Stable, sinus rhythm, afebrile. HEENT: Negative. Neck: Supple. No bruit. Chest: Clear to auscultation and percussion. Cardiac: Revealed a regular rhythm and rate. No murmurs, gallops, or rubs. Abdomen: Benign. Extremities: Revealed no clubbing, cyanosis. He had 1+ edema. His chest x-ray was negative. EKG was unremarkable. Hemoglobin is 6.3, creatinine was 16. Impression And Plan: Mr. Simmons had a history of coronary artery bypass graft in 2018. No cardia c symptoms. No evidence of congestive heart failure clinically. EKG is fairly unremarkable. Chest x-ray is fairly unremarkable. I have no intention of doing any stress testing on him. Before his sh unt, I will clear him for a shunt. Blood pressure and cholesterol are well controlled. He may need a transfusion. He is on Lasix 120 mg b.i.d. An echocardiogram which was done revealed an ejection f raction of 55% to 60% with aortic sclerosis, no wall motion abnormalities. Again, he is low risk for perioperative mortality. We will see him in the office as an outpatient. We will follow him on an as-needed basis. No change in medical therapy. NB/MODL Voice ID: [id number] Report ID: [id number]
--- NOTE | 2022-01-03 06:03 | P.PN ---
Date of Service: 01/03/22 Subjective: No acute events overnight, tolerated seconds run of dialysis yesterday Swelling improving ROS: 10 point ROS as noted above, otherwise negative Physical exam GEN: Alert, oriented, NAD HEENT: Normal conjunctiva, sclera anicteric CV: Regular rate and rhythm, 2+ edema in b/l lower extremities Pulm: Nonlabored respirations on room air ABD: Soft, nontender, nondistended Neuro: Normal speech, normal affect Problem list ESRD requiring HD HTN CAD s/p CABGx2 NIDDM2 dc telemetry s/p HD cath placement on 01/01 s/p 2uPRBCs Hemoglobin improved, stable Nephrology following Overall patient is improving Continue dialysis per nephrology recommendations director of housing and energy services consulted to assist in setting up outpatient dialysis Hep panel sent 01/01 Code: Full Dispo: home, ~1-2 days, set up dialysis/chair time Time Spent Managing Pts Care (In Minutes): 35
[2022-01-03 06:08] VITALS: BMI 31.1
[2022-01-03 06:25] LABS: Hematocrit 23.9 % (39.6-49.0); MPV 7.4 fL (7.6-11.3); RBC Red Blood Cell Count 2.78 M/uL (4.33-5.43)
[2022-01-03 06:29] LABS: Albumin 2.9 g/dL (3.4-5.0); Magnesium 2.1 mg/dL (1.8-2.4); Phosphorus 6.9 mg/dL (2.5-4.9); Potassium 3.8 mmol/L (3.5-5.1)
[2022-01-03] MEDS: INSULIN -REGULAR HUMAN 50 UNIT/0.5 ML ML SQ SCH (07:30)
[2022-01-03] MEDS: SEVELAMER CARBONATE 800 MG TABLET PO SCH ×3 (08:46→16:24)
[2022-01-03] MEDS: SOD FERRIC GLUC COMPLX/SUCROSE 125 MG in NA CHLORIDE 0.9% 100 ML IV SCH (08:46)
[2022-01-03] MEDS: FUROSEMIDE 40 MG/4 ML VIAL IV SCH ×2 (08:46→16:25)
--- NOTE | 2022-01-03 11:46 | P.PN ---
Subjective Date of Service: 01/03/22 Chief Complaint: ESRD, start dialysis 56yo M , PMH: DM CKD V, CAD s/p CABGx2 HTN, , NIDDM2 Pt was admitted for abnormal labs, and significant wt gain started on HD today No overnight events Will add metolazone Moitor BP , will add hydaralzine Physical exam General: AAOx3, NAD CHEST; CTAB, no wheezes or rales HEART : RRR. Normal S1,2 no murmur or rub Abd: soft, Nt Ext: +3 edema Skin : No rash A/P diabetic CKD V stared on HD on dialysis HD Tuesday renal dose meds avoid NSAID and cotrast Anemia of chronic disease S/p 1 PRBC Cont epogen and IV iron metabolic bone disease Cont Renvela DM SSI Fluid overload Cont LAsix , will add metolazone HD today then Tuesday HTN will add hydralazine Physical Examination - Vital Signs Temperature: 98.2 F Blood Pressure: 179/92 Pulse: 73 Respirations: 16 Pulse Ox (%): 97 - Studies Laboratory Data (last 24 hrs) 01/03/22 06:00: Sodium 139, Potassium 3.8, BUN 72 H D, Creatinine 9.24 H* D, Glucose 99, Phosphorus 6.9 H, Magnesium 2.1 01/03/22 06:00: WBC 6.20, Hgb 8.3 L, Hct 23.9 L, Plt Count 284 Assessment And Plan - Current Problems (Diagnosis) (1) Chronic renal disease Onset Date: 04/19/18 Current Visit: No Status: Acute Qualifiers: Chronic kidney disease stage: stage 5, not on chronic dialysis Qualified Code(s): N18.5 - Chronic kidney disease, stage 5
[2022-01-03] MEDS: HYDRALAZINE HCL 10 MG TABLET PO SCH ×2 (13:37→20:44)
[2022-01-03] MEDS: ACETAMINOPHEN 500 MG TAB PO PRN (20:44)
[2022-01-04 05:31] LABS: Hematocrit 21.3 % (39.6-49.0); MPV 7.3 fL (7.6-11.3); RBC Red Blood Cell Count 2.49 M/uL (4.33-5.43)
[2022-01-04 06:01] LABS: Albumin 2.8 g/dL (3.4-5.0); Magnesium 2.1 mg/dL (1.8-2.4); Phosphorus 7.1 mg/dL (2.5-4.9); Potassium 3.7 mmol/L (3.5-5.1)
--- NOTE | 2022-01-04 06:07 | P.PN ---
Date of Service: 01/04/22 Subjective: Stable Anxious to get home ROS: 10 point ROS as noted above, otherwise negative Physical exam GEN: Alert, oriented, NAD HEENT: Normal conjunctiva, sclera anicteric CV: Regular rate and rhythm, 1-2+ edema in b/l lower extremities Pulm: Nonlabored respirations on room air ABD: Soft, nontender, nondistended Neuro: Normal speech, normal affect Problem list ESRD requiring HD HTN CAD s/p CABGx2 NIDDM2 s/p HD cath placement on 01/01 s/p 2uPRBCs Hemoglobin slightly decreased Nephrology following Overall patient is improving Continue dialysis per nephrology recommendations fiscal services manager consulted to assist in setting up outpatient dialysis Hep panel sent 01/01 Code: Full Dispo: home, ~1-2 days, once set up with dialysis/chair time Time Spent Managing Pts Care (In Minutes): 35
[2022-01-04] MEDS ORDERED: NA CHLORIDE 0.9% 100 ML ONE (08:46)
[2022-01-04] MEDS: FUROSEMIDE 40 MG/4 ML VIAL IV SCH ×2 (08:59→16:55)
[2022-01-04] MEDS: HYDRALAZINE HCL 10 MG TABLET PO SCH ×3 (09:00→21:28)
[2022-01-04] MEDS: SEVELAMER CARBONATE 800 MG TABLET PO SCH ×3 (09:00→16:55)
--- NOTE | 2022-01-04 09:38 | RAD REPORT ---
EXAM DESCRIPTION: RAD - Chest Single View - 01/04/2022 9:30 am CLINICAL HISTORY: r/o TB for OPHD clinic set up COMPARISON: Portable 01/01/2022 TECHNIQUE: AP portable chest image was obtained 01/04/2022 9:30 am . FINDINGS: Patient shows significantly improved lung volumes compared to January 01 imaging. The hazy op acification in the mid left lung field on the prior study has cleared. Currently there is no focal in filtrate or mass. No failure or volume overload findings seen. There is no hilar mass or lymphadenopa thy. No focal lung scarring seen. No radiographic evidence for current or prior TB infection. Double-lumen dialysis catheter remains in place. Heart size is upper normal. No abnormal vascular eng orgement. No measurable pleural effusion and no pneumothorax. No acute bony abnormality seen. No acut e aortic findings suspected. IMPRESSION: No acute cardiopulmonary process. No radiographic evidence for current or prior TB infection.
[2022-01-04] MEDS: METOLAZONE 5 MG TABLET PO SCH ×2 (12:00→18:23)
[2022-01-04] MEDS: EPOETIN 4,000 UNIT/ML VIAL IV SCH (12:17)
[2022-01-04] MEDS: SOD FERRIC GLUC COMPLX/SUCROSE 125 MG in NA CHLORIDE 0.9% 100 ML IV SCH (16:54)
--- NOTE | 2022-01-05 00:23 | PN ---
Date of Progress Note: 01/04/2022 Chief Complaint: End-stage renal disease, new onset; coronary artery disease status post hypertensio n; ovl-kgydoav-alzymczra diabetes mellitus. History: The patient is scheduled to have dialysis today. Procedure was well tolerated. Ultrafiltr ation was obtained and blood pressure was stable during dialysis. Review of Systems: Denies fever, chills. Physical Examination: Lungs: Clear to auscultation bilaterally. Heart: S1, S2. Abdomen: Soft, benign. Extremities: Edema 2+. Impression/plan: 1.Fluid overload. Continue p.o. fluid restriction, low-sodium diet and dialysis 3 times per week wi th ultrafiltration. 2.Anemia and chronic kidney disease. Patient received packed red blood cell transfusion. Continue JONO. 3.Diabetes mellitus. Continue sliding scale. 4.Edema. Fluid overload. Patient is on metolazone. Monitor fluid balance. Continue Lasix. Advan ce ultrafiltration with dialysis. EB/MODL Voice ID: [id number] Report ID: [id number]
[2022-01-05 05:44] LABS: Hematocrit 22.7 % (39.6-49.0); MPV 6.8 fL (7.6-11.3); RBC Red Blood Cell Count 2.62 M/uL (4.33-5.43)
[2022-01-05 06:10] LABS: Albumin 2.9 g/dL (3.4-5.0); Phosphorus 5.5 mg/dL (2.5-4.9)
[2022-01-05] MEDS: SEVELAMER CARBONATE 800 MG TABLET PO SCH ×3 (09:39→17:00)
[2022-01-05] MEDS: HYDRALAZINE HCL 10 MG TABLET PO SCH ×3 (09:40→20:37)
[2022-01-05] MEDS: METOLAZONE 5 MG TABLET PO SCH (09:41)
[2022-01-05] MEDS: FUROSEMIDE 40 MG/4 ML VIAL IV SCH ×2 (09:42→17:00)
[2022-01-05] MEDS: SOD FERRIC GLUC COMPLX/SUCROSE 125 MG in NA CHLORIDE 0.9% 100 ML IV SCH (11:09)
--- NOTE | 2022-01-05 14:42 | P.DS ---
Admission Date: 12/31/21 Discharge Date: 01/06/22 Disposition: ROUTINE DISCHARGE Discharge Condition: FAIR Reason for Admission: ESRD, start dialysis Consultations: Nephrology-Dr. Whittaker. Brief History of Present Illness: 56yo M , PMH: CAD s/p CABGx2 (2017 or 2018). HTN, CKDV, NIDDM2 Admitted to hospital due to worsening renal function and anemia. Patient with ~25lb weight gain over the past 2 months, slight shortness of breath, and hgb downtrending. He has been following with nephrology as outpatient and trying to avoid dialysis. Unfortunately now, patient has worsening renal function and requires admission for initiation of dialysis. Nephrology recommends high-dose IV Lasix and 1 unit blood transfusion for anemia. Patient hospitalized for further management. Hospital Course: Problem list ESRD requiring HD HTN CAD s/p CABGx2 NIDDM2 Atrial fibrillation. Patient admitted to the medical floor s/p HD cath placement on 01/01 s/p 2uPRBCs. Seen by nephrology, patient underwent hemodialysis. Overall patient was clinically stable and asymptomatic during the hospital stay. Nephrology recommended routine outpatient hemodialysis. Outpatient hemodialysis has been set up, patient is deemed stable for discharge. He was treated with Lasix and metolazone which are continued on discharge. Patient noted to be in atrial fibrillation. Case discussed with cardiology-Dr. Marina who recommended metoprolol and Eliquis. Patient is already on metoprolol. Prescribed renally dosed Eliquis 2.5 mg twice daily. He is informed to follow-up with Dr. Marina within the next couple of days for the A. fib. Vital Signs/Physical Exam: Temp Pulse Resp BP Pulse Ox 98.1 F 104 H 16 152/84 H 100 01/05/22 12:00 01/05/22 12:00 01/05/22 12:00 01/05/22 12:00 01/05/22 12:00 General: Alert, In no apparent distress HEENT: Mucous membr. moist/pink Neck: JVD not distended Respiratory: Clear to auscultation bilaterally, Normal air movement Cardiovascular: No edema, Regular rate/rhythm, Normal S1 S2 Gastrointestinal: Soft and benign, Non-distended Musculoskeletal: No swelling Integumentary: No rashes Neurological: Normal strength at 5/5 x4 extr Laboratory Data at Discharge: WBC 6.80 K/uL (4.3-10.9) 01/05/22 05:35 Hgb 7.8 g/dL (13.6-17.9) L 01/05/22 05:35 Hct 22.7 % (39.6-49.0) L 01/05/22 05:35 Plt Count 280 K/uL (152-406) 01/05/22 05:35 PT 12.6 SECONDS (9.5-12.5) H 12/31/21 15:34 INR 1.09 12/31/21 15:34 Sodium 138 mmol/L (136-145) 01/05/22 05:35 Potassium 4.0 mmol/L (3.5-5.1) 01/05/22 05:35 BUN 56 mg/dL (7-18) H D 01/05/22 05:35 Creatinine 7.75 mg/dL (0.55-1.3) H* D 01/05/22 05:35 Glucose 92 mg/dL (74-106) 01/05/22 05:35 Phosphorus 5.5 mg/dL (2.5-4.9) H 01/05/22 05:35 Magnesium 2.1 mg/dL (1.8-2.4) 01/04/22 05:07 Total Bilirubin 0.4 mg/dL (0.2-1.0) 01/01/22 02:48 AST 20 U/L (15-37) 01/01/22 02:48 ALT 47 U/L (12-78) 01/01/22 02:48 Alkaline Phosphatase 85 U/L (45-117) 01/01/22 02:48 Home Medications: Aspirin 81 mg PO DAILY 10/03/21 Magnesium Salicylate/Caffeine [Diurex Water Pills] 1 each PO DAILY 10/03/21 Metoprolol Tartrate 50 mg PO BID 10/03/21 Rosuvastatin [Crestor*] 20 mg PO BEDTIME 10/03/21 Tamsulosin [Flomax*] 0.4 mg PO BEDTIME 10/03/21 calcitrioL [Calcitriol] 0.5 mcg PO DAILY 10/03/21 Amlodipine [Norvasc*] 10 mg PO DAILY #30 tab 10/04/21 Furosemide [Lasix*] 40 mg PO BIDL 12/31/21 Epoetin [Retacrit] 4,000 unit IV EVERY HD vial 01/05/22 Heparin [Heparin 1,000 units/mL *] 6,000 unit IV EVERY HD PRN vial 01/05/22 Mannitol 125 ml IV EVERY HD PRN bag 01/05/22 Sevelamer Carbonate [Renvela*] 1,600 mg PO TIDWM #180 tablet 01/05/22 metOLazone [Zaroxolyn*] 5 mg PO DAILY #30 tab 01/05/22 Apixaban [Eliquis] 2.5 mg PO BID #60 tablet 01/06/22 New Medications: Apixaban [Eliquis] 2.5 mg PO BID #60 tablet Sevelamer Carbonate [Renvela*] 1,600 mg PO TIDWM #180 tablet metOLazone [Zaroxolyn*] 5 mg PO DAILY #30 tab Diet: Renal Activity: Ad keith Followup: Favian Whittaker MD [ACTIVE - CAN ADMIT] - 1-2 Weeks (Follow up per scheduled HD) Bernard Marina MD [ACTIVE - CAN ADMIT] - 1-2 Days (Call to schedule appointment) Time spent managing pt's care (in minutes): 36
--- NOTE | 2022-01-05 15:49 | P.PN ---
Subjective Date of Service: 01/05/22 Chief Complaint: ESRD, start dialysis Subjective: Other (Had aflutter today.) Physical Examination - Vital Signs Temperature: 98.1 F Blood Pressure: 152/84 Pulse: 104 Respirations: 16 Pulse Ox (%): 100 - Physical Exam General: Other (appears as his stated age) HEENT: Atraumatic, Normocephalic Neck: Supple, JVD not distended Respiratory: Other (symmetric chest expansion) Cardiovascular: No rubs, No murmurs Gastrointestinal: Soft and benign Musculoskeletal: No clubbing, Swelling Integumentary: Other (normal temperature) Neurological: Normal speech, Normal tone Urinary: Other (no bladder distention) External genitalia: Deferred Rectal: Deferred - Studies Laboratory Data (last 24 hrs) 01/05/22 05:35: Sodium 138, Potassium 4.0, BUN 56 H D, Creatinine 7.75 H* D, Glucose 92, Phosphorus 5.5 H 01/05/22 05:35: WBC 6.80, Hgb 7.8 L, Hct 22.7 L, Plt Count 280 Assessment And Plan - Plan 1. Volume overload. Continue diuretics, low-sodium diet, and dialysis 3 times per week with ultrafiltration. Next HD tomorrow Wed. 2. Anemia and chronic kidney disease. Patient received packed red blood cell transfusion. Continue JONO. 3. Diabetes mellitus. Continue sliding scale. 4. Aflutter. Per Cardiology & primary team.
--- NOTE | 2022-01-05 16:29 | P.PN ---
Subjective Date of Service: 01/05/22 Chief Complaint: ESRD, start dialysis Patient desires to go home as soon as possible. He has no complaint. Nursing staff noticed his heartbeat was irregular. EKG done and it is demonstrating a flutter/A. fib. Patient is asymptomatic. Physical Examination - Vital Signs Temperature: 98.1 F Blood Pressure: 152/84 Pulse: 104 Respirations: 16 Pulse Ox (%): 100 - Studies Laboratory Data (last 24 hrs) 01/05/22 05:35: Sodium 138, Potassium 4.0, BUN 56 H D, Creatinine 7.75 H* D, Glu cose 92, Phosphorus 5.5 H 01/05/22 05:35: WBC 6.80, Hgb 7.8 L, Hct 22.7 L, Plt Count 280 Assessment And Plan - Plan Physical exam GEN: Alert, oriented, NAD HEENT: Normal conjunctiva, sclera anicteric CV: Irregular rhythm, normal rate. No pedal edema. Pulm: Nonlabored respirations on room air, clear to auscultation bilaterally. ABD: Soft, nontender, nondistended Neuro: Normal speech, normal affect Problem list ESRD requiring HD HTN CAD s/p CABGx2 NIDDM2 Atrial fibrillation s/p HD cath placement on 01/01 Patient undergoing routine hemodialysis s/p 2uPRBCs Hemoglobin is stable between 7 and 8. Nephrology following Obtain echocardiogram Cardiology consult. A. fib is rate controlled. Repeat echocardiogram in a.m.. Patient is unfunded. resident services manager is assisting with outpatient dialysis set up.
[2022-01-06 04:22] LABS: Absolute Lymphocytes (CBC) 0.7 K/uL (0.7-4.9); Hematocrit 23.1 % (39.6-49.0); Lymphocytes % 10.6 % (15.3-44.8); MPV 7.2 fL (7.6-11.3); RBC Red Blood Cell Count 2.61 M/uL (4.33-5.43)
[2022-01-06 04:53] LABS: Potassium 3.6 mmol/L (3.5-5.1)
[2022-01-06 08:35] VITALS: O2SAT 98
[2022-01-06] MEDS: HYDRALAZINE HCL 10 MG TABLET PO SCH ×2 (08:52→13:54)
[2022-01-06] MEDS: METOLAZONE 5 MG TABLET PO SCH (08:52)
[2022-01-06] MEDS: SEVELAMER CARBONATE 800 MG TABLET PO SCH ×2 (08:52→11:44)
[2022-01-06] MEDS: FUROSEMIDE 40 MG/4 ML VIAL IV SCH (08:53)
[2022-01-06] MEDS: SOD FERRIC GLUC COMPLX/SUCROSE 125 MG in NA CHLORIDE 0.9% 100 ML IV SCH (10:46)
--- NOTE | 2022-01-06 12:54 | EKG ---
Test Date: 2022-01-05 Test Time: 15:36:15 Superintendent Sales: FERNANDO MEASUREMENT RESULTS: Intervals: Rate: 114 PA: QRSD: 106 QT: 334 QTc: 460 Datil: P: 267 PA: QRS: 73 T: 133 INTERPRETIVE STATEMENTS: Atrial flutter with variable AV block ST & T wave abnormality, consider inferolateral ischemia Abnormal ECG Compared to ECG 10/02/2021 22:43:02 ST (T wave) deviation now present Possible ischemia now present Sinus rhythm no longer present Prolonged QT interval no longer present Electronically Signed On 01-06-22 12:52:04 [employer] by Bernard Marina
[2022-01-06 13:12] VITALS: BP 181/76; TEMP 97.6
--- NOTE | 2022-01-06 14:36 | PN ---
Date of Progress Note: 01/06/2022 Subjective: The patient was admitted with progression of kidney disease from chronic kidney disease stage 5 to end-stage renal disease, over volume. The patient has been dialyzed on a daily basis. We managed to remove almost . Physical Examination: Vital Signs: Blood pressure 161/99, pulse of 120, afebrile. The patient as weight rahman down to 199. Chest: Crackles bilateral. Heart: S1, S2. Regular. Abdomen: Soft, nontender. Extremities: +3 edema. Neurological: Alert and oriented x3. No focal. Laboratory Data: WBC 6.2, H and H 7.7/23.1. Sodium 137, potassium 3.6, bicarb 26, BUN 69, creatinin e 9.4, calcium 8.6, phosphorus 5.5. Current Medications: The patient on include; 1.IV iron. 2.Heparin. 3.Epogen. 4.Hydralazine. 5.Mannitol. 6.Lasix 120 b.i.d. 7.Metolazone 5 mg daily. 8.Renvela. Assessment And Plan: 1.End-stage renal disease with over volume. I am going to continue the patient on dialysis to estab josh better volume control and we will monitor. 2.Hypertension. We will utilize blood pressure for more ultrafiltration and diuresis. We will add lisinopril and we will continue on the diuresis. 3.Over volume, anasarca secondary to renal failure. We will continue daily dialysis and we will fol low up. Start lisinopril. 4.Anemia of chronic kidney disease, status post transfusion. Continue JONO and IV iron. 5.Diabetes as by primary. The patient waiting for placement as outpatient. STEFFI/NURYS Voice ID: [id number] Report ID: [id number]
[2022-01-06] MEDS: EPOETIN 4,000 UNIT/ML VIAL IV SCH (16:30)
[2022-01-07] MEDS ORDERED: lisinopriL 10 MG TAB PO SCH (09:00)
== END 2022-01-06 17:24 | disposition home or self-care (01) | DRG 682 ==
LOC: LAB 10:47 → 2ND 14:06
PROVIDERS: ADMIT Hospitalist; ATTEND Hospitalist
PROC: B513ZZA Fluoroscopy of Right Jugular Veins, Guidance (ICD-10-PCS; 2022-01-01)
PROC: 5A1D70Z Performance of Urinary Filtration, Intermittent, Less than 6 Hours Per Day (ICD-10-PCS; 2022-01-01)
PROC: 05HM33Z Insertion of Infusion Device into Right Internal Jugular Vein, Percutaneous Approach (ICD-10-PCS; principal; 2022-01-01 12:30)
PROC: 5A1D70Z Performance of Urinary Filtration, Intermittent, Less than 6 Hours Per Day (ICD-10-PCS; 2022-01-02)
PROC: 5A1D70Z Performance of Urinary Filtration, Intermittent, Less than 6 Hours Per Day (ICD-10-PCS; 2022-01-04)
PROC: 5A1D70Z Performance of Urinary Filtration, Intermittent, Less than 6 Hours Per Day (ICD-10-PCS; 2022-01-06)
DX: I12.0 Hypertensive chronic kidney disease with stage 5 chronic kidney disease or end stage renal disease (principal); N18.6 End stage renal disease; E11.22 Type 2 diabetes mellitus with diabetic chronic kidney disease; I25.10 Atherosclerotic heart disease of native coronary artery without angina pectoris; I48.91 Unspecified atrial fibrillation; D64.9 Anemia, unspecified; E78.5 Hyperlipidemia, unspecified; F17.220 Nicotine dependence, chewing tobacco, uncomplicated; Z23 Encounter for immunization; Z95.1 Presence of aortocoronary bypass graft; Z20.822 Contact with and (suspected) exposure to COVID-19
CPT/HCPCS: 36415; 71045; 76000; 80048; 80053; 80069; 82607; 82728; 82746; 82947; 83540; 83735; 83970; 84100; 84443; 84466; 85014; 85018; 85025; 85027; 85610; 86704; 86706; 86803; 86850; 86900; 86901; 87340; 90471; 90732; 90935; 93005; 93306; 94760; C1752; J0690; J1170; J1644; J1940; J2250; J2405; J2704; J2916; J3010; J7040; J7050; P9016; Q5105; U0003

== ENCOUNTER 2022-03-01 17:13 | Inpatient (IN) | payer SELFPAY ==
--- OUTSIDE RECORDS SUMMARY | 2022-03-01 17:16 | XMS REPORT | Continuity of Care Document ---
:1965 Author Organization [facility] t Address [address] [place] [address] Care Team Providers Name Role Phone Elke Barbosa Attending Clinician Unavailable KNOW, DOES_NOT Admitting Clinician Unavailable Payers Payer Name Policy Type Policy Number Effective Date Expiration Date S ource Problems This patient has no known problems. Allergies, Adverse Reactions, Alerts This patient has no known allergies or adverse reactions. Medications This patient has no known medications. Procedures This patient has no known procedures. Encounters Start End Encounter Admission Attending Care Care Encounter Source Date/Time Date/Time Type Type Clinicians Facility Department ID 2022-02-19 2022-02-19 Inpatient Elke Purvis [facility] [id number] [facility] 09:00:00 09:00:00 [id number] [facility] Results Test Description Test Time Test Comments Results Result Comments Source HEPATITIS B SURFACE ANTIBODY 2022-01-01 18:27:59 Test Item Value Reference Range Interpretation Comme nts HEPATITIS B SURFACE ANTIBODY (BEAKER) (test code = 647) < mIU/mL <8.0 General Forecaster ID - DBHEPATITIS C [id number] 18:27:17 Test Item Value Reference Range Interpretation Comments HEPATITIS C ANTIBODY (BEAKER) Nonreactive Nonreactive (test code = 367) General Forecaster ID - DBHEPATITIS B CORE ANTIBODY, [id number] 18:27:17 Test Item Value Reference Range Interpretation Comments HEPATITIS B CORE TOTAL ANTIBODY Nonreactive Nonreactive (BEAKER) (test code = 497) General Forecaster ID - DBHEPATITIS B SURFACE [id number] 18:27:17 Test Item Value Reference Range Interpretation Comments HEPATITIS B SURFACE ANTIGEN (2) Nonreactive Nonreactive (BEAKER) (test code = 2585) Specimen is considered negative for HBsAg.HEPATITIS B CORE ANTIBODY, IGM 2022-01-01 18:27:17 Test Item Value Reference Range Interpretation Comments HEPATITIS B CORE IGM ANTIBODY Nonreactive Nonreactive (BEAKER) (test code = 645) General Forecaster ID - DBCBC W/AUTO DIFF WITH [id number] 15:49:27 Test Item Value Reference Range Interpretation Comments WBC (test code = 6.6 K/UL 3.5-11.0 1001) RBC (test code = 2.24 M/UL 4.50-6.10 L 1002) HEMOGLOBIN (test 6.8 G/DL 13.5-17.0 LL code = 1003) HEMATOCRIT (test 19.7 % 40.0-51.0 LL code = 1004) MCV (test code = 87.9 fL 80.0-99.0 1005) MCH (test code = 30.4 PG 25.0-33.0 1006) MCHC (test code = 34.5 G/DL 31.0-36.0 1007) RDW (test code = 13.6 % 11.5-15.0 1038) NEUTROPHILS (test 66.1 % AUTOMATED code = 1008) DIFFERENTIAL CONFIRMED WITH MANUAL SLI DE REVIEW. LYMPHOCYTES (test 15.8 % code = 1010) MONOCYTES (test code 6.8 % = 1011) EOSINOPHILS (test 10.0 % code = 1012) BASOPHILS (test code 0.8 % = 1013) IMMATURE 0.5 % GRANULOCYTES (test code = 1036) NUCLEATED RBCS (test 0.0 /100 See_Comment [Autom ated message] code = 1065) WBC'S The system [employer] generated this result transmitted ref erence range: 0.0. The reference range was not used to int erpret this result as normal/abnormal . PLATELET COUNT (test 225 K/UL 130-400 code = 1015) ABSOLUTE NEUTROPHILS 4.35 K/UL 1.50-7.50 (test code = 1066) ABSOLUTE LYMPHOCYTES 1.04 K/UL 1.00-4.00 (test code = 1067) ABSOLUTE MONOCYTES 0.45 K/UL 0.20-1.00 (test code = 1068) ABSOLUTE EOSINOPHILS 0.66 K/UL 0.00-0.50 H (test code = 1040) ABSOLUTE BASOPHILS 0.05 K/UL 0.00-0.20 (test code = 1069) ABS IMMATURE 0.03 K/UL 0.00-0.10 GRANULOCYTES (test code = 1020) ABS NUCLEATED RBCS 0.00 K/UL 0.00-0.11 (test code = 02825) COMMENTS (test code (NOTE) FEW = 1016) ELLIPTOCYTES SLIGHT POLYCHROMASIA PLATELETS A PPEAR NORMAL COMPREHENSIVE METABOLIC [id number] 06:53:58 Test Item Value Reference Range Interpretation Comments GLUCOSE (test code = 125 MG/DL 70-99 H 2216) BUN (test code = 122 MG/DL 6-20 H 2207) RESULTS RECHECKED AND VERIFIED CREATININE (test 12.80 MG/DL 0.80-1.40 H code = 221) eGFR (2020 CKD-EPI) 4 ML/MIN/1.73 >60 L (test code = 08112) CALC BUN/CREAT (test 10 RATIO 6-28 code = 2235) SODIUM (test code = 139 MEQ/L 509-234 2444) POTASSIUM (test code 4.5 MEQ/L 3.5-5.4 = 2227) CHLORIDE (test code 100 MEQ/L 95-107 = 2214) CARBON DIOXIDE (test 16 MEQ/L 19-31 L code = 220) CALCIUM (test code = 9.2 MG/DL 8.5-10.5 2208) PROTEIN, TOTAL (test 5.9 G/DL 6.1-8.3 L code = 2229) ALBUMIN (test code = 3.7 G/DL 3.5-5.2 2200) CALC GLOBULIN (test 2.2 G/DL 1.9-3.7 code = 2240) CALC A/G RATIO (test 1.7 RATIO 1.0-2.6 code = 2234) BILIRUBIN, TOTAL 0.2 MG/DL See_Comment [Automated message] (test code = 2207) The [employer] which generated this result transmit jarrod reference range : <=1.2. The refe rence range was not u sed to interpret th is result as normal/abnormal . ALKALINE PHOSPHATASE 69 U/L 40-121 (test code = 2204) AST (test code = 14 U/L 9-50 2217) ALT (test code = 20 U/L 5-50 2218) URIC [id number] 06:53:58 Test Item Value Reference Range Interpretation Comments URIC ACID (test 7.0 MG/DL 3.7-8.0 UNLES S OTHERWISE code = 2233) INDICATED, ALL TESTING PERFORMED ATCLI N[facility] [address] [place] [address] 4 LABORATORY DIRE CTOR: Yaniv SETH. CLIA NUMBER [id number] [facility] [place] [id number] URINALYSIS W/REFLEX [id number] 03:03:38 Test Item Value Reference Range Interpretation [...] ed message] code = 1510) The system [employer] generated this result transmitted ref erence range: [...] CELLS 0-5 /HPF 0-5 (test code = 00582) BACTERIA (test code = NONE SEEN NONE SEEN 1515) CASTS, HYALINE (test TRACE NONE-TRACE UNLESS code = 1517) OTHERWISE INDIC ATED, ALL TESTING PER FORMED ATCLINICAL PATH OLOGY LABORATORIES, [address] [place] [address] LABORATORY DIRE CTOR: SINGH SAHNI M.D. CLIA NUMBER [id number] [facility] ACCREDITATION N O. [id number] COMPREHENSIVE METABOLIC [id number] 03:52:04 Test Item Value Reference Range Interpretation Comments GLUCOSE (test code = 83 MG/DL 70-99 2216) BUN (test code = 103 MG/DL 6-20 H 2207) CREATININE (test 11.02 MG/DL 0.80-1.40 H EFFECTIVE code = 2214) 10/12/2021, [facility] HAS IMPLEMENTED THE NKF-ASN RECOMME NDED KD-EPI EGF R REFIT CALCULATI ON THAT DOES NOT I NCLUDE A COEFFICIENT FORRACE. FOR MO RE INFORMATION, SE E ANNOUNCEMENT [email or web address] eGFR (2020 CKD-EPI) 5 ML/MIN/1.73 >60 L (test code = 85515) CALC BUN/CREAT (test 9 RATIO 6-28 code = 2235) SODIUM (test code = 139 MEQ/L 292-926 8180) POTASSIUM (test code 5.6 MEQ/L 3.5-5.4 H [...] PATH OLOGY LABORATORIES, [place] [address] [facility] [place] [address] LABORATORY DIRE CTOR: SINGH SAHNI M.D. CLIA NUMBER [id number] [facility] ACCREDITATION N O. [id number] CBC W/AUTO DIFF WITH [id number] 02:47:21 Test Item Value Reference Range Interpretation [...] LL BE ELIMINATED REDUNDANT TOABS OLUTE COUNTS.SEE [email or web address] /ally l_CBC_reporting _upda te LYMPHOCYTES (test 22.7 % code = 1010) MONOCYTES (test code 6.4 % = 1011) EOSINOPHILS (test 12.0 % code = 1012) BASOPHILS (test code 1.5 % = 1013) IMMATURE GRANYLOCYTES 0.2 % (test code = 1036) NUCLEATED RBCS (test 0.0 /100 See_Comment [Autom ated message] code = 1065) WBC'S The system [employer] generated this result transmit jarrod reference range [...] RBCS 0.00 K/UL 0.00-0.11 (test code = 01043)
[2022-03-01 19:04] LABS: Absolute Lymphocytes (CBC) 1.1 K/uL (0.7-4.9); Hematocrit 28.3 % (39.6-49.0); Lymphocytes % 11.6 % (15.3-44.8); MPV 6.7 fL (7.6-11.3); RBC Red Blood Cell Count 3.06 M/uL (4.33-5.43)
[2022-03-01 19:14] LABS: Albumin 3.9 g/dL (3.4-5.0); Bilirubin Total 0.3 mg/dL (0.2-1.0); Potassium 5.3 mmol/L (3.5-5.1); Protein, Total 7.5 g/dL (6.4-8.2)
[2022-03-01 19:16] LABS: Protime INR 17.14
--- NOTE | 2022-03-01 19:49 | ER ---
Nurse's Notes [facility] Name: Crispin Simmons Age: 56 yrs Sex: Male : 1965 Arrival Date: 03/01/2022 Time: 17:16 Bed 19 Private MD: Shanon De Luna H Diagnosis: Abnormal coagulation profile Presentation: 03/01 17:42 Chief complaint: Patient states: bleeding from mouth x 8 days; states is on Warfarin vg1 and as of 02/15/22, PT was 39.9 and INR was 4.0; pt also states dialysis pt MWF. Coronavirus screen: Vaccine status: Patient reports being unvaccinated. Client denies travel out of the [place] in the last 14 days. Ebola Screen: Patient denies exposure to infectious person. Patient denies travel to an Ebola-affected area in the 21 days before illness onset. Initial Sepsis Screen: Does the patient meet any 2 criteria? No. Patient's initial sepsis screen is negative. Does the patient have a suspected source of infection? No. Patient's initial sepsis screen is negative. Risk Assessment: Do you want to hurt yourself or someone else? Patient reports no desire to harm self or others. Onset of symptoms was February 20, 2022. 17:42 Method Of Arrival: Ambulatory vg1 17:42 Acuity: CHRIS 3 vg1 Triage Assessment: 17:45 General: Appears in no apparent distress. comfortable, Behavior is calm, cooperative. vg1 Pain: Complains of pain in mouth Pain currently is 0 out of 10 on a pain scale. Historical: - Allergies: 17:45 No Known Allergies; vg1 - Home Meds: 17:45 aspirin 81 mg Oral chew [Active]; Crestor oral [Active]; Lasix Oral [Active]; vg1 Lisinopril Oral [Active]; Revesta oral [Active]; Warfarin Oral [Active]; tamsulosin oral [Active]; - PMHx: 17:45 Diabetes - NIDDM; Hypertension; Myocardial infarction; vg1 19:20 Dialysis MWF; vc1 - PSHx: 17:45 CABG; vg1 19:20 Right chest split jessica; vc1 - Immunization history:: Client reports having NOT received the Covid vaccine. - Social history:: Smoking status: Patient denies any tobacco usage or history of. Screenin:40 Abuse screen: Denies threats or abuse. Nutritional screening: No deficits noted. ll1 Tuberculosis screening: No symptoms or risk factors identified. Fall Risk IV access (20 points). Total Cleary Fall Scale indicates No Risk (0-24 pts). Assessment: 18:40 Reassessment: No changes from previously documented assessment. Patient and/or family ll1 updated on plan of care and expected duration. Pain level reassessed. Patient is alert, oriented x 3, equal unlabored respirations, skin warm/dry/pink. 20:00 Reassessment: No changes from previously documented assessment. Patient and/or family vc1 updated on plan of care and expected duration. Pain level reassessed. Patient is alert, oriented x 3, equal unlabored respirations, skin warm/dry/pink. 21:00 Reassessment: Patient and/or family updated on plan of care and expected duration. Pain vc1 level reassessed. Patient is alert, oriented x 3, equal unlabored respirations, skin warm/dry/pink. Patient denies pain at this time. 21:29 Reassessment: Attempted to call report to [facility], nurse administering medications and vc1 will call me back. 22:00 Reassessment: No changes from previously documented assessment. Patient and/or family vc1 updated on plan of care and expected duration. Pain level reassessed. Patient is alert, oriented x 3, equal unlabored respirations, skin warm/dry/pink. Patient denies pain at this time. Vital Signs: 17:42 BP 154 / 85; Pulse 79; Resp 16; Temp 98.6; Pulse Ox 100% ; Weight 86.1 kg; Height 5 ft. vg1 7 in. (170.18 cm); Pain 0/10; 21:00 Pulse 64; Resp 16; Pulse Ox 100% ; vc1 17:42 Body Mass Index 29.73 (86.10 kg, 170.18 cm) vg1 ED Course: 17:16 Patient arrived in ED. mr 17:16 Shanon De Luna DO is Private Physician. mr 17:45 Triage completed. vg1 17:45 Arm band placed on. vg1 18:36 Faustino Lopez NP is PHCP. pm1 18:36 Daniel Nassar MD is Attending Physician. pm1 18:39 Magda Kingston RN is Primary Nurse. ll1 18:40 Patient placed in an exam room, on a stretcher. ll1 18:40 Patient has correct armband on for positive identification. Bed in low position. Call ll1 light in reach. Side rails up X 1. Cardiac monitoring not applicable on this patient. 18:45 Inserted saline lock: 20 gauge in left antecubital area, using aseptic technique. Blood ld1 collected. 19:21 Notified Nurse Practitioner and/or Physician Suede Brusher of a critical lab result(s), bb elevated PTT and INR Faustino Lopez HIDE WORKER notified. 19:38 Primary Nurse role handed off by Magda Kingston RN ld1 19:45 Gema Mello PA is Hospitalizing Provider. pm1 19:48 Di Mejia RN is Primary Nurse. vc1 20:14 Zaid Hudson is Hospitalizing Provider. pm1 20:30 COVID-19 SARS RT PCR (Document "Date of Onset" if Symptomatic) Sent. vc1 22:41 No provider procedures requiring assistance completed. Patient admitted, IV remains in vc1 place. Administered Medications: 20:15 Drug: Vitamin K1 (phytonadione) 10 mg Route: IM; Site: right deltoid; vc1 22:00 Follow up: Response: No adverse reaction vc1 Outcome: 19:49 Decision to Hospitalize by Provider. pm1 22:41 Admitted to Med/surg accompanied by tech, via wheelchair, room 215, Report called to vc1 RONEL Fontanez 22:41 Condition: good 22:41 Instructed on the need for admit. 22:44 Patient left the ED. vc1 Signatures: Nicole AndinoardJo Ann RN Faustino Treadwell NP HIDE WORKER pm1 Alice Coronado RN RN vg1 Magda Kingston RN RN ll1 Jeanine Cruz RN RN ld1 Di Mejia RN RN vc1 Corrections: (The following items were deleted from the chart) 17:49 17:42 Chief complaint: Patient states: bleeding from mouth x 8 days; states is on vg1 Warfarin; pt also states dialysis pt MWF. vg1
--- NOTE | 2022-03-01 19:49 | EDPHYS ---
Physician Documentation [facility] Name: Crispin Simmons Age: 56 yrs Sex: Male : 1965 Arrival Date: 03/01/2022 Time: 17:16 Bed 19 Private MD: Shanon De Luna H ED Physician Daniel Nassar HPI: 03/01 18:38 This 56 yrs old Male presents to ER via Ambulatory with complaints of mouth pm1 bleeding. 18:38 The patient presents with bleeding. The problem is located in the mouth from right pm1 inner cheek. Onset: The symptoms/episode began/occurred 8 day(s) ago. Duration: The symptoms are continuous, and are unchanged since they started. Modifying factors: The symptoms are alleviated by nothing, the symptoms are aggravated by elevated INR. Associated signs and symptoms: Pertinent negatives: Chest pain shortness of breath, abdominal pain, blood in stools. Severity of symptoms: in the emergency department the symptoms are unchanged. The patient has not experienced similar symptoms in the past. 56-year-old patient presents to the ER with complaints of bleeding from his mouth for the past 8 days. Patient also with subconjunctival hemorrhage to left eye for 3 days. Patient reports that he takes Coumadin and his INR was 4.0 on 02/15/2022. Patient continued with his Coumadin regimen and is presenting here with complaints of the continued bleeding to his mouth. Patient presented to his dialysis session today and informed them of his complaint as he was instructed to report to the ER for evaluation and treatment.. Historical: - Allergies: 17:45 No Known Allergies; vg1 - Home Meds: 17:45 aspirin 81 mg Oral chew [Active]; Crestor oral [Active]; Lasix Oral [Active]; vg1 Lisinopril Oral [Active]; Revesta oral [Active]; Warfarin Oral [Active]; tamsulosin oral [Active]; - PMHx: 17:45 Diabetes - NIDDM; Hypertension; Myocardial infarction; vg1 19:20 Dialysis MWF; vc1 - PSHx: 17:45 CABG; vg1 19:20 Right chest split jessica; vc1 - Immunization history:: Client reports having NOT received the Covid vaccine. - Social history:: Smoking status: Patient denies any tobacco usage or history of. ROS: 18:38 Constitutional: Negative for fever, chills, and weight loss. pm1 18:38 Cardiovascular: Negative for chest pain, palpitations, and edema, Respiratory: Negative for shortness of breath, cough, wheezing, and pleuritic chest pain, Abdomen/GI: Negative for abdominal pain, nausea, vomiting, diarrhea, and constipation, MS/Extremity: Negative for injury and deformity, Skin: Negative for injury, rash, and discoloration, Neuro: Negative for headache, weakness, numbness, tingling, and seizure. 18:38 Eyes: Positive for Left side subconjunctival hemorrhage. 18:38 ENT: Positive for Bleeding from right side of his mouth, right inner cheek, Negative for Nosebleed. Exam: 18:38 Constitutional: This is a well developed, well nourished patient who is awake, alert, pm1 and in no acute distress. Head/Face: Normocephalic, atraumatic. 18:38 Back: No spinal tenderness. No costovertebral tenderness. Full range of motion. MS/ Extremity: Pulses equal, no cyanosis. Neurovascular intact. Full, normal range of motion. 18:38 Eyes: Conjunctiva: subconjunctival hemorrhage(s), seen in the left eye, at 9 o'clock. 18:38 ENT: Nose: no acute changes, Scant bleeding noted from right inner cheek and gums. 18:38 Cardiovascular: Exam negative for acute changes, Heart sounds: normal, normal S1and S2. 18:38 Respiratory: Exam negative for acute changes, respiratory distress, shortness of breath. 18:38 Abdomen/GI: Inspection: abdomen appears normal, Palpation: abdomen is soft and non-tender, in all quadrants. 18:38 Skin: Appearance: Color: ecchymosis, noted on the, right bicep medial aspect, that are mild. 18:38 Neuro: Exam negative for acute changes, Orientation: is normal, Mentation: is normal, Motor: is normal, moves all fours. 19:42 Abdomen/GI: Rectal exam: Patient refused rectal examination. He reports no obvious pm1 rectal bleeding. Vital Signs: 17:42 BP 154 / 85; Pulse 79; Resp 16; Temp 98.6; Pulse Ox 100% ; Weight 86.1 kg; Height 5 ft. vg1 7 in. (170.18 cm); Pain 0/10; 21:00 Pulse 64; Resp 16; Pulse Ox 100% ; vc1 17:42 Body Mass Index 29.73 (86.10 kg, 170.18 cm) vg1 MDM: 18:38 Patient medically screened. pm1 19:38 Data reviewed: vital signs. Data interpreted: Pulse oximetry: on room air is 100 %. pm1 Interpretation: normal. Counseling: I had a detailed discussion with the patient and/or guardian regarding: the historical points, exam findings, and any diagnostic results supporting the discharge/admit diagnosis, lab results, the need for further work-up and treatment in the hospital. 19:42 Physician consultation: Nephrology Ramakrishna regarding consult, patient's condition, pm1 and will see patient would like medications started, FFP 2 units and vitamin K 10 mg. 19:44 Physician consultation: Gema GARCIA was called at 19:44, was contacted at 19:44, pm1 regarding admission, patient's condition, and will see patient in ED. 03/01 18:37 Order name: PT-INR; Complete Time: 19:25 pm1 03/01 18:37 Order name: Ptt, Activated; Complete Time: 19:25 pm1 03/01 18:37 Order name: CBC with Diff; Complete Time: 19:11 pm1 03/01 18:37 Order name: CMP; Complete Time: 19:25 pm1 03/01 19:44 Order name: Fresh Frozen Plasma pm1 03/01 18:37 Order name: IV Saline Lock; Complete Time: 18:52 pm1 03/01 19:44 Order name: EKG; Complete Time: 19:44 pm1 03/01 19:44 Order name: EKG - Nurse/Tech; Complete Time: 20:30 pm1 03/01 20:04 Order name: Type and Screen; Complete Time: 09:19 EDMS 03/01 20:14 Order name: COVID-19 SARS RT PCR (Document "Date of Onset" if Symptomatic); Complete pm1 Time: 09:19 Administered Medications: 20:15 Drug: Vitamin K1 (phytonadione) 10 mg Route: IM; Site: right deltoid; vc1 22:00 Follow up: Response: No adverse reaction vc1 Disposition: 03/02 12:23 Co-signature as Attending Physician, Daniel Nassar MD. rn Disposition Summary: 03/01/22 19:49 Hospitalization Ordered Hospitalization Status: Inpatient Admission pm1 Location: Telemetry/MedSurg (Inpatient) pm1 Condition: Stable pm1 Problem: new pm1 Symptoms: have improved pm1 Bed/Room Type: Standard pm1 Provider: Zaid Hudson(03/01/22 20:14) pm1 Room Assignment: [facility](03/01/22 21:13) cg Diagnosis - Abnormal coagulation profile pm1 Forms: - Medication Reconciliation Form pm1 - SBAR form pm1 Signatures: Dispatcher [employer] EDMS Daniel Nassar MD MD rn Garcia, Cindy RN RN cg Faustino Lopez, FLORIST MANAGER FLORIST MANAGER pm1 Alice Coronado RN RN vg1 Di Mejia RN RN vc1 Corrections: (The following items were deleted from the chart) 03/01 19:49 19:49 Conjunctival hemorrhage, left eye pm1 pm1 20:04 19:44 TYPE AND SCREEN+BB.LAB.BRZ ordered. EDMS EDMS 20:04 19:46 ABO/RH typing ordered. EDMS EDMS 20:14 19:49 Gema Mello pm1 pm1 21:13 19:49 pm1 cg
[2022-03-01] MEDS ORDERED: VITAMIN K (ADULT) 10 MG/ML ONE (20:14)
--- NOTE | 2022-03-01 20:50 | P.HP ---
Certification for Inpatient Patient admitted to: Inpatient With expected LOS: >2 Midnights Patient will require the following post-hospital care: None Practitioner: I am a practitioner with admitting privileges, knowledge of patient current condition, hospital course, and medical plan of care. Services: Services provided to patient in accordance with Admission requirements found in Title 42 Section 412.3 of the Code of Federal Regulations Patient History Date of Service: 03/01/22 Primary Care Provider: Calixto Reason for admission: Abnormal Coags, ESRD History of Present Illness: Patient is a 56-year-old male with past medical history of A. fib on warfarin, type 2 diabetes gog-[id number], ESRD on dialysis MWF, hypertension, [place] who presented to the ED with complaints of bleeding from his mouth for 8 days. He was at his dialysis appointment today and they instructed him to come to the ED (he did not get dialysis). Patient states that he was discharged from the hospital with a prescription for Eliquis for chronic A. fib however he ran out and could not refill it. Nephrology switched him to warfarin about a month and a half ago. He states that his INR was 4 and PT 17 about 2 weeks ago (02/15/22) but nephrology doubled his home warfarin dose. Labs in the ED significant for hemoglobin of 9.8, PT 199, INR 17, APTT 142, sodium 5.3, creatinine 11.8. ED contacted nephrology who recommended 10 mg vitamin K and 2 units FFP. Upon my assessment, bleeding noted to the L buccal region of mouth and gingiva surrounding right upper molar. he denies pain in his mouth. Patient declined rectal exam but states that he has not noticed any bleeding from his rectum or in his stool. Subconjunctival hemorrhage noted in the left eye and bruising to the L bicep where the BP cuff was. He also complains of generalized pain in his legs. Vital signs stable. Will admit patient for further evaluation and treatment. Allergies No Known Allergies Allergy (Unverified 11/25/17 16:53) Home medications list reviewed: Yes Home Medications: Aspirin 81 mg PO DAILY 10/03/21 Magnesium Salicylate/Caffeine [Diurex Water Pills] 1 each PO DAILY 10/03/21 Metoprolol Tartrate 50 mg PO BID 10/03/21 Rosuvastatin [Crestor*] 20 mg PO BEDTIME 10/03/21 Tamsulosin [Flomax*] 0.4 mg PO BEDTIME 10/03/21 calcitrioL [Calcitriol] 0.5 mcg PO DAILY 10/03/21 Amlodipine [Norvasc*] 10 mg PO DAILY #30 tab 10/04/21 Furosemide [Lasix*] 40 mg PO BIDL 12/31/21 Epoetin [Retacrit] 4,000 unit IV EVERY HD vial 01/05/22 Heparin [Heparin 1,000 units/mL *] 6,000 unit IV EVERY HD PRN vial 01/05/22 Mannitol 125 ml IV EVERY HD PRN bag 01/05/22 Sevelamer Carbonate [Renvela*] 1,600 mg PO TIDWM #180 tablet 01/05/22 metOLazone [Zaroxolyn*] 5 mg PO DAILY #30 tab 01/05/22 Apixaban [Eliquis] 2.5 mg PO BID #60 tablet 01/06/22 - Past Medical/Surgical History Diabetic: Yes -: NIDDM2 -: HTN -: DYSLIPIDEMIA -: ESRD -: AFIB -: CABGx2 Psychosocial/ Personal History: Patient lives at home with his . - Family History Father -: Stroke Brother -: Diabetes Mother -: Other (see notes) Notes: osteoperosis, dementia - Social History Smoking Status: Never smoker (uses dip daily) Alcohol use: No CD- Drugs: No Caffeine use: Yes Place of Residence: Home Review of Systems Eyes: Redness ENT: Mouth Pain Musculoskeletal: Leg Pain Integumentary: Bruising Physical Examination - Physical Exam General: Alert, In no apparent distress, Oriented x3 HEENT: Normocephalic, PERRLA, Other (Left eye conjunctival hemorrhage, bleeding R buccal mucosa and R upper gums), EOMI, Sclerae nonicteric Neck: Supple, 2+ carotid pulse no bruit, No LAD, Without JVD or thyroid abnormality Respiratory: Clear to auscultation bilaterally, Normal air movement Cardiovascular: Regular rate/rhythm, Normal S1 S2 Gastrointestinal: Normal bowel sounds, No tenderness Musculoskeletal: No tenderness Integumentary: No rashes, Other (Bruising R bicep ) Neurological: Normal speech, Normal strength at 5/5 x4 extr, Normal tone, Normal affect Rectal: Deferred (patient refused ) - Studies Laboratory Data (last 24 hrs) 03/01/22 18:45: Sodium 134 L, Potassium 5.3 H, BUN 79 H, Creatinine 11.80 H*, Glucose 205 H, Total Bilirubin 0.3, AST 11 L, ALT 19, Alkaline Phosphatase 86 03/01/22 18:45: WBC 9.9, Hgb 9.8 L, Hct 28.3 L, Plt Count 371 03/01/22 18:45: PT 199.8 H, INR 17.14 H*, APTT 142.0 H* Assessment and Plan - Problems (Diagnosis) (1) Elevated INR Current Visit: Yes Status: Acute (2) Elevated partial thromboplastin time (PTT) Current Visit: Yes Status: Acute (3) Chronic a-fib Current Visit: Yes Status: Chronic (4) CHF (congestive heart failure) Onset Date: 04/19/18 Current Visit: No Status: Acute Qualifiers: Heart failure type: systolic Heart failure chronicity: chronic Qualified Code(s): I50.22 - Chronic systolic (congestive) heart failure (5) Anemia of chronic disease Current Visit: Yes Status: Chronic (6) Diabetes mellitus Onset Date: 04/19/18 Current Visit: Yes Status: Chronic Qualifiers: Diabetes mellitus type: type 2 Diabetes mellitus custodial insulin use: without custodial use Diabetes mellitus complication status: with kidney complications Diabetes mellitus complication detail: with chronic kidney disease Chronic kidney disease stage: on chronic dialysis Qualified Code(s): E11.22 - Type 2 diabetes mellitus with diabetic chronic kidney disease; N18.6 - End stage renal disease; Z99.2 - Dependence on renal dialysis (7) Hyperlipidemia Onset Date: 04/19/18 Current Visit: No Status: Chronic Qualifiers: (8) Hypertension Onset Date: 04/19/18 Current Visit: Yes Status: Chronic Qualifiers: Hypertension type: primary hypertension Qualified Code(s): I10 - Essential (primary) hypertension (9) Tobacco abuse Onset Date: 04/19/18 Current Visit: Yes Status: Chronic - Plan Elevated INR/PTT- current INR 17 and PTT 142 secondary to warfarin. Given 10 mg vitamin K in the ED. 2 units FFP ordered. We will recheck after administered. Nephrology consulted. hold warfarin and any other anticoagulants. ESRD- patient gets dialysis MWF but did not get dialysis today. Creatinine 11 and potassium 5.3. Plan for dialysis tomorrow. Nephrology consulted Chronic A. fib- patient was initially prescribed Eliquis but could not afford to refill it and was switched to warfarin. Holding anticoagulants at this time. Rate is controlled. CHF-no signs of exacerbation at this time. BNP ordered. Sees Dr. Marina. Continue home medications Anemia of chronic disease- hgb 9.8. Stable. Continue to monitor. Type 2 diabetes mellitus kip-chfskqo-vmnludavn- achs accu checks with mild sliding scale insulin Hyperlipidemia/Hypertension- obtain and continue home medications Deferring VTE prophylaxis- contraindication with INR 17 and PTT 142. BP cuff caused significant bruising to the upper extremity. Discharge Plan: Home Plan to discharge in: Greater than 2 days - Advance Directives Does patient have a Living Will: No Does patient have a Durable POA for Healthcare: No - Code Status/Comfort Care Code Status Assessed: Yes (Full) Critical Care: No Time Spent Managing Pts Care (In Minutes): 70
[2022-03-01] MEDS ORDERED: ONDANSETRON 4 MG/2 ML VIAL IV PRN (22:59)
[2022-03-01] MEDS ORDERED: ACETAMINOPHEN 500 MG TAB PO PRN (22:59)
[2022-03-01] MEDS ORDERED: INSULIN -REGULAR HUMAN 50 UNIT/0.5 ML ML SQ SCH (22:59)
[2022-03-01] MEDS ORDERED: NA CHLORIDE 0.9% 250 ML ONE (23:42)
[2022-03-02 00:01] VITALS: O2SAT 99; BMI 29.7
[2022-03-02 07:29] LABS: Absolute Lymphocytes (CBC) 1.1 K/uL (0.7-4.9); Hematocrit 25.8 % (39.6-49.0); Lymphocytes % 13.7 % (15.3-44.8); MPV 6.7 fL (7.6-11.3); RBC Red Blood Cell Count 2.74 M/uL (4.33-5.43)
[2022-03-02 07:37] LABS: Protime INR 3.8
[2022-03-02 07:59] LABS: Albumin 3.6 g/dL (3.4-5.0); Bilirubin Total 0.4 mg/dL (0.2-1.0); Magnesium 2.7 mg/dL (1.8-2.4); Phosphorus 5.8 mg/dL (2.5-4.9); Potassium 5.2 mmol/L (3.5-5.1); Protein, Total 7.1 g/dL (6.4-8.2)
[2022-03-02 08:27] VITALS: BP 155/80; TEMP 99.1
--- NOTE | 2022-03-02 10:50 | EKG ---
Test Date: 2022-03-01 Test Time: 20:40:31 Pack Room Operator: MEASUREMENT RESULTS: Intervals: Rate: 73 ND: 168 QRSD: 110 QT: 384 QTc: 423 [place]: P: 54 ND: 168 QRS: 86 T: 72 INTERPRETIVE STATEMENTS: Normal sinus rhythm Normal ECG Compared to ECG 01/05/2022 15:36:15 Atrial flutter no longer present ST (T wave) deviation no longer present Possible ischemia no longer present Electronically Signed On 03-02-22 10:50:02 CDT by Bernard Marina
--- NOTE | 2022-03-02 12:31 | CON ---
Date of Consultation: 03/02/2022 Reason For Consultation: Hyperkalemia, end-stage renal disease. History Of Present Illness: This is a pleasant 56-year-old gentleman, well known to me from dialysis with significant past medical history of end-stage renal disease, recently started on dialysis through [facility], diabetes since 2018 complicated with neuropathy and no retinopathy, hypertension, hyperlipidemia, CAD complicated with CABG back in 2018, the patient had AFib, was started on Coumadin because could not afford Eliquis. The patient had hypercoagulopathy state with bleeding from his gums. For that reason, he was admitted. The patient denied any fever, any chills. Apparently, the patient was taking Coumadin of 10. Yesterday, the patient received cocktail, currently INR down to 3. Past Medical History: Includes; 1. CAD complicated with congestive heart failure, status post CABG back in 2018. 2. Hyperlipidemia. 3. Hypertension. 4. AFib. 5. End-stage renal disease, on hemodialysis, recently started. Allergies: NO KNOWN DRUGS ALLERGY. Family History: Positive for CVA and CAD. Social History: Active smoker, active alcohol. Denied drug abuse. Home Medications: Include; 1. Coumadin 10 mg. 2. Flomax. 3. Renvela. 4. Amlodipine. 5. Epogen. 6. Lasix. Current Medications: In the hospital include Tylenol, insulin, Zofran. Review of Systems: Head and Neck: Had red eye. Had bleeding from the gums. GI: No nausea. No vomiting. : No polyuria. No dysuria. No hematuria. Product Examiner: Not applicable. Respiratory: No shortness of breath. Cardiovascular: Has leg swelling. Endocrine: No polydipsia. Skin: No rash. Neuro: Has neuropathy. Musculoskeletal: Has generalized body ache. Physical Examination: Vital Signs: Blood pressure 155/80, pulse of 71, afebrile. The patient had good urine output. Chest: Crackles bilateral base. Heart: S1, S2 regular. Abdomen: Soft, nontender. Extremity: Plus edema. Neurological: Alert, oriented x3. No focal. Laboratory Data: WBC 8.1, H and H 8.6/25.8. Sodium 134, potassium 5.3, bicarb 19, BUN 86, creatinine 12.2, calcium 8.7, phosphorus 5.8, magnesium 2.7, albumin 3.5, corrected calcium is 9.1. Assessment And Plan: 1. End-stage renal disease, over volume with hyperkalemia. We will arrange for the dialysis today. 2. Hypertension, controlled. We will utilize blood pressure to ultrafiltrate. 3. Over volume. We will challenge the patient today. 4. Hyperkalemia. The patient is going to be dialyzed on low-potassium bath. 5. Hypercoagulopathy state secondary to Coumadin with gum bleed. I am going to decrease the Coumadin to 3 mg. We will follow up as outpatient. 6. Diabetes as by primary. 7. Atrial fibrillation. Resume Coumadin at 3 as above. time spend exam the patient face to face , reviewing the [facility] and radiology , discussing the case with the patient , placing order , discussing the case with other seo team lead including hospitalist 35 min SOPHY Voice ID: [id number] Report ID: [id number] JOSE MANUEL
--- NOTE | 2022-03-02 16:11 | P.DS ---
Admission Date: 03/01/22 Discharge Date: 03/02/22 Primary Care Provider: Calixto Disposition: ROUTINE DISCHARGE Discharge Condition: FAIR Reason for Admission: Abnormal Coags, ESRD Consultations: Nephrology-Dr. Whittaker. - Problems (1) Elevated INR Status: Acute (2) Diabetes mellitus Onset Date: 04/19/18 Status: Chronic Qualifiers: Diabetes mellitus type: type 2 Diabetes mellitus termite inspector insulin use: without termite inspector use Diabetes mellitus complication status: with kidney complications Diabetes mellitus complication detail: with chronic kidney disease Chronic kidney disease stage: on chronic dialysis Qualified Code(s): E11.22 - Type 2 diabetes mellitus with diabetic chronic kidney disease; N18.6 - End stage renal disease; Z99.2 - Dependence on renal dialysis (3) ESRD (end stage renal disease) Status: Chronic (4) Chronic a-fib Status: Chronic Brief History of Present Illness: Patient is a 56-year-old male with past medical history of A. fib on warfarin, type 2 diabetes yrq-npxnagw-viuyakplg, ESRD on dialysis MWF, hypertension, [place] who presented to the ED with complaints of bleeding from his mouth for 8 days. He was at his dialysis appointment and they instructed him to come to the ED (he did not get dialysis). Patient states that he was discharged from the hospital with a prescription for Eliquis for chronic A. fib however he ran out and could not refill it. Nephrology switched him to warfarin about a month and a half ago. He states that his INR was 4 and PT 17 about 2 weeks ago (02/15/22) but nephrology doubled his home warfarin dose. Labs in the ED significant for hemoglobin of 9.8, PT 199, INR 17, APTT 142, ED contacted nephrology who recommended 10 mg vitamin K and 2 units FFP. Upon my assessment, bleeding noted to the L buccal region of mouth and gingiva surrounding right upper molar. he denies pain in his mouth. Patient declined rectal exam but states that he has not noticed any bleeding from his rectum or in his stool. Subconjunctival hemorrhage noted in the left eye and bruising to the L bicep where the BP cuff was. He also complains of generalized pain in his legs. Vital signs stable. Patient admitted for further management. Hospital Course: Patient admitted to the medical floor. He received vitamin K and FFP in the ED, INR improved to 3.8. Case discussed with nephrology who stated patient was instructed to reduce his Coumadin dose by half rather. He might have misunderstood the instructions. At this point patient requested to go home. He has been instructed to stop taking the Coumadin for now. He has dialysis tomorrow. Nephrology informed who plans to check his INR and restart warfarin at a lower dose. Patient stated his Medicaid insurance will be active next month at which point she cannot afford the Eliquis. Patient has no more bleeding, he is ambulatory, eating well, currently has no complaint. He is discharged per his request to follow-up with nephrology tomorrow at dialysis. Vital Signs/Physical Exam: Temp Pulse Resp BP Pulse Ox 99.1 F 71 16 155/80 H 99 03/02/22 08:00 03/02/22 08:00 03/02/22 08:00 03/02/22 08:00 03/02/22 08:00 General: Alert, In no apparent distress, Oriented x3 HEENT: Mucous membr. moist/pink Neck: JVD not distended Respiratory: Clear to auscultation bilaterally, Normal air movement Cardiovascular: No edema, Regular rate/rhythm, Normal S1 S2 Gastrointestinal: Normal bowel sounds, Soft and benign, Non-distended, No tenderness Musculoskeletal: No swelling, No tenderness Integumentary: No rashes Neurological: Normal strength at 5/5 x4 extr, Cranial nerves 3-12 intact Laboratory Data at Discharge: WBC 8.1 K/uL (4.3-10.9) D 03/02/22 07:20 Hgb 8.6 g/dL (13.6-17.9) L 03/02/22 07:20 Hct 25.8 % (39.6-49.0) L 03/02/22 07:20 Plt Count 353 K/uL (152-406) 03/02/22 07:20 PT 43.0 SECONDS (9.5-12.5) H 03/02/22 07:20 INR 3.80 03/02/22 07:20 APTT 60.4 SECONDS (24.3-36.9) H 03/02/22 07:20 Sodium 134 mmol/L (136-145) L 03/02/22 07:20 Potassium 5.2 mmol/L (3.5-5.1) H 03/02/22 07:20 BUN 86 mg/dL (7-18) H 03/02/22 07:20 Creatinine 12.20 mg/dL (0.55-1.3) H* 03/02/22 07:20 Glucose 88 mg/dL (74-106) 03/02/22 07:20 Phosphorus 5.8 mg/dL (2.5-4.9) H 03/02/22 07:20 Magnesium 2.7 mg/dL (1.8-2.4) H D 03/02/22 07:20 Total Bilirubin 0.4 mg/dL (0.2-1.0) 03/02/22 07:20 AST 11 U/L (15-37) L 03/02/22 07:20 ALT 19 U/L (12-78) 03/02/22 07:20 Alkaline Phosphatase 69 U/L (45-117) 03/02/22 07:20 Home Medications: Aspirin 81 mg PO DAILY 10/03/21 Magnesium Salicylate/Caffeine [Diurex Water Pills] 1 each PO DAILY 10/03/21 Rosuvastatin [Crestor*] 20 mg PO BEDTIME 10/03/21 Tamsulosin [Flomax*] 0.4 mg PO BEDTIME 10/03/21 Amlodipine [Norvasc*] 10 mg PO DAILY #30 tab 10/04/21 Furosemide [Lasix*] 40 mg PO BIDL 12/31/21 Epoetin [Retacrit] 4,000 unit IV EVERY HD vial 01/05/22 Heparin [Heparin 1,000 units/mL *] 6,000 unit IV EVERY HD PRN vial 01/05/22 Sevelamer Carbonate [Renvela*] 2,400 mg PO TIDWM 03/02/22 Physician Discharge Instructions: Check PT/INR tomorrow at dialysis. Please call Dr. Whittaker with result. Diet: ADA Activity: Ad keith Followup: Favian Whittaker MD [ACTIVE - CAN ADMIT] - 1-2 Days Shanon De Luna DO, DO [Primary Care Provider] - 1-2 Weeks (call to schedule an appointment ) Time spent managing pt's care (in minutes): 36
== END 2022-03-02 12:52 | disposition home or self-care (01) | DRG 157 ==
LOC: ER 17:13 → ERHOLD 20:38 → 2ND 21:56
PROVIDERS: ADMIT Internal Medicine; ATTEND Internal Medicine
DX: K06.8 Other specified disorders of gingiva and edentulous alveolar ridge (principal); N18.6 End stage renal disease; I48.20 Chronic atrial fibrillation, unspecified; I13.2 Hypertensive heart and chronic kidney disease with heart failure and with stage 5 chronic kidney disease, or end stage renal disease; I50.22 Chronic systolic (congestive) heart failure; H11.32 Conjunctival hemorrhage, left eye; E11.22 Type 2 diabetes mellitus with diabetic chronic kidney disease; S40.022A Contusion of left upper arm, initial encounter; E87.5 Hyperkalemia; E78.5 Hyperlipidemia, unspecified; D63.8 Anemia in other chronic diseases classified elsewhere; F17.220 Nicotine dependence, chewing tobacco, uncomplicated; Z79.01 Long term (current) use of anticoagulants; Z99.2 Dependence on renal dialysis; I25.2 Old myocardial infarction; Z95.1 Presence of aortocoronary bypass graft; Z20.822 Contact with and (suspected) exposure to COVID-19
CPT/HCPCS: 36415; 36430; 80053; 82947; 83735; 83880; 84100; 85025; 85610; 85730; 86850; 86900; 86901; 86927; 93005; 96372; 99285; J3430; J7050; P9017; P9059; U0003

== ENCOUNTER 2022-04-15 22:43 | Emergency (ER) | payer OTHER, SELFPAY ==
--- OUTSIDE RECORDS SUMMARY | 2022-04-15 22:47 | XMS REPORT | Continuity of Care Document ---
:1965 Author Organization [facility] t Address [address] [place] [address] Care Team Providers Name Role Phone Elke [...] Inpatient Elke Purvis [facility] SURG [id number] [facility] 09:00:00 09:00:00 [id number] [facility] Results Test Description Test Time Test Comments Results Result Comments Source HEPATITIS B SURFACE ANTIBODY 2022-01-01 18:27:59 Test Item Value Reference Range Interpretation Comme nts HEPATITIS B SURFACE ANTIBODY (BEAKER) (test code = 647) < mIU/mL <8.0 Back Digger Operator ID - DBHEPATITIS B SURFACE [id number] 18:27:17 Test Item Value Reference Range Interpretation Comments HEPATITIS B SURFACE ANTIGEN (2) Nonreactive Nonreactive (BEAKER) (test code = 2585) Specimen is considered negative for HBsAg.HEPATITIS B CORE ANTIBODY, IGM 2022-01-01 18:27:17 Test Item Value Reference Range Interpretation Comments HEPATITIS B CORE IGM ANTIBODY Nonreactive Nonreactive (BEAKER) (test code = 645) Back Digger Operator ID - DBHEPATITIS C [id number] 18:27:17 Test Item Value Reference Range Interpretation Comments HEPATITIS C ANTIBODY (BEAKER) Nonreactive Nonreactive (test code = 367) Back Digger Operator ID - DBHEPATITIS B CORE ANTIBODY, [id number] 18:27:17 Test Item Value Reference Range Interpretation Comments HEPATITIS B CORE TOTAL ANTIBODY Nonreactive Nonreactive (BEAKER) (test code = 497) Back Digger Operator ID - DBCBC W/AUTO DIFF WITH [id number] 15:49:27 Test Item Value Reference Range Interpretation [...] message] code = 1065) WBC'S The system [employer] generated this result transmitted ref erence range: [...] RBCS 0.00 K/UL 0.00-0.11 (test code = 18374) COMMENTS (test code (NOTE) FEW = 1016) ELLIPTOCYTES SLIGHT POLYCHROMASIA PLATELETS A PPEAR NORMAL COMPREHENSIVE METABOLIC [id number] 06:53:58 Test Item Value Reference Range Interpretation Comments GLUCOSE (test code = 125 MG/DL 70-99 H 2216) BUN (test code = 122 MG/DL 6-20 H 2207) RESULTS RECHECKED AND VERIFIED CREATININE (test 12.80 MG/DL 0.80-1.40 H code = 221) eGFR (2020 CKD-EPI) 4 ML/MIN/1.73 >60 L (test code = 75880) CALC BUN/CREAT (test 10 RATIO 6-28 code = 2235) SODIUM (test code = 139 MEQ/L [phone]) POTASSIUM (test code 4.5 MEQ/L 3.5-5.4 = [...] [Automated message] (test code = 2207) The [employer] which generated this result transmit jarrod reference range : <=1.2. The refe rence range was not u sed to interpret th is result as normal/abnormal . ALKALINE PHOSPHATASE 69 U/L 40-121 (test code = 2204) AST (test code = 14 U/L 9-50 2217) ALT (test code = 20 U/L 5-50 2218) URIC [id number] 06:53:58 Test Item Value Reference Range Interpretation Comments URIC ACID (test 7.0 MG/DL 3.7-8.0 UNLES S OTHERWISE code = 2233) INDICATED, ALL TESTING PERFORMED [facility]CLI [email or web address] [address] [place] [address] 4 LABORATORY DIRE CTOR: Yaniv SETH. CLIA NUMBER [id number] [facility]. [id number] URINALYSIS W/REFLEX [id number] 03:03:38 Test Item Value Reference Range Interpretation [...] ed message] code = 1510) The system [employer] generated this result transmitted ref erence range: [...] CELLS 0-5 /HPF 0-5 (test code = 57745) BACTERIA (test code = NONE SEEN NONE SEEN 1515) CASTS, HYALINE (test TRACE NONE-TRACE UNLESS code = 1517) OTHERWISE INDIC ATED, ALL TESTING PER FORMED ATCLINICAL PATH OLOGY LABORATORIES, [address] [place] [address] LABORATORY DIRE CTOR: SINGH SAHNI M.D. CLIA NUMBER [id number] CAP ACCREDITATION N O. [id number] COMPREHENSIVE METABOLIC [id number] 03:52:04 Test Item Value Reference Range Interpretation Comments GLUCOSE (test code = 83 MG/DL 70-99 2216) BUN (test code = 103 MG/DL 6-20 H 2207) CREATININE (test 11.02 MG/DL 0.80-1.40 H EFFECTIVE code = 2214) 10/12/2021, [facility] HAS IMPLEMENTED THE NKF-ASN RECOMME NDED KD-EPI EGF R REFIT CALCULATI ON THAT DOES NOT I NCLUDE A COEFFICIENT FORRACE. FOR MO RE INFORMATION, SE E ANNOUNCEMENT [email or web address] eGFR (2020 CKD-EPI) 5 ML/MIN/1.73 >60 L (test code = 99818) CALC BUN/CREAT (test 9 RATIO 6-28 code = 2235) SODIUM (test code = 139 MEQ/L 541-139 1285) POTASSIUM (test code 5.6 MEQ/L 3.5-5.4 H [...] LABORATORIES, [place] [facility] [place] [address] LABORATORY DIRE CTOR: SINGH SAHNI M.D. CLIA NUMBER [id number] CAP ACCREDITATION N O. [id number] CBC W/AUTO DIFF WITH [id number] 02:47:21 Test Item Value Reference Range Interpretation [...] LL BE ELIMINATED REDUNDANT TOABS OLUTE COUNTS.SEE [email or web address] /ally [email or web address] _upda te LYMPHOCYTES (test 22.7 % code = 1010) MONOCYTES (test code 6.4 % = 1011) EOSINOPHILS (test 12.0 % code = 1012) BASOPHILS (test code 1.5 % = 1013) IMMATURE GRANYLOCYTES 0.2 % (test code = 1036) NUCLEATED RBCS (test 0.0 /100 See_Comment [Autom ated message] code = 1065) WBC'S The system [employer] generated this result transmit jarrod reference range [...] RBCS 0.00 K/UL 0.00-0.11 (test code = 04455)
[2022-04-15] MEDS ORDERED: LIDOCAINE 1% W/EPI 1:100,000 MDV 20 ML VIAL ONE (23:51)
[2022-04-16 00:36] LABS: Absolute Lymphocytes (CBC) 1.6 K/uL (0.7-4.9); Hematocrit 37.4 % (39.6-49.0); Lymphocytes % 19.4 % (15.3-44.8)
[2022-04-16 00:49] LABS: Protime INR 3.07
[2022-04-16 01:01] LABS: Bilirubin Total 0.3 mg/dL (0.2-1.0); Protein, Total 7.7 g/dL (6.4-8.2)
[2022-04-16 01:02] LABS: Potassium 4.8 mmol/L (3.5-5.1)
[2022-04-16] MEDS ORDERED: NA CHLORIDE 0.9% 250 ML ONE (02:57)
[2022-04-16] MEDS ORDERED: LIDOCAINE 1% W/EPI 1:100,000 MDV 20 ML VIAL ONE (03:30)
--- NOTE | 2022-04-16 04:40 | ER ---
Nurse's Notes [facility] Name: Crispin Simmons Age: 56 yrs Sex: Male : 1965 Arrival Date: 04/15/2022 Time: 22:45 Bed 4 Private MD: Diagnosis: Other dental procedure status-extraction , bleeding;End stage renal disease-on HD;detention (current) use of anticoagulants Presentation: 04/15 23:26 Chief complaint: Patient states: Patient had tooth pulled at [facility] today and lp1 has had continued bleeding from site to right upper mouth; Patient takes Warfarin 3.5mg PO daily. Coronavirus screen: At this time, the client does not indicate any symptoms associated with coronavirus-19. Ebola Screen: No symptoms or risks identified at this time. Initial Sepsis Screen: Does the patient meet any 2 criteria? No. Patient's initial sepsis screen is negative. Does the patient have a suspected source of infection? No. Patient's initial sepsis screen is negative. Risk Assessment: Do you want to hurt yourself or someone else? Patient reports no desire to harm self or others. Onset of symptoms was April 15, 2022. 23:26 Method Of Arrival: Ambulatory lp1 23:26 Acuity: CHRIS 3 lp1 Triage Assessment: 04/16 05:02 General: Appears in no apparent distress. Behavior is calm, cooperative, appropriate tw5 for age. Historical: - Allergies: 04/15 23:28 No Known Allergies; lp1 - Home Meds: 23:28 amlodipine 5 mg tab 1 tab once daily [Active]; aspirin 81 mg Oral chew [Active]; lp1 atorvastatin 80 mg Oral tab 1 tab once daily [Active]; clopidogrel 75 mg Oral tab 1 tab once daily [Active]; Crestor Oral [Active]; docusate [Active]; gabapentin 100 mg Oral cap 3 caps 3 times per day [Active]; glimepiride 2 mg Oral tab 1 tab twice a day [Active]; Lasix Oral [Active]; lisinopril Oral [Active]; meloxicam 15 mg Oral tab 1 tab once daily [Active]; metformin 500 mg Oral tab 1 tab 2 times per day [Active]; metoprolol tartrate 50 mg Oral tab 1 tab 2 times per day [Active]; Revesta Oral [Active]; tamsulosin Oral [Active]; Warfarin 3.5 mg Oral once daily [Active]; - PMHx: 23:28 Diabetes - NIDDM; DIALYSIS MWF; Hypertension; Myocardial infarction; lp1 - PSHx: 23:28 CABG; Right chest split jessica; lp1 - Immunization history:: Adult Immunizations up to date. - Social history:: Smoking status: Patient reports use of chewing tobacco. - Family history:: not pertinent. Screenin/17 00:09 Abuse screen: Denies threats or abuse. Denies injuries from another. Nutritional tw5 screening: No deficits noted. Tuberculosis screening: No symptoms or risk factors identified. Fall Risk Assessment: 04/15 23:40 General: Patient instructed to wash mouth with iced water. Dr. Vale at the bedside tw5 with the patient. . Neuro: Level of Consciousness is awake, alert, obeys commands, Oriented to person, place, time, situation. Cardiovascular: Capillary refill < 3 seconds. Respiratory: Airway is patent Trachea midline Respiratory effort is even, unlabored. 04/16 00:09 Pain: Denies pain. tw5 03:04 Reassessment: Patient appears in no apparent distress at this time. Patient and/or tw5 family updated on plan of care and expected duration. Pain level reassessed. Patient is alert, oriented x 3, equal unlabored respirations, skin warm/dry/pink. 04:54 General: bleeding controlled. tw5 Vital Signs: 04/15 23:26 BP 147 / 85; Pulse 80; Resp 18; Pulse Ox 100% on R/A; Weight 85 kg; Height 5 ft. 7 in. lp1 (170.18 cm); 04/16 00:09 BP 140 / 85; Pulse 73; Resp 18; Pulse Ox 100% on R/A; tw5 03:04 BP 114 / 78; Pulse 71; Resp 18; Pulse Ox 100% on R/A; tw5 04/15 23:26 Body Mass Index 29.35 (85.00 kg, 170.18 cm) lp1 ED Course: 04/15 22:45 Patient arrived in ED. bp1 22:48 Talib Vale MD is Attending Physician. wesley 23:26 Arm band placed on. lp1 23:28 Triage completed. lp1 23:39 Maureen Rae is Primary Nurse. tw5 06/17 00:09 Patient has correct armband on for positive identification. Bed in low position. Call tw5 light in reach. Side rails up X 1. Adult w/ patient. Pulse ox on. NIBP on. 00:09 Type And Screen Sent. tw5 00:09 Comprehensive Metabolic Panel Sent. tw5 00:09 Type And Screen Sent. tw5 00:09 PT-INR Sent. tw5 00:09 Initial lab(s) drawn, by nd, sent to lab. Inserted saline lock: 20 gauge in left tw5 antecubital area, using aseptic technique. Blood collected. 03:05 Consent for blood and/or blood product transfusion explained by physician, signed by tw5 patient. 03:05 Fresh Frozen Plasma Sent. tw5 05:02 No provider procedures requiring assistance completed. IV discontinued, intact, tw5 bleeding controlled, No redness/swelling at site. Pressure dressing applied. Administered Medications: 00:09 Not Given (Other Intervention Used): Lidocaine (1 %) 10 ml 20 ml Infiltration once; to tw5 bedside with epi 00:09 Drug: Lidocaine-Epinephrine -1%: (1:100,000) 20 ml {Note: by provider at [facility] tw5 Volume: 20 ml; Route: Infiltration; 04:46 Drug: Rocephin (cefTRIAXone) 1 grams Route: IV; Rate: per protocol; Site: left tw5 antecubital; 04:54 Follow up: Response: No adverse reaction; IV Status: Completed infusion tw5 Medication: 04/15 23:40 VIS not applicable for this client. tw5 Outcome: 04/16 04:40 Discharge ordered by . wesley 05:02 Discharged to home ambulatory. tw 05:02 Condition: good 05:02 Discharge instructions given to patient, Instructed on discharge instructions, follow up and referral plans. Demonstrated understanding of instructions, follow-up care, medications, Prescriptions given X 1. 05:02 Patient left the ED. tw5 Signatures: Talib Vale MD MD cha Pena, Laura, RN RN lp1 [place] Tiffany tw5 Corrections: (The following items were deleted from the chart) 00:18 00:09 CBC with Manual Differential+H.LAB.BRZ drawn and sent. tw5 EDMS
--- NOTE | 2022-04-16 04:41 | EDPHYS ---
Physician Documentation [facility] Name: Crispin Simmons Age: 56 yrs Sex: Male : 1965 Arrival Date: 04/15/2022 Time: 22:45 Bed 4 Private MD: ED Physician Talib Vale HPI: 04/15 23:52 This 56 yrs old Male presents to ER via Ambulatory with complaints of Mouth wesley Injury, - bleeding. 23:52 The patient presents with bleeding. The problem is located in the upper right first wesley molar. Onset: The symptoms/episode began/occurred today. Duration: The symptoms are continuous. Modifying factors: The symptoms are alleviated by nothing, the symptoms are aggravated by nothing. Severity of symptoms: At their worst the symptoms were mild, in the emergency department the symptoms are unchanged. The patient has not experienced similar symptoms in the past. Historical: - Allergies: 23:28 No Known Allergies; lp1 - Home Meds: 23:28 amlodipine 5 mg tab 1 tab once daily [Active]; aspirin 81 mg Oral chew [Active]; lp1 atorvastatin 80 mg Oral tab 1 tab once daily [Active]; clopidogrel 75 mg Oral tab 1 tab once daily [Active]; Crestor Oral [Active]; docusate [Active]; gabapentin 100 mg Oral cap 3 caps 3 times per day [Active]; glimepiride 2 mg Oral tab 1 tab twice a day [Active]; Lasix Oral [Active]; lisinopril Oral [Active]; meloxicam 15 mg Oral tab 1 tab once daily [Active]; metformin 500 mg Oral tab 1 tab 2 times per day [Active]; metoprolol tartrate 50 mg Oral tab 1 tab 2 times per day [Active]; Revesta Oral [Active]; tamsulosin Oral [Active]; Warfarin 3.5 mg Oral once daily [Active]; - PMHx: 23:28 Diabetes - NIDDM; DIALYSIS MWF; Hypertension; Myocardial infarction; lp1 - PSHx: 23:28 CABG; Right chest split jessica; lp1 - Immunization history:: Adult Immunizations up to date. - Social history:: Smoking status: Patient reports use of chewing tobacco. - Family history:: not pertinent. ROS: 23:52 Constitutional: Negative for fever, chills, and weight loss, Eyes: Negative for injury, wesley pain, redness, and discharge, Neck: Negative for injury, pain, and swelling, Cardiovascular: Negative for chest pain, palpitations, and edema, Respiratory: Negative for shortness of breath, cough, wheezing, and pleuritic chest pain, Abdomen/GI: Negative for abdominal pain, nausea, vomiting, diarrhea, and constipation, Back: Negative for injury and pain, : Negative for injury, bleeding, discharge, and swelling, MS/Extremity: Negative for injury and deformity, Skin: Negative for injury, rash, and discoloration, Neuro: Negative for headache, weakness, numbness, tingling, and seizure. 23:52 ENT: Positive for 23:52 ENT: Positive for Teeth pain right upper 2nd molar. Exam: 23:54 Constitutional: This is a well developed, well nourished patient who is awake, alert, wesley and in no acute distress. Head/Face: Normocephalic, atraumatic. Eyes: Pupils equal round and reactive to light, extra-ocular motions intact. Lids and lashes normal. Conjunctiva and sclera are non-icteric and not injected. Cornea within normal limits. Periorbital areas with no swelling, redness, or edema. Neck: Trachea midline, no thyromegaly or masses palpated, and no cervical lymphadenopathy. Supple, full range of motion without nuchal rigidity, or vertebral point tenderness. No Meningismus. Chest/axilla: Normal chest wall appearance and motion. Nontender with no deformity. No lesions are appreciated. Cardiovascular: Regular rate and rhythm with a normal S1 and S2. No gallops, murmurs, or rubs. Normal PMI, no JVD. No pulse deficits. Respiratory: Lungs have equal breath sounds bilaterally, clear to auscultation and percussion. No rales, rhonchi or wheezes noted. No increased work of breathing, no retractions or nasal flaring. Abdomen/GI: Soft, non-tender, with normal bowel sounds. No distension or tympany. No guarding or rebound. No evidence of tenderness throughout. Back: No spinal tenderness. No costovertebral tenderness. Full range of motion. Male : Normal genitalia with no discharge or lesions. Skin: Warm, dry with normal turgor. Normal color with no rashes, no lesions, and no evidence of cellulitis. 23:54 ENT: Mouth: Oral mucosa: moist, Gums: bleeding, on the upper right first molar, Posterior pharynx: Airway: normal, no evidence of obstruction, Tonsils: are normal in appearance, swelling, is not appreciated, erythema, is not appreciated, exudate, is not appreciated. 04/16 01:26 ECG was reviewed by the Attending Physician. [facility] Vital Signs: 04/15 23:26 BP 147 / 85; Pulse 80; Resp 18; Pulse Ox 100% on R/A; Weight 85 kg; Height 5 ft. 7 in. lp1 (170.18 cm); 04/16 00:09 BP 140 / 85; Pulse 73; Resp 18; Pulse Ox 100% on R/A; tw5 03:04 BP 114 / 78; Pulse 71; Resp 18; Pulse Ox 100% on R/A; tw5 04/15 23:26 Body Mass Index 29.35 (85.00 kg, 170.18 cm) lp1 MDM: 04/15 22:48 Patient medically screened. [facility] 23:55 Data reviewed: vital signs, nurses notes, lab test result(s), CBC, electrolytes, [facility] hepatic panel. Data interpreted: manager monitoring: rate is 80 beats/min, rhythm is regular, Pulse oximetry: on room air is 100 %. Counseling: I had a detailed discussion with the patient and/or guardian regarding: the historical points, exam findings, and any diagnostic results supporting the discharge/admit diagnosis, lab results, the need for outpatient follow up, for definitive care, a dentist, an oral maxilofacial specialist. 04/15 23:49 Order name: PT-INR; Complete Time: 00:54 [facility] 04/15 23:50 Order name: Type And Screen [facility] 04/15 23:50 Order name: Comprehensive Metabolic Panel; Complete Time: 01:05 [facility] 04/15 23:50 Order name: Type And Screen [facility] 04/16 00:16 Order name: CBC with Diff; Complete Time: 00:54 [facility] 04/15 23:50 Order name: IV Saline Lock; Complete Time: 00:09 [facility] 04/16 01:05 Order name: EKG; Complete Time: 01:05 [facility] 04/16 01:22 Order name: Fresh Frozen Plasma EDMS 04/16 01:05 Order name: EKG - Nurse/Tech; Complete Time: 01:26 [facility] 04/16 01:05 Order name: Transfuse; Complete Time: 03:05 wesley EC/17 01:26 Rate is 70 beats/min. Rhythm is regular. QRS [place] is Normal. [place] interval is normal. QRS wesley interval is normal. QT interval is normal. No Q waves. T waves are Normal. No ST changes noted. Clinical impression: Normal ECG and No evidence of ischemia. Interpreted by me. Reviewed by me. Administered Medications: 00:09 Not Given (Other Intervention Used): Lidocaine (1 %) 10 ml 20 ml Infiltration once; to tw5 bedside with epi 00:09 Drug: Lidocaine-Epinephrine -1%: (1:100,000) 20 ml [facility] tw5 Volume: 20 ml; Route: Infiltration; 04:46 Drug: Rocephin (cefTRIAXone) 1 grams Route: IV; Rate: per protocol; Site: left tw5 antecubital; 04:54 Follow up: Response: No adverse reaction; IV Status: Completed infusion tw5 Disposition Summary: 04/16/22 04:40 Discharge Ordered Location: Home wesley Problem: new wesley Symptoms: have improved wesley Condition: Stable wesley Diagnosis - Other dental procedure status - extraction , bleeding wesley - End stage renal disease - on HD wesley - [facility] (current) use of anticoagulants wesley Followup: wesley - With: Private Physician - When: Today - Reason: Recheck today's complaints, Continuance of care, Re-evaluation by your physician Discharge Instructions: - Discharge Summary Sheet wesley - Atrial Fibrillation wesley - Warfarin Coagulopathy wesley - Dialysis wesley - Bleeding Precautions When on Anticoagulant Therapy, Adult wesley Forms: - Medication Reconciliation Form wesley - Thank You Letter wesley - Antibiotic Education wesley - Prescription Opioid Use wesley Prescriptions: - Augmentin 875-125 mg Oral Tablet - take 1 tablet by ORAL route every 12 hours for 7 days; 14 tablet; Refills: 0, wesley Product Selection Permitted Signatures: Dispatcher [employer] EDTalib Turner MD MD cha Pena, Laura, RN RN manju1 Maureen Rae tw5 Gema Mello PA PA sb3 Corrections: (The following items were deleted from the chart) 00:18 06/16 23:50 CBC with Manual Differential+H.LAB.BRZ ordered. EDMS EDMS
[2022-04-16] MEDS ORDERED: CEFTRIAXONE 1000 MG/VIAL ONE (04:49)
[2022-04-16] MEDS ORDERED: NA CHLORIDE 0.9% 50 ML ONE (04:50)
[2022-04-16 05:14] VITALS: O2SAT 100
[2022-04-16 05:18] VITALS: BP 114/78
--- NOTE | 2022-04-17 08:56 | EKG ---
Test Date: 2022-04-16 Test Time: 01:19:43 Aquatics Coordinator: KAYLA MEASUREMENT RESULTS: Intervals: Rate: 70 FL: 164 QRSD: 106 QT: 414 QTc: 447 [place]: P: 21 FL: 164 QRS: 58 T: 82 INTERPRETIVE STATEMENTS: Normal sinus rhythm Normal ECG Compared to ECG 03/01/2022 20:40:31 No significant changes Electronically Signed On 04-17-22 08:55:09 CDT by Bernard Marina
== END 2022-04-16 05:02 | disposition home or self-care (01) ==
LOC: ER 22:43
PROC: 30233K1 Transfusion of Nonautologous Frozen Plasma into Peripheral Vein, Percutaneous Approach (ICD-10-PCS; principal; 2022-04-16)
DX: K91.840 Postprocedural hemorrhage of a digestive system organ or structure following a digestive system procedure (principal); E11.22 Type 2 diabetes mellitus with diabetic chronic kidney disease; I12.0 Hypertensive chronic kidney disease with stage 5 chronic kidney disease or end stage renal disease; N18.6 End stage renal disease; F17.220 Nicotine dependence, chewing tobacco, uncomplicated; Z99.2 Dependence on renal dialysis; Z95.1 Presence of aortocoronary bypass graft; Z79.82 Long term (current) use of aspirin; Z79.01 Long term (current) use of anticoagulants
CPT/HCPCS: 93005; 85025; 36415; 86900; 86850; 85610; 86901; 80053; 96374; 99284; 36430; P9059 ×2; J7050

== ENCOUNTER 2022-04-19 20:28 | Emergency (ER) | payer OTHER ==
--- OUTSIDE RECORDS SUMMARY | 2022-04-19 20:31 | XMS REPORT | Continuity of Care Document ---
:1965 Author Organization [facility] t Address [address] [place] [address] Care Team Providers Name Role Phone Elke [...] [id number] [facility] 09:00:00 09:00:00 [id number] [facility] Results Test Description Test Time Test Comments Results Result Comments Source HEPATITIS B SURFACE ANTIBODY 2022-01-01 18:27:59 Test Item Value Reference Range Interpretation Comme nts HEPATITIS B SURFACE ANTIBODY (BEAKER) (test code = 647) < mIU/mL <8.0 Enterprise Architect Manager ID - DBHEPATITIS B CORE ANTIBODY, [id number] 18:27:17 Test Item Value Reference Range Interpretation Comments HEPATITIS B CORE TOTAL ANTIBODY Nonreactive Nonreactive (BEAKER) (test code = 497) Enterprise Architect Manager ID - DBHEPATITIS B SURFACE [id number] 18:27:17 Test Item Value Reference Range Interpretation Comments HEPATITIS B SURFACE ANTIGEN (2) Nonreactive Nonreactive (BEAKER) (test code = 2585) Specimen is considered negative for HBsAg.HEPATITIS B CORE ANTIBODY, IGM 2022-01-01 18:27:17 Test Item Value Reference Range Interpretation Comments HEPATITIS B CORE IGM ANTIBODY Nonreactive Nonreactive (BEAKER) (test code = 645) Enterprise Architect Manager ID - DBHEPATITIS C [id number] 18:27:17 Test Item Value Reference Range Interpretation Comments HEPATITIS C ANTIBODY (BEAKER) Nonreactive Nonreactive (test code = 367) Enterprise Architect Manager ID - DBCBC W/AUTO DIFF WITH [id number] 15:49:27 Test Item Value Reference Range Interpretation [...] message] code = 1065) WBC'S The system [employer] generated this result transmitted ref erence range: [...] RBCS 0.00 K/UL 0.00-0.11 (test code = 42324) COMMENTS (test code (NOTE) FEW = 1016) ELLIPTOCYTES SLIGHT POLYCHROMASIA PLATELETS A PPEAR NORMAL COMPREHENSIVE METABOLIC [id number] 06:53:58 Test Item Value Reference Range Interpretation Comments GLUCOSE (test code = 125 MG/DL 70-99 H 2216) BUN (test code = 122 MG/DL 6-20 H 2207) RESULTS RECHECKED AND VERIFIED CREATININE (test 12.80 MG/DL 0.80-1.40 H code = 221) eGFR (2020 CKD-EPI) 4 ML/MIN/1.73 >60 L (test code = 81750) CALC BUN/CREAT (test 10 RATIO 6-28 code = 2235) SODIUM (test code = 139 MEQ/L 141-146 1339) POTASSIUM (test code 4.5 MEQ/L 3.5-5.4 = [...] [Automated message] (test code = 2207) The [employer] which generated this result transmit jarrod reference range : <=1.2. The refe rence range was not u sed to interpret th is result as normal/abnormal . ALKALINE PHOSPHATASE 69 U/L 40-121 (test code = 2204) AST (test code = 14 U/L 9-50 2217) ALT (test code = 20 U/L 5-50 2218) URIC [id number] 06:53:58 Test Item Value Reference Range Interpretation Comments URIC ACID (test 7.0 MG/DL 3.7-8.0 UNLES S OTHERWISE code = 2233) INDICATED, ALL TESTING PERFORMED ATCLI N[facility] PATHOLOG[facility], [facility] [address] [place] [address] 4 LABORATORY DIRE CTOR: Yaniv SETH. CLIA NUMBER [id number] [facility] [place]. [id number] URINALYSIS W/REFLEX [id number] 03:03:38 Test Item Value Reference Range Interpretation [...] ed message] code = 1510) The system [employer] generated this result transmitted ref erence range: [...] CELLS 0-5 /HPF 0-5 (test code = 99738) BACTERIA (test code = NONE SEEN NONE SEEN 1515) CASTS, HYALINE (test TRACE NONE-TRACE UNLESS code = 1517) OTHERWISE INDIC ATED, ALL TESTING PER FORMED ATCLINICAL PATH OLOGY LABORATORIES, I [place] [place] [address] LABORATORY DIRE CTOR: SINGH SAHNI M.D. CLIA NUMBER [id number] CAP ACCREDITATION N O. [id number] COMPREHENSIVE METABOLIC [id number] 03:52:04 Test Item Value Reference Range Interpretation Comments GLUCOSE (test code = 83 MG/DL 70-99 2216) BUN (test code = 103 MG/DL 6-20 H 2207) CREATININE (test 11.02 MG/DL 0.80-1.40 H EFFECTIVE code = 2214) 10/12/2021, [facility] HAS IMPLEMENTED THE NKF-ASN RECOMME NDED KD-EPI EGF R REFIT CALCULATI ON THAT DOES NOT I NCLUDE A COEFFICIENT FORRACE. FOR MO RE INFORMATION, SE E ANNOUNCEMENT [email or web address] eGFR (2020 CKD-EPI) 5 ML/MIN/1.73 >60 L (test code = 10820) CALC BUN/CREAT (test 9 RATIO 6-28 code = 2235) SODIUM (test code = 139 MEQ/L 798-157 7212) POTASSIUM (test code 5.6 MEQ/L 3.5-5.4 H [...] LABORATORIES, [place]. [address] [place] [address] LABORATORY DIRE CTOR: SINGH SAHNI M.D. CLIA NUMBER [id number] CAP ACCREDITATION N O. [id number] CBC W/AUTO DIFF WITH [id number] 02:47:21 Test Item Value Reference Range Interpretation [...] LL BE ELIMINATED REDUNDANT TOABS OLUTE COUNTS.SEE [email or web address] /ally l_CBC_reporting _upda te LYMPHOCYTES (test 22.7 % code = 1010) MONOCYTES (test code 6.4 % = 1011) EOSINOPHILS (test 12.0 % code = 1012) BASOPHILS (test code 1.5 % = 1013) IMMATURE GRANYLOCYTES 0.2 % (test code = 1036) NUCLEATED RBCS (test 0.0 /100 See_Comment [Autom ated message] code = 1065) WBC'S The system [employer] generated this result transmit jarrod reference range [...] RBCS 0.00 K/UL 0.00-0.11 (test code = 57366)
[2022-04-20] MEDS ORDERED: LIDOCAINE 1% W/EPI 1:100,000 MDV 20 ML VIAL ONE (00:29)
[2022-04-20 01:33] LABS: Absolute Lymphocytes (CBC) 0.9 K/uL (0.7-4.9); Hematocrit 29.2 % (39.6-49.0); Lymphocytes % 15.5 % (15.3-44.8); MPV 6.8 fL (7.6-11.3)
[2022-04-20 01:34] LABS: Protime INR 2.09
--- NOTE | 2022-04-20 02:23 | ER ---
Nurse's Notes [facility] Name: Crispin Simmons Age: 56 yrs Sex: Male : 1965 Arrival Date: 04/19/2022 Time: 20:31 Bed 7 Private MD: Diagnosis: Post operative bleeding secondary to coagulopathy Presentation: 04/19 20:44 Chief complaint: Patient states: Tooth extraction on - Bleeding stopped. Today ld1 it began to bleed again. Pt concerned about amount of bleeding. Coronavirus screen: At this time, the client does not indicate any symptoms associated with coronavirus-19. Ebola Screen: No symptoms or risks identified at this time. Initial Sepsis Screen: Does the patient meet any 2 criteria? No. Patient's initial sepsis screen is negative. Does the patient have a suspected source of infection? No. Patient's initial sepsis screen is negative. Initial Sepsis Screen: Does the patient meet any 2 criteria?. Risk Assessment: Do you want to hurt yourself or someone else? Patient reports no desire to harm self or others. Onset of symptoms was April 19, 2022. 20:44 Method Of Arrival: Ambulatory ld1 20:44 Acuity: CHRIS 3 ld1 Triage Assessment: 20:45 General: Appears in no apparent distress. comfortable, Behavior is calm, cooperative, ld1 appropriate for age. Pain: Denies pain. EENT: No signs and/or symptoms were reported regarding the EENT system. Neuro: Level of Consciousness is awake, alert, obeys commands, Oriented to person, place, time, situation. Cardiovascular: Capillary refill < 3 seconds Patient's skin is warm and dry. Respiratory: Airway is patent Respiratory effort is even, unlabored. GI: Abdomen is flat, non-distended. : No signs and/or symptoms were reported regarding the genitourinary system. Derm: No signs and/or symptoms reported regarding the dermatologic system. Musculoskeletal: No signs and/or symptoms reported regarding the musculoskeletal system. Historical: - Allergies: 20:45 No Known Allergies; ld1 - PMHx: 20:45 Diabetes - NIDDM; Myocardial infarction; DIALYSIS MWF; Hypertension; ld1 - PSHx: 20:45 Right chest split jessica; CABG; ld1 - Immunization history:: Adult Immunizations up to date, Client reports receiving the 2nd dose of the Covid vaccine. - Social history:: Smoking status: Patient denies any tobacco usage or history of. Patient/guardian denies using alcohol. Screenin/21 02:37 Abuse screen: Denies threats or abuse. Nutritional screening: No deficits noted. ll3 Tuberculosis screening: No symptoms or risk factors identified. Fall Risk No fall in past 12 months (0 pts). No secondary diagnosis (0 pts). IV access (20 points). Ambulatory Aid- None/Bed Rest/Nurse Assist (0 pts). Gait- Normal/Bed Rest/Wheelchair (0 pts) Mental Status- Oriented to own ability (0 pts). Total Cleary Fall Scale indicates No Risk (0-24 pts). Assessment: 04/19 23:15 General: Appears uncomfortable, Behavior is calm, cooperative. Pain: Denies pain. ll3 Neuro: Level of Consciousness is awake, alert, obeys commands, Oriented to person, place, time, situation. Respiratory: Respiratory effort is even, unlabored, Respiratory pattern is regular, symmetrical. EENT: Reports Tooth execration, bleeding started again today. Derm: Skin is pink, warm \T\ dry. 04/20 00:15 Reassessment: No changes from previously documented assessment. Patient and/or family ll3 updated on plan of care and expected duration. Pain level reassessed. Patient is alert, oriented x 3, equal unlabored respirations, skin warm/dry/pink. 01:25 Reassessment: No changes from previously documented assessment. Patient and/or family ll3 updated on plan of care and expected duration. Pain level reassessed. Patient is alert, oriented x 3, equal unlabored respirations, skin warm/dry/pink. 02:36 Reassessment: No changes from previously documented assessment. Patient and/or family ll3 updated on plan of care and expected duration. Pain level reassessed. Patient is alert, oriented x 3, equal unlabored respirations, skin warm/dry/pink. Vital Signs: 04/19 20:44 BP 92 / 61; Pulse 87; Resp 18; Temp 98.7(TE); Pulse Ox 100% on R/A; Weight 82 kg; ld1 Height 5 ft. 11 in. (180.34 cm); Pain 0/10; 04/20 00:02 BP 80 / 55; Pulse 82; Resp 20; Pulse Ox 96% ; ll3 01:30 BP 100 / 66; Pulse 74; Resp 17; Pulse Ox 100% ; ll3 02:44 BP 93 / 68; Pulse 76; Resp 18; Pulse Ox 98% ; ll3 04/19 20:44 Body Mass Index 25.21 (82.00 kg, 180.34 cm) ld1 ED Course: 04/19 20:31 Patient arrived in ED. bp1 20:45 Triage completed. ld1 20:45 Arm band placed on right wrist. ld1 22:33 Mejia Bui MD is Attending Physician. kdr 04/20 01:25 Amarilys Goldberg, RN is Primary Nurse. ll3 02:37 Patient has correct armband on for positive identification. Placed in gown. Bed in low ll3 position. Call light in reach. Side rails up X 1. 02:37 No provider procedures requiring assistance completed. ll3 02:45 IV discontinued, intact, bleeding controlled, No redness/swelling at site. Pressure ll3 dressing applied. Administered Medications: No medications were administered Medication: 02:45 VIS not applicable for this client. ll3 Outcome: 02:22 Discharge ordered by . kdr 02:45 Discharged to home ambulatory. ll3 02:45 Condition: stable 02:45 Discharge instructions given to patient, Instructed on discharge instructions, follow up and referral plans. Demonstrated understanding of instructions, follow-up care. 02:45 Patient left the ED. ll3 Signatures: Mejia Bui MD MD [facility] [place] Lauren, RN RN ld1 Amarilys Goldberg, RONEL RN ll3 Corrections: (The following items were deleted from the chart) 04/19 20:47 20:44 Chief complaint: Patient states: Tooth extraction on - Bleeding stopped. ld1 Today it began to bleed again. ld1
--- NOTE | 2022-04-20 02:23 | EDPHYS ---
Physician Documentation [facility] Name: Crispin Simmons Age: 56 yrs Sex: Male : 1965 Arrival Date: 04/19/2022 Time: 20:31 Bed 7 Private MD: ED Physician Mejia Bui HPI: 04/20 21:44 This 56 yrs old Male presents to ER via Ambulatory with complaints of Post kdr Surgical Bleeding, Mouth bleeding. 21:44 The patient presents with bleeding, lost tooth/teeth, Several days ago, the patient had kdr a tooth extraction on #3 or 4 tooth. Patient is a dialysis patient and and is on the blood thinners. He had stopped the blood thinners at the time of the extraction and had not yet re initiated that treatment. Earlier this morning the patient began to have bleeding from the extraction site. He has been unable to get the bleeding to stop.. The problem is located in the upper right first molar. Onset: The symptoms/episode began/occurred today. Duration: The symptoms are continuous, and are unchanged since they started. Associated signs and symptoms: The patient has no apparent associated signs or symptoms. Severity of symptoms: At their worst the symptoms were mild, just prior to arrival, in the emergency department the symptoms are unchanged. The patient has not experienced similar symptoms in the past. The patient has not recently seen a physician. Historical: - Allergies: 04/19 20:45 No Known Allergies; ld1 - PMHx: 20:45 Diabetes - NIDDM; Myocardial infarction; DIALYSIS MWF; Hypertension; ld1 - PSHx: 20:45 Right chest split jessica; CABG; ld1 - Immunization history:: Adult Immunizations up to date, Client reports receiving the 2nd dose of the Covid vaccine. - Social history:: Smoking status: Patient denies any tobacco usage or history of. Patient/guardian denies using alcohol. ROS: 04/20 21:44 Constitutional: Negative for fever, chills, and weight loss, Eyes: Negative for injury, kdr pain, redness, and discharge, Neck: Negative for injury, pain, and swelling, Cardiovascular: Negative for chest pain, palpitations, and edema, Respiratory: Negative for shortness of breath, cough, wheezing, and pleuritic chest pain, Abdomen/GI: Negative for abdominal pain, nausea, vomiting, diarrhea, and constipation, Back: Negative for injury and pain, : Negative for injury, bleeding, discharge, and swelling, MS/Extremity: Negative for injury and deformity, Skin: Negative for injury, rash, and discoloration. ENT: Positive for Teeth pain Patient has pain and bleeding around the extraction site of tooth #3. Exam: 21:44 ENT: Dental exam: missing teeth, diffusely, specifically the upper right first molar kdr (#3), pain, Slow steady drip of blood from the extraction site. 21:48 Constitutional: This is a well developed, well nourished patient who is awake, alert, kdr and in no acute distress. Vital Signs: 04/19 20:44 BP 92 / 61; Pulse 87; Resp 18; Temp 98.7(TE); Pulse Ox 100% on R/A; Weight 82 kg; ld1 Height 5 ft. 11 in. (180.34 cm); Pain 0/10; 04/20 00:02 BP 80 / 55; Pulse 82; Resp 20; Pulse Ox 96% ; ll3 01:30 BP 100 / 66; Pulse 74; Resp 17; Pulse Ox 100% ; ll3 02:44 BP 93 / 68; Pulse 76; Resp 18; Pulse Ox 98% ; ll3 06 20:44 Body Mass Index 25.21 (82.00 kg, 180.34 cm) ld1 MDM: 00:26 Data reviewed: vital signs, nurses notes. Counseling: I had a detailed discussion with kdr the patient and/or guardian regarding: the historical points, exam findings, and any diagnostic results supporting the discharge/admit diagnosis, lab results, the need for outpatient follow up. 02:22 Patient medically screened. kdr 21:44 ED course: 2 attempts to stop the bleeding with Surgicel that were unsuccessful. At [facility] point I consulted Dr. James. He agreed to come see the patient and manage the bleeding.. 04/20 00:18 Order name: CBC with Diff kdr 04/20 00:18 Order name: PT-INR; Complete Time: 01:40 kdr Administered Medications: No medications were administered Disposition Summary: 04/20/22 02:22 Discharge Ordered Location: Home kdr Problem: an acute exacerbation kdr Symptoms: have improved kdr Condition: Stable kdr Diagnosis - Post operative bleeding secondary to coagulopathy kdr Followup: kdr - With: Private Physician - When: Today - Reason: If symptoms return, Further diagnostic work-up, Recheck today's complaints, Continuance of care, Re-evaluation by your physician Discharge Instructions: - Discharge Summary Sheet kdr - Dental Extraction, Care After, [id number] kdr - Bleeding Disorder kdr Forms: - Medication Reconciliation Form kdr - Thank You Letter kdr - Work release form mw2 Signatures: Dispatcher [employer] Mejia Cornejo MD MD kdr Attema, Lee, FNP-C [facility] HospitalJeanine Olsmtead RN RN ld1
[2022-04-20 03:21] VITALS: TEMP 98.7
[2022-04-20 03:25] VITALS: BP 93/68; O2SAT 98
== END 2022-04-20 02:45 | disposition home or self-care (01) ==
LOC: ER 20:28
DX: D68.9 Coagulation defect, unspecified (principal); L76.22 Postprocedural hemorrhage of skin and subcutaneous tissue following other procedure; Z98.818 Other dental procedure status; E11.9 Type 2 diabetes mellitus without complications; I10 Essential (primary) hypertension; Z95.1 Presence of aortocoronary bypass graft; Z99.2 Dependence on renal dialysis
CPT/HCPCS: 36415; 85025; 85610; 99281

== ENCOUNTER 2022-10-25 16:38 | Emergency (ER) | payer OTHER ==
--- OUTSIDE RECORDS SUMMARY | 2022-10-25 16:43 | XMS REPORT | Continuity of Care Document ---
:1965 Author Organization [facility] t Address [address] [place] [address] Care Team Providers Name Role Phone PCP, PATIENT DOES NOT HAVE A Primary Care Physician Unavailpamella Herrera MD, Venita Attending Clinician RADIOLOGY Attending Clinician Unavailable Radiology Attending Clinician Unavailable Elke Barbosa Attending Clinician Unavailable SAURABH GROSS Admitting Clinician Unavailable KNOW, DOES_NOT Admitting Clinician Unavailable Payers Payer Name Policy Type Policy Number Effective Date Expiration Date S brittany MEDICARE PART A [id number] 2022 AND B 00:00:00 MEDICARE PART A [id number] 2022 \T\ B 00:00:00 Problems This patient has no known problems. Allergies, Adverse Reactions, Alerts Allergy Allergy Status Severity Reaction(s) Onset Inactive Treating Comm ents Source Name Type Date Date Clinician NO KNOWN Drug Active [facility] Social History Social Habit Start Date Stop Date Quantity Comments Source Exposure to 2022-09-28 2022-10-08 Not sure [facility] SARS-CoV-2 (event) 00:00:00 13:07:00 Sex Assigned At [birth year] [facility] mu[facility]oz 00:00:00 [facility]00 [facility] Smoking Status Start Date Stop Date Source Tobacco smoking consumption unknown [facility] Medications This patient has no known medications. Procedures Procedure Date / Time Performed Performing Clinician Roya e US ELBOW RIGHT 2022-06-17 16:35:10 Saurabh Gross [facility] HEPATITIS B SURFACE 2022-01-01 11:00:00 [facility] ANTIGEN Center HEPATITIS B CORE 2022-01-01 11:00:00 [facility] ANTIBODY, IGM Center HEPATITIS B SURFACE 2022-01-01 11:00:00 [facility] ANTIBODY Center HEPATITIS B CORE 2022-01-01 11:00:00 [facility] ANTIBODY, TOTAL Center HEPATITIS C ANTIBODY 2022-01-01 11:00:00 [facility] Encounters Start End Encounter Admission Attending Care Care Encounter Source Date/Time Date/Time Type Type Clinicians Facility Department ID 2022-10-08 Outpatient [facility] [id number] [place] 13:07:08 [id number] [facility] 2022-09-22 Outpatient [facility] [id number] [place] 16:20:26 [id number] [facility] 2022-05-19 Outpatient [facility] [id number] [place] 09:00:26 [id number] [facility] 2022-05-13 Outpatient [facility] [id number] [place] 13:15:21 [id number] [facility] 2022-10-08 2022-10-08 Office MARY Herrera [id number] [place] 14:00:00 15:05:19 Visit Venita LOPEZN [id number] [facility] [id number] 2022-10-05 2022-10-05 Outpatient AUDRA [facility] [id number] [place] 11:00:00 11:00:00 VENITA [employer] 2022-06-17 2022-06-17 Outpatient R RADIOLOGY [facility] [id number] Univers 11:06:02 23:59:00 [facility] 2022-06-17 2022-06-17 Hospital Radiology [facility] [id number] Univers 11:00:00 23:59:00 Encounter DANYA [id number] ity of BETITO [id number] [facility] [id number] [facility] [address] 2022-02-19 2022-02-19 Inpatient Elke Purvis [facility] [id number] [facility] 09:00:00 09:00:[address] [facility] 2022-01-05 2022-01-05 Lab [facility] [id number] 00:00:00 00:00:00 [facility] 2022-01-01 2022-01-01 Lab [facility] [id number] 00:00:00 00:00:00 [facility] Results Test Description Test Time Test Comments Results Result Comments Source Hepatitis B surface antibody 2022-01-01 18:27:59 Test Item Value Reference Range Interpretation Comme nts Hep B S Ab (test code = <8.0 See_Comment [Au tomated message] The 80022-8) system which ge nerated this result transmit jarrod reference range: <8.0 mIU /mL. The reference range was not used to interpret th is result as normal/abnormal . FUENTES (test code = FUENTES) Faculty Dean ID - DB Lab Interpretation (test Normal code = 32734-6) [facility] [id number] 18:27:59 Test Item Value Reference Range Interpretation Comments HEPATITIS B SURFACE ANTIBODY < mIU/mL <8.0 (BEAKER) (test code = 647) Faculty Dean ID - DBHepatitis B surface [id number] 18:27:17 Test Item Value Reference Range Interpretation Comments Hepatitis B surface Nonreactive Nonreactive antigen (test code = 5195-3) FUENTES (test code = FUENTES) Specimen is considered negative for HBsAg. Lab Interpretation (test Normal code = 95606-0) [facility] core antibody, [id number] 18:27:17 Test Item Value Reference Range Interpretation Comments Hep B Core Total Ab (test Nonreactive Nonreactive code = 46246-6) FUENTES (test code = FUENTES) Faculty Dean ID - DB Lab Interpretation (test Normal code = 99496-1) [facility] core antibody, [id number] 18:27:17 Test Item Value Reference Range Interpretation Comments Hep B C IgM (test code = Nonreactive Nonreactive 15473-6) FUENTES (test code = FUENTES) Faculty Dean ID - DB Lab Interpretation (test Normal code = 79308-9) [facility] C [id number] 18:27:17 Test Item Value Reference Range Interpretation Comments Hepatitis C Ab (test code = Nonreactive Nonreactive 78227-0) FUENTES (test code = FUENTES) Faculty Dean ID - DB Lab Interpretation (test Normal code = 19350-2) [facility] B SURFACE [id number] 18:27:17 Test Item Value Reference Range Interpretation Comments HEPATITIS B SURFACE ANTIGEN (2) Nonreactive Nonreactive (BEAKER) (test code = 2585) Specimen is considered negative for HBsAg.HEPATITIS B CORE ANTIBODY, IGM 2022-01-01 18:27:17 Test Item Value Reference Range Interpretation Comments HEPATITIS B CORE IGM ANTIBODY Nonreactive Nonreactive (BEAKER) (test code = 645) Faculty Dean ID - DBHEPATITIS C [id number] 18:27:17 Test Item Value Reference Range Interpretation Comments HEPATITIS C ANTIBODY (BEAKER) Nonreactive Nonreactive (test code = 367) Faculty Dean ID - DBHEPATITIS B CORE ANTIBODY, [id number] 18:27:17 Test Item Value Reference Range Interpretation Comments HEPATITIS B CORE TOTAL ANTIBODY Nonreactive Nonreactive (BEAKER) (test code = 497) Faculty Dean ID - DBCBC W/AUTO DIFF WITH [id number] 15:49:27 Test Item Value Reference Range Interpretation [...] code = 1008) DIFFERENTIAL CONFIRMED WITH MANUAL SLIDE REVIEW. LYMPHOCYTES (test 15.8 % code = 1010) MONOCYTES (test code 6.8 % = 1011) EOSINOPHILS (test 10.0 % code = 1012) BASOPHILS (test code 0.8 % = 1013) IMMATURE 0.5 % GRANULOCYTES (test code = 1036) NUCLEATED RBCS (test 0.0 /100 See_Comment [Autom ated message] code = 1065) WBC'S The system [employer] generated this result transmitted ref erence range: [...] RBCS 0.00 K/UL 0.00-0.11 (test code = 94089) COMMENTS (test code (NOTE) FEW ELL IPTOCYTES = 1016) SLIGHT POLYCHRO MASIA PLATELETS APPEA R NORMAL COMPREHENSIVE METABOLIC [id number] 06:53:58 Test Item Value Reference Range Interpretation Comments GLUCOSE (test code = 125 MG/DL 70-99 H 2216) BUN (test code = 122 MG/DL 6-20 H RESULTS R ECHECKED 2207) AND VERIFIED CREATININE (test 12.80 MG/DL 0.80-1.40 H code = 2214) eGFR (2020 CKD-EPI) 4 ML/MIN/1.73 >60 L (test code = 86923) CALC BUN/CREAT (test 10 RATIO 6-28 code = 2235) SODIUM (test code = 139 MEQ/L 080-690 1524) POTASSIUM (test code 4.5 MEQ/L 3.5-5.4 = 2228) CHLORIDE (test code 100 MEQ/L 95-107 = 2215) CARBON DIOXIDE (test 16 MEQ/L 19-31 L code = 2206) CALCIUM (test code = 9.2 MG/DL 8.5-10.5 2208) PROTEIN, TOTAL (test 5.9 G/DL 6.1-8.3 L code = 2229) ALBUMIN (test code = 3.7 G/DL 3.5-5.2 220) CALC GLOBULIN (test 2.2 G/DL 1.9-3.7 code [...] code = 20 U/L 5-50 2218) URIC [id number] 06:53:58 Test Item Value Reference Range Interpretation Comments URIC ACID (test 7.0 MG/DL 3.7-8.0 UNLESS OTHE RWISE code = 2233) INDICATED, ALL TESTING PERFORMED [facility] [address] [place] [address] DIRECTOR: SINGH IRVING M.D. CLIA NUMBER [id number] CAP ACCREDITATION N O. [id number] URINALYSIS W/REFLEX [id number] 03:03:38 Test Item Value Reference Range Interpretation Comments COLOR (test code = YELLOW YELLOW-STRAW 1501) APPEARANCE (test code CLEAR CLEAR = 1502) SPECIFIC GRAVITY (test 1.013 1.005-1.035 code = 1503) LEUKOCYTE ESTERASE NEGATIVE NEGATIVE (test code = 1504) NITRITE (test code = NEGATIVE NEGATIVE 1505) pH (test code = 1506) 5.0 5.0-9.0 PROTEIN (test code = 3+ NEGATIVE A 1507) GLUCOSE (test code = TRACE NEGATIVE A 1508) KETONES (test code = NEGATIVE NEGATIVE 1509) UROBILINOGEN (test 0.2 MG/DL See_Comment [Automat ed message] code = 1510) The system [employer] generated this result transmitted ref erence range: <=2.0. T he reference range was not used to int erpret this result as normal/abnormal . BILIRUBIN (test code = NEGATIVE NEGATIVE 1511) OCCULT BLOOD (test 1+ NEGATIVE A code = 1512) WHITE BLOOD CELLS 0-5 /HPF 0-5 (test code = 1513) RED BLOOD CELLS (test 0-2 /HPF 0-5 code = 1514) EPITHELIAL CELLS (test 0-5 /HPF 0-5 code = 12820) BACTERIA (test code = NONE SEEN NONE SEEN 1515) CASTS, HYALINE (test TRACE NONE-TRACE UNLESS OTHERWISE code = 1517) INDICATED, ALL TESTING PERFORMED [facility], [facility]. [address] [place] [id number] [place] [address] DIRECTOR: SINGH IRVING M.D. CLIA NUMBER [id number] CAP ACCREDITATION N O. [id number] COMPREHENSIVE METABOLIC [id number] 03:52:04 Test Item Value Reference Range Interpretation Comments GLUCOSE (test code = 83 MG/DL 70-99 2216) BUN (test code = 103 MG/DL 6-20 H 2207) CREATININE (test 11.02 MG/DL 0.80-1.40 H EFFECTIVE code = 2214) 10/12/2021, [facility] HAS IMPLEMENTED THE NKF-ASN RECOMME NDED KD-EPI EGF R REFIT CALCULATI ON THAT DOES NOT I NCLUDE A COEFFICIENT FORRACE. FOR MO RE INFORMATION, SE E ANNOUNCEMENT [email or web address] LLABS. COM/EGFR_CALC eGFR (2020 CKD-EPI) 5 ML/MIN/1.73 >60 L (test code = 76463) CALC BUN/CREAT (test 9 RATIO 6-28 code = 2235) SODIUM (test code = 139 MEQ/L 081-365 4700) POTASSIUM (test code 5.6 MEQ/L 3.5-5.4 H HEMOLY TIC = 2228) INTERFERENCE DETECTED; RESUL TS MAY BE AFFECTED CHLORIDE (test code 103 MEQ/L 95-107 = 2215) CARBON DIOXIDE (test 15 MEQ/L 19-31 L code = 2206) CALCIUM (test code = 9.6 MG/DL 8.5-10.5 220) PROTEIN, TOTAL (test 6.9 G/DL 6.1-8.3 code = 2229) ALBUMIN (test code = 4.4 G/DL 3.5-5.2 2201) CALC GLOBULIN (test 2.5 G/DL 1.9-3.7 code = 2240) CALC A/G RATIO (test 1.8 RATIO 1.0-2.6 code = 2234) BILIRUBIN, TOTAL 0.2 MG/DL See_Comment [Automated message] (test code = 2207) The syste [employer] which generated this result transmitted ref erence range: <=1.2. T he reference range was not used to int erpret this result as normal/abnormal . ALKALINE PHOSPHATASE 68 U/L 40-121 (test code = 2204) AST (test code = 20 U/L 9-50 2217) ALT (test code = 23 U/L 5-50 UNLESS OTH ERWISE 2218) INDICATED, ALL TESTING PERFORM ED ATCLINICAL PATH [facility], [facility]. [address] [place] [id number] [place] [address] DIRECTOR: SINGH IRVING M.D. CLIA NUMBER [id number] CAP ACCREDITATION N O. [id number] CBC W/AUTO DIFF WITH [id number] 02:47:21 Test Item Value Reference Range Interpretation [...] LL BE ELIMINATED REDUNDANT TOABS OLUTE COUNTS.SEE [email or web address] /ally [email or web address]_reporting _upda te LYMPHOCYTES (test 22.7 % code = 1010) MONOCYTES (test code 6.4 % = 1011) EOSINOPHILS (test 12.0 % code = 1012) BASOPHILS (test code 1.5 % = 1013) IMMATURE GRANYLOCYTES 0.2 % (test code = 1036) NUCLEATED RBCS (test 0.0 /100 See_Comment [Autom ated message] code = 1065) WBC'S The system [employer] generated this result transmit jarrod reference range [...] RBCS 0.00 K/UL 0.00-0.11 (test code = 92125)
[2022-10-25 19:08] LABS: Absolute Lymphocytes (CBC) 1.2 K/uL (0.7-4.9); Hematocrit 25.6 % (39.6-49.0); Lymphocytes % 22.1 % (15.3-44.8); MCV 95.5 fL (80-100); RBC Red Blood Cell Count 2.67 M/uL (4.33-5.43)
[2022-10-25 19:15] LABS: Protime INR 2.69
[2022-10-25 19:28] LABS: Albumin 3.6 g/dL (3.4-5.0); Bilirubin Total 0.4 mg/dL (0.2-1.0); Protein, Total 7.2 g/dL (6.4-8.2)
[2022-10-25 19:33] LABS: Potassium 5.6 mmol/L (3.5-5.1)
--- NOTE | 2022-10-25 19:41 | EDPHYS ---
Physician Documentation [facility] Name: Crispin Simmons Age: 56 yrs Sex: Male : 1965 Arrival Date: 10/25/2022 Time: 16:44 Bed 12 Private MD: ARON Physician Talib Vale HPI: 10/25 17:07 This 56 yrs old Male presents to ER via Ambulatory with complaints of Nose jmm Bleed, Spitting Up Blood. 17:07 The patient presents with a nose bleed. Onset: The symptoms/episode began/occurred jmm gradually, 1 day(s) ago. Is a 56-year-old male with history of end-stage renal disease, hypertension the presents emerged department with complaints of sinus congestion. Patient states he had a nosebleed yesterday and this morning and was concerned. Patient denies cough, shortness of breath, fever. Patient states he does take Coumadin.. Historical: - Allergies: 17:30 No Known Allergies; ld1 - PMHx: 17:30 Diabetes - NIDDM; DIALYSIS MWF; Hypertension; Myocardial infarction; ld1 - PSHx: 17:30 CABG; Right chest split jessica; ld1 - Immunization history:: Adult Immunizations up to date, Client reports receiving the 2nd dose of the Covid vaccine. - Social history:: Smoking status: Patient denies any tobacco usage or history of. Patient/guardian denies using alcohol. ROS: 17:07 Constitutional: Negative for fever, chills, and weight loss. jmm 17:07 Cardiovascular: Negative for chest pain, palpitations, and edema, Respiratory: Negative for shortness of breath, cough, wheezing, and pleuritic chest pain, Abdomen/GI: Negative for abdominal pain, nausea, vomiting, diarrhea, and constipation. 17:07 ENT: Positive for sinus congestion. 17:07 All other systems are negative. Exam: 17:07 Constitutional: This is a well developed, well nourished patient who is awake, alert, jmm and in no acute distress. Head/Face: atraumatic. Eyes: EOMI, no conjunctival erythema appreciated 17:07 Neck: Trachea midline, Supple Chest/axilla: Normal chest wall appearance and motion. Cardiovascular: Regular rate and rhythm. No edema appreciated Respiratory: Normal respirations, no respiratory distress appreciated Abdomen/GI: Non distended Back: Normal ROM Skin: General appearance color normal MS/ Extremity: Moves all extremities, no obvious deformities appreciated, no edema noted to the lower extremities Neuro: Awake and alert Psych: Behavior is normal, Mood is normal, Patient is cooperative and pleasant 17:07 ENT: Posterior pharynx: is normal. Vital Signs: 17:28 BP 148 / 84; Pulse 76; Resp 18; Temp 98.1(O); Pulse Ox 100% on R/A; Weight 86.18 kg; ld1 Height 5 ft. 9 in. (175.26 cm); Pain 0/10; 20:34 BP 168 / 86; Pulse 78; Resp 18; Pulse Ox 100% on R/A; em6 17:28 Body Mass Index 28.06 (86.18 kg, 175.26 cm) ld1 MDM: 17:24 Patient medically screened. [facility] 19:40 Data reviewed: vital signs, nurses notes. Counseling: I had a detailed discussion with [facility] the patient and/or guardian regarding: the historical points, exam findings, and any diagnostic results supporting the discharge/admit diagnosis, lab results, the need for outpatient follow up, to return to the emergency department if symptoms worsen or persist or if there are any questions or concerns that arise at home. 20:18 ED course: I discussed labs with the patient. Patient has no chest pain or shortness of m breath. Symptoms are mainly due to upper airway congestion. I did discuss lab findings with Dr. Robison who recommends inpatient dialysis. I did discuss this with the patient is aware of the emergent need for dialysis. Patient refuses admission. Patient appears to be of sound mind and able to make rational decisions. Patient was otherwise given strict return precautions. I did say the patient will be welcome to come in tomorrow if anything worsen.. 20:31 Refusal of service: The patient/guardian displays adequate decision making capability [facility] and despite a detailed discussion of alternatives, benefits, risks, and consequences refuses: Admission to the hospital for further work-up and treatment. 10/25 17:24 Order name: CBC with Diff; Complete Time: 19:12 [facility] 10/25 17:24 Order name: CMP; Complete Time: 19:34 [facility] 10/25 17:24 Order name: PT-INR; Complete Time: 19:17 [facility] 10/25 17:24 Order name: Type And Screen; Complete Time: 20:29 [facility] 10/25 17:36 Order name: Troponin High Sensitivity; Complete Time: 20:02 [facility] 10/25 17:24 Order name: Saline Lock; Complete Time: 19:02 [facility] 10/25 17:36 Order name: EKG - Nurse/Tech; Complete Time: 19:01 [facility] Administered Medications: 20:05 Drug: [facility]-Synephrine (phenylephrine) [place] 0.5 % 2 sprays Route: Intranasal; Site: both em6 nares; Disposition Summary: 10/25/22 19:41 Discharge Ordered Location: Home [facility] Condition: Stable [facility] Diagnosis - End-stage renal disease jmm - Epistaxis [facility] Followup: [facility] - With: Private Physician - When: Tomorrow - Reason: Recheck today's complaints, Continuance of care, Re-evaluation by your physician Discharge Instructions: - Discharge Summary Sheet [facility] - Nosebleed, Adult [facility] Forms: - Medication Reconciliation Form [facility] - Thank You Letter [facility] - Antibiotic Education [facility] - Prescription Opioid Use [facility] Prescriptions: - Saline Nasal - take 2 spray by INTRANASAL route 3 times per day As needed; 1 bottle; Refills: [facility] 0, Product Selection Permitted - promethazine-DM - take 5 milliliter by ORAL route every 4-6 hours As needed; 200 milliliter; [facility] Refills: 0, Product Selection Permitted Signatures: Dispatcher [employer] EDMS Skip Guerrero PA PA m Jeanine Cruz RN RN ld1 Diana Maya RN RN em6 Corrections: (The following items were deleted from the chart) 18:24 17:25 Chest Single View+[id number].[email or web address] ordered. EDMS EDMS
--- NOTE | 2022-10-25 19:41 | ER ---
Nurse's Notes [facility] Name: Crispin Simmons Age: 56 yrs Sex: Male : 1965 Arrival Date: 10/25/2022 Time: 16:44 Bed 12 Private MD: Diagnosis: End-stage renal disease;Epistaxis Presentation: 10/25 17:28 Chief complaint: Patient states: "When I blow my nose, blood gets on my tissue." Pt ld1 denies nose bleeding, just on the tissue. Denies injury, no pain. Pt concerned as to what is causing the bleeding. Coronavirus screen: At this time, the client does not indicate any symptoms associated with coronavirus-19. Ebola Screen: No symptoms or risks identified at this time. Initial Sepsis Screen: Does the patient meet any 2 criteria? No. Patient's initial sepsis screen is negative. Does the patient have a suspected source of infection? No. Patient's initial sepsis screen is negative. Risk Assessment: Do you want to hurt yourself or someone else? Patient reports no desire to harm self or others. Onset of symptoms was October 25, 2022. 17:28 Method Of Arrival: Ambulatory ld1 17:28 Acuity: CHRIS 4 ld1 Triage Assessment: 17:30 General: Appears in no apparent distress. comfortable, Behavior is calm, cooperative, ld1 appropriate for age. Pain: Denies pain. EENT: Reports nasal discharge that is bloody. Neuro: Level of Consciousness is awake, alert, obeys commands, Oriented to person, place, time, situation. Cardiovascular: Capillary refill < 3 seconds Patient's skin is warm and dry. Respiratory: Airway is patent Respiratory effort is even, unlabored. GI: Abdomen is round non-distended. : No signs and/or symptoms were reported regarding the genitourinary system. Derm: No signs and/or symptoms reported regarding the dermatologic system. Musculoskeletal: No signs and/or symptoms reported regarding the musculoskeletal system. Historical: - Allergies: 17:30 No Known Allergies; ld1 - PMHx: 17:30 Diabetes - NIDDM; DIALYSIS MWF; Hypertension; Myocardial infarction; ld1 - PSHx: 17:30 CABG; Right chest split jessica; ld1 - Immunization history:: Adult Immunizations up to date, Client reports receiving the 2nd dose of the Covid vaccine. - Social history:: Smoking status: Patient denies any tobacco usage or history of. Patient/guardian denies using alcohol. Screenin:05 [facility] ED Fall Risk Assessment (Adult) History of falling in the last 3 months, em6 including since admission No falls in past 3 months (0 pts) Confusion or Disorientation No (0 pts) Intoxicated or Sedated No (0 pts) Impaired Gait No (0 pts) Mobility Assist Device Used No (0 pt) Altered Elimination No (0 pt) Score/Fall Risk Level 0 - 2 = Low Risk Oriented to surroundings, Maintained a safe environment, Educated pt \\T\\ family on fall prevention, incl call for assistance when getting out of bed, Assessed \\T\\ reinforced patient's understanding of fall precautions, Provided non-skid footwear, Hourly rounding (assess needs \\T\\ fall precautionary measures) done, Used ambulatory aids as needed (educated on \\T\\ assisted with), Used gait belt as appropriate. Abuse screen: Denies threats or abuse. Nutritional screening: No deficits noted. Tuberculosis screening: No symptoms or risk factors identified. Assessment: 20:05 Reassessment: see triage assessment. em6 20:05 Reassessment: provider is contacting diesel engine assembler for patient. provider informed em6 patient he highly recommends to stay, but patient refused. notified patient to follow up with his dialysis center, but to come back to the ER if his symptoms persist. patient understood instructions. Vital Signs: 17:28 BP 148 / 84; Pulse 76; Resp 18; Temp 98.1(O); Pulse Ox 100% on R/A; Weight 86.18 kg; ld1 Height 5 ft. 9 in. (175.26 cm); Pain 0/10; 20:34 BP 168 / 86; Pulse 78; Resp 18; Pulse Ox 100% on R/A; em6 17:28 Body Mass Index 28.06 (86.18 kg, 175.26 cm) ld1 ED Course: 16:44 Patient arrived in ED. rg4 17:01 Skip Guerrero PA is PHCP. lee 17:01 Talib Vale MD is Attending Physician. jmm 17:30 Triage completed. ld1 17:30 Arm band placed on right wrist. ld1 19:01 Inserted saline lock: 20 gauge in right forearm, using aseptic technique. Blood zm collected. 19:02 Troponin High Sensitivity Sent. zm 19:02 Type And Screen Sent. zm 19:02 PT-INR Sent. zm 19:02 CBC with Diff Sent. zm 19:02 CMP Sent. zm 20:04 Diana Maya, RN is Primary Nurse. em6 20:05 Bed in low position. Call light in reach. Side rails up X 1. Pulse ox on. NIBP on. Warm em6 blanket given. 20:06 No provider procedures requiring assistance completed. IV discontinued, intact, em6 bleeding controlled, No redness/swelling at site. Pressure dressing applied. Administered Medications: 20:05 Drug: [facility]-Synephrine (phenylephrine) [place] 0.5 % 2 sprays Route: Intranasal; Site: both em6 nares; Medication: 20:06 VIS not applicable for this client. em6 Outcome: 19:41 Discharge ordered by . lee 20:06 Discharged to home ambulatory. em6 20:06 Condition: stable 20:06 Discharge instructions given to patient, Instructed on discharge instructions, follow up and referral plans. medication usage, Demonstrated understanding of instructions, follow-up care, medications, Prescriptions given X 2. 20:34 Patient left the ED. em6 Signatures: Skip Guerrero PA PA jmm Garcia, Rubi rg4 Jeanine Cruz, RONEL RN ld1 Deborah Maya Erika, RN RN em6 Corrections: (The following items were deleted from the chart) 20:05 20:05 [facility] ED Fall Risk Assessment (Adult) History of falling in the last 3 months, em6 including since admission No falls in past 3 months (0 pts) Confusion or Disorientation No (0 pts) Intoxicated or Sedated No (0 pts) Impaired Gait No (0 pts) Mobility Assist Device Used No (0 pt) Altered Elimination No (0 pt) Score/Fall Risk Level 0 - 2 = Low Risk em6 20:33 20:05 Reassessment: provider is contacting diesel engine assembler for patient. provider informed em6 patient he highly recommends to stay, but patient refused em6
[2022-10-25] MEDS ORDERED: PHENYLEPHRINE 0.5% NOSE 15ML NAS ONE (19:58)
[2022-10-25 21:08] VITALS: TEMP 98.1; O2SAT 100
[2022-10-25 21:09] VITALS: BP 168/86
[2022-10-26] MEDS ORDERED: SODIUM ZIRCONIUM CYCLOSILICATE 10 GM/PKT PO SCH (09:00)
--- NOTE | 2022-10-26 13:39 | EKG ---
Test Date: 2022-10-25 Test Time: 18:57:40 Worm Raiser: EULALIO MEASUREMENT RESULTS: Intervals: Rate: 75 ND: 146 QRSD: 98 QT: 396 QTc: 442 [place]: P: 86 ND: 146 QRS: 105 T: 89 INTERPRETIVE STATEMENTS: Normal sinus rhythm Rightward axis Borderline ECG Compared to ECG 04/16/2022 01:19:43 Right-axis deviation now present Electronically Signed On 10-26-22 13:37:22 SIDE PULLER by Selvin Hickey
== END 2022-10-25 20:34 | disposition home or self-care (01) ==
LOC: ER 16:38
DX: R04.0 Epistaxis (principal); E11.22 Type 2 diabetes mellitus with diabetic chronic kidney disease; I12.0 Hypertensive chronic kidney disease with stage 5 chronic kidney disease or end stage renal disease; N18.6 End stage renal disease; Z99.2 Dependence on renal dialysis
CPT/HCPCS: 36415; 80053; 84484; 85025; 85610; 86850; 86900; 86901; 93005; 99284

== ENCOUNTER 2022-10-26 17:38 | Observation (INO) | payer OTHER ==
--- OUTSIDE RECORDS SUMMARY | 2022-10-26 17:41 | XMS REPORT | Continuity of Care Document ---
:1965 Author Organization [facility] t Address [address] [place] [address] Care Team Providers Name Role Phone PCP, PATIENT DOES NOT HAVE A Primary Care Physician Unavailpamella Herrera MD, Venita Attending Clinician RADIOLOGY Attending Clinician Unavailable Radiology Attending Clinician Unavailable Elke Barbosa Attending Clinician Unavailable SAURABH GROSS Admitting Clinician Unavailable KNOW, DOES_NOT Admitting Clinician Unavailable Payers Payer Name Policy Type Policy Number Effective Date Expiration Date S brittany MEDICARE PART A [id number] 2022 AND B 00:00:00 MEDICARE PART A [id number] 2022 \T\ B 00:00:00 Problems This patient has no known problems. Allergies, Adverse Reactions, Alerts Allergy Allergy Status Severity Reaction(s) Onset Inactive Treating Comm ents Source Name Type Date Date Clinician NO KNOWN Drug Active Univers ALLERGIE Class ity of S [facility] Social History Social Habit Start Date Stop Date Quantity Comments Source Exposure to 2022-09-28 2022-10-08 Not sure [facility] SARS-CoV-2 (event) 00:00:00 13:07:00 Sex [birth year] At [birth year] CASSI Ortega 00:00:00 [facility]:00:00 [facility] Smoking Status Start Date Stop Date Source Tobacco smoking consumption unknown [facility] Medications This patient has no known medications. Procedures Procedure Date / Time Performed Performing Clinician Roya e US ELBOW RIGHT 2022-06-17 16:35:[address] [facility] HEPATITIS B CORE 2022-01-01 11:00:00 [facility] ANTIBODY, IGM Center HEPATITIS B SURFACE 2022-01-01 11:00:00 [facility] ANTIBODY Center HEPATITIS B CORE 2022-01-01 11:00:00 [facility] ANTIBODY, TOTAL Center HEPATITIS C ANTIBODY 2022-01-01 11:00:00 [facility] HEPATITIS B SURFACE 2022-01-01 11:00:00 [facility] ANTIGEN [place] Encounters Start End Encounter Admission Attending Care Care Encounter Source Date/Time Date/Time Type Type Clinicians Facility Department ID 2022-10-08 [facility] [id number] [place] 13:07:08 [id number] [facility] 2022-09-22 [facility] [id number] [place] 16:20:26 [id number] [facility] 2022-05-19 [facility] [id number] [place] 09:00:26 [id number] [facility] 2022-05-13 [facility] [id number] [place] 13:15:21 [id number] [facility] 2022-10-08 2022-10-08 Office MARY Herrera [id number] [place] 14:00:00 15:05:19 Visit Venita JADE [id number] [facility] [id number] 2022-10-05 2022-10-05 Outpatient [facility] [id number] [place] 11:00:00 11:00:00 VENITA Q-Bot 2022-06-17 2022-06-17 Outpatient R RADIOLOGY [facility] [id number] Univers 11:06:02 23:59:00 [facility] 2022-06-17 2022-06-17 Hospital Radiology [facility] [id number] Univers 11:00:00 23:59:00 Encounter DANYA [id number] ity of BETITO [id number] [facility] [id number] [facility] [address] 2022-02-19 2022-02-19 Inpatient Elke Purvis HCAWU SURG [id number] [facility] 09:00:00 09:00:00 33 [facility] 2022-01-05 2022-01-05 Lab [facility] [id number] 00:00[facility]00 [facility] 2022-01-05 Lab [facility] [id number] 00:00[facility]00 [facility] 2022-01-01 2022-01-01 Lab [facility] [id number] 00:00[facility]00 [facility]00 [facility]-01 2022-01-01 Lab [facility] [id number] 00:00:00 00:00:00 [facility] Results Test Description Test Time Test Comments Results Result Comments Source Hepatitis B surface antibody 2022-01-01 18:27:59 Test Item Value Reference Range Interpretation Comme nts Hep B S Ab (test code = <8.0 See_Comment [Au tomated message] The 89522-1) system which ge nerated this result transmit jarrod reference range: <8.0 mIU /mL. The reference range was not used to interpret th is result as normal/abnormal . FUENTES (test code = FUENTES) [employer] Painter Apprentice ID - DB Lab Interpretation (test Normal code = 53424-1) [facility] [id number] 18:27:59 Test Item Value Reference Range Interpretation Comments Hep B S Ab (test code <8.0 See_Comment [Auto mated = 43575-1) message] The system which generated this result transmit jarrod reference range : <8.0 mIU/mL. Th e reference range was not used to interpret this result as normal/abnormal . FUENTES (test code = FUENTES) [employer]ter Apprentice ID - DB Lab Interpretation Normal (test code = 63317-6) [facility] [id number] 18:27:59 Test Item Value Reference Range Interpretation Comments HEPATITIS B SURFACE ANTIBODY < mIU/mL <8.0 (BEAKER) (test code = 647) [employer] Apprentice ID - DBHepatitis B surface [id number] 18:27:17 Test Item Value Reference Range Interpretation Comments Hepatitis B surface Nonreactive Nonreactive antigen (test code = 5195-3) FUENTES (test code = FUENTES) Specimen is considered negative for HBsAg. Lab Interpretation (test Normal code = 55269-1) [facility] core antibody, [id number] 18:27:17 Test Item Value Reference Range Interpretation Comments Hep B Core Total Ab (test Nonreactive Nonreactive code = 97886-3) FUENTES (test code = FUENTES) [employer] Apprentice ID - DB Lab Interpretation (test Normal code = 48282-0) [facility], [id number] 18:27:17 Test Item Value Reference Range Interpretation Comments Hep B C IgM (test code = Nonreactive Nonreactive 18219-0) FUENTES (test code = FUENTES) [employer] Apprentice ID - DB Lab Interpretation (test Normal code = 75290-3) [facility] [id number] 18:27:17 Test Item Value Reference Range Interpretation Comments Hepatitis C Ab (test code = Nonreactive Nonreactive 32339-3) FUENTES (test code = FUENTES) [employer] Pain[employer] Apprentice ID - DB Lab Interpretation (test Normal code = 21335-7) [facility] surface [id number] 18:27:17 Test Item Value Reference Range Interpretation Comments Hepatitis B surface Nonreactive Nonreactive antigen (test code = 5195-3) FUENTES (test code = FUENTES) Specimen is considered negative for HBsAg. Lab Interpretation (test Normal code = 06739-2) [facility] core antibody, [id number] 18:27:17 Test Item Value Reference Range Interpretation Comments Hep B Core Total Ab (test Nonreactive Nonreactive code = 74320-9) FUENTES (test code = FUENTES) [employer] Pain[employer] Apprentice ID - DB Lab Interpretation (test Normal code = 78293-4) [facility] core antibody, [id number] 18:27:17 Test Item Value Reference Range Interpretation Comments Hep B C IgM (test code = Nonreactive Nonreactive 03595-7) FUENTES (test code = FUENTES) [employer] Pain[employer] Apprentice ID - DB Lab Interpretation (test Normal code = 51328-5) [facility] C [id number] 18:27:17 Test Item Value Reference Range Interpretation Comments Hepatitis C Ab (test code = Nonreactive Nonreactive 95235-4) FUENTES (test code = FUENTES) [employer] Painter Apprentice ID - DB Lab Interpretation (test Normal code = 32139-0) [facility] B SURFACE [id number] 18:27:17 Test Item Value Reference Range Interpretation Comments HEPATITIS B SURFACE ANTIGEN (2) Nonreactive Nonreactive (BEAKER) (test code = 2585) Specimen is considered negative for HBsAg.HEPATITIS B CORE ANTIBODY, IGM 2022-01-01 18:27:17 Test Item Value Reference Range Interpretation Comments HEPATITIS B CORE IGM ANTIBODY Nonreactive Nonreactive (BEAKER) (test code = 645) [employer]ice ID - DBHEPATITIS C [id number] 18:27:17 Test Item Value Reference Range Interpretation Comments HEPATITIS C ANTIBODY (BEAKER) Nonreactive Nonreactive (test code = 367) [employer] Painter Apprentice ID - [facility] B CORE ANTIBODY, [id number] 18:27:17 Test Item Value Reference Range Interpretation Comments HEPATITIS B CORE TOTAL ANTIBODY Nonreactive Nonreactive (BEAKER) (test code = 497) [employer] Pain[employer] Apprentice ID - DBCBC W/AUTO DIFF WITH [id number] 15:49:27 Test Item Value Reference Range Interpretation [...] message] code = 1065) WBC'S The system [employer]Metrics generated this result transmitted ref erence range: [...] RBCS 0.00 K/UL 0.00-0.11 (test code = 41108) COMMENTS (test code (NOTE) FEW ELL IPTOCYTES = 1016) SLIGHT POLYCHRO MASIA PLATELETS APPEA R NORMAL COMPREHENSIVE METABOLIC [id number] 06:53:58 Test Item Value Reference Range Interpretation Comments GLUCOSE (test code = 125 MG/DL 70-99 H 2216) BUN (test code = 122 MG/DL 6-20 H RESULTS R ECHECKED 2207) AND VERIFIED CREATININE (test 12.80 MG/DL 0.80-1.40 H code = 2214) eGFR (2020 CKD-EPI) 4 ML/MIN/1.73 >60 L (test code = 31947) CALC BUN/CREAT (test 10 RATIO 6-28 code = 2235) SODIUM (test code = 139 MEQ/L 317-931 3484) POTASSIUM (test code 4.5 MEQ/L 3.5-5.4 = [...] code = 20 U/L 5-50 2218) URIC [id number] 06:53:58 Test Item Value Reference Range Interpretation Comments URIC ACID (test 7.0 MG/DL 3.7-8.0 UNLESS OTHE RWISE code = 2233) INDICATED, ALL TESTING PERFORMED ATCLI NICAL PATHOLOGY [facility] [address] [place] [id number] [place] [address] DIRECTOR: SINGH IRVING M.D. CLIA NUMBER [id number] CAP ACCREDITATION N O. [id number] URINALYSIS W/REFLEX [id number] 03:03:38 Test Item Value Reference Range Interpretation [...] ed message] code = 1510) The system [employer]Metrics generated this result transmitted ref erence range: [...] CELLS (test 0-5 /HPF 0-5 code = 98624) BACTERIA (test code = NONE SEEN NONE SEEN 1515) CASTS, HYALINE (test TRACE NONE-TRACE UNLESS OTHERWISE code = 1517) INDICATED, ALL TESTING PERFORMED [facility], [place]. [address] [place] [id number] [place] [address] DIRECTOR: SINGH IRVING M.D. CLIA NUMBER [id number] CAP ACCREDITATION N O. [id number] COMPREHENSIVE METABOLIC [id number] 03:52:04 Test Item Value Reference Range Interpretation Comments GLUCOSE (test code = 83 MG/DL 70-99 2216) BUN (test code = 103 MG/DL 6-20 H 2207) CREATININE (test 11.02 MG/DL 0.80-1.40 H EFFECTIVE code = 2214) 10/12/2021, [facility] HAS IMPLEMENTED THE NKF-ASN RECOMME NDED KD-EPI EGF R REFIT CALCULATI ON THAT DOES NOT I NCLUDE A COEFFICIENT FORRACE. FOR MO RE INFORMATION, SE E ANNOUNCEMENT [email or web address] COM/EGFR_CALC eGFR (2020 CKD-EPI) 5 ML/MIN/1.73 >60 L (test code = 15783) CALC BUN/CREAT (test 9 RATIO 6-28 code = 2235) SODIUM (test code = 139 MEQ/L 747-600 0849) POTASSIUM (test code 5.6 MEQ/L 3.5-5.4 H HEMOLY TIC = 2228) INTERFERENCE DETECTED; RESUL TS MAY BE AFFECTED CHLORIDE (test code 103 MEQ/L 95-107 = 2215) CARBON DIOXIDE (test 15 MEQ/L 19-31 L code = 2206) CALCIUM (test code = 9.6 MG/DL 8.5-10.5 220) PROTEIN, TOTAL (test 6.9 G/DL 6.1-8.3 code = 2229) ALBUMIN (test code = 4.4 G/DL 3.5-5.2 220) CALC GLOBULIN (test 2.5 G/DL 1.9-3.7 code = 2240) CALC A/G RATIO (test 1.8 RATIO 1.0-2.6 code = 2234) BILIRUBIN, TOTAL 0.2 MG/DL See_Comment [Automated message] (test code = 2207) The [employer] which generated this result transmitted ref erence range: <=1.2. T he reference range was not used to int erpret this result as normal/abnormal . ALKALINE PHOSPHATASE 68 U/L 40-121 (test code = 2204) AST (test code = 20 U/L 9-50 2217) ALT (test code = 23 U/L 5-50 UNLESS OTH ERWISE 9) INDICATED, ALL TESTING PERFORM ED ATCLINICAL PATH OLOGY LABORATORIES, [facility]. [address] [place] [address] DIRECTOR: SINGH IRVING M.D. CLIA NUMBER [id number] CAP ACCREDITATION N O. [id number] CBC W/AUTO DIFF WITH [id number] 02:47:21 Test Item Value Reference Range Interpretation [...] LL BE ELIMINATED REDUNDANT TOABS OLUTE COUNTS.SEE www.[employer] /ally l_CBC_reporting _upda te LYMPHOCYTES (test 22.7 % code = 1010) MONOCYTES (test code 6.4 % = 1011) EOSINOPHILS (test 12.0 % code = 1012) BASOPHILS (test code 1.5 % = 1013) IMMATURE GRANYLOCYTES 0.2 % (test code = 1036) NUCLEATED RBCS (test 0.0 /100 See_Comment [Autom ated message] code = 1065) WBC'S The system [employer]Metrics generated this result transmit jarrod reference range [...] RBCS 0.00 K/UL 0.00-0.11 (test code = 86023)
--- NOTE | 2022-10-26 19:10 | ER ---
Nurse's Notes [facility] Name: Crispin Simmons Age: 56 yrs Sex: Male : 1965 Arrival Date: 10/26/2022 Time: 17:39 Bed External Waiting Private MD: Diagnosis: Hyperkalemia;End Stage Renal Disease Presentation: 10/26 18:17 Chief complaint: Patient states: Was here last night and needed dialysis. Decided to go ll1 home, and come back now for his dialysis. Usual days M//. Coronavirus screen: Vaccine status: Patient reports being unvaccinated. Client denies travel out of the [place] in the last 14 days. At this time, the client does not indicate any symptoms associated with coronavirus-19. Ebola Screen: Patient denies travel to an Ebola-affected area in the 21 days before illness onset. Initial Sepsis Screen: Does the patient meet any 2 criteria? No. Patient's initial sepsis screen is negative. Does the patient have a suspected source of infection? No. Patient's initial sepsis screen is negative. Risk Assessment: Do you want to hurt yourself or someone else? Patient reports no desire to harm self or others. Onset of symptoms was October 25, 2022. 18:17 Method Of Arrival: Ambulatory ll1 18:17 Acuity: CRHIS 3 ll1 23:16 Note pt refusing to be admittted called patient not in lobby. Triage Assessment: 18:20 General: Appears in no apparent distress. Behavior is calm, cooperative, appropriate ll1 for age. General: states need dialysis. Pain: Denies pain. Neuro: No deficits noted. Cardiovascular: No deficits noted. Historical: - Allergies: 18:19 No Known Allergies; ll1 - PMHx: 18:19 Diabetes - NIDDM; DIALYSIS MWF; Hypertension; Myocardial infarction; ll1 - PSHx: 18:19 Right chest split jessica; CABG; ll1 - Immunization history:: Client reports having NOT received the Covid vaccine. - Social history:: Smoking status: Patient denies any tobacco usage or history of. Vital Signs: 18:17 BP 160 / 90; Pulse 76; Resp 17; Temp 98.6; Pulse Ox 96% ; Weight 87.54 kg; Height 5 ft. ll1 7 in. (170.18 cm); Pain 0/10; 18:17 Body Mass Index 30.23 (87.54 kg, 170.18 cm) ll1 ED Course: 17:39 Patient arrived in ED. as 17:43 Skip Guerrero PA is PHCP. lee 17:43 Talib Vale MD is Attending Physician. jmm 18:19 Triage completed. ll1 18:20 Arm band placed on. ll1 18:49 XRAY Chest (1 view) In Process Unspecified. EDMS 19:08 Zaid Hudson is Hospitalizing Provider. lee Administered Medications: No medications were administered Outcome: 19:09 Decision to Hospitalize by Provider. jmm 23:17 Patient left the ED. kl Signatures: Dispatcher [employer] EDYohana Coronado, RN RN Skip Chin PA PA jmm Martinez, Amelia as Magda Kingston, RONEL RN ll1
--- NOTE | 2022-10-26 19:10 | EDPHYS ---
Physician Documentation [facility] Name: Crispin Simmons Age: 56 yrs Sex: Male : 1965 Arrival Date: 10/26/2022 Time: 17:39 Bed External Waiting Private MD: ARON Physician Talib Vale HPI: 10/26 17:47 This 56 yrs old Male presents to ER via Ambulatory with complaints of needs [facility] dialysis. 17:47 This is a 56 year old male with a history of dm, esrd, htn that presents to the ED with jmm complaints of congestion that presents to the ED after leaving yesterday. Patient has not had dialysis since last Tuesday. Patient had an elevated k level. Patient denies sob, chest pain. . Historical: - Allergies: 18:19 No Known Allergies; ll1 - PMHx: 18:19 Diabetes - NIDDM; DIALYSIS MWF; Hypertension; Myocardial infarction; ll1 - PSHx: 18:19 Right chest split jessica; CABG; ll1 - Immunization history:: Client reports having NOT received the Covid vaccine. - Social history:: Smoking status: Patient denies any tobacco usage or history of. ROS: 17:47 Constitutional: Negative for fever, chills, and weight loss, Cardiovascular: Negative jmm for chest pain, palpitations, and edema, Respiratory: Negative for shortness of breath, cough, wheezing, and pleuritic chest pain. 17:47 All other systems are negative. Exam: 17:47 Constitutional: This is a well developed, well nourished patient who is awake, alert, jmm and in no acute distress. Head/Face: atraumatic. Eyes: EOMI, no conjunctival erythema appreciated ENT: Moist Mucus Membranes Neck: Trachea midline, Supple Chest/axilla: Normal chest wall appearance and motion. Cardiovascular: Regular rate and rhythm. No edema appreciated Respiratory: Normal respirations, no respiratory distress appreciated Abdomen/GI: Non distended Back: Normal ROM Skin: General appearance color normal MS/ Extremity: Moves all extremities, no obvious deformities appreciated, no edema noted to the lower extremities Neuro: Awake and alert Psych: Behavior is normal, Mood is normal, Patient is cooperative and pleasant Vital Signs: 18:17 BP 160 / 90; Pulse 76; Resp 17; Temp 98.6; Pulse Ox 96% ; Weight 87.54 kg; Height 5 ft. ll1 7 in. (170.18 cm); Pain 0/10; 18:17 Body Mass Index 30.23 (87.54 kg, 170.18 cm) ll1 MDM: 17:47 Patient medically screened. [facility] 19:07 Data reviewed: vital signs, nurses notes. Counseling: I had a detailed discussion with idania the patient and/or guardian regarding: the historical points, exam findings, and any diagnostic results supporting the discharge/admit diagnosis, the need for further work-up and treatment in the hospital. ED course: I discussed the patient with Ekaterina Mello whom accepted the patient to Dr. Hudson's service. . 10/26 17:50 Order name: Basic Metabolic Panel [facility] 10/26 17:50 Order name: CBC with Diff [facility] 10/26 17:50 Order name: PT-INR [facility] 10/26 17:50 Order name: Troponin HS [facility] 10/26 17:50 Order name: XRAY Chest (1 view) [facility] 10/26 17:50 Order name: COVID-19/FLU A+B [facility] 10/26 17:50 Order name: EKG; Complete Time: 17:51 [facility] 10/26 17:50 Order name: Cardiac monitoring [facility] 10/26 17:50 Order name: EKG - Nurse/Tech [facility] 10/26 17:50 Order name: IV Saline Lock [facility] 10/26 17:50 Order name: Labs collected and sent [facility] 10/26 17:50 Order name: O2 Per Protocol [facility] 10/26 17:50 Order name: O2 Sat Monitoring [facility] Administered Medications: No medications were administered Disposition Summary: 10/26/22 19:09 Hospitalization Ordered Hospitalization Status: Inpatient Admission [facility] Provider: Zaid Hudson Location: Telemetry/MedSurg (Inpatient) [facility] Condition: Stable [facility] Problem: an ongoing problem [facility] Symptoms: are unchanged [facility] Bed/Room Type: Standard [facility] Room Assignment: [facility] Diagnosis - Hyperkalemia m - End Stage Renal Disease [facility] Forms: - Medication Reconciliation Form [facility] - SBAR form [facility] Signatures: Dispatcher [employer] EDMS Skip Guerrero PA PA jmm Lewis, Lynsay RN RN ll1
--- NOTE | 2022-10-26 20:30 | P.HP ---
Certification for Inpatient Patient admitted to: Observation With expected LOS: <2 Midnights Patient will require the following post-hospital care: None Practitioner: I am a practitioner with admitting privileges, knowledge of patient current condition, hospital course, and medical plan of care. Services: Services provided to patient in accordance with Admission requirements found in Title 42 Section 412.3 of the Code of Federal Regulations Patient History Date of Service: 10/26/22 Reason for admission: ESRD missed HD Allergies No Known Allergies Allergy (Unverified 11/25/17 16:53) Home medications list reviewed: Yes Home Medications: Aspirin 81 mg PO DAILY 10/03/21 Magnesium Salicylate/Caffeine [Diurex Water Pills] 1 each PO DAILY 10/03/21 Rosuvastatin [Crestor*] 20 mg PO BEDTIME 10/03/21 Tamsulosin [Flomax*] 0.4 mg PO BEDTIME 10/03/21 Amlodipine [Norvasc*] 10 mg PO DAILY #30 tab 10/04/21 Furosemide [Lasix*] 40 mg PO BIDL 12/31/21 Epoetin [Retacrit] 4,000 unit IV EVERY HD vial 01/05/22 Heparin [Heparin 1,000 units/mL *] 6,000 unit IV EVERY HD PRN vial 01/05/22 Sevelamer Carbonate [Renvela*] 2,400 mg PO TIDWM 03/02/22 - Past Medical/Surgical History Diabetic: Yes -: NIDDM2 -: HTN -: DYSLIPIDEMIA -: ESRD -: AFIB -: CABGx2 Psychosocial/ Personal History: Patient lives at home with his . - Family History Father -: Stroke Brother -: Diabetes Mother -: Other (see notes) Notes: osteoperosis, dementia - Social History Smoking Status: Never smoker Alcohol use: No CD- Drugs: No Caffeine use: Yes Place of Residence: Home Review of Systems 10-point ROS is otherwise unremarkable ENT: Nose Congestion Physical Examination - Vital Signs Temperature: 98.6 F Blood Pressure: 160/90 Pulse: 76 Respirations: 17 Pulse Ox (%): 96 (room air) - Physical Exam General: Alert, In no apparent distress HEENT: Atraumatic, PERRLA, EOMI, Sclerae nonicteric Neck: Supple, 2+ carotid pulse no bruit, No LAD, Without JVD or thyroid abnormality Respiratory: Clear to auscultation bilaterally, Normal air movement Cardiovascular: Regular rate/rhythm, Normal S1 S2 Gastrointestinal: Normal bowel sounds, No tenderness Musculoskeletal: No tenderness Integumentary: No rashes Neurological: Normal speech, Normal strength at 5/5 x4 extr, Normal tone, Normal affect Assessment and Plan - Problems (Diagnosis) (1) CHF (congestive heart failure) Current Visit: Yes Status: Chronic Qualifiers: Heart failure type: diastolic Heart failure chronicity: chronic Qualified Code(s): I50.32 - Chronic diastolic (congestive) heart failure (2) Anemia of chronic disease Current Visit: Yes Status: Chronic (3) Chronic a-fib Current Visit: Yes Status: Chronic (4) Diabetes mellitus Current Visit: Yes Status: Chronic Qualifiers: Diabetes mellitus type: type 2 Diabetes mellitus longterm insulin use: without longterm use Diabetes mellitus complication status: with hyp erglycemia Qualified Code(s): E11.65 - Type 2 diabetes mellitus with hyperglycemia (5) ESRD (end stage renal disease) Current Visit: Yes Status: Chronic (6) Hyperlipidemia Current Visit: Yes Status: Chronic Qualifiers: Hyperlipidemia type: mixed hyperlipidemia Qualified Code(s): E78.2 - Mixed hyperlipidemia (7) Hypertension Current Visit: Yes Status: Chronic Qualifiers: Hypertension type: primary hypertension (8) GERD (gastroesophageal reflux disease) Current Visit: Yes Status: Chronic Qualifiers: Esophagitis presence: without esophagitis Qualified Code(s): K21.9 - Gastro-esophageal reflux disease without esophagitis Discharge Plan: Home Plan to discharge in: 24 Hours - Advance Directives Does patient have a Living Will: No Does patient have a Durable POA for Healthcare: No - Code Status/Comfort Care Code Status Assessed: Yes Code Status: Full Code Physician Review: Patient Assessed, Agree with Above Assessment and Plan Critical Care: No Time Spent Managing Pts Care (In Minutes): 50
[2022-10-26 23:35] VITALS: BP 160/90; TEMP 98.6; O2SAT 96
== END 2022-10-26 22:40 | disposition left against medical advice (07) ==
LOC: ER 17:38 → ERHOLD 19:33
PROVIDERS: ADMIT Internal Medicine; ATTEND Internal Medicine
DX: E87.5 Hyperkalemia (principal); N18.6 End stage renal disease; Z99.2 Dependence on renal dialysis; Z91.15 Patient's noncompliance with renal dialysis; I10 Essential (primary) hypertension; I25.2 Old myocardial infarction; Z53.29 Procedure and treatment not carried out because of patient's decision for other reasons
CPT/HCPCS: 99282; G0378 ×2; 71045

== ENCOUNTER 2023-10-03 18:37 | Emergency (ER) | payer OTHER ==
--- OUTSIDE RECORDS SUMMARY | 2023-10-03 18:42 | XMS REPORT | Continuity of Care Document ---
:1965 Author Organization [facility] t Address [address] [place] [address] Care Team Providers Name Role Phone PCP, PATIENT DOES NOT HAVE A Primary Care Physician UnavailHermelindo Wilks Attending Clinician Unavailable FORTUNATO AYALA Attending Clinician Unavailable EBONY GOOD Attending Clinician Unavailable Sharon TOBAR, Venita Attending Clinician RADIOLOGY Attending Clinician Unavailable Radiology Attending Clinician Unavailable Elke Barbosa Attending Clinician Unavailable SAURABH NORTON Admitting Clinician Unavailable KNOW, DOES_NOT Admitting Clinician Unavailable Payers Payer Name Policy Type Policy Number Effective Date Expiration Date S brittany MEDICARE PART A [id number] 2022 2022 AND B 00:00:00 00:00:00 [employer] MEDICARE [id number] 2022 ADVANTAGE HMO 00:00:00 MEDICARE PART A [id number] 2022 \T\ B 00:00:00 Problems This patient has no known problems. Allergies, Adverse Reactions, Alerts Allergy Allergy Status Severity Reaction(s) Onset Inactive Treating Comm ents Source Name Type Date Date Clinician NO KNOWN Drug Active Univers ALLERGIE Class ity of S [facility] Social History Social Habit Start Date Stop Date Quantity Comments Source Sexual orientation [facility] Exposure to 2022-09-28 2022-10-08 Not sure [facility] SARS-CoV-2 (event) 00:00:00 13:07:00 Sex Assigned At [birth year] [facility] 00:00:00 [facility]00 [facility] Smoking Status Start Date Stop Date Source Tobacco smoking consumption unknown [facility] Medications This patient has no known medications. Procedures Procedure Date / Time Performing Clinician Source Performed ECHOCARDIOGRAM 2D 2022-11-25 20:16:29 System, Provider Not [place] He alth COMPLETE 3D POSSIBLE In US ELBOW RIGHT 2022-06-17 16:35:10 Ginny Hornbeak o [facility] HEPATITIS B CORE 2022-01-01 11:00:00 [facility] ANTIBODY, IGM Center HEPATITIS B SURFACE 2022-01-01 11:00:00 [facility] ANTIBODY Center HEPATITIS B CORE 2022-01-01 11:00:00 [facility] ANTIBODY, TOTAL Center HEPATITIS C ANTIBODY 2022-01-01 11:00:00 [facility] HEPATITIS B SURFACE 2022-01-01 11:00:00 [facility] ANTIGEN Center Encounters Start End Encounter Admission Attending Care Care Encounter Source Date/Time Date/Time Type Type Clinicians Facility Department ID 2023-05-12 Outpatient John, ST[facility] [id number] Common 10:55:01 [facility] [id number] [facility] 2023-03-02 Outpatient [facility] [id number] [place] 14:48:50 [id number] [facility] 2023-02-28 Outpatient [facility] [id number] [place] 15:49:48 [id number] [facility] 2023-02-08 Outpatient [facility] [id number] [place] 11:41:56 [id number] [facility] 2023-01-07 Outpatient [facility] [id number] [place] 13:45:59 [id number] [facility] 2023-01-06 Outpatient [facility] [id number] [place] 10:26:38 [id number] [facility] 2022-11-24 Outpatient [facility] [id number] [place] 08:13:03 [id number] [facility] 2022-11-23 Outpatient [facility] [id number] [place] 13:53:22 [id number] [facility] 2022-10-08 Outpatient [facility] [id number] [place] 13:07:08 [id number] [facility] 2022-09-22 Outpatient [facility] [id number] [place] 16:20:26 [id number] [facility] 2022-05-19 Outpatient [facility] [id number] [place] 09:00:26 [id number] [facility] 2022-05-13 Outpatient [facility] [id number] [place] 13:15:21 [id number] [facility] 2023-03-03 2023-03-03 Outpatient LUCY [facility] [id number] [place] 10:30:00 10:30:00 [facility] 2023-01-13 2023-01-13 Outpatient LUCY [facility] [id number] [place] 09:45:00 09:45:00 [facility] 2022-11-25 2022-11-25 External EBONY GOOD EXT MSRDP [id number] [place] 10:30:00 10:30:00 Contact LOCATION [id number] [facility] [id number] 2022-10-08 2022-10-08 Office MARY Herrera [id number] [place] 14:00:00 15:05:19 Visit Venita JADE [id number] [facility] [id number] 2022-10-05 2022-10-05 Outpatient SHARON [facility] [id number] [place] 11:00:00 11:00:00 VENITA [facility] 2022-06-17 2022-06-17 Outpatient R RADIOLOGY [facility] [id number] Univers 11:06:02 23:59:00 ity of [facility] 2022-06-17 2022-06-17 Hospital Radiology [facility] [id number] Univers 11:00:00 23:59:00 Encounter DANYA [id number] ity sherrie CISSE [id number] [facility] [id number] [facility] [address] 2022-02-19 2022-02-19 Inpatient Elke Purvis [facility] [id number] [facility] 09:00:00 09:00:00 33 [facility] 2022-01-05 2022-01-[address] [facility] [id number] 00:00:00 00:00:00 [facility] 2022-01-01 2022-01-[address] [facility] [id number] 00:00:00 00:00:00 [facility] Results Test Description Test Time Test Comments Results Result Comments Source Hepatitis B surface antibody 2022-01-01 18:27:59 Test Item Value Reference Range Interpretation Comme nts Hep B S Ab (test code = <8.0 See_Comment [Au tomated message] The 20568-1) system which ge nerated this result transmit jarrod reference range: <8.0 mIU /mL. The reference range was not used to interpret th is result as normal/abnormal . FUENTES (test code = FUENTES) Sample Tailor ID - DB Lab Interpretation (test Normal code = 16611-6) [facility] [id number] 18:27:59 Test Item Value Reference Range Interpretation Comments Hep B S Ab (test code <8.0 See_Comment [Auto mated = 24791-2) message] The system which generated this result transmit jarrod reference range : <8.0 mIU/mL. Th e reference range was not used to interpret this result as normal/abnormal . FUENTES (test code = FUENTES) Sample Tailor ID - DB Lab Interpretation Normal (test code = 87138-9) [facility] [id number] 18:27:59 Test Item Value Reference Range Interpretation Comments HEPATITIS B SURFACE ANTIBODY < mIU/mL <8.0 (BEAKER) (test code = 647) Sample Tailor ID - DBHepatitis B surface [id number] 18:27:17 Test Item Value Reference Range Interpretation Comments Hepatitis B surface Nonreactive Nonreactive antigen (test code = 5195-3) FUENTES (test code = FUENTES) Specimen is considered negative for HBsAg. Lab Interpretation (test Normal code = 07598-5) [facility] antibody, [id number] 18:27:17 Test Item Value Reference Range Interpretation Comments Hep B Core Total Ab (test Nonreactive Nonreactive code = 86124-6) FEUNTES (test code = FUENTES) Sample Tailor ID - DB Lab Interpretation (test Normal code = 76580-8) [facility] antibody, [id number] 18:27:17 Test Item Value Reference Range Interpretation Comments Hep B C IgM (test code = Nonreactive Nonreactive 67942-4) FUENTES (test code = FUENTES) Sample Tailor ID - DB Lab Interpretation (test Normal code = 48426-7) [facility] [id number] 18:27:17 Test Item Value Reference Range Interpretation Comments Hepatitis C Ab (test code = Nonreactive Nonreactive 61249-9) FUENTES (test code = FUENTES) Sample Tailor ID - DB Lab Interpretation (test Normal code = 16872-9) [facility] surface [id number] 18:27:17 Test Item Value Reference Range Interpretation Comments Hepatitis B surface Nonreactive Nonreactive antigen (test code = 5195-3) FUENTES (test code = FUENTES) Specimen is considered negative for HBsAg. Lab Interpretation (test Normal code = 25113-2) [facility] core antibody, [id number] 18:27:17 Test Item Value Reference Range Interpretation Comments Hep B Core Total Ab (test Nonreactive Nonreactive code = 23701-9) FUENTES (test code = FUENTES) Sample Tailor ID - DB Lab Interpretation (test Normal code = 50818-2) [facility] core antibody, [id number] 18:27:17 Test Item Value Reference Range Interpretation Comments Hep B C IgM (test code = Nonreactive Nonreactive 96329-6) FUENTES (test code = FUENTES) Sample Tailor ID - DB Lab Interpretation (test Normal code = 86430-1) [facility] [id number] 18:27:17 Test Item Value Reference Range Interpretation Comments Hepatitis C Ab (test code = Nonreactive Nonreactive 16858-5) FUENTES (test code = FUENTES) Sample Tailor ID - DB Lab Interpretation (test Normal code = 91026-1) [facility] [id number] 18:27:17 Test Item Value Reference Range Interpretation Comments HEPATITIS B SURFACE ANTIGEN (2) Nonreactive Nonreactive (BEAKER) (test code = 2585) Specimen is considered negative for HBsAg.HEPATITIS B CORE ANTIBODY, IGM 2022-01-01 18:27:17 Test Item Value Reference Range Interpretation Comments HEPATITIS B CORE IGM ANTIBODY Nonreactive Nonreactive (BEAKER) (test code = 645) Sample Tailor ID - DBHEPATITIS C [id number] 18:27:17 Test Item Value Reference Range Interpretation Comments HEPATITIS C ANTIBODY (BEAKER) Nonreactive Nonreactive (test code = 367) Sample Tailor ID - DBHEPATITIS B CORE ANTIBODY, [id number] 18:27:17 Test Item Value Reference Range Interpretation Comments HEPATITIS B CORE TOTAL ANTIBODY Nonreactive Nonreactive (BEAKER) (test code = 497) Sample Tailor ID - DBCBC W/AUTO DIFF WITH [id number] 15:49:27 Test Item Value Reference Range Interpretation [...] % 11.5-15.0 1038) NEUTROPHILS (test 66.1 % AUTOMATE D code = 1008) DIFFERENTIAL CONFIRMED WITH MANUAL SLIDE REVIEW. LYMPHOCYTES (test 15.8 % code = 1010) MONOCYTES (test code 6.8 % = 1011) EOSINOPHILS (test 10.0 % code = 1012) BASOPHILS (test code 0.8 % = 1013) IMMATURE 0.5 % GRANULOCYTES (test code = 1036) NUCLEATED RBCS (test 0.0 /100 See_Comment [Autom ated message] code = 1065) WBC'S The system [employer] generated this result transmitted ref erence range: [...] RBCS 0.00 K/UL 0.00-0.11 (test code = 07334) COMMENTS (test code (NOTE) FEW ELL IPTOCYTES = 1016) SLIGHT POLYCHRO MASIA PLATELETS APPEA R NORMAL COMPREHENSIVE METABOLIC [id number] 06:53:58 Test Item Value Reference Range Interpretation Comments GLUCOSE (test code = 125 MG/DL 70-99 H 2216) BUN (test code = 122 MG/DL 6-20 H RESULTS RE CHECKED 2207) AND VERIFIED CREATININE (test 12.80 MG/DL 0.80-1.40 H code = 2214) eGFR (2020 CKD-EPI) 4 ML/MIN/1.73 >60 L (test code = 82154) CALC BUN/CREAT (test 10 RATIO 6-28 code = 2235) SODIUM (test code = 139 MEQ/L 310-601 0976) POTASSIUM (test code 4.5 MEQ/L 3.5-5.4 = [...] PHOSPHATASE 69 U/L 40-121 (test code = 220) AST (test code = 14 U/L 9-50 2217) ALT (test code = 20 U/L 5-50 2218) URIC [id number] 06:53:58 Test Item Value Reference Range Interpretation Comments URIC ACID (test 7.0 MG/DL 3.7-8.0 UNLESS OTHE RWISE code = 2233) INDICATED, ALL TESTING PERFORMED [facility] [address] [place] [address]A [facility] DIRECTOR: SINGH IRVING M.D. CLIA NUMBER [id number] CAP ACCREDITATION N O. [id number] URINALYSIS W/REFLEX [id number] 03:03:38 Test Item Value Reference Range Interpretation [...] ed message] code = 1510) The system [employer] generated this result transmitted ref erence range: [...] CELLS (test 0-5 /HPF 0-5 code = 72578) BACTERIA (test code = NONE SEEN NONE SEEN 1515) CASTS, HYALINE (test TRACE NONE-TRACE UNLESS OTHERWISE code = 1517) INDICATED, ALL TESTING PERFORMED [facility], [facility]. [address] [place] [address] [facility] DIRECTOR: SINGH IRVING M.D. CLIA NUMBER [id number] CAP ACCREDITATION N O. [id number] COMPREHENSIVE METABOLIC [id number] 03:52:04 Test Item Value Reference Range Interpretation Comments GLUCOSE (test code = 83 MG/DL 70-99 2216) BUN (test code = 103 MG/DL 6-20 H 2207) CREATININE (test 11.02 MG/DL 0.80-1.40 H EFFECTIVE code = 2214) 10/12/2021, [facility] HAS IMPLEMENTED THE NKF-ASN RECOMME NDED KD-EPI EGF R REFIT CALCULATI ON THAT DOES NOT I NCLUDE A COEFFICIENT FORRACE. FOR MO RE INFORMATION, SE E ANNOUNCEMENT [email or web address]/EGFR_[email or web address] eGFR (2020 CKD-EPI) 5 ML/MIN/1.73 >60 L (test code = 89676) CALC BUN/CREAT (test 9 RATIO 6-28 code = 2235) SODIUM (test code = 139 MEQ/L 672-797 0730) POTASSIUM (test code 5.6 MEQ/L 3.5-5.4 H [...] = 23 U/L 5-50 UNLESS OTH ERWISE 2219) INDICATED, ALL TESTING PERFORM [facility] AT[facility] PATH [facility], [facility]. [address] [place] [id number] [place] [address] DIRECTOR: SINGH IRVING M.D. CLIA NUMBER [id number] CAP ACCREDITATION N O. [id number] CBC W/AUTO DIFF WITH [id number] 02:47:21 Test Item Value Reference Range Interpretation [...] LL BE ELIMINATED REDUNDANT TOABS OLUTE COUNTS.SEE [email or web address] /ally l_CBC_reporting _upda te LYMPHOCYTES (test 22.7 % code = 1010) MONOCYTES (test code 6.4 % = 1011) EOSINOPHILS (test 12.0 % code = 1012) BASOPHILS (test code 1.5 % = 1013) IMMATURE GRANYLOCYTES 0.2 % (test code = 1036) NUCLEATED RBCS (test 0.0 /100 See_Comment [Autom ated message] code = 1065) WBC'S The system [employer] generated this result transmit jarrod reference range [...] RBCS 0.00 K/UL 0.00-0.11 (test code = 62941)
[2023-10-03 20:58] LABS: Absolute Lymphocytes (CBC) 0.8 K/uL (0.7-4.9); Hematocrit 32.9 % (39.6-49.0); Lymphocytes % 16.5 % (15.3-44.8); MCV 92.9 fL (80-100); MPV 8.3 fL (7.6-11.3); Platelets 156 thou/uL (152-406); RBC Red Blood Cell Count 3.55 M/uL (4.33-5.43)
[2023-10-03 21:08] LABS: Protime INR 2.05
[2023-10-03 22:39] LABS: Albumin 4.5 g/dL (3.4-5.0); Bilirubin Direct 0.2 mg/dL (0-0.2); Bilirubin Indirect, Calculated 0.3 mg/dL (0.2-0.8); Bilirubin Total 0.5 mg/dL (0.2-1.0); Magnesium 2.5 mg/dL (1.6-2.4); Potassium 3.6 mEq/L (3.5-5.1); Protein, Total 8.7 g/dL (6.4-8.2)
[2023-10-03] MEDS ORDERED: cloNIDine HCL 0.1 MG TAB ONE (22:53)
--- NOTE | 2023-10-03 23:40 | ER ---
Nurse's Notes [facility] Name: Crispin Simmons Age: 57 yrs Sex: Male : 1965 Arrival Date: 10/03/2023 Time: 18:37 Bed IW1 Private MD: Diagnosis: Hypertensive heart and chronic kidney disease with heart failure and with stage 5 chronic kidney disease, or end stage renal disease;Conjunctival hemorrhage, right eye Presentation: 10/03 19:43 Chief complaint: Patient states: went to dialysis today and they called me later and lg3 told me to come to the ER because some of my lab results. my right eye is also bloodshot since last Tuesday. denies pain. dialysis told me to stop taking my Coumadin today. Coronavirus screen: Client denies travel out of the [place] in the last 14 days. At this time, the client does not indicate any symptoms associated with coronavirus-19. Ebola Screen: No symptoms or risks identified at this time. Initial Sepsis Screen: Does the patient meet any 2 criteria? No. Patient's initial sepsis screen is negative. Does the patient have a suspected source of infection? No. Patient's initial sepsis screen is negative. Risk Assessment: Do you want to hurt yourself or someone else? Patient reports no desire to harm self or others. Onset of symptoms is unknown. 19:43 Method Of Arrival: Ambulatory lg3 19:43 Acuity: CHRIS 3 lg3 Triage Assessment: 19:48 General: Appears in no apparent distress. comfortable, Behavior is calm, cooperative. lg3 Pain: Denies pain. EENT: Sclera/Cornea are reddened in right eye. Neuro: No deficits noted. Sinha Agitation-Sedation Scale (RASS): 0 - Alert and Calm Level of Consciousness is awake, alert, obeys commands, Oriented to person, place, time, situation. Cardiovascular: No deficits noted. Denies chest pain, shortness of breath. Respiratory: No deficits noted. Airway is patent Respiratory effort is even, unlabored, Respiratory pattern is regular, symmetrical. GI: No deficits noted. No signs and/or symptoms were reported involving the gastrointestinal system. : No deficits noted. No signs and/or symptoms were reported regarding the genitourinary system. Derm: No deficits noted. No signs and/or symptoms reported regarding the dermatologic system. Skin is intact, is healthy with good turgor, Skin is dry, Skin is normal, Skin temperature is warm. Musculoskeletal: No deficits noted. No signs and/or symptoms reported regarding the musculoskeletal system. Circulation, motion, and sensation intact. Range of motion: intact in all extremities. Historical: - Allergies: 19:48 No Known Allergies; lg3 - PMHx: 19:48 Diabetes - NIDDM; DIALYSIS MWF; Hypertension; Myocardial infarction; lg3 - PSHx: 19:48 CABG; Right chest split jessica; left arm fistula (Right chest split jsesica); lg3 - Immunization history:: Adult Immunizations up to date. - Social history:: Smoking status: Patient denies any tobacco usage or history of. Patient/guardian denies using alcohol, street drugs. Screenin:22 [facility] ED Fall Risk Assessment (Adult) History of falling in the last 3 months, lg3 including since admission No falls in past 3 months (0 pts). Abuse screen: Denies threats or abuse. Denies injuries from another. Nutritional screening: No deficits noted. Tuberculosis screening: No symptoms or risk factors identified. Assessment: 23:22 General: see triage assessment. lg3 Vital Signs: 19:43 BP 185 / 94; Pulse 73; Resp 19 S; Temp 98.4(TE); Pulse Ox 100% on R/A; Weight 86.5 kg lg3 (R); Height 5 ft. 7 in. (R); 23:33 BP 176 / 88; Pulse 71; Resp 18 S; Pulse Ox 100% on R/A; lg3 19:43 Body Mass Index 29.87 (86.50 kg, 170.18 cm) lg3 ED Course: 18:41 Patient arrived in ED. im 19:40 Talib Alston PA is PHCP. cp 19:40 Jeevan John MD is Attending Physician. cp 19:48 Triage completed. lg3 19:48 Arm band placed on right wrist. lg3 20:41 Inserted saline lock: 20 gauge in right forearm, using aseptic technique. Blood rv1 collected. 23:22 Patient has correct armband on for positive identification. lg3 23:22 No provider procedures requiring assistance completed. IV discontinued, intact, lg3 bleeding controlled, No redness/swelling at site. Pressure dressing applied. 23:38 Lanie Cardoza MD is Referral Physician. cp Administered Medications: 22:46 Drug: cloNIDine PO 0.1 mg PO once Route: PO; lg3 23:39 Follow up: Response: No adverse reaction lg3 Medication: 23:33 VIS not applicable for this client. lg3 Outcome: 23:22 Discharged to home ambulatory, lg3 23:22 Condition: stable 23:22 Discharge instructions given to patient, Instructed on discharge instructions, follow up and referral plans. medication usage, Demonstrated understanding of instructions, follow-up care, medications, Prescriptions given X 1, 23:39 Discharge ordered by . cp 23:57 Patient left the ED. lg3 Signatures: Talib Alston PA PA cp Gibson, Lacie, RN RN lg3 Thalia Hightower rv1 Eliana Hannah
--- NOTE | 2023-10-03 23:40 | EDPHYS ---
Physician Documentation [facility] Name: Crispin Simmons Age: 57 yrs Sex: Male : 1965 Arrival Date: 10/03/2023 Time: 18:37 Bed IW1 Private MD: ED Physician Jeevan John HPI: 10/03 20:15 This 57 yrs old Male presents to ER via Ambulatory with complaints of Abnormal cp Lab Results. 20:15 Patient is a 57-year-old male with past medical history significant for diabetes, cp hypertension and end-stage renal disease. Patient presents to the emergency department with a copy of lab work that shows an INR level been checked over the past several days and patient was reportedly told that it was elevated and that he needed to proceed to the emergency department for evaluation. Patient reports he takes warfarin 3 mg daily for history of atrial flutter and that his last dose was today. Patient also complains of redness to his right eye. Denies injury and reports the redness has been there for over a week. Patient denies pain and/or change in vision. 20:15 Patient reports completing dialysis earlier today prior to ED visit. cp Historical: - Allergies: 19:48 No Known Allergies; lg3 - PMHx: 19:48 Diabetes - NIDDM; DIALYSIS MWF; Hypertension; Myocardial infarction; lg3 - PSHx: 19:48 CABG; Right chest split jessica; left arm fistula (Right chest split jessica); lg3 - Immunization history:: Adult Immunizations up to date. - Social history:: Smoking status: Patient denies any tobacco usage or history of. Patient/guardian denies using alcohol, street drugs. ROS: 20:20 Eyes: Positive for redness, of the outer aspect of conjuctiva of right eye, Negative cp for injury or acute deformity, pain, redness, visual disturbance, 20:20 Abdomen/GI: Negative for abdominal pain, vomiting, diarrhea, constipation, 20:20 Skin: Negative for rash, 20:20 Neuro: Negative for altered mental status, dizziness, headache, weakness, 20:20 All other systems are negative, 20:20 Cardiovascular: Negative for chest pain, cp 20:20 Respiratory: Negative for cough, shortness of breath, wheezing, Exam: 20:25 Constitutional: The patient appears in no acute distress, alert, awake, cp non-diaphoretic, non-toxic, well developed, well nourished, 20:25 Head/Face: Normocephalic, atraumatic. cp 20:25 Eyes: Periorbital structures: appear normal, Pupils: equal, round, and reactive to cp light and accomodation, Extraocular movements: intact throughout, Conjunctiva: subconjunctival hemorrhage(s), seen in the right eye, lateral side, Anterior chamber: normal, no hyphema, Lids and lashes: appear normal, bilaterally, 20:25 ENT: External ear(s): are unremarkable, Nose: is normal, Mouth: Lips: moist, Oral mucosa: pink and intact, moist, Posterior pharynx: Airway: no evidence of obstruction, patent, 20:25 Neck: ROM/movement: is normal, is supple, without pain, no range of motions limitations, 20:25 Chest/axilla: Inspection: normal, 20:25 Cardiovascular: Rate: normal, 20:25 Respiratory: the patient does not display signs of respiratory distress, Respirations: normal, no use of accessory muscles, no retractions, labored breathing, is not present, Breath sounds: are clear throughout, no decreased breath sounds, no stridor, no wheezing, 20:25 Abdomen/GI: Exam negative for discomfort, distension, guarding, Inspection: abdomen appears normal, 20:25 Neuro: Orientation: to person, place \T\ time. Mentation: is normal, Motor: moves all fours, strength is normal, Gait: is steady, at a normal pace, without difficulty, 23:56 ECG was reviewed by the Attending Physician. cp Vital Signs: 19:43 BP 185 / 94; Pulse 73; Resp 19 S; Temp 98.4(TE); Pulse Ox 100% on R/A; Weight 86.5 kg lg3 (R); Height 5 ft. 7 in. (R); 23:33 BP 176 / 88; Pulse 71; Resp 18 S; Pulse Ox 100% on R/A; lg3 19:43 Body Mass Index 29.87 (86.50 kg, 170.18 cm) lg3 MDM: 19:55 Patient medically screened. cp 23:35 Data reviewed: vital signs, nurses notes, lab test result(s). cp 23:35 Consideration of Admission/Observation Escalation of care including cp admission/observation considered. 10/03 20:09 Order name: Basic Metabolic Panel; Complete Time: 22:58 cp 10/03 22:58 Interpretation: Normal except: GLUC 139; BUN 58; CRE 10.50; GFR 5. cp 10/03 20:09 Order name: CBC with Diff; Complete Time: 01:24 cp 10/03 21:17 Interpretation: Normal except: RBC 3.55; HGB 11.3; HCT 32.9; RDW 15.6; EOSINOPHIL % cp 17.6; EOSA 0.9. 10/03 20:09 Order name: LFT's; Complete Time: 22:58 cp 10/03 22:58 Interpretation: Normal except: AST 13; TP 8.7; GLOB 4.2. cp 10/03 20:09 Order name: Magnesium; Complete Time: 22:58 cp 10/03 22:58 Interpretation: MG 2.5; Reviewed. cp 10/03 20:09 Order name: PT-INR; Complete Time: 21:16 cp 10/03 21:17 Interpretation: PT 22.6; Reviewed. cp 10/03 20:09 Order name: Ptt, Activated; Complete Time: 21:16 cp 10/03 22:57 Order name: Manual Differential; Complete Time: 01:24 EDMS 10/03 20:09 Order name: EKG; Complete Time: 20:10 cp 10/03 20:09 Order name: IV Saline Lock; Complete Time: 23:15 cp 10/03 20:09 Order name: Labs collected and sent; Complete Time: 23:15 cp 10/03 20:09 Order name: O2 Per Protocol; Complete Time: 23:15 cp 10/03 23:50 Order name: EKG - Nurse/Tech; Complete Time: 23:50 lg3 EC:56 Rate is 67 beats/min. Rhythm is regular. ME interval is normal. QRS interval is cp prolonged at 110 msec. QT interval is normal. T waves are Inverted in lead aVR. Interpreted by me. Reviewed by me. Administered Medications: 22:46 Drug: cloNIDine PO 0.1 mg PO once Route: PO; lg3 23:39 Follow up: Response: No adverse reaction lg3 Disposition Summary: 10/03/23 23:39 Discharge Ordered Notes: Location: Home cp Problem: new cp Symptoms: have improved cp Condition: Stable cp Diagnosis - Hypertensive heart and chronic kidney disease with heart failure and with stage 5 cp chronic kidney disease, or end stage renal disease - Conjunctival hemorrhage, right eye cp Followup: cp - With: Private Physician - When: 2 - 3 days - Reason: Recheck today's complaints Followup: cp - With: Lanie Cardoza MD - When: 1 - 2 days - Reason: right eye subconjunctival hemorrhage Discharge Instructions: - Discharge Summary Sheet cp - Hypertension, Adult cp - Subconjunctival Hemorrhage cp - Form - Blood Pressure Record Sheet cp - How to Take Your Blood Pressure cp Forms: - Medication Reconciliation Form cp - Thank You Letter cp - Antibiotic Education cp - Prescription Opioid Use cp - Patient Portal Instructions cp - Leadership Thank You Letter cp - Work release form lg3 Prescriptions: - clonidine HCl 0.1 mg Oral tablet - take 1 tablet ORAL route once As needed for systolic blood pressure greater cp than 180; 20 tablet; Refills: 0, Product Selection Permitted Signatures: Dispatcher [employer] EDMS Talib Alston PA PA cp Debby Pitt RN RN lg3 Corrections: (The following items were deleted from the chart) 23:40 20:09 EKG - Nurse/Tech ordered. cp lg3 12/05 14:04 12/04 20:20 All other systems are negative, cp cp 12/05 14:05 14:02 Eyes: Positive for redness, of the outer aspect of conjuctiva of right eye, cp Negative for injury or acute deformity, pain, redness, visual disturbance, cp 14:05 14:02 Cardiovascular: Negative for chest pain, cp cp 14:05 14:02 Respiratory: Negative for cough, shortness of breath, wheezing, cp cp 14:05 14:02 Abdomen/GI: Negative for abdominal pain, vomiting, diarrhea, constipation, cp cp 14:05 14:02 Skin: Negative for rash, cp cp 14:05 14:02 Neuro: Negative for altered mental status, dizziness, headache, weakness, cp cp 14:05 14:02 All other systems are negative, cp cp
[2023-10-04 00:54] LABS: Blood Morphology Comment NOT SEEN (NOT SEEN); Platelet Estimate ADEQ
[2023-10-04 01:08] VITALS: TEMP 98.4; O2SAT 100
[2023-10-04 01:11] VITALS: BP 176/88
--- NOTE | 2023-10-04 13:27 | EKG ---
Test Date: 2023-10-03 Test Time: 23:51:58 Eyelet Row Marker: RACHEL MEASUREMENT RESULTS: Intervals: Rate: 67 HI: 188 QRSD: 110 QT: 460 QTc: 486 [place]: P: 45 HI: 188 QRS: 98 T: 1 INTERPRETIVE STATEMENTS: Normal sinus rhythm Rightward axis Nonspecific ST abnormality Prolonged QT Abnormal ECG Compared to ECG 10/25/2022 18:57:40 ST (T wave) deviation now present Prolonged QT interval now present Electronically Signed On 10-04-23 13:26:15 [employer]OUT [employer]ER HELPER by Selvin Hickey
== END 2023-10-03 23:57 | disposition home or self-care (01) ==
LOC: ER 18:37
DX: E11.22 Type 2 diabetes mellitus with diabetic chronic kidney disease (principal); I12.0 Hypertensive chronic kidney disease with stage 5 chronic kidney disease or end stage renal disease; N18.6 End stage renal disease; Z99.2 Dependence on renal dialysis; Z95.1 Presence of aortocoronary bypass graft
CPT/HCPCS: 36415; 80048; 80076; 83735; 85025; 85610; 85730; 93005; 99284

== ENCOUNTER 2024-02-23 18:45 | Observation (INO) | payer OTHER ==
[2024-02-23] MEDS ORDERED: METOPROLOL TAR 50 MG TAB ONE (19:25)
[2024-02-23] MEDS ORDERED: METOPROLOL TARTRATE 5 MG/5 ML INJ IV ONE (19:25)
[2024-02-23 19:37] LABS: PT Prothrombin Time 17.8 SECONDS (9.5-12.5); Protime INR 1.64
[2024-02-23 19:39] LABS: Absolute Basophils 0.1 K/uL (0-0.5); Absolute Eosinophils 0.2 K/uL (0-0.5); Absolute Lymphocytes (CBC) 0.6 K/uL (0.7-4.9); Absolute Monocytes 0.4 K/uL (0.1-1.3); Basophils % 1.1 % (0-1.3); Eosinophils % 4.6 % (0-4.4); Hematocrit 33.7 % (39.6-49.0); Hemoglobin 11.4 g/dL (13.6-17.9); Lymphocytes % 11.2 % (15.3-44.8); MCH 31.8 pg (27.0-35.0); MCHC 33.9 g/dL (32.0-36.0); MPV 7.7 fL (7.6-11.3); Monocytes % 8.2 % (3.3-12.3); Neutrophils % 74.9 % (41.7-73.7); Nucleated Red Blood Cells % 0.1 % (0-0); Platelets 184 thou/uL (152-406); RBC Red Blood Cell Count 3.59 M/uL (4.33-5.43); Red Cell Distribution Width 15.4 % (12.1-15.2)
[2024-02-23 19:51] LABS: Anion Gap 13.7 mEq/L (5.0-15.0); Magnesium 2.2 mg/dL (1.6-2.4); Potassium 3.7 mEq/L (3.5-5.1)
[2024-02-23 19:53] LABS: Troponin High Sensitivity 146.2 pg/mL (<58.9)
[2024-02-23] MEDS ORDERED: ASPIRIN 81 MG CHEWABLE TABLET ONE (20:12)
--- NOTE | 2024-02-23 20:37 | ER ---
Nurse's Notes [facility] Name: Crispin Simmons Age: 58 yrs Sex: Male : 1965 Arrival Date: 02/23/2024 Time: 18:45 Bed 15 Private MD: Diagnosis: Unspecified atrial flutter;Subsequent non-ST elevation (NSTEMI) myocardial infarction Presentation: 02/22 19:02 Chief complaint: Patient states: high heart rate since yesterday. Pt states, "It's been ss anywhere from 129-134". PT reports he has been a little constipated recently, but nothing other than that. Coronavirus screen: Client denies travel out of the [place] in the last 14 days. Ebola Screen: Patient denies exposure to infectious person. Patient denies travel to an Ebola-affected area in the 21 days before illness onset. Initial Sepsis Screen: Does the patient meet any 2 criteria? No. Patient's initial sepsis screen is negative. Does the patient have a suspected source of infection? No. Patient's initial sepsis screen is negative. Risk Assessment: Do you want to hurt yourself or someone else? Patient reports no desire to harm self or others. Onset of symptoms was February 22, 2024. 19:02 Method Of Arrival: Ambulatory ss 19:02 Acuity: CHRIS 3 ss Triage Assessment: 19:02 General: Appears in no apparent distress. comfortable, Behavior is calm, cooperative. ss Respiratory: Airway is patent Respiratory effort is even, unlabored, Respiratory pattern is regular, symmetrical. Historical: - Allergies: 19:00 No Known Allergies; ss - PMHx: 19:00 Diabetes - NIDDM; DIALYSIS MWF; Hypertension; Myocardial infarction; ss - PSHx: 19:00 CABG; Left arm fistula (ch); Right chest split jessica; ss - Immunization history:: Client reports having NOT received the Covid vaccine. - Infectious Disease History:: Denies. - Social history:: Smoking status: Patient denies any tobacco usage or history of. Screenin:10 [facility] ED Fall Risk Assessment (Adult) History of falling in the last 3 months, me1 including since admission No falls in past 3 months (0 pts) Confusion or Disorientation No (0 pts) Intoxicated or Sedated No (0 pts) Impaired Gait No (0 pts) Mobility Assist Device Used No (0 pt) Altered Elimination No (0 pt) Score/Fall Risk Level 0 - 2 = Low Risk Maintained a safe environment, Provided non-skid footwear, Hourly rounding (assess needs \\T\\ fall precautionary measures) done. Abuse screen: Denies threats or abuse. Nutritional screening: No deficits noted. Tuberculosis screening: No symptoms or risk factors identified. Assessment: 19:10 General: Appears comfortable, well groomed, well developed, well nourished, Behavior is me1 calm, cooperative, appropriate for age. Pain: Denies pain. Neuro: Level of Consciousness is awake, alert, obeys commands, Oriented to person, place, time, situation, Appropriate for age. Cardiovascular: Patient's skin is warm and dry. Cardiovascular: Reports palpitations, since yesterday. Respiratory: GI: No signs and/or symptoms were reported involving the gastrointestinal system. : No signs and/or symptoms were reported regarding the genitourinary system. EENT: No signs and/or symptoms were reported regarding the EENT system. Derm: Skin is intact, is healthy with good turgor, Skin is pink, warm \\T\\ dry. Musculoskeletal: No signs and/or symptoms reported regarding the musculoskeletal system. Vital Signs: 19:02 BP 142 / 104; Pulse 129; Resp 17; Temp 98.6(O); Pulse Ox 100% on R/A; Weight 86.64 kg; ss Height 5 ft. 7 in. ; Pain 3/10; 19:22 BP 125 / 91; Pulse 107; Resp 12; Pulse Ox 97% on R/A; me1 20:00 BP 151 / 92; Pulse 81; Resp 16; Pulse Ox 98% on R/A; me1 21:00 BP 140 / 87; Pulse 83; Resp 18; Pulse Ox 100% on R/A; me1 21:30 BP 134 / 80; Pulse 84; Resp 16; Pulse Ox 100% ; rv1 22:00 BP 124 / 94; Pulse 79; Resp 21; Pulse Ox 100% on R/A; me1 19:02 Body Mass Index 29.91 (86.64 kg, 170.18 cm) ss 19:02 Pain Scale: Adult ss ED Course: 18:47 Patient arrived in ED. rg4 18:57 Talib Alston PA is PHCP. cp 18:57 Eusebio Shelton MD is Attending Physician. cp 19:02 Arm band placed on right wrist. ss 19:04 Triage completed. ss 19:06 Yessica Ashley, RONEL is Primary Nurse. me1 19:10 Patient has correct armband on for positive identification. Placed in gown. Bed in low me1 position. Call light in reach. Side rails up X 1. Provided Education on: POC. Verbalized understanding. . Client placed on continuous cardiac and pulse oximetry monitoring. NIBP monitoring applied. nurse monitoring on. Pulse ox on. NIBP on. 19:10 No provider procedures requiring assistance completed. me1 19:22 Initial lab(s) drawn, by me, sent to lab. EKG done, by ED staff, reviewed by Talib Alston me1 RADHA. Inserted saline lock: 22 gauge in right antecubital area, using aseptic technique. 19:23 Basic Metabolic Panel Sent. me1 19:23 CBC with Diff Sent. me1 19:23 Magnesium Sent. me1 19:23 PT-INR Sent. me1 19:23 Troponin HS Sent. me1 20:14 XRAY Chest (1 view) In Process Unspecified. EDMS 20:35 Zaid Hudson is Hospitalizing Provider. cp 22:37 Patient admitted, IV remains in place. me1 Administered Medications: 19:32 Drug: Metoprolol IVP 5 mg IVP once; Hold for SBP <100 or HR <60. Route: IVP; Site: [facility] right antecubital; 20:15 Follow up: Response: No adverse reaction me1 19:32 Drug: Metoprolol PO 50 mg PO once Route: PO; me1 20:15 Follow up: Response: No adverse reaction me1 20:15 Drug: Aspirin PO Chewable Tablet 324 mg PO once; 81 mg tablets x 4 Route: PO; me1 20:15 Follow up: Response: No adverse reaction me1 Medication: 19:10 VIS not applicable for this client. me1 Outcome: 20:36 Decision to Hospitalize by Provider. cp 22:37 Admitted to Med/surg accompanied by tech, via wheelchair, room 221, with chart, Report me1 called to faxed report. Receipt confirmed with Jayna. 22:37 Condition: stable 22:37 Instructed on the need for admit, 23:15 Patient left the ED. me1 Signatures: Dispatcher [employer] EDMS Spicer, Calli, RN RN ss Talib Alston PA PA cp Garcia, Rubi 4 Thalia Hightower 1 Yessica Ashley, RN RN me1
--- NOTE | 2024-02-23 20:37 | EDPHYS ---
Physician Documentation [facility] Name: Crispin Simmons Age: 58 yrs Sex: Male : 1965 Arrival Date: 02/23/2024 Time: 18:45 Bed 15 Private MD: ED Physician Eusebio Shelton Historical: - Allergies: 02/22 19:00 No Known Allergies; ss - PMHx: 19:00 Diabetes - NIDDM; DIALYSIS MWF; Hypertension; Myocardial infarction; ss - PSHx: 19:00 CABG; Left arm fistula (ch); Right chest split jessica; ss - Immunization history:: Client reports having NOT received the Covid vaccine. - Infectious Disease History:: Denies. - Social history:: Smoking status: Patient denies any tobacco usage or history of. Vital Signs: 19:02 BP 142 / 104; Pulse 129; Resp 17; Temp 98.6(O); Pulse Ox 100% on R/A; Weight 86.64 kg; ss Height 5 ft. 7 in. ; Pain 3/10; 19:22 BP 125 / 91; Pulse 107; Resp 12; Pulse Ox 97% on R/A; me1 20:00 BP 151 / 92; Pulse 81; Resp 16; Pulse Ox 98% on R/A; me1 21:00 BP 140 / 87; Pulse 83; Resp 18; Pulse Ox 100% on R/A; me1 21:30 BP 134 / 80; Pulse 84; Resp 16; Pulse Ox 100% ; rv1 22:00 BP 124 / 94; Pulse 79; Resp 21; Pulse Ox 100% on R/A; me1 19:02 Body Mass Index 29.91 (86.64 kg, 170.18 cm) ss 19:02 Pain Scale: Adult ss MDM: 19:05 Patient medically screened. cp 02/22 19:10 Order name: Basic Metabolic Panel; Complete Time: 20:01 cp 02/22 20:02 Interpretation: Normal except: GLUC 122; BUN 49; CRE 10.20; GFR 5. cp 02/22 19:10 Order name: CBC with Diff; Complete Time: 20:01 cp 02/22 20:02 Interpretation: Normal except: RBC 3.59; HGB 11.4; HCT 33.7; RDW 15.4; CHRISTOPHE% 74.9; LYM% cp 11.2; EOSINOPHIL % 4.6; LYMA 0.6. 02/22 19:10 Order name: Magnesium; Complete Time: 20:01 cp 02/22 19:10 Order name: PT-INR; Complete Time: 20:01 cp 02/22 19:10 Order name: Troponin HS; Complete Time: 20:01 cp 02/22 20:02 Interpretation: Abnormal: Troponin HS 146.2. cp 02/22 22:14 Order name: Basic Metabolic Panel EDMS 02/22 22:14 Order name: Basic Metabolic Panel EDID 02/22 22:14 Order name: CBC with Automated Diff EDID 02/22 22:14 Order name: CBC with Automated Diff EDID 02/22 22:14 Order name: Thyroid Stimulating Hormone EDID 02/22 22:14 Order name: Thyroid Stimulating Hormone [facility] 02/22 22:14 Order name: Troponin High Sensitivity [facility] 02/22 22:14 Order name: Troponin High Sensitivity [facility] 02/22 22:14 Order name: Troponin High Sensitivity [facility] 02/22 19:10 Order name: XRAY Chest (1 view) 02/22 18:57 Order name: EKG; Complete Time: 18:58 cp 02/22 18:57 Order name: EKG - Nurse/Tech 02/22 19:10 Order name: Cardiac monitoring; Complete Time: 19:23 cp 02/22 19:10 Order name: IV Saline Lock; Complete Time: 19:23 cp 02/22 19:10 Order name: Labs collected and sent; Complete Time: 19:23 cp 02/22 19:10 Order name: O2 Per Protocol; Complete Time: 19:15 cp 02/22 19:10 Order name: O2 Sat Monitoring; Complete Time: 19:15 cp Administered Medications: 19:32 Drug: Metoprolol IVP 5 mg IVP once; Hold for SBP <100 or HR <60. Route: IVP; Site: me1 right antecubital; 20:15 Follow up: Response: No adverse reaction me1 19:32 Drug: Metoprolol PO 50 mg PO once Route: PO; me1 20:15 Follow up: Response: No adverse reaction me1 20:15 Drug: Aspirin PO Chewable Tablet 324 mg PO once; 81 mg tablets x 4 Route: PO; me1 20:15 Follow up: Response: No adverse reaction me1 Disposition Summary: 02/23/24 20:36 Hospitalization Ordered Notes: Hospitalization Status: Inpatient Admission cp Provider: Zaid Hudson cp Location: Telemetry/MedSurg (Inpatient) cp Condition: Stable cp Problem: new cp Symptoms: have improved cp Bed/Room Type: Standard cp Room Assignment: 221(02/23/24 22:25) wm Diagnosis - Unspecified atrial flutter cp - Subsequent non-ST elevation (NSTEMI) myocardial infarction cp Forms: - Medication Reconciliation Form cp - SBAR form cp - Leadership Thank You Letter cp Signatures: Dispatcher [employer] EDMS Calli Spicer, RN RN ss Talib Alston PA PA cp Lisa Cameron Michelle, RN RN me1 Corrections: (The following items were deleted from the chart) 19:11 19:11 BASIC METABOLIC PANEL+C.LAB.BRZ ordered. EDMS EDMS 19:11 19:11 CBC+H.LAB.BRZ ordered. EDMS EDMS 19:11 19:11 MAGNESIUM+C.LAB.BRZ ordered. EDMS EDMS 19:11 19:11 PROTIME (+INR)+COAG.LAB.BRZ ordered. EDMS EDMS 19:11 19:11 Troponin High Sensitivity+C.LAB.BRZ ordered. EDMS EDMS 22:25 20:36 cp wm
--- NOTE | 2024-02-23 21:44 | RAD REPORT ---
EXAM DESCRIPTION: RADChest Single View02/23/2024 8:12 pm CLINICAL HISTORY: PALPITATIONS COMPARISON: Chest Single View dated 01/04/2022; Chest Single View dated 01/01/2022; Chest Single View da jarrod 10/02/2021; Chest Single View dated 02/04/2019 TECHNIQUE: Portable AP view of the chest. FINDINGS: The lungs are clear. No pneumothorax or effusion. The cardiomediastinal contours are unre markable. IMPRESSION: No acute cardiopulmonary process.
--- NOTE | 2024-02-23 21:54 | P.HP ---
Certification for Inpatient Patient admitted to: Observation With expected LOS: <2 Midnights Practitioner: I am a practitioner with admitting privileges, knowledge of patient current condition, hospital course, and medical plan of care. Services: Services provided to patient in accordance with Admission requirements found in Title 42 Section 412.3 of the Code of Federal Regulations Patient History Date of Service: 02/23/24 Reason for admission: Palpitation History of Present Illness: 58-year-old gentleman with a history of end-stage renal disease on hemodialysis Tuesday and Tuesday, history of atrial fibrillation/atrial flutter was brought to the emergency department because his heart rate was up to 130s during dialysis. Patient reports his heart rate has been intermittently 1 25-1 30 over the past couple of days, symptoms associated with intermittent palpitation. He was noted to be in atrial flutter which patient stated is chronic. He was given a dose of IV metoprolol in the ED. patient is on Eliquis for A-fib anticoagulation. Chest x-ray showed no acute cardiopulmonary process. EKG demonstrated atrial flutter, troponin mildly elevated. Patient is hospitalized for further management. Allergies No Known Allergies Allergy (Unverified 11/25/17 16:53) Home Medications: Aspirin 81 mg PO DAILY 10/03/21 Magnesium Salicylate/Caffeine [Diurex Water Pills] 1 each PO DAILY 10/03/21 Rosuvastatin [Crestor*] 20 mg PO BEDTIME 10/03/21 Tamsulosin [Flomax*] 0.4 mg PO BEDTIME 10/03/21 Amlodipine [Norvasc*] 10 mg PO DAILY #30 tab 10/04/21 Furosemide [Lasix*] 40 mg PO BIDL 12/31/21 Epoetin [Retacrit] 4,000 unit IV EVERY HD vial 01/05/22 Heparin [Heparin 1,000 units/mL *] 6,000 unit IV EVERY HD PRN vial 01/05/22 Sevelamer Carbonate [Renvela*] 2,400 mg PO TIDWM 03/02/22 - Past Medical/Surgical History Diabetic: Yes -: NIDDM2 -: HTN -: DYSLIPIDEMIA -: ESRD -: AFIB -: CABGx2 Psychosocial/ Personal History: Patient lives at home with his . - Family History Father -: Stroke Brother -: Diabetes Mother -: Other (see notes) Notes: osteoperosis, dementia - Social History Alcohol use: No CD- Drugs: No Caffeine use: Yes Review of Systems Other: He denies any chest pain or shortness of breath. He stated he feels bloated. Except as documented, all other systems reviewed and negative. Physical Examination - Physical Exam General: Alert, In no apparent distress, Oriented x3 HEENT: Mucous membr. moist/pink, Sclerae nonicteric Neck: Supple, JVD not distended Respiratory: Clear to auscultation bilaterally, Normal air movement Cardiovascular: Normal S1 S2, Edema (Bilateral legs), Irregular heart rate/rhythm Gastrointestinal: Normal bowel sounds, Soft and benign, Non-distended, No tenderness Musculoskeletal: No tenderness, Other (Left forearm AV fistula) Integumentary: No rashes, No cyanosis Neurological: Normal speech, Normal strength at 5/5 x4 extr, Cranial nerves 3-12 intact Lymphatics: No axilla or inguinal lymphadenopathy - Studies Laboratory Data (last 24 hrs) 02/23/24 02/23/24 02/23/24 19:20 19:20 19:20 WBC 5.40 Hgb 11.4 L Hct 33.7 L Plt Count 184 PT 17.8 H INR 1.64 Sodium 136 Potassium 3.7 BUN 49 H Creatinine 10.20 H Glucose 122 H Magnesium 2.2 Assessment and Plan - Problems (Diagnosis) (1) Atrial flutter Current Visit: Yes Status: Acute (2) Elevated troponin Current Visit: No Status: Acute (3) Diabetes mellitus Current Visit: No Status: Chronic Qualifiers: Diabetes mellitus type: type 2 Diabetes mellitus prison insulin use: without prison use Diabetes mellitus complication status: with hyperglycemia Qualified Code(s): E11.65 - Type 2 diabetes mellitus with hyperglycemia (4) ESRD (end stage renal disease) Current Visit: No Status: Chronic (5) Hypertension Current Visit: No Status: Chronic Qualifiers: Hypertension type: primary hypertension - Plan Atrial flutter/A-fib Rapid ventricular rate Placed under observation on the medical floor Patient given oral metoprolol and IV metoprolol. Heart rate is currently controlled. Adjust home metoprolol dose for rate control Continue Eliquis. Most recent echocardiogram was 2 years ago and showed normal EF. Obtain echocardiogram Cardiology consult. Elevated troponin Likely secondary to demand ischemia and reduced clearance given CKD. Continue to monitor troponin Cardiology consult Obtain echocardiogram. End-stage renal disease on hemodialysis Nephrology consulted for routine hemodialysis Essential hypertension Metoprolol and amlodipine for blood pressure control. DVT prophylaxis: Patient is on Eliquis. Advanced directive: Full code - Advance Directives Does patient have a Living Will: No Does patient have a Durable POA for Healthcare: No
[2024-02-23] MEDS ORDERED: ONDANSETRON 4 MG/2 ML VIAL IV PRN (22:07)
[2024-02-23 23:20] VITALS: O2SAT 100
[2024-02-24 01:06] VITALS: BMI 29.9
[2024-02-24] MEDS: HEPARIN 5000 UNIT/ML 1 ML VIAL SQ SCH (01:31)
[2024-02-24 01:55] LABS: Absolute Basophils 0.1 K/uL (0-0.5); Absolute Eosinophils 0.4 K/uL (0-0.5); Absolute Lymphocytes (CBC) 0.7 K/uL (0.7-4.9); Absolute Monocytes 0.6 K/uL (0.1-1.3); Absolute Neutrophil 3.2 K/uL (1.8-8.0); Basophils % 1.9 % (0-1.3); Eosinophils % 8.8 % (0-4.4); Hemoglobin 10.7 g/dL (13.6-17.9); Lymphocytes % 14.3 % (15.3-44.8); MCH 32.5 pg (27.0-35.0); MCHC 34.7 g/dL (32.0-36.0); MCV 93.9 fL (80-100); MPV 7.8 fL (7.6-11.3); Monocytes % 11.6 % (3.3-12.3); Neutrophils % 63.4 % (41.7-73.7); Nucleated Red Blood Cells % 0.2 % (0-0); Platelets 162 thou/uL (152-406); Red Cell Distribution Width 15.2 % (12.1-15.2)
[2024-02-24 02:34] LABS: Anion Gap 12.7 mEq/L (5.0-15.0); Potassium 3.7 mEq/L (3.5-5.1); Thyroid Stimulating Hormone 5.64 uIU/mL (0.358-3.740)
[2024-02-24 02:35] LABS: Troponin High Sensitivity 128.1 pg/mL (<58.9)
[2024-02-24] MEDS: METOPROLOL TAR 25 MG TAB PO SCH (08:41)
[2024-02-24] MEDS: SEVELAMER CARBONATE 800 MG TABLET PO SCH (08:41)
[2024-02-24] MEDS: FLUTICASONE 50MCG NASAL SPRAY NAS SCH (08:41)
[2024-02-24] MEDS: APIXABAN 5 MG TABLET PO SCH (08:41)
[2024-02-24] MEDS: ASPIRIN 81 MG CHEWABLE TABLET PO SCH (08:41)
--- NOTE | 2024-02-24 11:22 | P.PN ---
Subjective Date of Service: 02/24/24 Chief Complaint: Palpitation Pt is pacing around in his room. He is eager to go home. Waiting for Cardiology eval. No other complaints. Review of Systems General: Unremarkable Eyes: Unremarkable ENT: Unremarkable Respiratory: Unremarkable Cardiovascular: Palpitations Gastrointestinal: Unremarkable Genitourinary: Unremarkable Musculoskeletal: Unremarkable Integumentary: Unremarkable Neurological: Unremarkable Lymphatics: Unremarkable Physical Examination - Vital Signs Temperature: 97.5 F Blood Pressure: 148/76 Pulse: 82 Respirations: 12 Pulse Ox (%): 97 - Physical Exam General: Alert, In no apparent distress, Oriented x3 HEENT: Atraumatic, Normocephalic, PERRLA Neck: Supple, 2+ carotid pulse no bruit Respiratory: Clear to auscultation bilaterally, Normal air movement Cardiovascular: No edema, Normal pulses, Regular rate/rhythm, Normal S1 S2 Capillary refill: <2 Seconds Gastrointestinal: Normal bowel sounds, Soft and benign, Non-distended Musculoskeletal: No clubbing, No swelling Integumentary: No rashes, No breakdown Neurological: Normal speech, Normal strength at 5/5 x4 extr, Normal tone, Sensation intact Lymphatics: No axilla or inguinal lymphadenopathy - Studies Laboratory Data (last 24 hrs) 02/23/24 02/23/24 02/23/24 19:20 19:20 19:20 WBC 5.40 Hgb 11.4 L Hct 33.7 L Plt Count 184 PT 17.8 H INR 1.64 Sodium 136 Potassium 3.7 BUN 49 H Creatinine 10.20 H Glucose 122 H Magnesium 2.2 Assessment And Plan - Plan Atrial flutter/A-fib: hear rate is under control. Will continue telemetry, Eliquis and metoprolol. Consulted cardiology. TSH is 5.64 and free T4 is 0.97. Elevated troponin: Likely due to A. fib/ A. flutter. Will trend troponin 128 <- 146.9 <- 146.2. Will f/u Echo. Consulted Cardiology. End-stage renal disease on hemodialysis: Consulted Nephrology for HD today. Essential hypertension: Continue metoprolol and amlodipine. DVT ppx: Eliquis. Dispo: pending hospital course.
[2024-02-24 12:24] VITALS: BP 167/100; TEMP 98.1
--- NOTE | 2024-02-24 13:40 | P.DS ---
Admission Date: 02/23/24 Discharge Date: 02/24/24 Disposition: AMA-LEFT AGAINST MEDICAL ADVIC Discharge Condition: FAIR Reason for Admission: Palpitation Brief History of Present Illness: 58-year-old gentleman with a history of end-stage renal disease on hemodialysis Tuesday and Tuesday, history of atrial fibrillation/atrial flutter was brought to the emergency department because his heart rate was up to 130s during dialysis. Patient reports his heart rate has been intermittently 1 25-1 30 over the past couple of days, symptoms associated with intermittent palpitation. He was noted to be in atrial flutter which patient stated is chronic. He was given a dose of IV metoprolol in the ED. patient is on Eliquis for A-fib anticoagulation. Chest x-ray showed no acute cardiopulmonary process. EKG demonstrated atrial flutter, troponin mildly elevated. Patient is hospitalized for further management. Hospital Course: Pt is a 58yo male with past medical history of end-stage renal disease on hemodialysis MWF and atrial fibrillation/atrial flutter who presented with A. fib with RVR. His heart rate was 130s during dialysis. On admission, ER physician gave iv metoprolol and admitted pt for further evaluation. Lab studies showed TSH 5.64, Free T4 0.97, Troponin 146.2, wbc 5, Hgb 10.7 , K 3.7 and Cr 11. We admitted pt for Atrial flutter/A-fib and gave Eliquis and metoprolol. We consulted cardiology for the elevated troponin. We also consulted Nephrology for dialysis, but pt left AMA on 02/24/24. Vital Signs/Physical Exam: Temp Pulse Resp BP Pulse Ox 98.1 F 114 H 14 167/100 H 96 02/24/24 12:00 02/24/24 12:00 02/24/24 12:00 02/24/24 12:00 02/24/24 12:00 Laboratory Data at Discharge: WBC 5.00 thou/uL (4.3-10.9) 02/24/24 01:46 Hgb 10.7 g/dL (13.6-17.9) L 02/24/24 01:46 Hct 31.0 % (39.6-49.0) L 02/24/24 01:46 Plt Count 162 thou/uL (152-406) 02/24/24 01:46 PT 17.8 SECONDS (9.5-12.5) H 02/23/24 19:20 INR 1.64 02/23/24 19:20 Sodium 137 mEq/L (136-145) 02/24/24 01:46 Potassium 3.7 mEq/L (3.5-5.1) 02/24/24 01:46 BUN 58 mg/dL (7-18) H 02/24/24 01:46 Creatinine 11.00 mg/dL (0.70-1.30) H 02/24/24 01:46 Glucose 130 mg/dL (74-106) H 02/24/24 01:46 Magnesium 2.2 mg/dL (1.6-2.4) 02/23/24 19:20 Home Medications: Aspirin 81 mg PO DAILY 10/03/21 Rosuvastatin [Crestor*] 20 mg PO BEDTIME 10/03/21 Tamsulosin [Flomax*] 0.4 mg PO BEDTIME 10/03/21 Amlodipine [Norvasc*] 10 mg PO DAILY #30 tab 10/04/21 Furosemide [Lasix*] 40 mg PO BIDL 12/31/21 Sevelamer Carbonate [Renvela*] 2,400 mg PO TIDWM 03/02/22 Apixaban [Eliquis] 5 mg PO BID 02/23/24 Fluticasone Propionate 2 spray XIANG DAILY 02/23/24 Lisinopril [Zestril] 20 mg PO DAILY 02/23/24 Followup: Hermelindo John DO [Primary Care Provider] -
[2024-02-24] MEDS ORDERED: ROSUVASTATIN 10 MG TAB PO SCH (21:00)
[2024-02-24] MEDS ORDERED: TAMSULOSIN 0.4 MG SR CAP PO SCH (21:00)
--- NOTE | 2024-02-27 13:09 | EKG ---
Test Date: 2024-02-23 Test Time: 19:15:14 Concrete Swimming Pool Installer: RV MEASUREMENT RESULTS: Intervals: Rate: 109 TN: QRSD: 102 QT: 304 QTc: 409 [place]: P: -81 TN: QRS: 99 T: 260 INTERPRETIVE STATEMENTS: Atrial flutter with variable AV block Rightward axis ST & T wave abnormality, consider inferolateral ischemia Abnormal ECG Compared to ECG 10/03/2023 23:51:58 Possible ischemia now present Sinus rhythm no longer present Prolonged QT interval no longer present ST (T wave) deviation still present Electronically Signed On 02-27-24 12:58:59 CDT by Selvin Hickey
== END 2024-02-24 14:02 | disposition left against medical advice (07) ==
LOC: ER 18:45 → ERHOLD 22:04 → 2ND 22:38
PROVIDERS: ADMIT Internal Medicine; ATTEND Hospitalist
DX: I48.11 Longstanding persistent atrial fibrillation (principal); E11.22 Type 2 diabetes mellitus with diabetic chronic kidney disease; I12.0 Hypertensive chronic kidney disease with stage 5 chronic kidney disease or end stage renal disease; N18.6 End stage renal disease; R79.89 Other specified abnormal findings of blood chemistry; Z79.01 Long term (current) use of anticoagulants; Z99.2 Dependence on renal dialysis; Z53.29 Procedure and treatment not carried out because of patient's decision for other reasons
CPT/HCPCS: 93005; 85025 ×2; 80048 ×2; 36415; 83735; 85610; 84443; 84484 ×3; 84439; 71045; J1644; G0378 ×3

== ENCOUNTER 2024-07-11 18:01 | Emergency (ER) | payer OTHER ==
--- NOTE | 2024-07-11 20:23 | RAD REPORT ---
EXAM DESCRIPTION: Lv Single View07/11/2024 8:09 pm CLINICAL HISTORY: Shortness of breath COMPARISON: January 2024 FINDINGS: The lungs appear clear of acute infiltrate. The heart is mildly to moderately enlarged Postsurgical changes involve the chest IMPRESSION: No acute abnormalities displayed
[2024-07-11 21:02] LABS: Absolute Basophils 0.1 K/uL (0-0.5); Absolute Eosinophils 0.4 K/uL (0-0.5); Absolute Lymphocytes (CBC) 0.5 K/uL (0.7-4.9); Absolute Monocytes 0.6 K/uL (0.1-1.3); Absolute Neutrophil 4.6 K/uL (1.8-8.0); Basophils % 0.9 % (0-1.3); Eosinophils % 6.5 % (0-4.4); Hematocrit 23.3 % (39.6-49.0); Lymphocytes % 7.6 % (15.3-44.8); MCH 32.9 pg (27.0-35.0); MCHC 34.5 g/dL (32.0-36.0); MCV 95.3 fL (80-100); MPV 7.3 fL (7.6-11.3); Monocytes % 9.8 % (3.3-12.3); Neutrophils % 75.2 % (41.7-73.7); Nucleated Red Blood Cells % 0.1 % (0-0); Platelets 220 thou/uL (152-406); RBC Red Blood Cell Count 2.44 M/uL (4.33-5.43); Red Cell Distribution Width 15.2 % (12.1-15.2)
[2024-07-11 21:03] LABS: Albumin/Globulin Ratio 0.7 (1.1-1.8); Bilirubin Direct 0.2 mg/dL (0-0.2); Bilirubin Indirect, Calculated 0.3 mg/dL (0.2-0.8); Bilirubin Total 0.5 mg/dL (0.2-1.0); Globulin 4.3 g/dL (2.3-3.5); Protein, Total 7.3 g/dL (6.4-8.2)
[2024-07-11 21:04] LABS: Protime INR 1.26
[2024-07-11 21:07] LABS: Anion Gap 11.9 mEq/L (5.0-15.0); Potassium 3.9 mEq/L (3.5-5.1)
[2024-07-11] MEDS ORDERED: METOPROLOL TARTRATE 5 MG/5 ML INJ IV ONE (21:08)
[2024-07-11 21:09] LABS: Troponin High Sensitivity 576.6 pg/mL (<58.9)
--- NOTE | 2024-07-11 21:51 | EDPHYS ---
Physician Documentation [facility] Name: Crispin Simmons Age: 58 yrs Sex: Male : 1965 Arrival Date: 07/11/2024 Time: 18:01 Bed 4 Private MD: ED Physician Sami Buck HPI: 07/11 20:01 This 58 yrs old Male presents to ER via Ambulatory with complaints of Dr murtaza, sp4 Low O2. 20:56 58-year-old male presents to the emergency room with complaint of elevated heart rate. sp4 Was dialyzed today at his dialysis center he has finished his dialysis but it was noted that his heart rate is elevated at 126. Patient has history of end-stage renal disease, [id number] diabetes, hypertension, SD. Patient just left [facility] where he had cardiac stent and also was managed for bleeding complication after cardiac stent. Has a left forearm fistula used for dialysis. Medications include amlodipine 10 mg daily, aspirin 81 mg daily, clopidogrel 75 mg daily, Eliquis 2.5 mg twice a day, fluticasone 50 mcg daily, [place] 5 as needed, lisinopril 20 daily, metoprolol 50 mg twice a day, rosuvastatin 20 mg daily, tamsulosin daily, Velphoro 500 mg daily. Historical: - Allergies: 18:45 No Known Allergies; iw - PMHx: 18:45 Diabetes - NIDDM; DIALYSIS MWF; Hypertension; Myocardial infarction; iw - PSHx: 18:45 CABG; Right chest split jessica; Left arm fistula; iw - Immunization history:: Adult Immunizations unknown. - Infectious Disease History:: Denies. - Family history:: not pertinent. - Social history:: Smoking status: unknown. ROS: 20:56 Constitutional: Negative for fever, chills, and weight loss, for elevated heart rate sp4 20:56 All other systems are negative, Exam: 20:56 Constitutional: This is a well developed, well nourished patient who is awake, alert, sp4 and in no acute distress. Chronically ill-appearing male nontoxic-appearing. Tachycardic, there is left forearm hemodialysis fistula, there is small ischemic ulcer left small distal finger. Ischemic ulcers chronic appearing. Head/Face: Normocephalic, atraumatic. Eyes: Pupils equal round and reactive to light, extra-ocular motions intact. Lids and lashes normal. Conjunctiva and sclera are not injected. Cornea within normal limits. Periorbital areas with no swelling, redness, or edema. ENT: Nares patent. No nasal discharge, no septal abnormalities noted. Tympanic membranes are normal and external auditory canals are clear. Oropharynx with no redness, swelling, or masses, exudates, or evidence of obstruction, uvula midline. Mucous membranes moist. Neck: Trachea midline, no thyromegaly or masses palpated, and no cervical lymphadenopathy. Supple, full range of motion without nuchal rigidity, or vertebral point tenderness. Chest/axilla: Normal chest wall appearance and motion. Nontender with no deformity. No lesions are appreciated. Cardiovascular: Regular rate and rhythm with a normal S1 and S2. No gallops, murmurs, or rubs. Normal PMI, no JVD. No pulse deficits. Respiratory: Lungs have equal breath sounds bilaterally, clear to auscultation and percussion. No rales, rhonchi or wheezes noted. No increased work of breathing, no retractions or nasal flaring. Abdomen/GI: Soft, with normal bowel sounds. No distension or tympany. No guarding or rebound. No evidence of tenderness throughout. Back: No spinal tenderness. No costovertebral tenderness. Skin: Warm, dry with normal turgor. Normal color with no rashes, no lesions, and no evidence of cellulitis. MS/ Extremity: Pulses equal, no cyanosis. Neurovascular intact. Full, normal range of motion. Neuro: Awake and alert, GCS 15, oriented to person, place, time, and situation. Cranial nerves II-XII grossly intact. Motor strength 5/5 in all extremities. Sensory grossly intact. 20:56 ECG was reviewed by the Attending Physician. EKG at 2027 reveals atrial flutter with variable AV block at the rate of 110. Otherwise normal Vital Signs: 18:43 BP 129 / 96; Pulse 126; Resp 18; Temp 97.8; Pulse Ox 100% on R/A; Weight 83.46 kg; iw Height 5 ft. 7 in. ; 20:46 BP 111 / 79; Pulse 109; Resp 19 S; Pulse Ox 98% on R/A; ha1 21:36 BP 114 / 81; Pulse 89; Resp 18; Pulse Ox 98% on R/A; kj2 22:06 BP 118 / 73; Pulse 93; Resp 18; Temp 98; Pulse Ox 100% on R/A; kj2 18:43 Body Mass Index 28.82 (83.46 kg, 170.18 cm) iw Isaak Coma Score: 20:56 Eye Response: spontaneous(4). Motor Response: obeys commands(6). Verbal Response: sp4 oriented(5). Total: 15. MDM: 20:03 Patient medically screened. sp4 07/11 18:52 Order name: Basic Metabolic Panel; Complete Time: 21:41 iw 07/11 18:52 Order name: CBC with Diff; Complete Time: 21:41 iw 07/11 18:52 Order name: PT-INR; Complete Time: 21:41 iw 07/11 18:52 Order name: Troponin HS; Complete Time: 21:41 iw 07/11 20:40 Order name: LFT's; Complete Time: 21:41 sp4 07/11 18:52 Order name: XRAY Chest (1 view); Complete Time: 21:41 iw 07/11 18:52 Order name: EKG; Complete Time: 18:52 iw 07/11 18:52 Order name: Cardiac monitoring; Complete Time: 20:39 iw 07/11 18:52 Order name: EKG - Nurse/Tech; Complete Time: 20:39 iw 07/11 18:52 Order name: IV Saline Lock; Complete Time: 20:39 iw 07/11 18:52 Order name: Labs collected and sent; Complete Time: 20:39 iw 07/11 18:52 Order name: O2 Per Protocol; Complete Time: 20:39 iw 07/11 18:52 Order name: O2 Sat Monitoring; Complete Time: 20:39 iw EC:56 Rate is 110 beats/min. Rhythm is irregularly irregular, A flutter. QRS [place] is Normal. sp4 QRS interval is normal. QT interval is normal. No ST changes noted. Clinical impression: No evidence of ischemia. Interpreted by me. Reviewed by me. Administered Medications: 21:11 Drug: Metoprolol IVP 5 mg IVP once; Hold for SBP <100 or HR <60. Route: IVP; Site: ha1 right forearm; 21:56 Follow up: Response: No adverse reaction kj2 22:07 Drug: Metoprolol PO 50 mg PO once Route: PO; kj2 22:07 Follow up: Response: No adverse reaction; Medication administered at discharge. kj2 Disposition Summary: 07/11/24 21:51 Discharge Ordered Notes: Location: Home sp4 Problem: new sp4 Symptoms: have improved sp4 Condition: Stable sp4 Diagnosis - Typical atrial flutter sp4 - Tachycardia, Atrial flutter with variable AV block sp4 Followup: sp4 - With: Favian Whittaker MD - When: 7 - 10 days - Reason: Recheck today's complaints Discharge Instructions: - Discharge Summary Sheet sp4 - Atrial Flutter sp4 Forms: - Patient Portal Instructions sp4 Signatures: Dispatcher [employer] EDMS Leila Reyes, RONEL RODNEY iw Latoya Reddy RN RN ha1 Sami Buck MD MD sp4 Cora Flowers RN RN kj2 Corrections: (The following items were deleted from the chart) 18:53 18:52 BASIC METABOLIC PANEL+C.LAB.BRZ ordered. EDMS EDMS 18:53 18:52 CBC+H.LAB.BRZ ordered. EDMS EDMS 18:53 18:52 PROTIME (+INR)+COAG.LAB.BRZ ordered. EDMS EDMS 18:53 18:52 Troponin High Sensitivity+C.LAB.BRZ ordered. EDMS EDMS
--- NOTE | 2024-07-11 21:51 | ER ---
Nurse's Notes [facility] Name: Crispin Simmons Age: 58 yrs Sex: Male : 1965 Arrival Date: 07/11/2024 Time: 18:01 Bed 4 Private MD: Diagnosis: Typical atrial flutter;Tachycardia, Atrial flutter with variable AV block Presentation: 07/11 18:43 Chief complaint: Patient states: was at dialysis and was told his heart rate was 127 iw and to come to ER. Coronavirus screen: Client presents with at least one sign or symptom that may indicate coronavirus-19. Ebola Screen: No symptoms or risks identified at this time. Initial Sepsis Screen: Does the patient meet any 2 criteria? No. Patient's initial sepsis screen is negative. Does the patient have a suspected source of infection? No. Patient's initial sepsis screen is negative. Risk Assessment: Do you want to hurt yourself or someone else? Patient reports no desire to harm self or others. Onset of symptoms was July 11, 2024. 18:43 Method Of Arrival: Ambulatory iw 18:43 Acuity: CHRIS 3 iw Historical: - Allergies: 18:45 No Known Allergies; iw - PMHx: 18:45 Diabetes - NIDDM; DIALYSIS MWF; Hypertension; Myocardial infarction; iw - PSHx: 18:45 CABG; Right chest split jessica; Left arm fistula; iw - Immunization history:: Adult Immunizations unknown. - Infectious Disease History:: Denies. - Family history:: not pertinent. - Social history:: Smoking status: unknown. Screenin:46 [facility] ED Fall Risk Assessment (Adult) History of falling in the last 3 months, ha1 including since admission No falls in past 3 months (0 pts) Confusion or Disorientation No (0 pts) Intoxicated or Sedated No (0 pts) Impaired Gait No (0 pts) Mobility Assist Device Used Yes (1 pt) Altered Elimination No (0 pt) Score/Fall Risk Level 0 - 2 = Low Risk Oriented to surroundings, Maintained a safe environment, Educated pt \T\ family on fall prevention, incl call for assistance when getting out of bed, Hourly rounding (assess needs \T\ fall precautionary measures) done. Abuse screen: Denies threats or abuse. Denies injuries from another. Nutritional screening: No deficits noted. Tuberculosis screening: No symptoms or risk factors identified. Assessment: 20:05 General: Appears comfortable, Behavior is calm, cooperative. Pain: Denies pain. Neuro: ha1 Level of Consciousness is awake, alert, obeys commands, Oriented to person, place, time, situation. Cardiovascular: Denies chest pain, Patient's skin is warm and dry. Rhythm is atrial fibrillation. Respiratory: Airway is patent Respiratory effort is even, unlabored, Respiratory pattern is regular, symmetrical. Derm: Skin is moist, Skin is normal. Musculoskeletal: Circulation, motion, and sensation intact. 21:00 Reassessment: Patient and/or family updated on plan of care and expected duration. Pain ha1 level reassessed. Patient is alert, oriented x 3, equal unlabored respirations, skin warm/dry/pink. 22:06 Reassessment: provided education on following up with casting room operator. ha1 Vital Signs: 18:43 BP 129 / 96; Pulse 126; Resp 18; Temp 97.8; Pulse Ox 100% on R/A; Weight 83.46 kg; iw Height 5 ft. 7 in. ; 20:46 BP 111 / 79; Pulse 109; Resp 19 S; Pulse Ox 98% on R/A; ha1 21:36 BP 114 / 81; Pulse 89; Resp 18; Pulse Ox 98% on R/A; kj2 22:06 BP 118 / 73; Pulse 93; Resp 18; Temp 98; Pulse Ox 100% on R/A; kj2 18:43 Body Mass Index 28.82 (83.46 kg, 170.18 cm) iw Isaak Coma Score: 20:56 Eye Response: spontaneous(4). Motor Response: obeys commands(6). Verbal Response: sp4 oriented(5). Total: 15. ED Course: 18:02 Patient arrived in ED. mr 18:45 Triage completed. iw 18:45 Arm band placed on. iw 20:01 Sami Buck MD is Attending Physician. sp4 20:05 Patient has correct armband on for positive identification. Placed in gown. Bed in low ha1 position. Call light in reach. Side rails up X 1. 20:11 XRAY Chest (1 view) In Process Unspecified. EDMS 20:15 Inserted saline lock: 20 gauge in right forearm, using aseptic technique. Blood ha1 collected. Flushed with 10 mL NS. 20:39 Latoya Reddy, RN is Primary Nurse. ha1 20:39 Basic Metabolic Panel Sent. ha1 20:39 CBC with Diff Sent. ha1 20:39 PT-INR Sent. ha1 20:39 Troponin HS Sent. ha1 21:24 Provided Education on: call light, fall precautions. kj2 21:24 No provider procedures requiring assistance completed. kj2 21:50 Favian Whittaker MD is Referral Physician. sp4 22:05 IV discontinued, intact, bleeding controlled, No redness/swelling at site. Pressure ha1 dressing applied. Administered Medications: 21:11 Drug: Metoprolol IVP 5 mg IVP once; Hold for SBP <100 or HR <60. Route: IVP; Site: [facility] right forearm; 21:56 Follow up: Response: No adverse reaction kj2 22:07 Drug: Metoprolol PO 50 mg PO once Route: PO; kj2 22:07 Follow up: Response: No adverse reaction; Medication administered at discharge. kj2 Medication: 20:48 VIS not applicable for this client. ha1 Outcome: 21:51 Discharge ordered by . sp4 22:05 Discharged to home via wheelchair, with family, ha1 22:05 Condition: stable 22:05 Discharge instructions given to patient, family, Instructed on discharge instructions, follow up and referral plans. Demonstrated understanding of instructions, follow-up care, 22:07 Patient left the ED. kj2 Signatures: Dispatcher [employer] EDPR Nicole Andino, Reg Reg mr Leila Reyes RN RN Latoya Reddy RN RN 1 Sami Buck MD MD sp4 Cora Flowers RN RN kj2 Corrections: (The following items were deleted from the chart) 22:06 22:05 Discharge instructions given to patient, family, ha1 ha1
[2024-07-11] MEDS ORDERED: METOPROLOL XL 50 MG TAB PO ONE (21:58)
[2024-07-11 22:34] VITALS: BP 118/73; TEMP 98; O2SAT 100
--- NOTE | 2024-07-12 16:21 | EKG ---
Test Date: 2024-07-11 Test Time: 20:28:18 Security Compliance Engineer: OLIVIER MEASUREMENT RESULTS: Intervals: Rate: 110 [place]: QRSD: 108 QT: 308 QTc: 416 [place]: P: [place]: QRS: 92 T: -86 INTERPRETIVE STATEMENTS: Atrial flutter with variable AV block Inferior infarct, age undetermined ST & T wave abnormality, consider lateral ischemia Abnormal ECG Compared to ECG 02/23/2024 19:15:14 Myocardial infarct finding now present Right-axis deviation no longer present ST (T wave) deviation still present Possible ischemia still present Electronically Signed On 07-12-24 16:20:25 CDT by Louis Reddy
== END 2024-07-11 22:07 | disposition home or self-care (01) ==
LOC: ER 18:01
DX: I48.3 Typical atrial flutter (principal); E11.22 Type 2 diabetes mellitus with diabetic chronic kidney disease; I12.0 Hypertensive chronic kidney disease with stage 5 chronic kidney disease or end stage renal disease; N18.6 End stage renal disease; Z99.2 Dependence on renal dialysis; Z79.01 Long term (current) use of anticoagulants
CPT/HCPCS: 36415; 71045; 80048; 80076; 84484; 85025; 85610; 93005; 96374; 99284

== ENCOUNTER 2024-12-04 10:07 | Day surgery (SDC) | payer OTHER ==
[2024-12-03 10:20] LABS: Absolute Basophils 0.1 K/uL (0-0.5); Absolute Eosinophils 0.8 K/uL (0-0.5); Absolute Lymphocytes (CBC) 0.6 K/uL (0.7-4.9); Absolute Monocytes 0.6 K/uL (0.1-1.3); Absolute Neutrophil 4.7 K/uL (1.8-8.0); Eosinophils % 11.9 % (0-4.4); Hematocrit 27.8 % (39.6-49.0); Hemoglobin 9.2 g/dL (13.6-17.9); Lymphocytes % 9.5 % (15.3-44.8); MCH 31.4 pg (27.0-35.0); MCHC 33.2 g/dL (32.0-36.0); MCV 94.5 fL (80-100); MPV 6.7 fL (7.6-11.3); Monocytes % 8.6 % (3.3-12.3); Nucleated Red Blood Cells % 0.1 % (0-0); Platelets 268 thou/uL (152-406); RBC Red Blood Cell Count 2.94 M/uL (4.33-5.43); Red Cell Distribution Width 16.5 % (12.1-15.2)
[2024-12-03 10:35] LABS: PT Prothrombin Time 12.5 SECONDS (9.4-12.5); PTT, Activated Partial Thromb 36.5 SECONDS (24.3-36.9); Protime INR 1.19
[2024-12-03 10:37] LABS: Anion Gap 14.9 mEq/L (5.0-15.0); Potassium 4.9 mEq/L (3.5-5.1)
[2024-12-04] MEDS ORDERED: CEFAZOLIN SODIUM 2 GM/VIAL ONE (10:46)
[2024-12-04] MEDS: NA CHLORIDE 0.9% 500 ML ONE (11:00)
[2024-12-04] MEDS ORDERED: ONDANSETRON 4 MG/2 ML VIAL ONE (11:04)
[2024-12-04] MEDS ORDERED: LIDOCAINE 2% MPF 5 ML VIAL ONE (11:04)
[2024-12-04] MEDS ORDERED: propofoL 200 MG/20 ML VIAL IV ONE (11:05)
[2024-12-04] MEDS ORDERED: MIDAZOLAM HCL 2 MG/2 ML INJ ONE (11:05)
[2024-12-04] MEDS ORDERED: FENTANYL CITR 100 MCG/2 ML ONE (11:05)
--- NOTE | 2024-12-04 12:14 | EKG ---
Test Date: 2024-12-03 Test Time: 10:45:27 Webbing Weaver: ZEE MEASUREMENT RESULTS: Intervals: Rate: 51 FL: 174 QRSD: 102 QT: 482 QTc: 444 [place]: P: 33 FL: 174 QRS: 71 T: 130 INTERPRETIVE STATEMENTS: Sinus bradycardia Nonspecific T wave abnormality Abnormal ECG Compared to ECG 07/11/2024 20:28:18 T-wave abnormality now present Atrial flutter no longer present Myocardial infarct finding no longer present ST (T wave) deviation no longer present Possible ischemia no longer present Electronically Signed On 12-04-24 12:12:24 INCIDENT HANDLER by Louis Reddy
[2024-12-04] MEDS ORDERED: LIDOCAINE HCL/EPINEPHRINE 20 ML MDV ONE (12:21)
--- NOTE | 2024-12-04 13:18 | P.OP ---
Preoperative diagnosis: Bilateral Lower Extremity Chronic Non-Healing Wounds Postoperative diagnosis: Bilateral Lower Extremity Chronic Non-Healing Wounds Primary procedure: Debridement of Bilateral Lower Extremity Chronic Non-Healing Wounds Anesthesia: GETA Estimated blood loss: <10cc Specimen: Debridement Tissue, Cultures Findings: Large complex irregular shaped wounds of bilateral lower extremities ~ 30% Complications: None Transferred to: Recovery Room Condition: Good
[2024-12-04 14:14] VITALS: O2SAT 97
[2024-12-04 15:20] VITALS: BP 171/81; TEMP 97
--- NOTE | 2024-12-04 20:59 | OP ---
Date of Procedure: 12/04/2024 Surgeon: Brijesh Fernández MD, Preoperative Diagnosis: Bilateral lower extremity chronic nonhealing wounds. Postoperative Diagnosis: Bilateral lower extremity chronic nonhealing wounds. Procedure Performed: Debridement of bilateral lower extremity chronic nonhealing wounds. Anesthesia: General endotracheal. Estimated Blood Loss: Less than 10 cc. Specimens: Debridement tissues, and culture sent for both aerobic and anaerobic speciation. Findings: Large complex irregular-shaped wounds of bilateral lower extremities, approximately 25% to 30% of the lower extremity below the knee was involved. Complications: None. Disposition: The patient was transferred to recovery room in good condition. Procedure In Detail: After informed consent was obtained, the patient was brought to the operating r oom, prepped and draped in the usual sterile fashion. After adequate anesthesia was achieved, I used a combination of sharp dissection with a curette as well as pickups and scissors to ultimately remov e a significant amount of dermal tissue down to the subcutaneous and into the adipose tissue of bilat eral lower extremities, below the knee, above the foot for the majority of these wounds. These were all cleansed down to good healthy bleeding tissue. The area was copiously irrigated and scrubbed aft er all nonviable tissue was removed. Cultures have been sent for both aerobic and anaerobic speciati on prior to scrubbing, and ultimately good hemostasis was achieved with simple pressure. The wounds were then wrapped with Vashe-soaked gauze, and a Kerlix and Anmol bandage were applied. The patient to lerated the procedure without incident or complication, and transferred to PACU in good condition. A ll counts were correct at the end of the case. TK/MODL Voice ID: [id number] Report ID: [id number]
== END 2024-12-04 14:55 | disposition home or self-care (01) ==
LOC: OR 10:07
PROVIDERS: ATTEND Surgery
PROC: 0JDN3ZZ Extraction of Right Lower Leg Subcutaneous Tissue and Fascia, Percutaneous Approach (ICD-10-PCS; 2024-12-04)
PROC: 0JDP3ZZ Extraction of Left Lower Leg Subcutaneous Tissue and Fascia, Percutaneous Approach (ICD-10-PCS; principal; 2024-12-04 12:45)
DX: S81.802A Unspecified open wound, left lower leg, initial encounter (principal); S81.801A Unspecified open wound, right lower leg, initial encounter; L08.9 Local infection of the skin and subcutaneous tissue, unspecified; E11.622 Type 2 diabetes mellitus with other skin ulcer; E11.52 Type 2 diabetes mellitus with diabetic peripheral angiopathy with gangrene; I96 Gangrene, not elsewhere classified; N18.6 End stage renal disease; R09.89 Other specified symptoms and signs involving the circulatory and respiratory systems
CPT/HCPCS: 93005; 87070; 85025; 80048; 36415; 87205 ×2; 85610; 82947; 88304; 85730; 87075; 11042; J2704; J2003; J2250; J3010; J2405; J7040